=== PATIENT | female | born 1975 | race Caucasian/White ===

== ENCOUNTER 2025-05-07 07:33 | Inpatient (IN) | payer OTHER, SELFPAY ==
--- OUTSIDE RECORDS SUMMARY | 2021-12-20 04:39 | XMS_ITS | Continuity of Care Document ---
Author Organization [facility] Address [address] [place] [place] [address] Phone Care Team Providers Care Offset Plate Preparation Supervisor Name Role Phone Sean DO, Jessica Unavailable [...] Healthcare, [address], [place], [id number], [place] tel:[phone] [facility] No Information 2 Sean Lopez. [address], [id number] 0, [place], [id number], [place]. tel:[phone] [facility], [address], [place], [id number], [place] tel:[phone] [facility] No Information 1 [place]. [address], [id number] 0, [place], [id number], [place]. tel:[phone] OFFICE/OUTPA TIENT VISIT, EST [facility], [address], [place], [id number], [place] tel:[phone] [facility] Body mass index (BMI) 45.0-49.9, adultOpioid dependencePs ychophysiolo gic insomnia 1 Sean Lopez. [address], [id number] [place], [id number], [place]. tel:[phone] Referring Provider: Jessica Estrada, [address] [id number] [place], [address]. tel:[phone] OFFICE/OUTPA TIENT VISIT, EST [facility], [address], [place], [id number], [place] tel:[phone] [facility] Body mass index (BMI) 45.0-49.9, adultOpioid dependencePs ychophysiolo gic insomnia Nov- 1 Sean Lopez. [address], [id number] 0CH, [place], [place], [id number], [place]. tel:[phone] Referring Provider: Jessica Estrada, [address] [id number] [place], [address]. tel:[phone] OFFICE/OUTPA TIENT VISIT, EST [facility], [address], [place], [place], [id number], [place] tel:[phone] [facility] Opioid dependencePs ychophysiolo gic insomniaBody mass index (BMI) 40.0-44.9, adult Oct- 1 Sean Lopez. [address], [id number] 0CH, [place], [place], [id number], [place]. tel:[phone] Referring Provider: Jessica Estrada, [address] [id number] , [place], [address]. tel:[phone] OFFICE/OUTPA TIENT VISIT, EST [facility], [address], [place], [place], [id number], [place] tel:[phone] [facility] Opioid dependencePs ychophysiolo gic insomniaBody mass index (BMI) 40.0-44.9, adult 0 Sean Lopez. [address], [id number] 0CH, [place], [place], [id number], [place]. tel:[phone] Referring Provider: Jessica Estrada, [address] [id number] [place], [address]. tel:[phone] OFFICE/OUTPA TIENT VISIT, EST [facility], [address], [place], [place], [id number], [place] tel:[phone] [facility] Opioid dependencePs ychophysiolo gic insomniaBody mass index (BMI) 40.0-44.9, adult Sep- 0 Sean Jessica. [address], [id number] 0CH, [place], [place], [id number], [place]. tel:[phone] Referring Provider: Jessica Estrada, [address] [id number] [place], [address]. tel:[phone] OFFICE/OUTPA TIENT VISIT, EST [facility], [address], [place], [place], [id number], [place] tel:[phone] [facility] Opioid dependencePs ychophysiolo gic insomniaBody mass index (BMI) 40.0-44.9, adult 0 Sean Jessica. [address], [id number] 0CH, [place], [place], [address], [place]. tel:[phone] Referring Provider: Jessica Estrada, [address] [id number] [place], [address]. tel:[phone] OFFICE/OUTPA TIENT VISIT, EST [facility], [address], [place], [place], [id number], [place] tel:[phone] [facility] Opioid dependencePs ychophysiolo gic insomniaBody mass index (BMI) 40.0-44.9, adult 0 Sean Jessica. [address], [id number] 0CH, [place], [id number], [place]. tel:[phone] Referring Provider: Jessica Estrada, [address] [id number] [place], [address]. tel:[phone] OFFICE/OUTPA TIENT VISIT, EST [facility], [address], [place], [place], [id number], [place] tel:[phone] [facility] Opioid dependencePs ychophysiolo gic insomniaBody mass index (BMI) 40.0-44.9, adult 0 Sean Jessica. [address], [id number] 0CH, [place], [id number], [place]. tel:[phone] Referring Provider: Jessica Estrada, [address] [id number] [place], [address]. tel:[phone] OFFICE/OUTPA TIENT VISIT, EST [facility], [address], [place], [place], [id number], [place] tel:[phone] [facility] Opioid dependencePs ychophysiolo gic insomniaBody mass index (BMI) 40.0-44.9, adult Mar-3 0-202 0 Sean Jessica. [address], [id number] 0CH, [place], [id number], [place]. tel:[phone] Referring Provider: Jessica Estrada, [address] [id number] [place], [address]. tel:[phone] OFFICE/OUTPA TIENT VISIT, EST [facility], [address], [place], [place], [id number], [place] tel:[phone] [facility] Body mass index (BMI) 40.0-44.9, adultOpioid dependencePs ychophysiolo gic insomnia Mar-0 2-202 0 eSan Jessica. [address], [id number] [place], [address], [place]. tel:[phone] Referring Provider: Jessica Estrada, [address] [id number] [place], [address]. tel:[phone] OFFICE/OUTPA TIENT VISIT EST Telehealth [facility], [address], [place], [place], [id number], [place] tel:[phone] [facility] Body mass index (BMI) 40.0-44.9, adultOpioid dependencePs ychophysiolo gic insomnia Feb-0 3-202 0 Sean Jessica. [address], [id number] 0CH, [place], [id number], [place]. tel:[phone] Referring Provider: Jessica Estrada, [address] [id number] [place], [address]. tel:[phone] OFFICE/OUTPA TIENT VISIT EST Telehealth [facility], [address], [place], [place], [id number], [place] tel:[phone] [facility] Body mass index (BMI) 40.0-44.9, adultOpioid dependence Sean Jessica. [address], [id number] [place], [id number], [place]. tel:[phone] Referring Provider: Jessica Estrada, [address] [id number] [place], [address]. tel:[phone] OFFICE/OUTPA TIENT VISIT EST Telehealth [facility], [address], [place], [place], [id number], [place] tel:[phone] [facility] Body mass index (BMI) 40.0-44.9, adultOpioid dependence Sean Jessica. [address], [id number] 0, [place], [id number], [place]. tel:[phone] Referring Provider: Jessica Estrada, [address] [id number] [place], [address]. tel:[phone] OFFICE/OUTPA TIENT VISIT EST Telehealth [facility], [address], [place], [place], [id number], [place] tel:[phone] [facility] Opioid dependenceBo dy mass index (BMI) 40.0-44.9, adult Sean Jessica. [address], [id number] 0, [place], [id number], [place]. tel:[phone] Referring Provider: Jessica Estrada, [address] [id number] [place], [address]. tel:[phone] PSYCH DIAG EVAL W/MED SRVCS Telehealth [facility], [address], [place], [id number], [place] tel:[phone] [facility] Body mass index (BMI) 40.0-44.9, adultOpioid dependence 9 Sean Lopez. [address], [id number] [place], [id number], [place]. tel:[phone] Referring Provider: Jessica Estrada, [address] [id number] [place], [address]. tel:[phone] OFFICE/OUTPA TIENT VISIT, NEW [facility], [address], [place], [id number], [place] tel:[phone] [facility] AMP physical (chief complaint) Body mass index (BMI) 40.0-44.9, adultTobacco useOpioid dependenceDe pressionGene ralized anxiety disorder 9 Brothers Tanya. [address], [id number] [place], [id number], [place]. tel:[phone] Referring Provider: Tanya Zamora, [address] [id number] [place], [address]. tel:[phone] PSYCH DIAGNOSTIC EVALUATION [facility], [address], [place], [id number], [place] tel:[phone] [facility] Major depressive disorder, single episode, mildOpioid dependenceCa nnabis dependence 9 Jono Crum. [address], [place], [id number], [place]. tel:[phone] Referring Provider: Skyla De La Cruz, [address], [place], [address]. tel:[phone] Family History Family Member Type Diagnosis Age [...] Of Treatment Date Type Action Status Goal Influenza vaccine. Due on due Goal HPV. Due on due Goal HPV, high+low-risk. Due on S due Goal Pap/HPV testing. [...] on due Goal Influenza vaccine. Due on Ia due Goal Pap/HPV testing. Due on due [...] due Goal HPV. Due on due Goal HPV. Due on [...] on due Goal Influenza vaccine. Due on p due Goal Pap/HPV testing. Due on [...] Diabetes screening. Due on M due Goal Pap/HPV testing. Due on due [...] diet completed Goal Influenza vaccine. Due on Oc due Goal Diabetes screening. Due on O due Goal Td vaccine. Due on due Goal Depression screening. Due on due Goal HPV, high+low-risk. Due on O due Goal Tdap. Due on due Goal Pap/HPV testing. Due on due Goal Lifestyle education regardin g diet completed Goal Diabetes screening. Due on S due Goal Pap/HPV testing. Due on due Goal HPV, high+low-risk. Due on S due Goal Td vaccine. Due on due [...] in a program for 7 months in [facility] but they required twice a week attendance, one to see provider and one for group. Patient could not keep up with it plus it was rumored that the program was going to close. The patient lives in [facility] and has a PCP there at from [facility] --Emi Landers MD. States she is seen fairly regularly for her high BP and pain issues and had blood work drawn three weeks ago there. States she was checked for Hep C there and it was negative. Checked for HIV while five years ago and it was negative. 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 She attends AA meetings in [facility] because they have no NA program [...]
--- OUTSIDE RECORDS SUMMARY | 2025-05-04 06:40 | XMS_ITS ---
Author Organization [facility] Address [address] [place] [address] Care Team Providers Care Business Systems Lead Name Role Phone Junito Banks Primary Care Provider [phone] Samina Miller Unavailable [phone] REASON FOR VISIT CRU aT Social History Tobacco Use: Social History Observation Description Date Details (start date - stop date) Current Smoker 05/03/1995 - NA PRAPARE Question Answer Notes Date Completed/Updated: 05/04/2025 What is your current housing situation? I do not have housing (staying with others, in a hotel, in a residential, living outside on the street, on a beach, or in a park) Are you worried about losing your housing? Yes What is the highest level of school that you have finished? More than high school What is your current work situation? 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 Check all that apply Food,Utilities Has lack of transportation k ept you from medical appointments, meetings, work or from getting things needed for daily living? Yes, it has kept me from medical appointments or from getting my medications,Yes, it has kept me from non-medical meetings, appointments, work, or getting things needed for daily living How often do you see or talk to people that you care about and feel close to? (For example: talking to friends on the phone, visiting friends or family, going to lutheran or club meetings) More than 5 times a week How stressed are you? Stress is when someone feels tense, nervous, anxious, or can\t sleep at night because their mind is troubled Very much In the past year have you sp ent more than 2 nights in a row in a correction, usp, mcc center, or juvenile correctional facility? No Are you a refugee? I choose not to answer this q uestion What country are you from? I choose not to answe r this question Do you feel physically and e motionally safe where you currently live? Yes In the past year, have you b een afraid of your partner or ex-partner? No PRAPARE Score: 10 Enabling Services Provided? Yes Please specify Case Management Asse ssment First Visit,Referral for Food Services,Referral for Housing Services Tobacco Control (Standard) Question Answer Notes Tobacco use: Current smoker When did you start smoking? 05/03/1995 How often do you smoke cigarettes? Some days, bu t not every day How many cigarettes a day do you smoke? 5 or les s Are you interested in quitting? Thinking about q uitting Additional Findings: Tobacco user e-cigarette Problems Problem Type SNOMED Code ICD Code Onset Dates Problem Status W/U Status Risk Notes Problem Substance abuse (8382990464) Substance abuse (F19.10) Active confirmed Problem Mental health disorder (F99) Active confirmed Encounters Encounter Location Date Provider Diagnosis [place] [address] [place] [address] 05/04/2025 Samina Miller Substance abuse F19.10 ; Mental health disorder F99 and Over weight E66.3 Assessments Encounter Date Diagnosis (ICD Code) Assessment Notes Treatment Notes Treatment Clinical Notes Section Notes 05/04/2025 Substance abuse (ICD-10 - F19.10) 05/04/2025 Mental health disorder (ICD-10 - F99) 05/04/2025 Over weight (ICD-10 - E66.3) 05/04/2025 Other Clinician met w ith client to assess needs for residential services. Clinician gathered information regarding historical presentation of mental health and substance use symptoms including withdrawal, HIV Risk assessment, psychiatric hospitalization history and presenting concern. Clinician conducted PHQ9 and CSSRS assessments as well as social drivers of health screening for the purposes of identifying additional service needs. Plan Of Treatment Treatment Notes Assessment Notes Other Clinician met with breonna ambrose to assess needs for residential services. Clinician gathered information regarding historical presentation of mental health and substance use symptoms including withdrawal, HIV Risk assessment, psychiatric hospitalization history and presenting concern. Clinician conducted PHQ9 and CSSRS assessments as well as social drivers of health screening for the purposes of identifying additional service needs. Next Appt Details Follow Up: prn, Reason: Provider Name:Olivia Conde Delta ers, 05/13/2025 11:00:00 AM, [address], [place], [address], Progress Notes * Jaquelin HIGHB:1975 (49 yo F)Acc No.[id number]:05/04/2025 UNLOCKED PROGRESS NOTE Patient: Lena BELLO Provider: Renuka Miller :1975 A ge:49 Y S ex:Female Date:05/04/2025 Address:[address] [place], [place] [address] [id number] Pcp:Junito Banks Subjective: * Chief Complaints: * 1 . CRU aT. * HPI: P sychiatric Assessment - Current Symptoms: Primary concern today A dmitting today for [facility]. O verview of Mental Health Symptoms C halie reported experiencing major depressive disorder, unsure if this was diagnosed by a provider. Client thinks she may experience some anxiety and symptoms of bipolar as well. H istory of Psychiatric Hospitalizations N one reported at this time. H istory of Psychiatric and Behavioral Health Treatment C halie reported having tried numerous medications to help with her depression . S ubstance Use: Current Use Patterns C halie reported using 2 grams every day. P rimary Substance Used M eth. H istory of substance use C halie reported using meth every day for about 6 months, Client reported a long history of using a variety of other substances including cocaine, marajuana, Vivance, and others. H x of Withdrawal C halie has different withdrawals symptoms depending on what drug is being used, some symptoms reported included itching skin, irritability, restless legs, increased emotional expression. A ssessment of Social Determinants of Health::: Has A PRAPARE Been Completed In The Past Year? H as a PRAPARE Been Completed In The Past Year? Y es, W as It Completed Today Using SmartForm? N o.? a TBC For Substance Use Services: Who Is Your Primary Care Provider? D o You Have A Primary Care Provider? N o, D ate of last physical exam 0 -2024. D o You Have A Psychiatric Provider? D o You Have A Psychiatric Provider? N o. D o You Have Any Other Professional Supports? D o You Have Any Other Professional Supports N o. C onsent Forms Completed?Consent Forms N one Needed at this time. D epression Screening: PHQ-9 L ittle interest or pleasure in doing things N early every day, F eeling down, depressed, or hopeless N early every day, T rouble falling or staying asleep, or sleeping too much N early every day, F eeling tired or having little energy N early every day, P oor appetite or overeating N early every day, F eeling bad about yourself or that you are a failure, or have let yourself or your family down N early every day, T rouble concentrating on things, such as reading the newspaper or watching television?Nearly every day, M oving or speaking so slowly that other people could have noticed; or the opposite, being so fidgety or restless that you have been moving around a lot more than usual N early every day, T houghts that you would be better off or of hurting yourself in some way N ot at all, T otal Score 2 4, I nterpretation S evere Depression. I ntervention D epression Screening Findings P ositive, F ollow-Up for Depression Renuka moss is admitted to a [facility] unit where their mental health is monitored - unit nursing staff have access to this encounter note. S creening: [place] Suicide Severity Rating Scale (LF) D o you want to initiate with S creener form, 1 . Wish to be : Have you wished you were or wished you could go to sleep and not wake up? N o, 2 . Suicidal Thoughts: Have you actually had any thoughts of killing yourself? N o, 6 . Suicide Behavior Question: Have you ever done anything,started to do anything, or prepared to end your life? N o, I nterpretation: L ow Risk. * Medical History: * Social History: S ocial Determinants: P KARINA Ryan ate Completed/Updated: 0 05/04/2025, W hat is your current housing situation? I do not have housing (staying with others, in a hotel, in a residential, living outside on the street, on a beach, or in a park), A re you worried about losing your housing? Y es, W hat is the highest level of school that you have finished? M ore than high school, W hat is your current work situation? 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 Check all that apply F ood,Utilities, H as lack of transportation kept you from medical appointments, meetings, work or from getting things needed for daily living? Y es, it has kept me from medical appointments or from getting my medications,Yes, it has kept me from non-medical meetings, appointments, work, or getting things needed for daily living, H ow often do you see or talk to people that you care about and feel close to? (For example: talking to friends on the phone, visiting friends or family, going to lutheran or club meetings) M ore than 5 times a week, H ow stressed are you? Stress is when someone feels tense, nervous, anxious, or can\t sleep at night because their mind is troubled Very much, I n the past year have you spent more than 2 nights in a row in a correction, usp, mcc center, or juvenile correctional facility? N o, A re you a refugee? I choose not to answer this question, W hat country are you from? I choose not to answer this question, D o you feel physically and emotionally safe where you currently live? Y es, I n the past year, have you been afraid of your partner or ex-partner? N o, P RAPARE Score: 1 0,?Enabling Services Provided? Y donna, P marcel specify C ase Management Assessment First Visit,Referral for Food Services,Referral for Housing Services. T obacco Use: T obacco Control (Standard) T obacco use: C urrent smoker, W hen did you start smoking? 0 05/03/1995, H ow often do you smoke cigarettes? S ome days, but not every day, How many cigarettes a day do you smoke? 5 or less, A re you interested in quitting? T hinking about quitting, A dditional Findings: Tobacco user e -cigarette. Objective: * Vitals: * Examination: M ental Status Exam: ATTENTION AND CONCENTRATION I mpaired attention/concentration. APPEARANCE A ppropriate. ATTITUDE AND BEHAVIOR C ooperative. EYE CONTACT G ood. AFFECT C ongruent with reported mood. MOOD E uthymic. INSIGHT F air. JUDGMENT G ood. C lient speech was fairly tangential which appeared to impact her level of concentration. Assessment: * Assessment: 1. S ubstance abuse - F19.10 (Primary) 2 . M ental health disorder - F99? 3. O gallito weight - E66.3 Plan: * Treatment: * Procedure Codes: 3 008F BODY MASS INDEX DOCD, 74060 PSYCH DIAGNOSTIC EVALUATION, Modifiers: AJ , CHS08 aT Service, [facility] Housing Assistance * Preventive Medicine: Counseling: S MOKING: Renuka moss counselled on the dangers of tobacco use and urged to quit. 0 05/04/2025 .. C are goal follow-up plan: B NM management provided Y es,?Above Normal BMI Follow-up L ifestyle education regarding diet. * Follow Up: p rn * * Electronic signature of Haider Miller on 05/07/2025 at 08:51 AM CDT Sign off status: Pending * Provider: Renuka Miller Date: 0 05/04/2025 Generated for Russ shaikh/Farhad/Adeleitting on: 0 05/07/2025 08:51 AM CDT History and Physical Notes * HPI (History of Present Illness) Category Sub-Category Detail Notes Category Not es Depression Screening PHQ-9 Little inte rest or pleasure in doing things: Nearly every day Feeling down, depressed, or hopeless: Ne mihaela every day Trouble falling or staying asleep, or sl eeping too much: Nearly every day Feeling tired or having little energy: N early every day Poor appetite or overeating: Nearly ever y day Feeling bad about yourself o r that you are a failure, or have let yourself or your family down: Nearly every day Trouble concentrating on thi ngs, such as reading the newspaper or watching television: Nearly every day Moving or speaking so slowly that other people could have noticed; or the opposite, being so fidgety or restless that you have been moving around a lot more than usual: Nearly every day Thoughts that you would be b germaine off or of hurting yourself in some way: Not at all Total Score: 24 Interpretation: Severe Depression Intervention Depression Screening Findings: P ositive Follow-Up for Depression: Nico harris is admitted to a [facility] unit where their mental health is monitored - unit nursing staff have access to this encounter note Psychiatric Assessment - Current Symptoms Primary concern today Admitting today for [facility] program Overview of Mental Health Symptoms Cllynn silva reported experiencing major depressive disorder, unsure if this was diagnosed by a provider. Client thinks she may experience some anxiety and symptoms of bipolar as well History of Psychiatric Hospitalizations None reported at this time History of Psychiatric and B ehavioral Health Treatment Client reported having tried numerous me dications to help with her depression Substance Use History of substance use Client reported using meth every day for about 6 months, Client reported a long history of using a variety of other substances including cocaine, marajuana, Vivance, and others Hx of Withdrawal Client has different withdrawals symptoms depending on what drug is being used, some symptoms reported included itching skin, irritability, restless legs, increased emotional expression Primary Substance Used Meth Current Use Patterns Client reported usi ng 2 grams every day Screening [place] Suicide Sev erity Rating Scale (LF) Do you want to initiate with: Screener form 1. Wish to be : Have you wished you were or wished you could go to sleep and not wake up?: No 2. Suicidal Thoughts: Have you actually had any thoughts of killing yourself?: No 6. Suicide Behavior Question: Have you ever done anything,started to do anything, or prepared to end your life?: No Interpretation:: Low Risk Assessment of Social Determinants of Health:: Has A PRAPARE Been Completed In The Past Year? Has a PRAPARE Been Completed In The Past Year?: Yes Was It Completed Today Using SmartForm?: No aT For Substance Use Services Who Is Your Primary Care Provider? Do You Have A Primary Care Provider?: No Date of last physical exam: Do You Have A Psychiatric Provider? Do You Have A Psychiatric Provider?: No Do You Have Any Other Profes sional Supports? Do You Have Any Other Professional Supports: No Consent Forms Completed Consent Forms: None Need ed at this time Examination Category Sub-Category Detail Notes Category Not es Mental Status Exam ATTENTION AND CONCENTRATION Impaired attention/concentration Client speech was fairly tangential which appeared to impact her level of concentration. APPEARANCE Appropriate ATTITUDE AND BEHAVIOR Cooperative EYE CONTACT Good AFFECT Congruent with repor areli mood MOOD Euthymic INSIGHT Fair JUDGMENT Good
--- OUTSIDE RECORDS SUMMARY | 2025-05-06 04:00 | XMS_ITS ---
Author Organization [facility] Address [address] [place] [address] Care Team Providers Care Senior Production Planner Name Role Phone Junito Banks Primary Care Provider REASON FOR VISIT Admission labs Encounters Encounter Location Date Provider Diagnosis [facility] [address] [place] [address] 05/06/2025 Junito Banks Plan Of Treatment Next Appt Details Provider Name:Olivia agee, 05/13/2025 11:00:00 AM, [address], [place], [address], Progress Notes * Jaquelin HIGHB:1975 (49 yo F)Acc No.[id number]:05/06/2025 UNLOCKED PROGRESS NOTE Patient: Lena BELLO Provider: Luly Banks APN :1975 A ge:49 Y S ex:Female Date:05/06/2025 [facility] 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 Admission labs. * Medical History: Objective: * Vitals: Assessment: Plan: * Treatment: * * Electronic signature of Billy Banks on 05/07/2025 at 08:51 AM CDT Sign off status: Pending * Provider: Luly Banks APN Date: 05/06/2025 Generated for Russ shaikh/Farhad/eTransmitting on: 05/07/2025 08:51 AM CDT
[2025-05-07] VITALS (34 sets, daily range): BP systolic 71–136; BP diastolic 42–86; PULSE 74–97; RESP 7–27; TEMP 36.4–37.2; O2SAT 77–100; BMI 29.5
--- NOTE | ~2025-05-07 | CT_ITS ---
EXAMINATION: CT abdomen pelvis w con DATE: 05/07/2025 14:52 INDICATION: None available TECHNIQUE: Computed tomography (CT) of the abdomen and pelvis was performed with intravenous contrast. The dose-length product was 1197.75 mGy-cm. COMPARISON: None. FINDINGS: There is a 6 mm groundglass nodule in the right lower lobe. A chest CT is recommended. Micronodular appearance to the surface of the liver. No focal liver mass identified. Spleen is enlarged measuring 18.9 cm in greatest dimension. There are esophageal, gastric and splenic varices. Kidneys and adrenal glands are unremarkable. Pancreas is unremarkable. Gallbladder is unremarkable. Moderate to large amount of nonspecific ascites and fat stranding scattered throughout the abdomen and pelvis. No dilated bowel loops. Mild diverticulosis in the sigmoid colon. Bladder is unremarkable. Uterus is unremarkable. Thickening of the fowler of the small bowel. There are a moderate nonspecific anasarca. Few nonenlarged nonspecific lymph nodes in the abdomen or pelvis. Moderate nonspecific anasarca. Multilevel degenerative change in the visualized spine most prominent in the lower lumbar spine. IMPRESSION: 1. Micronodular appearance to the surface of the liver suggestive of cirrhosis. No focal liver mass identified. 2. Splenomegaly. 3. Esophageal, gastric and splenic varices. 4. Moderate to large amount of nonspecific ascites and fat stranding scattered throughout the abdomen and pelvis 5. Thickening of the fowler of the small bowel. Differential includes enteritis or a fluid overload state. 6. Moderate nonspecific anasarca 7. There is a 6 mm groundglass nodule in the right lower lobe. A chest CT is recommended. Reviewed, dictated and finalized at location Q. IMPRESSION: 1. Micronodular appearance to the surface of the liver suggestive of cirrhosis. No focal liver mass identified. 2. Splenomegaly. 3. Esophageal, gastric and splenic varices. 4. Moderate to large amount of nonspecific ascites and fat stranding scattered throughout the abdomen and pelvis 5. Thickening of the fowler of the small bowel. Differential includes enteritis or a fluid overload state. 6. Moderate nonspecific anasarca 7. There is a 6 mm groundglass nodule in the right lower lobe. A chest CT is re commended.
--- NOTE | ~2025-05-07 | US_ITS ---
EXAMINATION: US paracentesis abd w/image DATE: 05/08/2025 10:05 INDICATION: Cirrhosis and ascites TECHNIQUE: The procedure and its risks and benefits were discussed with the patient. Potential risks discussed included bleeding and infection. The skin was prepped and draped in sterile fashion. 1% lidocaine was used for local anesthesia. Under ultrasound guidance, a 5 Fr catheter with trochar was advanced into the ascites in the right lower quadrant. Fluid was aspirated into vacuum bottles. The catheter was removed, and a dressing was applied. There were no immediate complications. FINDINGS: Ultrasound images demonstrate ascites and the catheter within the fluid. IMPRESSION: 1. Successful ultrasound-guided paracentesis yielding 5000 mL of clear straw- colored fluid. Reviewed, dictated and finalized at location A. IMPRESSION: 1. Successful ultrasound-guided paracentesis yielding 5000 mL of clear straw-c olored fluid.
--- NOTE | 2025-05-07 07:40 | ED.GENADULT ---
HPI - General Adult General Chief complaint: Recheck/Abnormal Lab/Rx Stated complaint: low hgb/ Time Seen by Provider: 05/07/25 07:38 Source: patient Mode of arrival: ambulatory Limitations: no limitations History of Present Illness HPI narrative: 49 years old white female came from [facility] with blood workup showing low hemoglobin approximately 5.7. Patient denies any fever, chills, nausea, vomiting, abdominal pain Related Data Allergies Allergy/AdvReac Type Severity Reaction Status Date / Time shellfish derived Allergy Severe Hives Verified 05/07/25 08:03 Sulfa (Sulfonamide AdvReac Nausea and Verified 05/07/25 08:03 Antibiotics) Vomiting Course Consultations Consultation #1: Dr. Yuan Admit to hospitalist Vital Signs Vital signs: Vital Signs Temperature 36.9 C 05/07/25 07:39 Pulse Rate 96 05/07/25 07:39 Respiratory Rate 16 05/07/25 07:39 Blood Pressure 118/71 05/07/25 07:39 Pulse Oximetry 98 05/07/25 07:39 Oxygen Delivery Room Air 05/07/25 07:39 Temperature 36.6 C 05/07/25 09:40 Pulse Rate 80 05/07/25 09:40 Respiratory Rate 14 05/07/25 09:40 Blood Pressure 95/59 L 05/07/25 09:40 Pulse Oximetry 100 05/07/25 09:40 Oxygen Delivery Nasal Cannula 05/07/25 09:10 Oxygen Flow Rate 2 05/07/25 09:10 Medical Decision Making Vital Signs Vital Signs: Vital Signs Temperature 36.9 C 05/07/25 07:39 Pulse Rate 96 05/07/25 07:39 Respiratory Rate 16 05/07/25 07:39 Blood Pressure 118/71 05/07/25 07:39 Pulse Oximetry 98 05/07/25 07:39 Oxygen Delivery Room Air 05/07/25 07:39 Temperature 36.6 C 05/07/25 09:40 Pulse Rate 80 05/07/25 09:40 Respiratory Rate 14 05/07/25 09:40 Blood Pressure 95/59 L 05/07/25 09:40 Pulse Oximetry 100 05/07/25 09:40 Oxygen Delivery Nasal Cannula 05/07/25 09:10 Oxygen Flow Rate 2 05/07/25 09:10 Lab Data 05/07/25 07:58 05/07/25 07:52 Labs: Lab Results 05/07/25 05/07/25 Range/Units 07:52 07:58 WBC 8.1 (4.5-10.0) K/mm3 RBC 2.39 L (4.2-5.4) M/mm3 Hgb 6.0 L* (12.0-15.0) g/dL Hct 21.5 L (37.0-47.0) % MCV 90.0 (80-100) fl MCH 25.1 L (26-34) pg MCHC 27.9 L (32-36) g/dl RDW 22.0 H (11.5-14.5) % Plt Count 377 H (150-375) k/mm3 MPV 12.5 H (7.4-10.4) fl Immature Gran % (Auto) 2.0 H (0-0.5) % Neut % (Auto) 68.7 (45.5-73.1) % Lymph % (Auto) 18.2 L (18.3-44.2) % [place] % (Auto) 6.8 (2.6-8.5) % Eos % (Auto) 2.7 (0-4.4) % Baso % (Auto) 1.6 H (0.2-1.2) % Lymph # (Auto) 1.47 (0.9-3.2) K/mm3 [place] # (Auto) 0.6 (0.1-0.6) K/mm3 Eos # (Auto) 0.2 (0-0.3) K/mm3 Baso # (Auto) 0.1 (0.0-0.1) K/mm3 Abs Immat Gran (auto) 0.16 H (0.00-0.031) K/mm3 Absolute Neuts (auto) 5.5 (1.3-6.7) K/mm3 Absolute Nucleated RBC 0.330 H (0.0-0.012) K/mm3 Band Neutrophils % Not Reportable Nucleated RBC % 4.1 H (0.0-0.2) % Platelet Estimate Increased (Adequate) Polychromasia 1+ Hypochromasia 1+ Poikilocytosis 1+ Anisocytosis 2+ Tear Drop Cells 1+ Ovalocytes 1+ Schistocytes Occasional PT 13.9 (11.1-14.7) Seconds INR 1.1 APTT 32.3 (22.3-36.8) Seconds Sodium 135 L (137-145) mmol/L Potassium 4.7 (3.4-5.0) mmol/L Chloride 104 (98-107) mmol/L Carbon Dioxide 27 (22-30) mmol/L Anion Gap 4 (4-12) mmol/L BUN 14 (7-17) mg/dL Creatinine 0.90 (0.7-1.0) mg/dL Estim Creat Clear Calc 75 ml/min Estimated GFR > 60 (59 - ) Glucose 108 (65-110) mg/dL Calcium 8.9 (8.4-10.2) mg/dL Total Bilirubin 0.9 (0.2-1.3) mg/dL AST 50 H (14-36) U/L ALT 14 (6-35) U/L Alkaline Phosphatase 94 (38-126) U/L Total Protein 6.6 (6.3-8.2) g/dL Albumin 3.5 (3.5-5.1) g/dL Blood Type A Positive Antibody Screen Negative Crossmatch See Detail Critical Care Time Critical Care Time Critical Care Time: Yes Total Critical Care Time: 30 Discharge Plan Discharge Clinical Impression: Anemia, History of cirrhosis of liver, History of esophageal varices Patient Disposition: Still a Patient Condition: Stable
[2025-05-07 08:04] LABS: Hematocrit 21.5 % (37.0-47.0); Immature Granulocyte Percent A 2.0 % (0-0.5); Lymphocytes Absolute Auto 1.47 K/mm3 (0.9-3.2); Mean Corpuscular HGB Conc 27.9 g/dl (32-36); Mean Corpuscular Hemoglobin 25.1 pg (26-34); Mean Corpuscular Volume 90.0 fl (80-100); Nucleated Red Blood Cells Absolute Auto 0.330 K/mm3 (0.0-0.012); Nucleated Red Blood Cells Perc 4.1 % (0.0-0.2); Platelet Count Result 377 k/mm3 (150-375); Red Blood Count 2.39 M/mm3 (4.2-5.4); White Blood Count 8.1 K/mm3 (4.5-10.0)
[2025-05-07 08:16] LABS: INR 1.1; Prothrombin Time 13.9 Seconds (11.1-14.7)
[2025-05-07 08:17] LABS: Partial Thromboplastin Time 32.3 Seconds (22.3-36.8)
[2025-05-07 08:21] LABS: Hemoglobin 6.0 g/dL (12.0-15.0)
[2025-05-07 08:23] LABS: Anisocytosis 2+; Hypochromasia 1+; Ovalocytes 1+; Poikilocytosis 1+; Polychromasia 1+; Schistocytes Occasional; Tear Drop Cells 1+
[2025-05-07 08:26] LABS: Alanine Aminotransferase 14 U/L (6-35); Albumin Level 3.5 g/dL (3.5-5.1); Alkaline Phosphatase 94 U/L (38-126); Anion Gap 4 mmol/L (4-12); Aspartate Amino Transferase 50 U/L (14-36); Bilirubin,Total 0.9 mg/dL (0.2-1.3); Blood Urea Nitrogen 14 mg/dL (7-17); Calcium 8.9 mg/dL (8.4-10.2); Carbon Dioxide 27 mmol/L (22-30); Chloride 104 mmol/L (98-107); Estimated CRCL calculation 75 ml/min; Estimated Glomerular Filt Rate > 60; Glucose 108 mg/dL (65-110); Potassium 4.7 mmol/L (3.4-5.0); Sodium 135 mmol/L (137-145); Total Protein 6.6 g/dL (6.3-8.2)
[2025-05-07] MEDS: PANTOPRAZOLE SODIUM IV 40 MG VIAL IV PUSH (08:44)
[2025-05-07] MEDS: OCTREOTIDE ACETATE 50 MCG/ML VIAL IV PUSH (08:45)
--- OUTSIDE RECORDS SUMMARY | 2025-05-07 08:51 | XMS_ITS | Patient Health Record ---
Author Organization [facility] Address [address] [place] [address] Care Team Providers Care Adjunct Art History Instructor Name Role Phone Junito Banks Primary Care Provider Samina Miller Unavailable [phone] Allergies Allergen (clinical drug ingredient) Drug/Non Drug Allergy documented on EMR Reaction Allergy Type Onset Date Status Shellfish (FN) Shellfish-derived Products Unknown Drug Allergy Active Substance with sulfonamide structure and antibacterial mechanism of action (substance) Sulfa Antibiotics Unknown Drug Allergy Active Results Component Value Reference Range Notes 14 Panel Urine Drug Screen Reviewed date:05/04/2025 12:43:24 PM Interpretation: Performing Lab: Notes/Report: THC POS MINH neg MOP (OPI) neg AMP neg MET neg BAR neg BZO neg MDMA neg MTD neg OXY neg PCP neg BUP neg TCA neg FTY neg Breathalyzer Reviewed date:05/04/2025 12:38:02 PM Interpretation: Performing Lab: Notes/Report: WALDEMAR 0.000 Reason For Referral Diagnosis 1 Encounter for screen ing for malignant neoplasm of colon (Z12.11) Diagnosis 2 Encounter for screen ing for malignant neoplasm of cervix (Z12.4) Diagnosis 3 Encounter for screen ing mammogram for breast cancer (Z12.31) Referral Organization [facility] Referring Provider First Name Junito Referring Provider Last Name Jocelyn Referring Provider Speciality [facility] Med icine Referred Provider Specialty Advertising Agency Manager and animal care service worker Referral Priority Routine Referral Appointment Date 05/04/2025 Medications Medication SIG (Take, Route, Frequency, Duration) Notes Start Date End Date Status DULoxetine HCl 60 MG 2 capsules Orally O nce a day Active tiZANidine HCl 4 MG 1 tablet at bedtime as needed Orally 4 times a day, as needed for muscle spasms Active Multi Vitamin - 1 tablet Orally Once a day; Duration: 30 days 05/04/2025 Active Nicotine Polacrilex 4 MG 1 lozenge as ne eded for nicotine cravings Mouth/Throat Up to once per hour (maximum of 15 lozenges per day); Duration: 7 days 05/04/2025 Active Gabapentin 800 MG 1 tablet Orally 4 ti mes a day Active Pantoprazole Sodium 40 MG 1 tablet Orall y twice a day Active Spironolactone 25 MG 1 tablet Orally Once a day Active traZODone HCl 100 MG 2 tables at night O rally Once a day Active Nicotine 14 MG/24HR 1 patch to skin Transdermal Once a day, removing at bedtime; Duration: 14 days 05/04/2025 Active Melatonin 5 MG 1 tablet at bedtime as needed Orally Once a day; Duration: 30 days 05/04/2025 Active Prempro 0.3-1.5 MG 1 tablet Orally Once a day Active hydrOXYzine Pamoate 25 MG 1-2 capsules O rally every 4 hours as needed for anxiety, agitation, or inability to sleep. Do not give within 4 hours of diphenhydramine.; Duration: 30 days 05/04/2025 Active Social History Tobacco Use: Social History Observation Description Date Details (start date - stop date) Current Smoker 05/03/1995 - JANINA TAVARESPARCarlotta Question Answer Notes Date Completed/Updated: 05/04/2025 What is your current housing situation? I do not have housing (staying with others, in a hotel, in a detention, living outside on the street, on a beach, or in a park) Are you worried about losing your housing? Yes What is the highest level of school that you have finished? More than high school What is your current work situation? Oth erwise unemployed but not seeking work (ex. 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 Stress is when someone feels tense, nervous, anxious, or can\t sleep at night because their mind is troubled Very much In the past year have you sp ent more than 2 nights in a row in a halfway, usp, care home center, or juvenile correctional facility? No Are [...] W/U Status Risk Notes Problem Substance abuse (3482969430) Substance abuse (F19.10) Active confirmed Problem Overweight (102930379) Over weight (E66.3) Active confirmed Problem Mental health disorder (25764959) Mental health disorder (F99) Active confirmed Problem History of methicillin resistant Staphylococcus aureus infection (280180599) History of MRSA infection (Z86.14) Active confirmed Problem Physical examination, complete (84431702) Adult general medical examination (Z00.00) Active confirmed Vital Signs Heart Rate 96 /min 05/04/2025 Temperature 98.1 degrees Fahrenheit 05/04/2025 Respiratory Rate 18 /min 05/04/2025 Blood pressure diastolic 62 mm Hg 05/04/2025 Oximetry 100 % 05/04/2025 Height 68 in 05/04/2025 Blood pressure systolic 120 mm Hg 05/04/2025 Weight 190.8 lbs 05/04/2025 BMI 29.01 kg/m2 05/04/2025 Encounters Encounter Location Date Provider Diagnosis [facility] [place] [address] 05/04/2025 Samina Miller Substance abuse F19.10 ; Mental health disorder F99 and Over weight E66.3 [facility] [place] [address] 05/06/2025 Junito Banks [place] [address] [facility] [place] [address] 05/04/2025 Junito Banks Adult general medical examination Z00.00 ; History of MRSA infection Z86.14 ; Encounter for screening for malignant neoplasm of colon Z12.11 ; Encounter for screening for malignant neoplasm of cervix Z12.4 ; Encounter for screening mammogram for breast cancer Z12.31 ; Over weight E66.3 and Abrasion of knee, unspecified laterality, initial encounter S80.219A [facility] [place] [address] 05/07/2025 Junito Banks Assessments Encounter Date Diagnosis (ICD Code) Assessment Notes Treatment Notes Treatment Clinical Notes Section Notes 05/04/2025 History of MRSA infection (ICD-10 - Z86.14) 05/04/2025 Adult general medical examination (ICD-10 - Z00.00) Admit to the Mental Health/Crisis Residential Unit and initiate standing/protocol orders: The following PRN medications may be self-administered by patients under the supervision of approved staff or administered by nursing staff: Ibuprofen 200mg, 2-4 tablets by mouth (with food) every 6 hours as needed for pain (unless on lithium). (NOTE: Ibuprofen and acetaminophen may be given together, but alternating is recommended for continuous pain relief. Guaifenesin 400 mg, 1 tablet by mouth every four hours as needed for cough and chest congestion (take with large glass of water). Loratadine 10 mg, 1 tablet by mouth daily as needed for allergies, watery itchy eyes, or sinus drainage. Throat Lozenges, up to 4 tablets by mouth every three to four hours as needed for sore throat. Antacid tablets, 1-2 tablets by mouth every one to two hours as needed for indigestion or heart burn. If the client prefers liquid, could use: Liquid Antacid : 1 ounce by mouth up to four times daily as needed for indigestion or heartburn Omeprazole 20mg, 1 capsule by mouth once daily for 14 days for frequent heartburn (frequent heartburn is more than 2 episodes per week). Do not exceed 14 days. Do not give to client already taking a proton-pump inhibitor: esomeprazole (Nexium), lansoprazole (Prevacid), pantoprazole (Protonix), rabeprazole (Aciphex), dexlansoprazole (Dexilant) Zofran ODT disintegrating (under the tongue) 4 mg, 1-2 tablets every 8 hours as needed for nausea/vomiting. Milk of Magnesia (MOM): 1 ounce (30 milliliters) by mouth every day as needed for constipation. OR Miralax: Stir and fully dissolve 17 grams (1 packet or 1 capful to measured line) in any 4 to 8 ounces of beverage then drink once daily for constipation. Do not use for more than 7 days. OR Docusate 100 mg, 1 capsule twice daily as needed for constipation Hydrocortisone 1% Cream, apply topically (to the skin) to the affected area up to three times daily as needed for itching or inflammation (avoid eyes and genitals). 2% Antifungal Cream, apply topically (to the skin) as directed as needed to affected areas for athlete's foot or jock itch. Triple Antibiotic Ointment, apply topically (to the skin) up to three times daily as needed for minor cuts and scrapes. Carmex or Chapstick, apply topically (to the skin) as needed for chapped lips and skin. Orajel, apply to affected areas as needed for mouth or tooth pain. Lubricating Eye Drops, instill 1-2 drops to the affected eye(s) as needed for dry/irritated eye(s). Hemorrhoid medications, apply to affected area according to directions as needed for hemorrhoid discomfort and itch. Nix (Permethrin 1%) cream 2 ounces, apply topically (to the skin) as directed as needed for head lice. Sunscreen 30 SPF, Apply to exposed skin prior to exposure to sun. The following PRN medications must be approved by nursing staff before self-administration by patients: Diphenhydramine 25 mg, 2 tablets by mouth every 4 hours as needed for allergic reaction or itchy rash. Caution: Do not use hydroxyzine within 4 hours of diphenhydramine and vice versa. Loperamide 2 mg capsules, may give two capsules by mouth for the initial dose, followed by one capsule up to 3 times a day as needed for diarrhea. Acetaminophen 500 mg, 1 - 2 tablets by mouth every six hours as needed for pain. (NOTE: Ibuprofen and acetaminophen may be given together, but alternating is recommended for continuous pain relief). Oxygen-May administer oxygen 2L/min via nasal cannula if O2 saturation is less than 92%, AND client complains of shortness of breath. Target O2 saturation is 94-98%. Caution: Remember too much oxygen can be detrimental to a client with COPD. Oxygen is a drug and should be delivered by trained staff only. Nurses may remove superficial splinters and sutures from skin lacerations. May apply gauze or bandages to any weeping wounds. Contact nursing if there is pus, a foul odor, increased pain/redness/swelli ng, or if soaking through bandages. 05/04/2025 Substance abuse (ICD-10 - F19.10) 05/04/2025 Mental health disorder (ICD-10 - F99) 05/04/2025 Encounter for screening for malignant neoplasm of colon (ICD-10 - Z12.11) 05/04/2025 Encounter for screening for malignant neoplasm of cervix (ICD-10 - Z12.4) 05/04/2025 Over weight (ICD-10 - E66.3) 05/04/2025 Encounter for screening mammogram for breast cancer (ICD-10 - Z12.31) 05/04/2025 Over weight (ICD-10 - E66.3) 05/04/2025 Abrasion of knee, unspecified laterality, initial encounter (ICD-10 - S80.219A) dressing change twice daily with antibiotic ointment. Clean with NS or alcohol prior to antibiotic ointment and dressing. 05/04/2025 Other Clinician met w ith client to assess needs for residential services. Clinician gathered information regarding historical presentation of mental health and substance use symptoms including withdrawal, HIV Risk assessment, psychiatric hospitalization history and presenting concern. Clinician conducted PHQ9 and CSSRS assessments as well as social drivers of health screening for the purposes of identifying additional service needs. 05/04/2025 Other Continue treatment as recommended by [facility] Crisis Residential Unit staff. Encouraged patient to obtain routine medical care with patient's own primary care provider or establish as a patient at [facility] if no current primary care provider. Plan Of Treatment Future Test Test Name Order Date CBC With Differential/Platelet* 05/04/20 CMP 14 Comprehensive Metabolic Panel* QuantiFERON-TB Gold Plus ([id number]) 2024 Next Appt Details Provider Name:Olivia Conde [place] age[place], 05/13/2025 11:00:00 AM, [address], [place], [address], Insurance Providers Payer Name Payer Address Payer Phone Subscriber Number Group Number Insured Name Patient Relationship to Insured Coverage Start Date Coverage End Date [facility] Attn Claims Department [address] [place] [id number] [phone] [id number] Lena High Self - patient is the insured 5 [facility] Attn Claims Department [address] [place] [address] [id number] Lena High Self - patient is the insured 5 Medical (General) History Medical History History ICD Code Cirrhosis of liver Anemia Surgical History Surgery Date(Month/Year) C Section 2022 Knee surgery 1989 ECG 02/2025 Hospitalization History Reason Date(Month/Year) [facility] for surgery 02/2025
[2025-05-07] MEDS: SODIUM CHLORIDE 0.9% IV 1,000 ML 999 ML IV CONT (09:01)
--- NOTE | 2025-05-07 09:01 | P.CONGI_ITS ---
Assessment and Plan Assessment and plan (1) Cirrhosis: Qualifiers: Ascites presence: with ascites Hepatic cirrhosis type: alcoholic cirrhosis Qualified Code(s): K70.31 - Alcoholic cirrhosis of liver with ascites Code(s): K74.60 - Unspecified cirrhosis of liver Status: Acute (2) Severe anemia: Code(s): D64.9 - Anemia, unspecified Status: Acute Plan 1. Cirrhosis-Alcohol related/esophageal varices/ascites/weight loss/severe anemia: MELD NA 7. Decompensated. Patient states that she was newly diagnosed with cirrhosis while hospitalized in February at [facility] in [facility] where she is from. She states that during that admission she was having black stools and received 5 units of PRBCs. Given her description of symptoms it sounds like she also had hepatic encephalopathy at she had an EGD mid February that she states she had 10-12 varices banded and then had recurrent bleeding and had a never EGD in March which time she had 2-3 more varices banded. Patient states she had a paracentesis performed but amount of fluid removed unknown. No prior medical records were available at today's visit. She states that she was on spironolactone unknown dose prior to admission but was not on Lasix. She has not been on daily Xifaxan or lactulose. Patient states she has lost around 100 lb over the past 12 months without trying. She admits to intermittent dysphagia with solid foods but denies any difficulty with liquids or pills. Over the past few weeks her abdominal distension has become progressively worse. She denies any abdominal pain on exam but does have large volume ascites with fluid wave. Labs this admission show normal BMP. WBC is 8, HGB 6, HCT 22, MCV 90, platelets 377 and INR 1.1. LFTs normal with total bilirubin 0.9, AST 50, ALT 14, alkaline phosphatase 94, albumin 3.5. No recent GI imaging available. Patient is currently receiving Addiction Services at [place]. She states she has a history of abusing methamphetamine, benzo, Adderall, and ?any pills she can get her hands on. She states that her last beer was on Sunday prior to her admission to Addiction Services, prior to admission she states that she was drinking from the time she woke up till the time she went to bed every day. - Variceal screening: POSITIVE history of varices. Last EGD February and March 2025 with 10-12 varices banded in February and 2-3 banded in March. Prior medical history was provided by patient so accuracy could not confirmed as no records were available. Beta krzysztof: Unclear if the patient was taking a beta-krzysztof prior to admission. Patient will need to start a beta krzysztof but we will have to hold off at this time given current hypotension - Last paracentesis: Per patient she had one in February but amount removed unknown. 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 Patient will also need to start diuretics prior to discharge with Aldactone 100 mg daily and Lasix 40 mg daily. Will hold off on starting diuretics at this time given severe anemia and hypotension - Diet: 2 gram sodium diet - History of HE: Prior Hx but patient is not on Xifaxan or Lactulose. - HCC screening: Patient will need AFP, LFT's and ultrasound every 6 months for monitoring - CT ordered - EGD tomorrow - Paracentesis with fluid analysis ordered to be performed once more hemodynamically stable - continue octreotide gtt - Continue PPI -Primary care team to continue monitoring H/H and transfuse as needed but do not transfuse if Hgb >7 due to Hx of varices - Care with anticoagulants Thank you very much for allowing me to share in the care of this very nice patient. This report may have been done utilizing a voice recognition system. Attempts have been made to correct errors. However, there may be uncorrected grammatical, spelling, and recognition errors present. GI Consult Note Consult date/time: 05/07/25 09:01 Reason for consult: Liver cirrhosis and anemia HPI: Lena High is a 49 year old female with PMSH of Bipolar disorder, neuropathy, multiple addictions, ETOH abuse, depression, anxiety, PTSD, HTN, HLD, alcoholic cirrhosis with ascites and varices.She presented to the ER from [place] after labs showed severe anemia. GI has been consulted for cirrhosis and anemia. Patient is currently at [place] for addiction treatment. Patient states she has history of methamphetamine, benzo, Adderall, and ?any other pills she can get her hands on?. She also is an alcoholic and states that she would drink ?all day every day from morning to night?. She states that her last beer was on Sunday prior to her [place] admission. Patient states that she was newly diagnosed cirrhosis in February while [facility] in [facility] where she lives. Per patient admitted February she had an EGD and had 10 esophageal varices banded and then due to recurrent bleeding she had a no other EGD in March at which time she states she had 2-3 more varices has a history of a paracentesis in February, amount removed unknown. Given her description of symptoms prior to her hospitalization in February it sounds as if she had hepatic encephalopathy at the time. Prior to her February admission she was having dark stools but denies any episodes of hematemesis or coffee-ground emesis. During that admission she states she received 5 units of PRBCs. She is currently on spironolactone of unknown dose but denies any Lasix. She admits to intermittent dysphagia with solid foods but denies any difficulty swallowing liquids or pills. She complains of abdominal distension which has increased over the past few weeks. She denies any specific abdominal pain. Denies nausea, vomiting, odynophagia, reflux, regurgitation, early satiety or appetite loss. She states that she has had 100 lb weight loss over the past year without trying. She is having daily bowel movements that vary from formed to liquid. Denies chronic diarrhea or constipation. She denies any current signs of GI bleeding to include coffee-ground emesis, hematemesis, hematochezia or melena. She denies any NSAID, aspirin, or anticoagulant use. History of alcohol abuse last drink on Sunday. She smokes 1 pack per day and uses marijuana. Family history negative for CRC or IBD. Patient admits to prior history of blood transfusion, intranasal cocaine use, wild mushroom ingestion. 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 Denies any fever, chest pain, shortness of breath, jaundice, scleral icterus, hematuria, dark urine, visual changes, light stools, tremors, HTN, tingling of the skin or hot and cold intolerance. She does admit to easy bruising. ENDOSCOPY HISTORY: EGD: Per patient she had 2 EGDs 1 in mid February at which time she had 10-12 varices banded and then a repeat EGD in March at which time she had 2-3 varices banded. COLONOSCOPY: No known prior colonoscopy history LABS AND STOOL STUDIES: Labs 05/07/2025: Sodium 135, potassium 4.7, BUN 14, creatinine 0.90, GFR >60, calcium 8.9 WBC 8, Hgb 6, Hct 22, MCV 90, platelets 377, INR 1.1 Total bilirubin 0.9, AST 50, ALT 14, Alkaline Phos 94, albumin 3.5 IMAGING: No recent GI imaging available Review of Systems 2 Constitutional: Constitutional: Reports as per HPI and Reports fatigue ENT: Reports as per HPI Cardiovascular: Cardiovascular: Reports as per HPI, Denies chest pain, Denies pedal edema, Denies leg edema, Reports lightheadedness and Denies dyspnea Respiratory: Respiratory: Denies cough and Denies dyspnea Gastrointestinal: Gastrointestinal: Reports as per HPI Musculoskeletal: Musculoskeletal: Reports as per HPI Integumentary/Breasts: Skin/Breast: Reports as per HPI Psychiatric: Psychiatric: Reports anxiety and Reports depression Endocrine: Endocrine: Reports no additional endocrine complaints Hematologic/Lymphatic: Hematologic/Lymphatic: Reports no additional hematologic/lymphatic complaints Meds Home Medications and Allergies Allergies Allergy/AdvReac Type Severity Reaction Status Date / Time shellfish derived Allergy Severe Hives Verified 05/07/25 08:03 Sulfa (Sulfonamide AdvReac Nausea and Verified 05/07/25 08:03 Antibiotics) Vomiting Vital Signs Vital Signs - 24 hr 05/07/25 07:39 05/07/25 08:55 05/07/25 08:56 Temperature 98.4 F Pulse Rate 96 Respiratory Rate 16 Blood Pressure 118/71 Pulse Oximetry 98 77 L 100 Oxygen Delivery Room Air Room Air Nasal Cannula Oxygen Flow Rate 5 Exam 2 Const: General: cooperative, comfortable, no acute distress and well developed Orientation/consciousness: oriented to person, oriented to place, oriented to time and patient oriented x3 HENMT: Head: normal to inspection, normocephalic and atraumatic Mouth: Yes Normal oral and palatal mucosa present and Yes moist mucous membranes Eyes: General: appearance normal, both eyes and all related structures C onjunctivae: conjunctivae normal Sclera: sclerae normal Pupils: Equal, round and reactive pupils present Neck: Neck: normal visual inspection Chest: Chest palpation & inspection: normal inspection of the chest Resp: Effort & Inspection: normal respiratory effort and able to speak in complete sentences Auscultation: clear to auscultation bilaterally Cardio: Jugular venous distension: no JVD Rate: regular rate Rhythm: r egular rhythm Heart sounds: S1 normal heart sound present and S2 normal heart sound present GI: Inspection: distended GI Palp: Yes Soft to palpation, No Tenderness to palpation present (GI) and No Guarding due to palpation present (GI) A uscultation: normal bowel sounds Rectal Exam: deferred Skin: General skin exam: normal color and no rashes or lesions noted W ounds: no wounds Neuro: General: oriented to person, oriented to place, oriented to time and patient oriented x3 Cranial nerves: Yes Equal, round and reactive pupils present Speech: normal speech Extrem: General: normal to inspection and no clubbing, cyanosis or edema Psych: Appearance: grossly normal and well kempt Affect: normal affect Results Labs 05/07/25 07:58 05/07/25 07:52 Labs: Short CBC 05/07/25 Range/Units 07:58 WBC 8.1 (4.5-10.0) K/mm3 Hgb 6.0 L* (12.0-15.0) g/dL Hct 21.5 L (37.0-47.0) % Plt Count 377 H (150-375) k/mm3 [facility] 05/07/25 07:52 Sodium 135 L Potassium 4.7 Chloride 104 Carbon Dioxide 27 BUN 14 Creatinine 0.90 Glucose 108 Calcium 8.9 Liver Function 05/07/25 Range/Units 07:52 Total Bilirubin 0.9 (0.2-1.3) mg/dL AST 50 H (14-36) U/L ALT 14 (6-35) U/L Alkaline Phosphatase 94 (38-126) U/L Albumin 3.5 (3.5-5.1) g/dL
[2025-05-07] MEDS: OCTREOTIDE ACETATE 500 MCG in SODIUM CHLORIDE 0.9% IV 99 ML 10 MCG IV CONT ×2 (09:14→17:43)
[2025-05-07] MEDS: SODIUM CHLORIDE 0.9% IV 250 ML 30 ML IV CONT (09:35)
[2025-05-07] MEDS: SODIUM CHLORIDE 0.9% IV 250 ML 30 ML (09:40)
--- NOTE | 2025-05-07 10:59 | CY_PTH ---
PATIENT: Lena High LOC: [id number] U#:[id number] AGE/SX: 49/F ROOM: 306 RE05/07/[address]: Omar Yanes MD : [id number] BED: 01 DIS: 05/09/2025 SPEC #: [id number] RECD: 05/08/25 10:57 STATUS: SARITAPaty RELink #: [id number] LELIA: 05/07/25 10:[address]: Shelby Porter DEPT: [facility] Cytology RECD BY: Chula Milan ENTERED: 05/08/25 10:58 SP TYPE: Cytology OTHR DR: MD Mitch Jerry MD UNKNOWN,DOCTOR Tissues: A - Ascites Fluid Procedures: Hematoxylin and Eosin Stain Cell Block Cytopathology Cytospin
[2025-05-07 11:48] LABS: Carcinoembryonic Antigen 1.3 ng/mL (0.0-3.0)
--- NOTE | 2025-05-07 11:48 | PC.NURSE ---
Patient arrived to floor. Blood and octreotide running thru IV. Telemetry applied. Oxygen removed for 100% saturation.
--- NOTE | 2025-05-07 11:53 | P.HP_ITS ---
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 She has been admitted in [facility] he is and had EGD on several varices banded. Also she had paracentesis at that time. She has been having intermittent black stool. She is taking Tylenol for pain medication. Denies taking NSAIDs. She continued to drink alcohol. Last time was last week. She has been feeling intermittent dizziness. Denies any chest pain, shortness off breath, abdominal pain, nausea vomiting.. She was called today because of low hemoglobin and recommended to come to ER for further management. In the ER patient was found to have hypotension. Received IV fluid and blood pressure better. Lab tests showed hemoglobin 6, AST 50, ALT 14. INR 1.1. GI team was consulted. Patient was admitted for further management. Patient was seen examined at bedside. She is feeling fine. Denies any chest pain, shortness off his, abdominal pain, nausea vomiting. She just complained of abdominal distention. Will hold off beta-krzysztof, diuretics in setting of hypotension. CT abdomen pelvis pending. Plan for paracentesis and EGD tomorrow. [facility] Social History Social History Smoking packs per day: 1 Smoking cigarettes per day: 20.0 Years smoked: 35 Smoking pack-years: 35.00 Smoking status: Heavy tobacco smoker Tobacco type: cigarettes and e-cigarettes/vaping Alcohol intake: current Drinks per week: 3 Substance use: current Substance use type: marijuana and methamphetamine Last use: 04/16/25 Lack of Transportation: YES Lack of Food: Never True Current Housing: I Do Not Have Housing Concerned About Future Housing: YES Difficulty Paying Gas/Electric Bills: No Difficulty Paying for Meds: No Currently Unemployed: YES Education: Trade/Vocational Certificate Difficulty w/ Childcare or Family Care: No Spiritual care concerns: No Meds Home Medications and Allergies Home Medications ?Medication ?Instructions ?Recorded ?Confirmed ?Type duloxetine 60 mg capsule,delayed 120 mg PO DAILY 05/0705/07/25 History release gabapentin 800 mg tablet 800 mg PO .Q6 NUMBNESS AND P AIN 05/07/25 05/07/25 History Allergies Allergy/AdvReac Type Severity Reaction Status Date / Time shellfish derived Allergy Severe Hives Verified 05/07/25 11:34 Sulfa (Sulfonamide AdvReac Nausea and Verified 05/07/25 11:34 Antibiotics) Vomiting Vital Signs Vital Signs - 24 hr 05/07/25 07:39 05/07/25 07:43 05/07/25 07:45 Temperature 98.4 F Pulse Rate 96 97 96 Respiratory Rate 16 18 17 Blood Pressure 118/71 Pulse Oximetry 98 100 100 Oxygen Delivery Room Air Oxygen Flow Rate 05/07/25 07:46 05/07/25 08:00 05/07/25 08:01 Temperature Pulse Rate 97 82 90 Respiratory Rate 12 12 20 Blood Pressure 104/62 91/55 L Pulse Oximetry 100 96 98 Oxygen Delivery Oxygen Flow Rate 05/07/25 08:15 05/07/25 08:30 05/07/25 08:31 Temperature Pulse Rate 81 82 82 Respiratory Rate 15 18 15 Blood Pressure 83/51 L Pulse Oximetry 98 93 94 Oxygen Delivery Oxygen Flow Rate 05/07/25 08:45 05/07/25 08:51 05/07/25 08:55 Temperature Pulse Rate 82 76 Respiratory Rate 12 12 Blood Pressure 85/53 L Pulse Oximetry 99 98 77 L Oxygen Delivery Room Air Oxygen Flow Rate 05/07/25 08:56 05/07/25 08:56 05/07/25 09:00 Temperature Pulse Rate 78 76 Respiratory Rate 13 21 H Blood Pressure 90/61 L Pulse Oximetry 100 100 100 Oxygen Delivery Nasal Cannula Oxygen Flow Rate 5 05/07/25 09:05 05/07/25 09:10 05/07/25 09:18 Temperature Pulse Rate 74 87 Respiratory Rate 7 L 27 H Blood Pressure 71/42 L 87/58 L Pulse Oximetry 100 100 98 Oxygen Delivery Nasal Cannula Oxygen Flow Rate 2 05/07/25 09:40 05/07/25 09:45 05/07/25 09:51 Temperature 98 F 98 F Pulse Rate 80 81 82 Respiratory Rate 14 14 13 Blood Pressure 95/59 L 95/59 L 93/57 L Pulse Oximetry 100 100 100 Oxygen Delivery Oxygen Flow Rate 05/07/25 09:55 05/07/25 10:00 05/07/25 10:11 Temperature 97.7 F 97.7 F Pulse Rate 83 82 83 Respiratory Rate 12 12 12 Blood Pressure 91/60 L 93/66 L 92/62 L Pulse Oximetry 100 100 100 Oxygen Delivery Oxygen Flow Rate 05/07/25 10:35 05/07/25 10:40 Temperature 98.1 F 98 F Pulse Rate 80 87 Respiratory Rate 12 14 Blood Pressure 94/66 L 100/69 Pulse Oximetry 100 100 Oxygen Delivery Oxygen Flow Rate H&P: Results Labs Labs: Short CBC 05/07/25 Range/Units 07:58 WBC 8.1 (4.5-10.0) K/mm3 Hgb 6.0 L* (12.0-15.0) g/dL Hct 21.5 L (37.0-47.0) % Plt Count 377 H (150-375) k/mm3 BMP 05/07/25 07:52 Sodium 135 L Potassium 4.7 Chloride 104 Carbon Dioxide 27 BUN 14 Creatinine 0.90 Glucose 108 Calcium 8.9 Liver Function 05/07/25 Range/Units 07:52 Total Bilirubin 0.9 (0.2-1.3) mg/dL AST 50 H (14-36) U/L ALT 14 (6-35) U/L Alkaline Phosphatase 94 (38-126) U/L Albumin 3.5 (3.5-5.1) g/dL Assessment and Plan Assessment and plan (1) History of esophageal varices: Code(s): Z87.19 - Personal history of other diseases of the digestive system Status: Acute (2) History of cirrhosis of liver: Code(s): Z87.19 - Personal history of other diseases of the digestive system Status: Acute (3) Anemia: Code(s): D64.9 - Anemia, unspecified Status: Acute (4) Severe anemia: Code(s): D64.9 - Anemia, unspecified Status: Acute (5) Cirrhosis: Qualifiers: Hepatic cirrhosis type: alcoholic cirrhosis Ascites presence: with ascites Qualified Code(s): K70.31 - Alcoholic cirrhosis of liver with ascites Code(s): K74.60 - Unspecified cirrhosis of liver Status: Acute Plan Acute anemia Hemoglobin 6 Monitor H&H Transfuse [address] abdomen pelvis pending Plan for endoscopy tomorrow Continue with octreotide and PPI GI team on board Cirrhosis alcohol related, ascites, history of hepatic encephalopathy Hold off diuretics and beta-krzysztof in the setting of hypotension Plan for paracentesis tomorrow Encouraged to quit alcohol Continue lactulose as Continue monitor drugs abuse encouraged cessation hypotension received IVF continue to monitor
[2025-05-07] MEDS: SODIUM CHLORIDE 0.9% IV 1,000 ML 125 ML IV CONT ×3 (12:15→21:18)
[2025-05-07] MEDS: GABAPENTIN 400 MG CAPSULE 800 MG PO ×3 (12:43→23:57)
[2025-05-07 18:43] LABS: Hematocrit 27.0 % (37.0-47.0); Hemoglobin 7.9 g/dL (12.0-15.0)
[2025-05-08] VITALS (14 sets, daily range): BP systolic 96–150; BP diastolic 64–96; PULSE 83–96; RESP 14–21; TEMP 35.7–36.8; O2SAT 97–100
[2025-05-08] MEDS: OCTREOTIDE ACETATE 500 MCG in SODIUM CHLORIDE 0.9% IV 99 ML 10 MCG IV CONT (03:45)
[2025-05-08 04:13] LABS: Hematocrit 25.2 % (37.0-47.0); Hemoglobin 7.4 g/dL (12.0-15.0); Mean Corpuscular HGB Conc 29.4 g/dl (32-36); Mean Corpuscular Hemoglobin 26.4 pg (26-34); Mean Corpuscular Volume 90.0 fl (80-100); Platelet Count Result 315 k/mm3 (150-375); Red Blood Count 2.80 M/mm3 (4.2-5.4); White Blood Count 6.8 K/mm3 (4.5-10.0)
[2025-05-08 04:22] LABS: Alanine Aminotransferase 13 U/L (6-35); Albumin Level 3.2 g/dL (3.5-5.1); Alkaline Phosphatase 81 U/L (38-126); Anion Gap 4 mmol/L (4-12); Aspartate Amino Transferase 42 U/L (14-36); Bilirubin,Total 0.9 mg/dL (0.2-1.3); Blood Urea Nitrogen 13 mg/dL (7-17); Calcium 8.4 mg/dL (8.4-10.2); Carbon Dioxide 25 mmol/L (22-30); Chloride 107 mmol/L (98-107); Estimated CRCL calculation 70 ml/min; Estimated Glomerular Filt Rate 60; Glucose 117 mg/dL (65-110); Potassium 4.5 mmol/L (3.4-5.0); Sodium 136 mmol/L (137-145); Total Protein 6.1 g/dL (6.3-8.2)
[2025-05-08] MEDS: SODIUM CHLORIDE 0.9% IV 1,000 ML 125 ML IV CONT (05:24)
[2025-05-08] MEDS: NICOTINE (*PBKC) 21 MG PATCH 1 PATCH TRANSDERM (09:00)
[2025-05-08] MEDS: SODIUM CHLORIDE 0.9% IV 1,000 ML 50 ML IV CONT (09:01)
[2025-05-08 10:57] LABS: Appearance Peritoneal Fluid Hazy (Clear); Source Peritoneal Fluid Peritoneal Fluid
[2025-05-08 10:58] LABS: Color Peritoneal Fluid Yellow (Colorless); Eosinophils Peritoneal Fluid 0 %; Nucleated Cells Peritoneal Flu 446 /uL (0-500)
--- NOTE | 2025-05-08 10:59 | PC.NURSE ---
PT taken down to GI for EGD procedure.
[2025-05-08] MEDS: LACTATED RINGERS 1,000 ML 150 ML IV CONT (11:01)
[2025-05-08 11:04] LABS: Lymphocytes Peritoneal Fluid 19 %; Macrophages Peritoneal Fluid 45 %; Mesothelial Cells Peritoneal Fluid 13 %; Monocytes Peritoneal Fluid 4 %; Neutrophils Peritoneal Fluid 19 % (0-25)
--- NOTE | 2025-05-08 11:46 | WPDANESEPPF ---
Anes - Initial Pre Proc Eval Procedure: Operation Date: 05/08/25 15:00 Proposed Procedures p Esophagogastroduodenoscopy EGD - Mitch Pelayo MD Date/Time: 05/08/25 11:46 Surgeon: Erin Khan MD Pre Op Diagnosis: anemia, history of esophageal varices secondary to Patient Data Age: 49 Gender: F Height: 1.73 m Weight: 88.2 kg Last Vital Signs Temp 36.6 C 05/08/25 10:54 Pulse 86 05/08/25 11:37 Resp 21 H 05/08/25 11:37 BP 110/64 05/08/25 11:37 Pulse Ox 97 05/08/25 11:37 O2 Del Method Room Air 05/08/25 11:37 O2 Flow Rate 2 05/07/25 09:10 Allergies Allergy/AdvReac Type Severity Reaction Status Date / Time shellfish derived Allergy Severe Hives Verified 05/08/25 10:49 Sulfa (Sulfonamide AdvReac Nausea and Verified 05/08/25 10:49 Antibiotics) Vomiting Home Medications ?Medication ?Instructions ?Recorded ?Confirmed ?Type conj estrogen-medroxyprogesterone 1 tablet PO DAILY 05/07/25 05/07/25 History 0.3 mg-1.5 mg tablet (Prempro) duloxetine 60 mg capsule,delayed 120 mg PO DAILY 05/07/25 05/07/25 History release gabapentin 800 mg tablet 800 mg PO .Q6 NUMBNESS AND PAIN 05/07/25 05/07/25 History hydroxyzine HCl 25 mg tablet 50 mg PO Q4H PRN anxiety 05/07/25 05/07/25 History multivitamin 1 tablet PO DAILY 05/07/25 05/07/25 History pantoprazole 40 mg tablet,delayed 40 mg PO BID 05/07/25 05/07/25 History release (Protonix) spironolactone 25 mg tablet 25 mg PO DAILY 05/07/25 05/07/25 History tizanidine 4 mg tablet 4 mg PO Q6H PRN muscle pain 05/07/25 05/07/25 History trazodone 100 mg tablet 100 mg PO HS PRN sleep 05/07/25 05/07/25 History Laboratory Tests 05/07/25 05/07/25 05/07/25 07:52 07:58 18:35 WBC RBC Hgb 7.9 L g/dL (12.0-15.0) Hct 27.0 L % (37.0-47.0) MCV MCH MCHC RDW Plt Count MPV Sodium Potassium Chloride Carbon Dioxide Anion Gap BUN Creatinine Estim Creat Clear Calc Estimated GFR Glucose Calcium Total Bilirubin AST ALT Alkaline Phosphatase Total Protein Albumin Carcinoembryonic Ag 1.3 ng/mL (0.0-3.0) Fluid Total Protein Fluid Albumin Peritoneal Source Peritoneal Color Peritoneal Appearance Peritoneal RBC Periton Nuc Cells Periton Neutrophils Periton Lymphocytes Peritoneal Monocytes Peritoneal Eosinophils Periton Mesothelial Periton Macrophages Blood Type A Positive Antibody Screen Negative Crossmatch See Detail 05/08/25 05/08/25 03:31 09:08 WBC 6.8 K/mm3 (4.5-10.0) RBC 2.80 L M/mm3 (4.2-5.4) Hgb 7.4 L g/dL (12.0-15.0) Hct 25.2 L % (37.0-47.0) MCV 90.0 fl (80-100) MCH 26.4 D pg (26-34) MCHC 29.4 L g/dl (32-36) RDW 19.9 H % (11.5-14.5) Plt Count 315 k/mm3 (150-375) MPV 11.7 H fl (7.4-10.4) Sodium 136 L mmol/L (137-145) Potassium 4.5 mmol/L (3.4-5.0) Chloride 107 mmol/L (98-107) Carbon Dioxide 25 mmol/L (22-30) Anion Gap 4 mmol/L (4-12) BUN 13 mg/dL (7-17) Creatinine 0.98 mg/dL (0.7-1.0) Estim Creat Clear Calc 70 ml/min Estimated GFR 60 (59 - ) Glucose 117 H mg/dL (65-110) Calcium 8.4 mg/dL (8.4-10.2) Total Bilirubin 0.9 mg/dL (0.2-1.3) AST 42 H U/L (14-36) ALT 13 U/L (6-35) Alkaline Phosphatase 81 U/L (38-126) Total Protein 6.1 L g/dL (6.3-8.2) Albumin 3.2 L g/dL (3.5-5.1) Carcinoembryonic Ag Fluid Total Protein Pending Fluid Albumin Pending Peritoneal Source Peritoneal fluid Peritoneal Color Yellow (Colorless) Peritoneal Appearance Hazy A (Clear) Peritoneal RBC < 2000 /uL (0-77550) Periton Nuc Cells 446 /uL (0-500) Periton Neutrophils 19 % (0-25) Periton Lymphocytes 19 % Peritoneal Monocytes 4 % Peritoneal Eosinophils 0 % Periton Mesothelial 13 % Periton Macrophages 45 % Blood Type Antibody Screen Crossmatch Patient hx anesthesia problems: none Family hx anesthesia problems: none Results Review: All pre-operative results and documents have been reviewed as part of the pre-operative evaluation. [facility] Past Medical History Medical History (Updated 05/08/25 @ 11:46 by Lv De La Fuente MD) History of cirrhosis of liver History of esophageal varices Family History Family History Mother Substance abuse Alcohol abuse Myocardial infarction Hypertension Heart disease Father Melanoma Cancer of bone Social History Social History Smoking packs per day: 1 Smoking cigarettes per day: 20.0 Years smoked: 35 Smoking pack-years: 35.00 Smoking status: Heavy tobacco smoker Tobacco type: cigarettes and e-cigarettes/vaping Alcohol intake: current Drinks per week: 3 Substance use: current Substance use type: marijuana and methamphetamine Last use: 04/16/25 Lack of Transportation: YES Lack of Food: Never True Current Housing: I Do Not Have Housing Concerned About Future Housing: YES Difficulty Paying Gas/Electric Bills: No Difficulty Paying for Meds: No Currently Unemployed: YES Education: Trade/Vocational Certificate Difficulty w/ Childcare or Family Care: No Spiritual care concerns: No Anes - Eval Final PreProcedure Day of Procedure 05/08/25 11:46 Patient weight: overweight Heart: regular rate and rhythm Lungs: clear to auscultation Airway: Mallampati scale class II Neurological: alert and oriented Last oral intake: >/= 8 hours ASA classification: IV Emergent: no Anesthetic plan: proceed Anesthesia type and monitoring: general GIVS and standard monitoring Results Review: All pre-operative results and documents have been reviewed as part of the pre-operative evaluation. Informed Consent: The patient's anesthetic plan and its attendant risks and benefits were discussed with the patient/family/POA. Questions were solicited and answers provided to the satisfaction of the patient/family/POA.
[2025-05-08] MEDS: LACTULOSE 20 GM/30 ML UDC PO (12:11)
[2025-05-08] MEDS: DULoxetine HCL 60 MG CAPSULE.DR 120 MG PO (12:11)
[2025-05-08] MEDS: GABAPENTIN 400 MG CAPSULE 800 MG PO ×2 (12:11→16:29)
[2025-05-08] MEDS: FUROSEMIDE 40 MG TABLET PO (12:17)
[2025-05-08] MEDS: nadoloL 10 MG TABLET PO (12:22)
[2025-05-08] MEDS: SPIRONOLACTONE 50 MG TABLET 100 MG PO (12:22)
[2025-05-08] MEDS: ALBUMIN HUMAN 25% 12.5 GM/50ML 50 ML IVPB (12:38)
--- NOTE | 2025-05-08 13:02 | P.PNIM_ITS ---
Progress Note: A&P Assessment and Plan (1) History of esophageal varices: Code(s): Z87.19 - Personal history of other diseases of the digestive system Status: Inactive (2) History of cirrhosis of liver: Code(s): Z87.19 - Personal history of other diseases of the digestive system Status: Inactive (3) Anemia: Code(s): D64.9 - Anemia, unspecified Status: Acute (4) Severe anemia: Code(s): D64.9 - Anemia, unspecified Status: Acute (5) Cirrhosis: Qualifiers: Hepatic cirrhosis type: alcoholic cirrhosis Ascites presence: with ascites Qualified Code(s): K70.31 - Alcoholic cirrhosis of liver with ascites Code(s): K74.60 - Unspecified cirrhosis of liver Status: Acute Plan Acute anemia Hemoglobin 6-->7.4 Monitor H&H S/P blood transfusion CT abdomen pelvis pending Underwent endoscopy which showed nonbleeding small grade 1 varices. Underwent paracentesis and about 5 L fluid were removed. DC octreotide and PPI GI team on board Cirrhosis alcohol related, ascites, history of hepatic encephalopathy Hold off diuretics and beta-krzysztof in the setting of hypotension Underwent paracentesis and about 5 L fluid were removed. Will give albumin. Monitor blood pressure. Restart lasix and aldacton if blood pressure improving. Encouraged to quit alcohol Continue lactulose as Continue monitor drugs abuse encouraged cessation hypotension improving received IVF continue to monitor Mild hyponatremia Monitor for now Subjective Date/time seen: 05/08/25 13:02 Interval history: per HPi: Patient with history of drug and alcohol abuse recently diagnosed with alcohol- related cirrhosis in February. She has been admitted in [facility] he is and had EGD on several varices banded. Also she had paracentesis at that time. She has been having intermittent black stool. She is taking Tylenol for pain medication. Denies taking NSAIDs. She continued to drink alcohol. Last time was last week. She has been feeling intermittent dizziness. Denies any chest pain, shortness off breath, abdominal pain, nausea vomiting.. She was called today because of low hemoglobin and recommended to come to ER for further management. In the ER patient was found to have hypotension. Received IV fluid and blood pressure better. Lab tests showed hemoglobin 6, AST 50, ALT 14. INR 1.1. GI team was consulted. Patient was admitted for further management. Patient was seen examined at bedside. She is feeling fine. Denies any chest pain, shortness off his, abdominal pain, nausea vomiting. She just complained of abdominal distention. Will hold off beta-krzysztof, diuretics in setting of hypotension. CT abdomen pelvis pending. Plan for paracentesis and EGD tomorrow. 05/08/25 Patient was seen examined. She has been fine. Denies any chest pain, shortness a risk, benefit, nausea vomiting. Hemoglobin improved to 7.4. Underwent endoscopy which showed nonbleeding small grade 1 varices. Underwent paracentesis and about 5 L fluid were removed. Continue monitor H&H. Will give albumin. Monitor blood pressure. Restart l asix and aldacton if blood pressure improving. Objective Data Vital Signs Vital Signs: Vital Signs - 24 hr 05/07/25 14:00 05/07/25 16:00 05/07/25 16:00 Temperature 97.6 F Pulse Rate 86 84 83 Respiratory Rate 16 Blood Pressure 113/72 Pulse Oximetry 100 Oxygen Delivery 05/07/25 16:00 05/07/25 18:00 05/07/25 20:00 Temperature 97.6 F Pulse Rate 84 88 Respiratory Rate 16 Blood Pressure 113/72 Pulse Oximetry 100 Oxygen Delivery Room Air 05/07/25 20:00 05/07/25 20:04 05/07/25 22:00 Temperature 98.4 F Pulse Rate 83 84 90 Respiratory Rate 16 Blood Pressure 129/80 Pulse Oximetry 100 Oxygen Delivery 05/07/25 23:21 05/08/25 00:00 05/08/25 00:00 Temperature 98.2 F Pulse Rate 82 95 Respiratory Rate 18 Blood Pressure 136/86 Pulse Oximetry 99 Oxygen Delivery Room Air 05/08/25 02:00 05/08/25 03:50 05/08/25 04:00 Temperature 98.2 F Pulse Rate 92 83 Respiratory Rate 16 Blood Pressure 143/89 H Pulse Oximetry 100 Oxygen Delivery Room Air 05/08/25 04:00 05/08/25 06:00 05/08/25 08:00 Temperature 98.1 F Pulse Rate 86 96 86 Respiratory Rate 20 Blood Pressure 113/71 Pulse Oximetry 97 Oxygen Delivery 05/08/25 08:00 05/08/25 08:00 05/08/25 10:00 Temperature Pulse Rate 86 85 93 Respiratory Rate 20 Blood Pressure Pulse Oximetry 97 Oxygen Delivery Room Air 05/08/25 10:54 05/08/25 11:27 05/08/25 11:37 Temperature 97.8 F Pulse Rate 87 91 86 Respiratory Rate 18 19 21 H Blood Pressure 125/77 96/67 L 110/64 Pulse Oximetry 98 97 97 Oxygen Delivery Room Air Room Air Room Air 05/08/25 11:47 05/08/25 12:37 Temperature 98.2 F Pulse Rate 86 90 Respiratory Rate 18 14 Blood Pressure 116/73 137/80 Pulse Oximetry 97 100 Oxygen Delivery Room Air Intake/Output Intake/Output: Intake & Output 05/05/25 05/06/25 05/07/25 05/08/25 23:59 23:59 23:59 23:59 Intake Total 4848.3 2802.1 Output Total 5000 Balance 4848.3 -2197.9 Meds/Results Medications: Active Medications Generic Name Dose Route Start Last Admin Trade Name Freq PRN Reason Stop Dose Admin Duloxetine HCl 120 mg 05/08/25 09:00 05/08/25 12:11 Duloxetine Hcl 60 Mg Capsule.Dr PO 120 mg DAILY FRITZ Administration Furosemide 40 mg 05/08/25 13:00 05/08/25 12:17 Furosemide 40 Mg Tablet PO 40 mg DAILY FRITZ Administration Gabapentin 800 mg 05/07/25 12:15 05/08/25 12:11 Gabapentin 400 Mg Capsule PO 800 mg Q6HR FRITZ Administration Sodium Chloride 1,000 mls @ 50 mls/hr 05/07/25 08:35 05/08/25 09:01 Normal Saline Iv IV CONT 50 mls/hr .Q20H FRITZ Administration Albumin Human 50 mls @ 50 mls/hr 05/08/25 12:26 05/08/25 12:38 Albutein IVPB 05/08/25 13:25 50 mls/hr ONCE ONE Administration Lactulose 20 gm 05/08/25 09:00 05/08/25 12:11 Lactulose 20 Gm/30 Ml Udc PO 20 gm QAM FRITZ Administration Nadolol 10 mg 05/08/25 13:00 05/08/25 12:22 Nadolol 10 Mg Tablet PO 10 mg QAM FRITZ Administration Nicotine 1 patch 05/08/25 09:00 05/08/25 09:00 Nicotine (*Pbkc) 21 Mg Patch TRANSDERM 1 patch DAILY FRITZ Administration Ondansetron HCl 4 mg 05/07/25 08:33 Ondansetron Inj 4 Mg/2 Ml Vial IV PUSH Q4H PRN Nausea Spironolactone 100 mg 05/08/25 13:00 05/08/25 12:22 Spironolactone 50 Mg Tablet PO 100 mg QAM FRITZ Administration Radiology Results: ITS Impressions Abdomen/Pelvis CT 05/07/25 16:35 IMPRESSION: 1. Micronodular appearance to the surface of the liver suggestive of cirrhosis. No focal liver mass identified. 2. Splenomegaly. 3. Esophageal, gastric and splenic varices. 4. Moderate to large amount of nonspecific ascites and fat stranding scattered throughout the abdomen and pelvis 5. Thickening of the fowler of the small bowel. Differential includes enteritis or a fluid overload state. 6. Moderate nonspecific anasarca 7. There is a 6 mm groundglass nodule in the right lower lobe. A chest CT is recommended. Paracentesis Ultrasound 05/08/25 10:08 IMPRESSION: 1. Successful ultrasound-guided paracentesis yielding 5000 mL of clear straw- colored fluid. Labs Labs: Laboratory Results - last 24 hr 05/07/25 05/08/25 05/08/25 18:35 03:31 09:08 WBC 6.8 RBC 2.80 L Hgb 7.9 L 7.4 L Hct 27.0 L 25.2 L MCV 90.0 MCH 26.4 D MCHC 29.4 L RDW 19.9 H Plt Count 315 MPV 11.7 H Sodium 136 L Potassium 4.5 Chloride 107 Carbon Dioxide 25 Anion Gap 4 BUN 13 Creatinine 0.98 Estim Creat Clear Calc 70 Estimated GFR 60 Glucose 117 H Calcium 8.4 Total Bilirubin 0.9 AST 42 H ALT 13 Alkaline Phosphatase 81 Total Protein 6.1 L Albumin 3.2 L Peritoneal Source Peritoneal fluid Peritoneal Color Yellow Peritoneal Appearance Hazy A Peritoneal RBC < 2000 Periton Nuc Cells 446 Periton Neutrophils 19 Periton Lymphocytes 19 Peritoneal Monocytes 4 Peritoneal Eosinophils 0 Periton Mesothelial 13 Periton Macrophages 45
[2025-05-08] MEDS: PANTOPRAZOLE 40 MG TABLET PO (16:29)
--- NOTE | 2025-05-08 18:00 | PC.NURSE ---
This patient, Lena High, was received from IMU 200 on 05/08/25 at 1800. Patient/family oriented to unit policies and routines
[2025-05-09] VITALS: BP 128/76; PULSE 91; RESP 16; TEMP 36.2; O2SAT 97
[2025-05-09 04:25] VITALS: BP 122/72; PULSE 88; RESP 18; TEMP 35.9; O2SAT 93
[2025-05-09] MEDS: GABAPENTIN 400 MG CAPSULE 800 MG PO ×2 (06:03→12:34)
[2025-05-09 06:09] LABS: Hematocrit 27.0 % (37.0-47.0); Hemoglobin 8.0 g/dL (12.0-15.0); Mean Corpuscular HGB Conc 29.6 g/dl (32-36); Mean Corpuscular Hemoglobin 26.3 pg (26-34); Mean Corpuscular Volume 88.8 fl (80-100); Platelet Count Result 342 k/mm3 (150-375); Red Blood Count 3.04 M/mm3 (4.2-5.4); White Blood Count 7.9 K/mm3 (4.5-10.0)
[2025-05-09 06:45] LABS: Alanine Aminotransferase 12 U/L (6-35); Albumin Level 3.3 g/dL (3.5-5.1); Alkaline Phosphatase 90 U/L (38-126); Anion Gap 0 mmol/L (4-12); Aspartate Amino Transferase 41 U/L (14-36); Bilirubin,Total 1.1 mg/dL (0.2-1.3); Blood Urea Nitrogen 10 mg/dL (7-17); Calcium 8.8 mg/dL (8.4-10.2); Carbon Dioxide 27 mmol/L (22-30); Chloride 108 mmol/L (98-107); Estimated CRCL calculation 73 ml/min; Estimated Glomerular Filt Rate > 60; Glucose 114 mg/dL (65-110); Sodium 135 mmol/L (137-145); Total Protein 6.1 g/dL (6.3-8.2)
[2025-05-09 06:53] LABS: Potassium 4.2 mmol/L (3.4-5.0)
[2025-05-09 08:00] VITALS: BP 122/89; PULSE 89; RESP 20; O2SAT 98
--- NOTE | 2025-05-09 08:31 | PM.IMPN ---
Progress Note: A&P Assessment and Plan (1) History of esophageal varices: Code(s): Z87.19 - Personal history of other diseases of the digestive system Status: Inactive (2) History of cirrhosis of liver: Code(s): Z87.19 - Personal history of other diseases of the digestive system Status: Inactive (3) Anemia: Code(s): D64.9 - Anemia, unspecified Status: Acute (4) Severe anemia: Code(s): D64.9 - Anemia, unspecified Status: Acute (5) Cirrhosis: Qualifiers: Hepatic cirrhosis type: alcoholic cirrhosis Ascites presence: with ascites Qualified Code(s): K70.31 - Alcoholic cirrhosis of liver with ascites Code(s): K74.60 - Unspecified cirrhosis of liver Status: Acute Plan Acute anemia Hemoglobin 6-->7.4 Monitor H&H S/P blood transfusion CT abdomen pelvis pending Underwent endoscopy which showed nonbleeding small grade 1 varices. Underwent paracentesis and about 5 L fluid were removed. DC octreotide and PPI GI team on board Cirrhosis alcohol related, ascites, history of hepatic encephalopathy Hold off diuretics and beta-krzysztof in the setting of hypotension Underwent paracentesis and about 5 L fluid were removed. Will give albumin. Monitor blood pressure. Restart lasix and aldacton if blood pressure improving. Encouraged to quit alcohol Continue lactulose as Continue monitor drugs abuse encouraged cessation hypotension improving received IVF continue to monitor Mild hyponatremia Monitor for now Subjective Date/time seen: 05/09/25 08:31 Interval history: per HPi: Patient with history of drug and alcohol abuse recently diagnosed with alcohol-related cirrhosis in February. She has been admitted in [facility] he is and had EGD on several varices banded. Also she had paracentesis at that time. She has been having intermittent black stool. She is taking Tylenol for pain medication. Denies taking NSAIDs. She continued to drink alcohol. Last time was last week. She has been feeling intermittent dizziness. Denies any chest pain, shortness off breath, abdominal pain, nausea vomiting.. She was called today because of low hemoglobin and recommended to come to ER for further management. In the ER patient was found to have hypotension. Received IV fluid and blood pressure better. Lab tests showed hemoglobin 6, AST 50, ALT 14. INR 1.1. GI team was consulted. Patient was admitted for further management. Patient was seen examined at bedside. She is feeling fine. Denies any chest pain, shortness off his, abdominal pain, nausea vomiting. She just complained of abdominal distention. Will hold off beta-krzysztof, diuretics in setting of hypotension. CT abdomen pelvis pending. Plan for paracentesis and EGD tomorrow. 05/08/25 Patient was seen examined. She has been fine. Denies any chest pain, shortness a risk, benefit, nausea vomiting. Hemoglobin improved to 7.4. Underwent endoscopy which showed nonbleeding small grade 1 varices. Underwent paracentesis and about 5 L fluid were removed. Continue monitor H&H. Will give albumin. Monitor blood pressure. Restart lasix and aldacton if blood pressure improving. Review of Systems Constitutional: Constitutional: Reports as per HPI and Reports fatigue ENT: Reports as per HPI Cardiovascular: Cardiovascular: Reports as per HPI, Denies chest pain, Denies pedal edema, Denies leg edema, Reports lightheadedness and Denies dyspnea Respiratory: Respiratory: Denies cough and Denies dyspnea Gastrointestinal: Gastrointestinal: Reports as per HPI Musculoskeletal: Musculoskeletal: Reports as per HPI Integumentary/Breasts: Skin/Breast: Reports as per HPI Psychiatric: Psychiatric: Reports as per HPI, Reports anxiety and Reports depression Endocrine: Endocrine: Reports no additional endocrine complaints and Reports fatigue Hematologic/Lymphatic: Hematologic/Lymphatic: Reports no additional hematologic/lymphatic complaints Exam Const: General: cooperative, healthy appearing, comfortable, no acute distress and well developed Orientation/consciousness: oriented to person, oriented to place, oriented to time and patient oriented x3 HENMT: Head: normal to inspection, normocephalic and atraumatic Mouth: Yes Normal oral and palatal mucosa present and Yes moist mucous membranes Eyes: General: appearance normal, both eyes and all related structures Conjunctivae: conjunctivae normal Sclera: sclerae normal Pupils: Equal, round and reactive pupils present Neck: Neck: normal visual inspection Chest: Chest palpation & inspection: normal inspection of the chest Resp: Effort & Inspection: normal respiratory effort and able to speak in complete sentences Auscultation: clear to auscultation bilaterally Cardio: Jugular venous distension: no JVD Rate: regular rate Rhythm: regular rhythm Heart sounds: S1 normal heart sound present and S2 normal heart sound present GI: Inspection: normal to inspection and distended Auscultation: normal bowel sounds Rectal Exam: deferred Skin: General skin exam: normal color and no rashes or lesions noted Wounds: no wounds Neuro: General: oriented to person, oriented to place, oriented to time and patient oriented x3 Cranial nerves: Yes Equal, round and reactive pupils present Speech: normal speech Extrem: General: normal to inspection and no clubbing, cyanosis or edema Psych: Appearance: grossly normal and well kempt Affect: normal affect Objective Data Vital Signs Vital Signs: Vital Signs - 24 hr 05/08/25 10:00 05/08/25 10:54 05/08/25 11:27 Temperature 97.8 F Pulse Rate 93 87 91 Respiratory Rate 18 19 Blood Pressure 125/77 96/67 L Pulse Oximetry 98 97 Oxygen Delivery Room Air Room Air 05/08/25 11:37 05/08/25 11:47 05/08/25 12:37 Temperature 98.2 F Pulse Rate 86 86 90 Respiratory Rate 21 H 18 14 Blood Pressure 110/64 116/73 137/80 Pulse Oximetry 97 97 100 Oxygen Delivery Room Air Room Air 05/08/25 15:54 05/08/25 20:00 05/08/25 21:57 Temperature 98.2 F 96.3 F L Pulse Rate 87 86 Respiratory Rate 14 16 Blood Pressure 150/83 H 149/96 H Pulse Oximetry 100 99 Oxygen Delivery Room Air 05/09/25 00:00 05/09/25 04:25 Temperature 97.1 F L 96.6 F L Pulse Rate 91 88 Respiratory Rate 16 18 Blood Pressure 128/76 122/72 Pulse Oximetry 97 93 Oxygen Delivery Intake/Output Intake/Output: Intake & Output 05/06/25 05/07/25 05/08/25 05/09/25 23:59 23:59 23:59 23:59 Intake Total 4848.3 3574.1 450 Output Total 5000 Balance 4848.3 -1425.9 450 Meds/Results Medications: Active Medications Generic Name Dose Route Start Last Admin Trade Name Freq PRN Reason Stop Dose Admin Duloxetine HCl 120 mg 05/08/25 09:00 05/08/25 12:11 Duloxetine Hcl 60 Mg Capsule.Dr PO 120 mg DAILY FRITZ Administration Furosemide 40 mg 05/08/25 13:00 05/08/25 12:17 Furosemide 40 Mg Tablet PO 40 mg DAILY FRITZ Administration Gabapentin 800 mg 05/07/25 12:15 05/09/25 06:03 Gabapentin 400 Mg Capsule PO 800 mg Q6HR FRITZ Administration Hydroxyzine HCl 50 mg 05/08/25 13:14 Hydroxyzine Hcl 25 Mg Tablet PO Q4H PRN Anxiety Lactulose 20 gm 05/08/25 09:00 05/08/25 12:11 Lactulose 20 Gm/30 Ml Udc PO 20 gm QAM FRITZ Administration Multivitamins Therapeutic 1 tablet 05/09/25 09:00 Multivitamins Therapeutic Tab (*Bkc) PO DAILY FRITZ Nadolol 10 mg 05/08/25 13:00 05/08/25 12:22 Nadolol 10 Mg Tablet PO 10 mg QAM FRITZ Administration Nicotine 1 patch 05/08/25 09:00 05/08/25 09:00 Nicotine (*Pbkc) 21 Mg Patch TRANSDERM 1 patch DAILY FRITZ Administration Ondansetron HCl 4 mg 05/07/25 08:33 Ondansetron Inj 4 Mg/2 Ml Vial IV PUSH Q4H PRN Nausea Pantoprazole Sodium 40 mg 05/08/25 17:00 05/08/25 16:29 Pantoprazole 40 Mg Tablet PO 40 mg BID FRITZ Administration Spironolactone 100 mg 05/08/25 13:00 05/08/25 12:22 Spironolactone 50 Mg Tablet PO 100 mg QAM FRITZ Administration Trazodone HCl 100 mg 05/08/25 13:14 05/08/25 21:57 Trazodone Hcl 50 Mg Tablet PO 100 mg HS PRN Administration Sleep Radiology Results: ITS Impressions Abdomen/Pelvis CT 05/07/25 16:35 IMPRESSION: 1. Micronodular appearance to the surface of the liver suggestive of cirrhosis. No focal liver mass identified. 2. Splenomegaly. 3. Esophageal, gastric and splenic varices. 4. Moderate to large amount of nonspecific ascites and fat stranding scattered throughout the abdomen and pelvis 5. Thickening of the fowler of the small bowel. Differential includes enteritis or a fluid overload state. 6. Moderate nonspecific anasarca 7. There is a 6 mm groundglass nodule in the right lower lobe. A chest CT is recommended. Paracentesis Ultrasound 05/08/25 10:08 IMPRESSION: 1. Successful ultrasound-guided paracentesis yielding 5000 mL of clear straw-colored fluid. Labs Labs: Laboratory Results - last 24 hr 05/08/25 05/09/25 09:08 05:23 WBC 7.9 RBC 3.04 L Hgb 8.0 L Hct 27.0 L MCV 88.8 MCH 26.3 MCHC 29.6 L RDW 19.9 H Plt Count 342 MPV 11.5 H Sodium 135 L Potassium 4.2 Chloride 108 H Carbon Dioxide 27 Anion Gap 0 L BUN 10 Creatinine 0.93 Estim Creat Clear Calc 73 Estimated GFR > 60 Glucose 114 H Calcium 8.8 Total Bilirubin 1.1 AST 41 H ALT 12 Alkaline Phosphatase 90 Total Protein 6.1 L Albumin 3.3 L Peritoneal Source Peritoneal fluid Peritoneal Color Yellow Peritoneal Appearance Hazy A Peritoneal RBC < 2000 Periton Nuc Cells 446 Periton Neutrophils 19 Periton Lymphocytes 19 Peritoneal Monocytes 4 Peritoneal Eosinophils 0 Periton Mesothelial 13 Periton Macrophages 45
[2025-05-09] MEDS: MULTIVITAMINS THERAPEUTIC TAB (*BKC) 1 TABLET PO (09:20)
[2025-05-09] MEDS: PANTOPRAZOLE 40 MG TABLET PO (09:20)
[2025-05-09] MEDS: nadoloL 10 MG TABLET PO (09:20)
[2025-05-09] MEDS: DULoxetine HCL 60 MG CAPSULE.DR 120 MG PO (09:20)
[2025-05-09] MEDS: SPIRONOLACTONE 50 MG TABLET 100 MG PO (09:20)
[2025-05-09] MEDS: NICOTINE (*PBKC) 21 MG PATCH 1 PATCH TRANSDERM (09:21)
[2025-05-09] MEDS: LACTULOSE 20 GM/30 ML UDC PO (09:21)
[2025-05-09] MEDS: FUROSEMIDE 40 MG TABLET PO (09:21)
[2025-05-09 12:00] VITALS: BP 115/76; PULSE 74; RESP 16; TEMP 36.4; O2SAT 100
--- NOTE | 2025-05-09 13:59 | P.DS_ITS ---
DS: Admitting Diagnosis Discharge Date 05/09/2025 Admitting Diagnosis Abdominal distension DS: Discharge Diagnosis Discharge Diagnosis (1) History of esophageal varices: Code(s): Z87.19 - Personal history of other diseases of the digestive system Status: Inactive Assessment and Plan: Please refer to hospital course for brief summary (2) History of cirrhosis of liver: Code(s): Z87.19 - Personal history of other diseases of the digestive system Status: Inactive (3) Anemia: Code(s): D64.9 - Anemia, unspecified Status: Acute (4) Severe anemia: Code(s): D64.9 - Anemia, unspecified Status: Acute (5) Cirrhosis: Qualifiers: Ascites presence: with ascites Hepatic cirrhosis type: alcoholic cirrhosis Qualified Code(s): K70.31 - Alcoholic cirrhosis of liver with ascites Code(s): K74.60 - Unspecified cirrhosis of liver Status: Acute DS: Summary Hospital Course Hospital Course: Patient with history of drug and alcohol abuse recently diagnosed with alcohol- related cirrhosis in February. She has been admitted in [facility] he is and had EGD on several varices banded. Also she had paracentesis at that time. She has been having intermittent black stool. She is taking Tylenol for pain medication. Denies taking NSAIDs. She continued to drink alcohol. Last time was last week. She has been feeling intermittent dizziness. Denies any chest pain, shortness off breath, abdominal pain, nausea vomiting.. She was called today because of low hemoglobin and recommended to come to ER for further manag ement. In the ER patient was found to have hypotension. Received IV fluid and blood pressure better. Lab tests showed hemoglobin 6, AST 50, ALT 14. INR 1.1. GI team was consulted. Patient was admitted for further management. Patient was seen examined at bedside. She is feeling fine. Denies any chest pain, shortness off his, abdominal pain, nausea vomiting. She just complained of abdominal distention. 05/09: Assumed care 0 05/09. Patient underwent paracentesis and 5 L was removed. Patient underwent EGD on 05/09 and was found small grade 1 varices(please refer to full report). Patient was started on nadolol due to the history of varices, patient will be discharged with low-salt diet and Lasix/Aldactone and follow-up within 2 weeks to monitor electrolytes and renal function. On the day of discharge, the patient was seen and examined. Vital signs were stable. Physical exam were stable and labs were reviewed at length. Discharge instructions, medications, and follow-up appointments were discussed with the patient at length and all day questions were answered. ER warnings were given. Status at Discharge Cognitive/behavioral status at discharge: Stable Time Spent with Patient Time attestation: Total time spent providing and/or coordinating discharge services: 45 minutes Exam Const: General: cooperative, healthy appearing, comfortable, no acute distress and well developed Orientation/consciousness: oriented to person, oriented to place, oriented to time and patient oriented x3 HENMT: Head: normal to inspection, normocephalic and atraumatic Mouth: Yes Normal oral and palatal mucosa present and Yes moist mucous membranes Eyes: General: appearance normal, both eyes and all related structures Conjunctivae: conjunctivae normal Sclera: sclerae normal Pupils: Equal, round and reactive pupils present Neck: Neck: normal visual inspection Chest: Chest palpation & inspection: normal inspection of the chest Resp: Effort & Inspection: normal respiratory effort and able to speak in complete sentences Auscultation: clear to auscultation bilaterally Cardio: Jugular venous distension: no JVD Rate: regular rate Rhythm: regular rhythm Heart sounds: S1 normal heart sound present and S2 normal heart sound present GI: Inspection: normal to inspection and distended Auscultation: normal bowel sounds Rectal Exam: deferred Skin: General skin exam: normal color and no rashes or lesions noted Wounds: no wounds Neuro: General: oriented to person, oriented to place, oriented to time and patient oriented x3 Cranial nerves: Yes Equal, round and reactive pupils present Speech: normal speech Extrem: General: normal to inspection and no clubbing, cyanosis or edema Psych: Appearance: grossly normal and well kempt Affect: normal affect DS: Data Data Completed and Pending Pending studies at discharge: Pending at discharge 05/07/25 10:59 Cytology [PTH] Routine Labs on day of discharge: Labs from last 24 hours 05/09/25 05:23 WBC 7.9 RBC 3.04 L Hgb 8.0 L Hct 27.0 L MCV 88.8 MCH 26.3 MCHC 29.6 L RDW 19.9 H Plt Count 342 MPV 11.5 H Sodium 135 L Potassium 4.2 Chloride 108 H Carbon Dioxide 27 Anion Gap 0 L BUN 10 Creatinine 0.93 Estim Creat Clear Calc 73 Estimated GFR > 60 Glucose 114 H Calcium 8.8 Total Bilirubin 1.1 AST 41 H ALT 12 Alkaline Phosphatase 90 Total Protein 6.1 L Albumin 3.3 L Imaging Radiologist's impression: ITS Impressions Abdomen/Pelvis CT 05/07/25 16:35 IMPRESSION: 1. Micronodular appearance to the surface of the liver suggestive of cirrhosis. No focal liver mass identified. 2. Splenomegaly. 3. Esophageal, gastric and splenic varices. 4. Moderate to large amount of nonspecific ascites and fat stranding scattered throughout the abdomen and pelvis 5. Thickening of the fowler of the small bowel. Differential includes enteritis or a fluid overload state. 6. Moderate nonspecific anasarca 7. There is a 6 mm groundglass nodule in the right lower lobe. A chest CT is recommended. Paracentesis Ultrasound 05/08/25 10:08 IMPRESSION: 1. Successful ultrasound-guided paracentesis yielding 5000 mL of clear straw- colored fluid. Discharge Plan Discharge Attending physician on discharge: Omar Yanes Discharging Clinician: Omar Yanes Patient Disposition: NH Detention/Asst Living Activity: as tolerated Diet: low sodium Discharge Instructions: Patient needs to follow-up CMP in a week. Discussed the result with PCP and Gastroenterology. Patient is to follow-up with the PCP within a week upon discharge Patient needs to follow up with Gastroenterology within a week upon discharge. Patient Instructions: Antibiotic Form, Help Prevent Suicide in Children and Adolescents (GEN), Suicide Prevention (GEN) Patient Language: [place] Stand Alone Forms: General Discharge Information Follow-up/Referrals: Mitch Pelayo MD [Physician, Gastroenterology] Referral Note: Ascites follow-up UNKNOWN,DOCTOR [Primary Care Provider] Discharge Medications: New lactulose 10 gram/15 mL Solution 20 g PO QAM Qty: 30 0RF furosemide 40 mg Tablet 40 mg PO DAILY Qty: 30 0RF nadolol 20 mg tablet 10 mg PO ONCE Qty: 30 0RF nadolol 20 mg tablet 10 mg PO ONCE Qty: 30 0RF spironolactone [Aldactone] 50 mg Tablet 100 mg PO QAM Qty: 100 0RF Continued gabapentin 800 mg tablet 800 mg PO .Q6 duloxetine 60 mg capsule,delayed release(DR/EC) 120 mg PO DAILY Prempro 0.3-1.5 mg tablet 1 tablet PO DAILY hydroxyzine HCl 25 mg tablet 50 mg PO Q4H PRN (Reason: anxiety) multivitamin Tablet 1 tablet PO DAILY pantoprazole [Protonix] 40 mg tablet,delayed release (DR/EC) 40 mg PO BID trazodone 100 mg tablet 100 mg PO HS PRN (Reason: sleep) tizanidine 4 mg tablet 4 mg PO Q6H PRN (Reason: muscle pain) Rx Instructions: do not exceed 3 doses per 24 hrs Discontinued spironolactone 25 mg tablet 25 mg PO DAILY Other Ambulatory Orders: Comprehensive Metabolic Panel (Routine) Timeframe: 1 Week Location: Determined by Patient Ordered By: Omar Yanes Date of admission: 05/07/25 08:33 Primary Care Provider: UNKNOWN,DOCTOR Admitting Provider: Erin Khan Attending physician on admission: Erin Khan Condition: Stable
[2025-05-09 15:09] LABS: Albumin, Body Fluid 0.7 g/dL (Not Estab.)
== END 2025-05-09 16:19 | disposition other institution (70) | DRG 280 ==
LOC: ANHED 08:39 → ANH2MED 09:44 → ANHIMU 13:52 → ANH3MEDSUR 05-09 14:05 → ANH2MED 05-11 14:12 → ANH3MEDSUR 05-11 14:12 → ANHIMU 05-11 14:12
PROVIDERS: Internal Medicine; Internal Medicine Gastroenterology; Nurse Practitioner Family; Admitting Provider Family Medicine; Emergency Provider Emergency Medicine; Visit Provider General Practice
PROC: 0DJ08ZZ Inspection of Upper Intestinal Tract, Via Natural or Artificial Opening Endoscopic (ICD-10-PCS; principal; 2025-05-08 15:00)
DX: K70.31 Alcoholic cirrhosis of liver with ascites (principal); I85.10 Secondary esophageal varices without bleeding; D64.9 Anemia, unspecified; F17.210 Nicotine dependence, cigarettes, uncomplicated; F15.11 Other stimulant abuse, in remission; F19.11 Other psychoactive substance abuse, in remission
CPT/HCPCS: 36415; 36430; 49083; 74177; 80053; 82042; 82378; 84157; 85014; 85018; 85025; 85027; 85610; 85730; 86850; 86900; 86901; 86923; 88108; 88305; 89051; A9270; J2354; J2470; J7030; J7050; J7120; P9016; P9047; Q9967

== ENCOUNTER 2025-05-21 13:54 | Observation (INO) | payer OTHER, SELFPAY ==
--- OUTSIDE RECORDS SUMMARY | 2021-12-20 04:39 | XMS_ITS | Continuity of Care Document ---
Author Organization [facility] Address [address] [place] [address] Phone Care Team Providers Care Radiation Oncologist Name Role Phone Sean DO, Jessica Unavailable Unavailable Allergies, Adverse Reactions, Alerts Substance Reaction Status Criticality Sulfa (Sulfonamide Antibiotics) Active No Information Medications Medication Instructions Dosage Effective Dates (start - stop) Status Comments trazodone 100 mg tablet TAKE 1/2 TO 1 TABLET AT BEDTIME NEEDED FOR SLEEP - Active buprenorphine 8 mg-naloxone [address] 1 tablet by sublingual route 3 times every day allow to dissolve slowly in mouth without chewing or swallowing 1 tablet - Active okay to fill when due hydroxyurea 500 mg capsule take 2 tabs (20MG/KG) by oral route every day - Active Vitamin D3 25 mcg (1,000 unit) tablet - Active Cymbalta 60 mg capsule,delayed release take 2 capsule by oral route every day 120 MG - Active tizanidine 2 mg tablet take 1 tablet by oral route every 6 - 8 hours as needed not to exceed 3 doses in 24 hours 2 MG - Active Folic Acid-Vit B6-Vit B12 (Calcium) tablet - Active lisinopril 10 mg tablet take 1 tablet by oral route every day 10 MG - Active Lamictal 25 mg tablet take 2 tablet by oral route 2 times every day 50 MG - Active gabapentin 800 mg tablet take 1 tablet by oral route 4 times every day 800 MG - Active buspirone 15 mg tablet take 1 tablet by oral route 3 times every day 15 MG - Active Aspir-81 81 mg tablet,delayed release take 1 tablet by oral route every day - Active Procedures Procedure Date DRUG TEST PRSMV DIR OPT OBS URINE TEST OFFICE/OUTPATIENT VISIT, EST DRUG TEST PRSMV DIR OPT OBS URINE TEST OFFICE/OUTPATIENT VISIT, EST [facility] Claim Split OFFICE/OUTPATIENT VISIT, EST DRUG TEST PRSMV DIR OPT OBS URINE TEST OFFICE/OUTPATIENT VISIT, EST DRUG TEST PRSMV DIR OPT OBS URINE TEST DRUG TEST PRSMV DIR OPT OBS URINE TEST OFFICE/OUTPATIENT VISIT, EST OFFICE/OUTPATIENT VISIT, EST DRUG TEST PRSMV DIR OPT OBS URINE TEST OFFICE/OUTPATIENT VISIT, EST DRUG TEST PRSMV DIR OPT OBS URINE TEST OFFICE/OUTPATIENT VISIT, EST OFFICE/OUTPATIENT VISIT, EST DRUG TEST PRSMV DIR OPT OBS URINE TEST OFFICE/OUTPATIENT VISIT, EST DRUG TEST PRSMV DIR OPT OBS URINE TEST OFFICE/OUTPATIENT VISIT EST Telehealth F DRUG TEST PRSMV DIR OPT OBS URINE TEST OFFICE/OUTPATIENT VISIT EST Telehealth D URINE TEST DRUG TEST PRSMV DIR OPT OBS OFFICE/OUTPATIENT VISIT EST Telehealth N DRUG TEST PRSMV DIR OPT OBS URINE TEST OFFICE/OUTPATIENT VISIT EST Telehealth O DRUG TEST PRSMV DIR OPT OBS URINE TEST PSYCH DIAG EVAL W/MED SRVCS Telehealth S DRUG TEST PRSMV DIR OPT OBS URINE TEST URINE TEST OFFICE/OUTPATIENT VISIT, NEW Clinic service PSYCH DIAGNOSTIC EVALUATION Completion Of The DLA-20 Assessment Advance Directives Directive Yes / No Effective Date File Name No Information Encounters Encounter Description Practice Location Reason(s) For Visit Diagnoses Date Provider Providers Copied on Encounter [facility], [address], [place], [id number], [place] tel:[phone] [facility] No Information 2 Sean Lopez. [address], [id number], [place], [id number], [place]. tel:[phone] [facility], [address], [place], [id number], [place] tel:[phone] [facility] No Information 1 [facility]. [address], [id number], [place], [id number], [place]. tel:[phone] OFFICE/OUTPA TIENT VISIT, EST [facility], [address], [place], [id number], [place] tel:[phone] [facility] Body mass index (BMI) 45.0-49.9, adultOpioid dependencePs ychophysiolo gic insomnia 1 Sean Lopez. [address], [id number] [place], [id number], [place]. tel:[phone] Referring Provider: Jessica Estrada, [address] [id number] [place], [address]. tel:[phone] OFFICE/OUTPA TIENT VISIT, EST [facility], [address], [place], [id number], [place] tel:[phone] [facility] Body mass index (BMI) 45.0-49.9, adultOpioid dependencePs ychophysiolo gic insomnia Nov- 1 Sean Lopez. [address], [id number] [address], [place], [place], [id number], [place]. tel:[phone] Referring Provider: Jessica Estrada, [address] [id number] [place], [address]. tel:[phone] OFFICE/OUTPA TIENT VISIT, EST [facility], [address], [place], [place], [id number], [place] tel:[phone] [facility] Opioid dependencePs ychophysiolo gic insomniaBody mass index (BMI) 40.0-44.9, adult Oct- 1 Sean Lopez. [address], [id number] [address], [place], [place], [id number], [place]. tel:[phone] Referring Provider: Jessica Estrada, [address] [id number] , [place], [address]. tel:[phone] OFFICE/OUTPA TIENT VISIT, EST [facility], [address], [place], [place], [id number], [place] tel:[phone] [facility] Opioid dependencePs ychophysiolo gic insomniaBody mass index (BMI) 40.0-44.9, adult 0 Sean Lopez. [address], [id number] [address], [place], [place], [id number], [place]. tel:[phone] Referring Provider: Jessica Estrada, [address] [id number] [place], [address]. tel:[phone] OFFICE/OUTPA TIENT VISIT, EST [facility], [address], [place], [place], [id number], [place] tel:[phone] [facility] Opioid dependencePs ychophysiolo gic insomniaBody mass index (BMI) 40.0-44.9, adult Sep- 0 Sean Jessica. [address], [id number] [address], [place], [place], [id number], [place]. tel:[phone] Referring Provider: Jessica Estrada, [address] [id number] [place], [address]. tel:[phone] OFFICE/OUTPA TIENT VISIT, EST [facility], [address], [place], [place], [id number], [place] tel:[phone] [facility] Opioid dependencePs ychophysiolo gic insomniaBody mass index (BMI) 40.0-44.9, adult 0 Sean Jessica. [address], [id number] [address], [place], [place], [id number], [place]. tel:[phone] Referring Provider: Jessica Estrada, [address] [id number] [place], [address]. tel:[phone] OFFICE/OUTPA TIENT VISIT, EST [facility], [address], [place], [place], [id number], [place] tel:[phone] [facility] Opioid dependencePs ychophysiolo gic insomniaBody mass index (BMI) 40.0-44.9, adult 0 Sean Jessica. [address], [id number] [address], [place], [id number], [place]. tel:[phone] Referring Provider: Jessica Estrada, [address] [id number] [place], [address]. tel:[phone] OFFICE/OUTPA TIENT VISIT, EST [facility], [address], [place], [place], [id number], [place] tel:[phone] [facility] Opioid dependencePs ychophysiolo gic insomniaBody mass index (BMI) 40.0-44.9, adult 0 Sean Jessica. [address], [id number] [address], [place], [id number], [place]. tel:[phone] Referring Provider: Jessica Estrada, [address] [id number] [place], [address]. tel:[phone] OFFICE/OUTPA TIENT VISIT, EST [facility], [address], [place], [place], [id number], [place] tel:[phone] [facility] Opioid dependencePs ychophysiolo gic insomniaBody mass index (BMI) 40.0-44.9, adult Mar-3 0-202 0 Sean Jessica. [address], [id number] [address], [place], [id number], [place]. tel:[phone] Referring Provider: Jessica Estrada, [address] [id number] [place], [address]. tel:[phone] OFFICE/OUTPA TIENT VISIT, EST [facility], [address], [place], [place], [id number], [place] tel:[phone] [facility] Body mass index (BMI) 40.0-44.9, adultOpioid dependencePs ychophysiolo gic insomnia Mar-0 2-202 0 Sean Jessica. [address], [id number] [place], [id number], [place]. tel:[phone] Referring Provider: Jessica Estrada, [address] [id number] [place], [address]. tel:[phone] OFFICE/OUTPA TIENT VISIT EST Telehealth [facility], [address], [place], [place], [id number], [place] tel:[phone] [facility] Body mass index (BMI) 40.0-44.9, adultOpioid dependencePs ychophysiolo gic insomnia Feb-0 3-202 0 Sean Jessica. [address], [id number] [address], [place], [id number], [place]. tel:[phone] Referring Provider: Jessica Estrada, [address] [id number] [place], [address]. tel:[phone] OFFICE/OUTPA TIENT VISIT EST Telehealth [facility], [address], [place], [place], [id number], [place] tel:[phone] [facility] Body mass index (BMI) 40.0-44.9, adultOpioid dependence Sean Jessica. [address], [id number] [place], [id number], [place]. tel:[phone] Referring Provider: Jessica Estrada, [address] [id number] [place], [address]. tel:[phone] OFFICE/OUTPA TIENT VISIT EST Telehealth [facility], [address], [place], [place], [id number], [place] tel:[phone] [facility] Body mass index (BMI) 40.0-44.9, adultOpioid dependence Sean Jessica. [address], [id number] 0, [place], [id number], [place]. tel:[phone] Referring Provider: Jessica Estrada, [address] [id number] [place], [address]. tel:[phone] OFFICE/OUTPA TIENT VISIT EST Telehealth [facility], [address], [place], [place], [id number], [place] tel:[phone] [facility] Opioid dependenceBo dy mass index (BMI) 40.0-44.9, adult Sean Jessica. [address], [id number] 0, [place], [id number], [place]. tel:[phone] Referring Provider: Jessica Estrada, [address] [id number] [place], [address]. tel:[phone] PSYCH DIAG EVAL W/MED SRVCS Telehealth [facility], [address], [place], [id number], [place] tel:[phone] [facility] Body mass index (BMI) 40.0-44.9, adultOpioid dependence 9 Sean Lopez. [address], [id number] [place], [id number], [place]. tel:[phone] Referring Provider: Jessica Estrdaa, [address] [id number] [place], [address]. tel:[phone] OFFICE/OUTPA TIENT VISIT, NEW [facility], [address], [place], [id number], [place] tel:[phone] [facility] AMP physical (chief complaint) Body mass index (BMI) 40.0-44.9, adultTobacco useOpioid dependenceDe pressionGene ralized anxiety disorder 9 Brothers Tanya. [address], [id number] [place], [id number], [place]. tel:[phone] Referring Provider: Tanya Zamora, [address] [id number] [place], [address]. tel:[phone] PSYCH DIAGNOSTIC EVALUATION [facility], [address], [place], [id number], [place] tel:[phone] [facility] Major depressive disorder, single episode, mildOpioid dependenceCa nnabis dependence 9 Jono Crum. [address], [place], [id number], [place]. tel:[phone] Referring Provider: Skyla De La Cruz, [address], [place], [address]. tel:[phone] Family History Family Member Type Diagnosis Age At Onset Problem (finding) Family history of coronary arteriosclerosis Cousin Problem (finding) manic-depressive state Problem (finding) Family history of Cance r, unknown Problem (finding) Family history of Diabe timothy mellitus Mother Problem (finding) Lupus; gout; arthritis Mother Problem (finding) depression Mother Problem (finding) anxiety state Payers Payer name Insurance type Covered democrat ID Authoriza tion(s) No Information Social History Type Description Quantity Date Captured Comments Sex Female Smoking Status No Information Sexual Orientation Bisexual Gender Identity Female Chief Complaint And Reason For Visit No Information Reason For Referral Reason For Referral No Information Plan Of Treatment Date Type Action Status Goal Td vaccine. Due on due Goal Tdap. Due on due Goal HPV, high+low-risk. Due on due Goal HPV. Due on due Goal Diabetes screening. Due on due Goal Pap/HPV testing. Due on due Goal Lipid panel. Due on due Goal Depression screening. Due on due Goal Influenza vaccine. Due on due Goal Td vaccine. Due on due Goal Tdap. Due on due Goal Lipid panel. Due on due Goal Influenza vaccine. Due on due Goal Diabetes screening. Due on due Goal Depression screening. Due on due Goal Pap/HPV testing. Due on due Goal HPV, high+low-risk. Due on due Goal HPV. Due on due Goal Lifestyle education regardin g diet completed Goal Influenza vaccine. Due on due Goal HPV, high+low-risk. Due on due Goal Pap/HPV testing. Due on due Goal Td vaccine. Due on due Goal Diabetes screening. Due on due Goal Lipid panel. Due on due Goal Tdap. Due on due Goal Depression screening. Due on due Goal HPV. Due on due Goal Lifestyle education regardin g diet completed Goal Tdap. Due on due Goal Lipid panel. Due on due Goal Diabetes screening. Due on due Goal HPV, high+low-risk. Due on due Goal HPV. Due on due Goal Td vaccine. Due on due Goal Depression screening. Due on due Goal Influenza vaccine. Due on due Goal Pap/HPV testing. Due on due Goal Tdap. Due on due Goal Td vaccine. Due on due Goal Diabetes screening. Due on due Goal Depression screening. Due on due Goal HPV. Due on due Goal Influenza vaccine. Due on due Goal Pap/HPV testing. Due on due Goal Lipid panel. Due on due Goal HPV, high+low-risk. Due on N due Goal Pap/HPV testing. Due on due Goal Diabetes screening. Due on S ep due Goal HPV, high+low-risk. Due on S due Goal Depression screening. Due on due Goal HPV. Due on due Goal Tdap. Due on due Goal Lipid panel. Due on due Goal Td vaccine. Due on due Goal Influenza vaccine. Due on due Goal Lifestyle education regardin g diet completed Goal Td vaccine. Due on due Goal Depression screening. Due on due Goal Influenza vaccine. Due on due Goal HPV, high+low-risk. Due on due Goal Diabetes screening. Due on due Goal Lipid panel. Due on due Goal Tdap. Due on due Goal HPV. Due on due Goal Pap/HPV testing. Due on due Goal Lifestyle education regardin g diet completed Goal Lipid panel. Due on due Goal Td vaccine. Due on due Goal Influenza vaccine. Due on due Goal HPV. Due on due Goal HPV, high+low-risk. Due on due Goal Pap/HPV testing. Due on due Goal Depression screening. Due on due Goal Tdap. Due on due Goal Diabetes screening. Due on due Goal Lifestyle education regardin g diet completed Goal Tdap. Due on due Goal Td vaccine. Due on due Goal Diabetes screening. Due on due Goal Lipid panel. Due on due Goal HPV. Due on due Goal Depression screening. Due on due Goal Pap/HPV testing. Due on due Goal Influenza vaccine. Due on due Goal HPV, high+low-risk. Due on due Goal Depression screening. Due on due Goal Lipid panel. Due on due Goal Diabetes screening. Due on due Goal Pap/HPV testing. Due on due Goal HPV. Due on due Goal HPV, high+low-risk. Due on due Goal Td vaccine. Due on due Goal Influenza vaccine. Due on due Goal Tdap. Due on due Goal Influenza vaccine. Due on due Goal Depression screening. Due on due Goal HPV, high+low-risk. Due on due Goal Diabetes screening. Due on M due Goal Td vaccine. Due on due Goal HPV. Due on due Goal Lipid panel. Due on 020 due Goal Pap/HPV testing. Due on due Goal Tdap. Due on due Goal Lifestyle education regardin g diet completed Goal Pap/HPV testing. Due on due Goal Diabetes screening. Due on due Goal Depression screening. Due on due Goal HPV, high+low-risk. Due on due Goal Tdap. Due on due Goal Influenza vaccine. Due on due Goal Td vaccine. Due on due Goal Lifestyle education regardin g diet completed Goal Pap/HPV testing. Due on due Goal Influenza vaccine. Due on due Goal Td vaccine. Due on 19 due Goal Diabetes screening. Due on due Goal Depression screening. Due on due Goal HPV, high+low-risk. Due on due Goal Tdap. Due on due Goal Lifestyle education regardin g diet completed Goal Diabetes screening. Due on due Goal Tdap. Due on due Goal Depression screening. Due on due Goal HPV, high+low-risk. Due on due Goal Td vaccine. Due on 19 due Goal Pap/HPV testing. Due on due Goal Influenza vaccine. Due on No due Goal Lifestyle education regardin g diet completed Goal Diabetes screening. Due on O due Goal Pap/HPV testing. Due on due Goal Influenza vaccine. Due on Oc due Goal Depression screening. Due on due Goal Td vaccine. Due on due Goal Tdap. Due on due Goal HPV, high+low-risk. Due on O due Goal Lifestyle education regardin g diet completed Goal Tdap. Due on due Goal HPV, high+low-risk. Due on due Goal Depression screening. Due on due Goal Td vaccine. Due on due Goal Diabetes screening. Due on S due Goal Influenza vaccine. Due on Se due Goal Pap/HPV testing. Due on due Goal Lifestyle education regardin g diet completed Goal Pap/HPV testing. Due on due Goal Td vaccine. Due on 19 due Goal Depression screening. Due on due Goal Tdap. Due on due Goal HPV, high+low-risk. Due on A due Goal Diabetes screening. Due on A due Goal Influenza vaccine. Due on due Goal Depression screening. Due on due Goal Pap/HPV testing. Due on due Goal Influenza vaccine. Due on Au g due Goal Td vaccine. Due on 19 due Goal HPV, high+low-risk. Due on A due Goal Tdap. Due on due Goal Diabetes screening. Due on A due Goal Dietary management education , guidance, and counseling completed Goal Tobacco cessation counseling completed History Of Present Illness Encounter Date Complaint History Of Prese nt Illness AMP physical Pt is present to day for a AMP physical. Pt is needing to be put on Suboxone until she sees Dr Estrada on 05/26/19. Patient states she was in a program for 7 months in [facility] but they required twice a week attendance, one to see provider and one for group. Patient could not keep up with it plus it was rumored that the program was going to close. The patient lives in [facility] and has a PCP there at from [facility] --Emi Landers MD. States she is seen fairly regularly for her high BP and pain issues and had blood work drawn three weeks ago there. States she was checked for Hep C there and it was negative. Checked for HIV while five years ago and it was negative. Will sign release to obtain recent lab results.States she was a [employer] and was injured at work back and left knee. States she was prescribed Hydrocodone at that time and became dependent on them. After they were no long able to obtained through a physician and prescription, she started buying off the street. States she occasionally smokes pot and rarely drinks alcohol. She has intermittently gotten and abused Adderall. Patient states Suboxone has helped her not crave the Hydrocodone. States if she wakes up and has no Suboxone, she will get anxious and irritable and won't be able to stop thinking where she can get the drug. She also reports feeling sweaty but no nausea or seizure, etc. Patient reports that she took the 8 mg strip every AM. She attends AA meetings in [facility] because they have no NA program and has used a counselor in town that has helped her and she thinks she will call and start seeing them again. She has a history of anxiety and depression but not diagnosed with other mental illness. Takes Gabapentin for her pain and Cymbalta for pain and depression.Smokes about 1/2 ppd for at least 20 years but states used to smoke 2 packs per day. Denies cough, wheezing or significant shortness of breath.Last pap about 5 years ago and has never had a mammogram. She did not take her BP med or any other meds this am due to getting up late and trying to get son ready and come here. Reports she has appointment with Dr. Estrada on 05/26/19. States she does well with appointments if she gets a card and writes it on her calendar, otherwise she forgets most everything. Functional Status Date Functional Assessmen t No Information Instructions Date Instruction Additional Infor betsey Giving encouragement to exercise Related to Body mass index [BMI] 45.0-49.9, adult Lifestyle education regarding di et Related to Body mass index [BMI] 45.0-49.9, adult Giving encouragement to exercise Related to Body mass index [BMI] 45.0-49.9, adult Lifestyle education regarding di et Related to Body mass index [BMI] 45.0-49.9, adult Giving encouragement to exercise Related to Body mass index (BMI) 45.0-49.9, adult Lifestyle education regarding di et Related to Body mass index (BMI) 45.0-49.9, adult Giving encouragement to exercise Related to Body mass index (BMI) 45.0-49.9, adult Lifestyle education regarding di et Related to Body mass index (BMI) 45.0-49.9, adult Giving encouragement to exercise Related to Body mass index (BMI) 45.0-49.9, adult Lifestyle education regarding di et Related to Body mass index (BMI) 45.0-49.9, adult Giving encouragement to exercise Related to Body mass index (BMI) 40.0-44.9, adult Lifestyle education regarding di et Related to Body mass index (BMI) 40.0-44.9, adult Giving encouragement to exercise Related to Body mass index (BMI) 40.0-44.9, adult Lifestyle education regarding di et Related to Body mass index (BMI) 40.0-44.9, adult Lifestyle education regarding di et Related to Body mass index (BMI) 40.0-44.9, adult Lifestyle education regarding di et Related to Body mass index (BMI) 40.0-44.9, adult Lifestyle education regarding di et Related to Body mass index (BMI) 36.0-36.9, adult Giving encouragement to exercise Related to Body mass index (BMI) 40.0-44.9, adult Lifestyle education regarding di et Related to Body mass index (BMI) 40.0-44.9, adult Take only medication that is prescribed--do not seek or use street drugs of any kind. Related to Opioid dependence Giving encouragement to exercise Related to Body mass index (BMI) 40.0-44.9, adult Dietary management e ducation, guidance, and counseling Related to Body mass index (BMI) 40.0-44.9, adult Assessments Type Assessment Date No Information Patient Care Teams Name Effective Dates (start - stop) Status Members No Information
--- OUTSIDE RECORDS SUMMARY | 2025-05-11 09:20 | XMS_ITS ---
Author Organization [facility] Address [address] [place] [address] Care Team Providers Care Seat Mender Name Role Phone Junito Banks Primary Care Provider REASON FOR VISIT repeat TB test Encounters Encounter Location Date Provider Diagnosis [address] [place] [address] 05/11/2025 Junito Banks Plan Of Treatment No Information Progress Notes * Jaquelin HIGHB:1975 (49 yo F)Acc No.[id number]:05/11/2025 UNLOCKED PROGRESS NOTE Patient: Lena BELLO Provider: Luly Bansk APN :1975 A ge:49 Y S ex:Female Date:05/11/2025 Address:[address] [place], [place] [id number] Subjective: * Chief Complaints: * 1 . repeat TB test. * Medical History: Objective: * Vitals: Assessment: Plan: * Treatment: * * Electronic signature of Billy Banks on 05/21/2025 at 02:06 PM CDT Sign off status: Pending * Provider: Luly Banks APN Date: 05/11/2025 Generated for Russ shaikh/Farhad/eThoangitting on: 05/21/2025 02:06 PM CDT
[2025-05-21] VITALS (11 sets, daily range): BP systolic 99–134; BP diastolic 45–86; PULSE 78–103; RESP 11–20; TEMP 36.6–37.7; O2SAT 95–100; BMI 28.7
--- NOTE | ~2025-05-21 | CT_ITS ---
EXAMINATION: CTA abdomen pelvis DATE: 05/21/2025 15:10 CDT INDICATION: Red blood per rectum TECHNIQUE: Computed tomographic angiography (CTA) of the abdomen and pelvis was performed with 100 mL Omnipaque-350 intravenous contrast. The dose-length product was 1045.39 mGy-cm. Maximum intensity projection 3D-reconstructions of the aorta and other arteries were constructed by the technologist on a separate workstation. COMPARISON: CT dated 05/07/2025. FINDINGS: Lung bases unremarkable. Heart size normal. There is cirrhosis of the liver. There is moderate ascites. There is splenomegaly. The pancreas, adrenal glands and kidneys are unremarkable. Colonic diverticulosis without evidence for diverticulitis. There is retroperitoneal lymphadenopathy, nonspecific. There is atherosclerosis of the aorta without aneurysm.. Lung bases unremarkable. There are upper abdominal varices. Findings compatible with portal hypertension. Mild atherosclerosis of the aorta without aneurysm. The celiac axis, SMA, renal arteries and BELKIS are patent. There is mild diffuse subcutaneous edema, consistent with anasarca. Moderate-severe lower thoracic and lumbar spondylosis. IMPRESSION: 1. Cirrhosis with portal hypertension and splenomegaly. 2: Moderate ascites. Reviewed, dictated and finalized at location O.
--- NOTE | ~2025-05-21 | CT_ITS ---
EXAMINATION: CT brain wo con DATE: 05/23/2025 11:15 INDICATION: Blunt trauma to the head TECHNIQUE: Computed tomography (CT) of the head was performed without intravenous contrast. Sagittal and coronal reconstructions were performed. The mA was adjusted according to patient size. Iterative reconstruction technique was employed. The dose-length product was 681.00 mGy-cm. COMPARISON: None FINDINGS: No fracture. No acute intracranial hemorrhage, acute infarction or abnormal extra axial fluid collection. Ventricles are normal and symmetric. No mass/mass effect. The orbits, paranasal sinuses and mastoid air cells are normal. IMPRESSION: 1. Normal brain. No fracture or acute intracranial process. Reviewed, dictated and finalized at location A.
--- OUTSIDE RECORDS SUMMARY | 2025-05-21 14:07 | XMS_ITS | Patient Health Record ---
Author Organization [facility] Address [address] [place] [address] Care Team Providers Care Spike Maker Name Role Phone Rachael Bankss Primary Care Provider Olivia Walker Unavailable [phone] Samina Miller Unavailable [phone] Allergies Allergen (clinical drug ingredient) Drug/Non Drug Allergy documented on EMR Reaction Allergy Type Onset Date Status Darvocet A500 hives Drug Allergy Act benjamín Shellfish (FN) Shellfish-derived Products Unknown Drug Allergy Active Substance with sulfonamide structure and antibacterial mechanism of action (substance) Sulfa Antibiotics Unknown Drug Allergy Active Results Component Value Reference Range Notes HIV Screen *HIV 1, 2 Ab, p24 Ag ([id number]) Reviewed date:05/11/2025 08:12:18 AM Interpretation: [facility]forming [facility], [address] [facility], Phone - [phone], Director - [facility] Notes/Report: HIV Ab/p24 Ag Screen Non Reactive Non Reactive HIV-1/HIV-2 antibodies and HIV-1 p24 antigen were NOT detected. There is no laboratory evidence of HIV infection. HIV Negative Please note The date and/or time of collection was not indicated on the requisition as required by state and federal law. The date of receipt of the specimen was used as the collection date if not supplied. Specimen Status Report TNP Test not performed. No Immuno Polymedco OC sampling bottle received. TEST: [id number] ColoFIT,Occult Blood,Fecal,IA 14 Panel Urine Drug Screen Reviewed date:05/04/2025 12:43:24 PM Interpretation: Performing Lab: Notes/Report: THC POS MINH neg MOP (OPI) neg AMP neg MET neg BAR neg BZO neg MDMA neg MTD neg OXY neg PCP neg BUP neg TCA neg FTY neg CBC With Differential/Platel et* Reviewed date:05/11/2025 08:12:18 AM Interpretation: Performing Lab:[facility] [place], [address] [facility] [address], Phone - [phone], Director - [place] Notes/Report: Called/faxed to LACI GUTIÉRREZ RN on 05/07/2025 at 07:21 ET for tests RBC; Hemoglobin WBC 8.1 3.4-10.8 x10E3/uL RBC 2.18 3.77-5.28 x10E6/uL Hemoglobin 5.6 11.1-15.9 g/dL Verified by repeat analysis Hematocrit 20.3 34.0-46.6 % MCV 93 79-97 fL MCH 25.7 26.6-33.0 pg MCHC 27.6 31.5-35.7 g/dL RDW 20.5 11.7-15.4 % Platelets 374 150-450 x10E3/uL Neutrophils 72 Not Estab. % Lymphs 18 Not Estab. % Monocytes 5 Not Estab. % Eos 2 Not Estab. % Basos 2 Not Estab. % Neutrophils (Absolute) 5.7 1.4-7.0 x10E3/uL Lymphs (Absolute) 1.5 0.7-3.1 x10E3/uL Monocytes(Absolute) 0.4 0.1-0.9 x10E3/uL Eos (Absolute) 0.2 0.0-0.4 x10E3/uL Baso (Absolute) 0.1 0.0-0.2 x10E3/uL Immature Granulocytes 1 Not Estab. % Immature Grans (Abs) 0.1 0.0-0.1 x10E3/uL NRBC 3 0 - 0 % CMP 14 Comprehensive Metabol ic Panel* Reviewed date:05/11/2025 08:12:18 AM Interpretation: Performing Lab:[facility] [place], [address] [facility], [place], Phone - [phone], Director - [place] Notes/Report: Called/faxed to LACI GUTIÉRREZ RN on 05/07/2025 at 07:21 ET for tests RBC; Hemoglobin Glucose 155 70-99 mg/dL BUN 14 6-24 mg/dL Creatinine 0.97 0.57-1.00 mg/dL eGFR 71 >59 mL/min/1.73 BUN/Creatinine Ratio 14 9-23 Sodium 140 134-144 mmol/L Potassium 4.9 3.5-5.2 mmol/L Chloride 106 96-106 mmol/L Carbon Dioxide, Total 19 20-29 mmol/L Calcium 8.5 8.7-10.2 mg/dL Protein, Total 5.8 6.0-8.5 g/dL Albumin 3.3 3.8-4.9 g/dL Globulin, Total 2.5 1.5-4.5 g/dL Bilirubin, Total 0.6 0.0-1.2 mg/dL Alkaline Phosphatase 111 44-121 IU/L AST (SGOT) 28 0-40 IU/L ALT (SGPT) 11 0-32 IU/L QuantiFERON-TB Gold Plus ([id number]) Reviewed date:05/11/2025 08:12:18 AM Interpretation: Performing [facility], [address] [facility], Phone - [phone], Director - [place] Notes/Report: Called/faxed to LACI GUTIÉRREZ RN on 05/07/2025 at 07:21 ET for tests RBC; Hemoglobin Called/faxed to LACI GUTIÉRREZ RN on 05/07/2025 at 07:21 ET for tests RBC; Hemoglobin QuantiFERON Incubation Incubation performed. QuantiFERON-TB Gold Plus Indeterminate Negative Mitogen (positive control) gave low response. This may occur due to suboptimal pre-analytical handling. Chemiluminescence immunoassay methodology QuantiFERON Criteria and diagnostic evaluations. The QuantiFERON-TB Gold Plus result is determined by subtracting the Nil value from either TB antigen (Ag) value. The Mitogen tube serves as a control for the test. QuantiFERON-TB Gold Plus is a qualitative indirect test for M tuberculosis infection (including disease) and is intended for use in conjunction with risk assessment, radiography, and other medical QuantiFERON TB1 Ag Value 0.04 QuantiFERON TB2 Ag Value 0.04 QuantiFERON Nil Value 0.03 QuantiFERON Mitogen Value 0.20 Breathalyzer Reviewed date:05/04/2025 12:38:02 PM Interpretation: Performing Lab: Notes/Report: WALDEMAR 0.000 Reason For Referral Diagnosis 1 Encounter for screen ing for malignant neoplasm of colon (Z12.11) Diagnosis 2 Encounter for screen ing for malignant neoplasm of cervix (Z12.4) Diagnosis 3 Encounter for screen ing mammogram for breast cancer (Z12.31) Referral Organization [facility] Referring Provider First Name Junito Referring Provider Last Name Bryanolu Referring Provider [facility] leonard 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 Referral Priority Routine Referral Appointment Date 05/04/2025 Medications Medication SIG (Take, Route, Frequency, Duration) Notes Start Date End Date Status Lactulose Encephalopathy 10 GM/15ML 30 mL Orally Once a day Started at [facility] Active Nicotine Polacrilex 4 MG 1 lozenge as needed for nicotine cravings Mouth/Throat Up to once per hour (maximum of 15 lozenges per day); Duration: 7 days 05/04/2025 Active Pantoprazole Sodium 40 MG 1 tablet Orally twice a day Active Vraylar 1.5 MG 1 capsule Orally Once a day; Duration: 30 days 05/13/2025 Active tiZANidine HCl 4 MG 1 tablet at bedtime as needed Orally 4 times a day, as needed for muscle spasms Active hydrOXYzine Pamoate 25 MG 1-2 capsules Orally every 4 hours as needed for anxiety, agitation, or inability to sleep. Do not give within 4 hours of diphenhydramine. 05/04/2025 Active Gabapentin 800 MG 1 tablet Orally 4 times a day Active Nadolol 20 MG 1/2 tablet Orally Once a day Started at [facility] Active Melatonin 5 MG 1 tablet at bedtime as needed Orally Once a day; Duration: 30 days 05/04/2025 Active traZODone HCl 100 MG 2 tables at night Orally Once a day; Duration: 30 days Active Nicotine 14 MG/24HR 1 patch to skin Transdermal Once a day, removing at bedtime; Duration: 14 days 05/04/2025 Active DULoxetine HCl 60 MG 2 capsules Orally Once a day; Duration: 30 days Active Prempro 0.3-1.5 MG 1 tablet Orally Once a day Active Lasix 40 MG 1 tablet Orally Once a day Started at [facility] Active Multi Vitamin - 1 tablet Orally Once a day; Duration: 30 days 05/04/2025 Active Spironolactone 50 MG 2 tablets Orally Once a day Active Social History Tobacco Use: Social History Observation Description Date Details (start date - stop date) Current Smoker 05/03/1995 - NA PRAPARE Question Answer Notes Date Completed/Updated: 05/04/2025 What is your current housing situation? I do not have housing (staying with others, in a hotel, in a fci, living outside on the street, on a beach, or in a park) Are you worried about losing your housing? Yes What is the highest level of school that you have finished? More than high school What is your current work situation? 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 Stress is when someone feels tense, nervous, anxious, or can\t sleep at night because their mind is troubled Very much In the past year have you sp ent more than 2 nights in a row in a long-term, fpc, nursing home center, or juvenile correctional facility? No [...] Problem Status W/U Status Risk Notes Problem Generalized anxiety disorder (27002569) Generalized anxiety disorder (F41.1) Active confirmed Problem Substance abuse (9233431887) Substance abuse (F19.10) Active confirmed Problem Major depressive disorder, single episode, severe with psychotic features (779258365) Major depressive disorder with psychotic features (F32.3) Active confirmed Problem Overweight (840733261) Over weight (E66.3) Active confirmed Problem Mental health disorder (76649530) Mental health disorder (F99) Active confirmed Problem Cirrhotic (982086010) Cirrhosis (K74.60) Active confirmed Problem History of methicillin resistant Staphylococcus aureus infection (083465619) History of MRSA infection (Z86.14) Active confirmed Problem Physical examination, complete (76009116) Adult general medical examination (Z00.00) Active confirmed Vital Signs Heart Rate 97 /min 05/12/2025 Temperature 98.1 degrees Fahrenheit 05/12/2025 Respiratory Rate 16 /min 05/12/2025 Oximetry 98 % 05/12/2025 Blood pressure diastolic 62 mm Hg 05/12/2025 Height 68 in 05/13/2025 Blood pressure systolic 116 mm Hg 05/12/2025 Weight 186 lb 8 oz lbs 05/13/2025 BMI 28.35 kg/m2 05/13/2025 Encounters Encounter Location Date Provider Diagnosis [facility] [address] [place] [address] 05/06/2025 Junito Banks [facility] [address] [place] [address] 05/04/2025 Junito Banks Adult general medica l examination Z00.00 ; History of MRSA infection Z86.14 ; Encounter for screening for malignant neoplasm of colon Z12.11 ; Encounter for screening for malignant neoplasm of cervix Z12.4 ; Encounter for screening mammogram for breast cancer Z12.31 ; Over weight E66.3 and Abrasion of knee, unspecified laterality, initial encounter S80.219A [facility] [address] [place] [address] 05/04/2025 Samina Miller Substance abuse F19.10 ; Mental health disorder F99 and Over weight E66.3 [facility] [address] [place] [address] 05/12/2025 Junito Banks Over weight E66.3 an d Cirrhosis K74.60 [facility] [place] [address] 05/13/2025 Olivia Denise Major depressive disorder with psychotic features F32.3 ; Generalized anxiety disorder F41.1 and Over weight E66.3 [place] [address] [place] [address] 05/19/2025 Olivia Walker [place] [address] [place] [address] 05/07/2025 Junito Banks [place] [address] [place] [address] 05/11/2025 Junito Banks Tuberculosis screening Z11.1 Assessments Encounter Date Diagnosis (ICD Code) Assessment Notes Treatment Notes Treatment Clinical Notes Section Notes 05/11/2025 Tuberculosis screening (ICD-10 - Z11.1) 05/12/2025 Over weight (ICD-10 - E66.3) 05/12/2025 Cirrhosis (ICD-10 - K74.60) Patient may have been provided 10mg tabs of nadolol, it is ok that you split them in two tabs if it 20mg tablets or do one 10mg tablet for the dosing. Perform alert and orientation checks twice daily to monitor for change in neuro status. 05/13/2025 Generalized anxiety disorder (ICD-10 - F41.1) 05/13/2025 Major depressive disorder with psychotic features (ICD-10 - F32.3) Restart Vraylar to help with mood instability and psychosis. Consider reducing or discontinuing Cymbalta in the future. States it doesn't seem to be helping like it used to work. Continue services as scheduled. Labs completed recently. May self-administer medications or be administered own oral medications per [facility] protocols. Provided informed consent with understanding of side effects, adverse effects, risks and benefits as well as alternative treatments as previously discussed and with the above recommended medications & other aspects of the treatment program. Agrees to return sooner if symptoms worsen or suicidal or homicidal ideations occur. 05/04/2025 History of MRSA infection (ICD-10 - [...] Z12.4) 05/04/2025 Over weight (ICD-10 - E66.3) 05/13/2025 Over weight (ICD-10 - E66.3) 05/04/2025 Encounter for screening mammogram for breast cancer (ICD-10 - Z12.31) 05/04/2025 Over weight (ICD-10 - E66.3) 05/04/2025 Abrasion of knee, unspecified laterality, initial encounter (ICD-10 - S80.219A) dressing change twice daily with antibiotic ointment. Clean with NS or alcohol prior to antibiotic ointment and dressing. 05/04/2025 Other Continue treatment as recommended by [facility] staff. Encouraged patient to obtain routine medical care with patient's own primary care provider or establish as a patient at [facility] if no current primary care provider. 05/04/2025 Other Clinician met w ith client to assess needs for residential services. Clinician gathered information regarding historical presentation of mental health and substance use symptoms including withdrawal, HIV Risk assessment, psychiatric hospitalization history and presenting concern. Clinician conducted PHQ9 and CSSRS assessments as well as social drivers of health screening for the purposes of identifying additional service needs. Plan Of Treatment Future Test Test Name Order Date Occult Blood, Fecal, [place] ([id number]) 025 QuantiFERON-TB Gold Plus ([id number]) 2024 Mammogram Breast - Bilateral Screening with ABUS, diagnostic mammogram/ultrasound, and/or biopsy as clinically indicated 05/11/2025 Insurance Providers Payer Name Payer Address Payer Phone Subscriber Number Group Number Insured Name Patient Relationship to Insured Coverage Start Date Coverage End Date [facility] Attn Claims Department [address] [place] [address] [phone] [id number] Lena High Self - patient is the insured [facility] Attn Claims Department [address] [place] [address] [phone] [id number] Lena High Self - patient is the insured 5 [facility] Attn Claims Department [address] [place] [address] [id number] Lena High Self - patient is the insured 5 Medical (General) History Medical History History ICD Code Cirrhosis of liver Anemia depression anxiety ptsd Surgical History Surgery Date(Month/Year) C Section 2022 Knee surgery 1989 ECG 02/2025 Hospitalization History Reason Date(Month/Year) [facility] for surgery 02/2025
[2025-05-21 14:31] LABS: Hematocrit 26.1 % (37.0-47.0); Hemoglobin 7.7 g/dL (12.0-15.0); Immature Granulocyte Percent A 1.6 % (0-0.5); Lymphocytes Absolute Auto 1.13 K/mm3 (0.9-3.2); Mean Corpuscular HGB Conc 29.5 g/dl (32-36); Mean Corpuscular Hemoglobin 25.7 pg (26-34); Mean Corpuscular Volume 87.0 fl (80-100); Nucleated Red Blood Cells Absolute Auto 0.150 K/mm3 (0.0-0.012); Nucleated Red Blood Cells Perc 1.9 % (0.0-0.2); Platelet Count Result 458 k/mm3 (150-375); Red Blood Count 3.00 M/mm3 (4.2-5.4); White Blood Count 7.7 K/mm3 (4.5-10.0)
[2025-05-21] MEDS: SODIUM CHLORIDE 0.9% IV 1,000 ML 999 ML IV CONT (14:40)
[2025-05-21 14:41] LABS: Alanine Aminotransferase 19 U/L (6-35); Albumin Level 3.8 g/dL (3.5-5.1); Alkaline Phosphatase 118 U/L (38-126); Anion Gap 4 mmol/L (4-12); Aspartate Amino Transferase 41 U/L (14-36); Bilirubin,Total 0.9 mg/dL (0.2-1.3); Blood Urea Nitrogen 27 mg/dL (7-17); Calcium 9.0 mg/dL (8.4-10.2); Carbon Dioxide 28 mmol/L (22-30); Chloride 100 mmol/L (98-107); Estimated CRCL calculation 50 ml/min; Estimated Glomerular Filt Rate 42; Glucose 108 mg/dL (65-110); INR 1.1; Potassium 5.1 mmol/L (3.4-5.0); Prothrombin Time 14.4 Seconds (11.1-14.7); Sodium 132 mmol/L (137-145); Total Protein 7.1 g/dL (6.3-8.2)
[2025-05-21 14:42] LABS: Partial Thromboplastin Time 36.5 Seconds (22.3-36.8)
[2025-05-21 14:44] LABS: Anisocytosis 1+; Hypochromasia 1+; Ovalocytes 1+; Poikilocytosis 1+; Schistocytes None Seen
--- OUTSIDE RECORDS SUMMARY | 2025-05-21 14:46 | XMS_ITS | Clinical Summary ---
Author Organization [facility] Address [address] [place] [address] Care Team Providers Care Prison Classification Counselor Name Role Phone Emi Landers MD Primary Care Provider + Allergies Active Allergy Reactions Criticality Noted Date Comments Shellfish-Derived Products Itching,Swelling High 03/09/2023 Tongue swelling, itchy throat Sulfa Antibiotics Hives,Itching Medium 03/09/2023 Medications DULoxetine (CYMBALTA) 60 MG capsule Take 2 capsules (120 mg total) by mouth daily. Active gabapentin (NEURONTIN) 800 MG tablet Take 1 tablet (800 mg total) by mouth 4 (four) times daily. Active tiZANidine (ZANAFLEX) 4 MG tablet Take 1 tablet (4 mg total) by mouth 2 (two) times daily. Active atorvastatin (LIPITOR) 40 MG tablet Take 1 tablet (40 mg total) by mouth nightly at bedtime. 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 Gender Identity Not on file Sexual Orientation Not on file Last Filed Vital Signs Vital Sign Reading Time Taken Comments Blood Pressure 147/93 03/13/2023 9:46 AM CDT Pulse 111 03/13/2023 9:46 AM CDT Temperature 37 C (98.6 F) 03/13/2023 9:46 AM CDT Respiratory Rate - - Oxygen Saturation 97% 03/13/2023 9:46 AM CDT Inhaled Oxygen Concentration - - Weight 114 kg (251 lb 5.2 oz) 03/09/2023 11:00 P M CDT Height 172.7 cm (5' 8) 03/09/2023 11:00 PM CDT Body Mass Index 38.21 03/09/2023 11:00 PM CDT Plan of Treatment Health Maintenance Due Date Last Done Comments Cervical Cancer Screening Pa p Smear (Age 30 to 64) Every 3 Years 1973 Colorectal Cancer Screening Colonoscopy (10 Years) 1973 Annual Physical 1976 Hepatitis C 1991 Hepatitis B Vaccines (1 of 3 - 19+ 3-dose series) 1992 Pneumococcal Vaccine: 50+ Years (1 of 2 - PCV) 1992 Cervical Cancer Screening Pa p with HPV Testing (Age 30 to 64) Every 5 Years 2003 Cervical Cancer Screening wi th HPV 2003 Mammogram Screening 2013 Zoster Vaccines (1 of 2) 2023 COVID-19 Vaccine (1 - 2023-2 5 season) 2025 DTaP, Tdap and Td Vaccines ( 2 - Td or Tdap) 05/12/2032 05/12/2022, 10/07/1999 Meningococcal B Vaccine Aged Out No l onger eligible based on patient's age to complete this topic Meningococcal Vaccine Aged Out No jayda tuyet eligible based on patient's age to complete this topic RSV Immunizations Under 20 Months Aged Out No longer eligible b ased on patient's age to complete this topic Additional Health Concerns Infection Onset Date Last Indicated MRSA 03/10/2023 03/10/2023 Insurance Advance Directives * Full Code (Latest Code Status on File) Date Activated Date Inactivated Comments 03/10/2023 12:11 AM 03/13/2023 4:02 PM Care Teams Prison Classification Counselor Relationship Specialty Start Date End Date Emi Landers MD PCP - General FAMILY PRACTICE 03/09/23
--- OUTSIDE RECORDS SUMMARY | 2025-05-21 14:46 | XMS_ITS | Encounter Summary ---
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
--- NOTE | 2025-05-21 15:15 | ED.GENADULT ---
HPI - General Adult General Chief complaint: GI Bleed Stated complaint: blood in stool Time Seen by Provider: 05/21/25 14:09 History of Present Illness HPI narrative: This is a 49-year-old female with history of liver cirrhosis presenting with a bloody bowel movement. Patient said that she had a normal bowel movement earlier today but at the end of it she had a dripping of some bright red blood. It is then resolved and she has not had any similar episodes. No fevers, no chest pain, no difficulty breathing no abdominal pain. No hematemesis. Related Data Home Medications ?Medication ?Instructions ?Recorded ?Confirmed ?Last Taken ?Type conj estrogen-medroxyprogesterone 1 tablet PO DAILY 05/07/25 05/07/25 05/07/25 07:30 History 0.3 mg-1.5 mg tablet (Prempro) 1 tablet duloxetine 60 mg capsule,delayed 120 mg PO DAILY 05/07/25 05/07/25 05/07/25 07:30 History release 120 mg gabapentin 800 mg tablet 800 mg PO .Q6 NUMBNESS AND PAIN 05/07/25 05/07/25 05/07/25 07:30 History 800 mg hydroxyzine HCl 25 mg tablet 50 mg PO Q4H PRN anxiety 05/07/25 05/07/25 05/07/25 07:30 History 50 mg multivitamin 1 tablet PO DAILY 05/07/25 05/07/25 05/07/25 07:30 History 1 tablet pantoprazole 40 mg tablet,delayed 40 mg PO BID 05/07/25 05/07/25 05/07/25 07:30 History release (Protonix) 40 mg tizanidine 4 mg tablet 4 mg PO Q6H PRN muscle pain 05/07/25 05/07/25 05/07/25 07:30 History 4 mg trazodone 100 mg tablet 100 mg PO HS PRN sleep 05/07/25 05/07/25 05/07/25 07:30 History 200 mg Allergies Allergy/AdvReac Type Severity Reaction Status Date / Time shellfish derived Allergy Severe Hives Verified 05/08/25 10:49 Sulfa (Sulfonamide AdvReac Nausea and Verified 05/08/25 10:49 Antibiotics) Vomiting [facility] Past Medical History Medical History (Updated 05/21/25 @ 18:33 by James Mujica MD) History of cirrhosis of liver History of esophageal varices Family History Family History Mother Substance abuse Alcohol abuse Myocardial infarction Hypertension Heart disease Father Melanoma Cancer of bone Social History Social History Smoking packs per day: 1 Smoking cigarettes per day: 20.0 Years smoked: 35 Smoking pack-years: 35.00 Smoking status: Heavy tobacco smoker Tobacco type: cigarettes and e-cigarettes/vaping Alcohol intake: current Drinks per week: 3 Substance use: current Substance use type: marijuana and methamphetamine Last use: 04/16/25 Lack of Transportation: YES Lack of Food: Never True Current Housing: I Do Not Have Housing Concerned About Future Housing: YES Difficulty Paying Gas/Electric Bills: No Difficulty Paying for Meds: No Currently Unemployed: YES Education: Trade/Vocational Certificate Difficulty w/ Childcare or Family Care: No Spiritual care concerns: No Exam Narrative: APPEARANCE: No apparent distress. Head: atraumatic. EYES: EOMI, NOSE: Atraumatic NECK: Trachea midline RESPIRATORY: No increased rate of breathing CARDIOVASCULAR: RRR, ABDOMINAL: Distended with fluid wave, soft nontender MUSCULOSKELETAl: No obvious deformities NEURO: Alert. Moving 4/4 extremities SKIN:: Warm, dry. Normal color, jaundiced PSYCHIATRIC: Normal affect Course Vital Signs Vital signs: Vital Signs Temperature 97.9 F 05/21/25 14:06 Pulse Rate 89 05/21/25 14:06 Respiratory Rate 20 05/21/25 14:06 Blood Pressure 99/63 L 05/21/25 14:06 Pulse Oximetry 100 05/21/25 14:06 Temperature 97.9 F 05/21/25 14:06 Pulse Rate 82 05/21/25 17:55 Respiratory Rate 18 05/21/25 17:55 Blood Pressure 119/67 05/21/25 17:55 Pulse Oximetry 100 05/21/25 17:55 Medical Decision Making MDM Narrative Medical decision making narrative: -Course: 49-year-old female liver cirrhosis and history esophageal varies presenting with a bright red bowel movement. On arrival patient's blood pressure was 99/63. Given 1 L of lactated Ringer's. No blood on digital rectal exam. Initial hemoglobin 7.7. This was repeated after 4 hours and is dropped to 7.0. Patient will be transfused 1 unit PRBCs. This is most likely a self-limiting lower GI bleed as she does not have melena or hematemesis, however given her low starting hemoglobin she will be admitted for further treatment and evaluation. GI consulted. -DDX includes but is not limited to: Lower GI bleed, brisk upper GI bleed Vital Signs Vital Signs: Vital Signs Temperature 97.9 F 05/21/25 14:06 Pulse Rate 89 05/21/25 14:06 Respiratory Rate 20 05/21/25 14:06 Blood Pressure 99/63 L 05/21/25 14:06 Pulse Oximetry 100 05/21/25 14:06 Temperature 97.9 F 05/21/25 14:06 Pulse Rate 82 05/21/25 17:55 Respiratory Rate 18 05/21/25 17:55 Blood Pressure 119/67 05/21/25 17:55 Pulse Oximetry 100 05/21/25 17:55 Lab Data 05/21/25 18:08 05/21/25 14:19 Labs: Lab Results 05/21/25 05/21/25 Range/Units 14:19 18:08 WBC 7.7 (4.5-10.0) K/mm3 RBC 3.00 L (4.2-5.4) M/mm3 Hgb 7.7 L 7.0 L (12.0-15.0) g/dL Hct 26.1 L 24.4 L (37.0-47.0) % MCV 87.0 (80-100) fl MCH 25.7 L (26-34) pg MCHC 29.5 L (32-36) g/dl RDW 21.0 H (11.5-14.5) % Plt Count 458 H (150-375) k/mm3 MPV 11.2 H (7.4-10.4) fl Immature Gran % (Auto) 1.6 H (0-0.5) % Neut % (Auto) 72.8 (45.5-73.1) % Lymph % (Auto) 14.7 L (18.3-44.2) % [place] % (Auto) 7.3 (2.6-8.5) % Eos % (Auto) 1.7 (0-4.4) % Baso % (Auto) 1.9 H (0.2-1.2) % Lymph # (Auto) 1.13 (0.9-3.2) K/mm3 [place] # (Auto) 0.6 (0.1-0.6) K/mm3 Eos # (Auto) 0.1 (0-0.3) K/mm3 Baso # (Auto) 0.2 H (0.0-0.1) K/mm3 Abs Immat Gran (auto) 0.12 H (0.00-0.031) K/mm3 Absolute Neuts (auto) 5.6 (1.3-6.7) K/mm3 Absolute Nucleated RBC 0.150 H (0.0-0.012) K/mm3 Band Neutrophils % Not Reportable Nucleated RBC % 1.9 H (0.0-0.2) % Platelet Estimate Increased (Adequate) Hypochromasia 1+ Poikilocytosis 1+ Anisocytosis 1+ Ovalocytes 1+ Schistocytes None seen PT 14.4 (11.1-14.7) Seconds INR 1.1 APTT 36.5 (22.3-36.8) Seconds Sodium 132 L (137-145) mmol/L Potassium 5.1 H (3.4-5.0) mmol/L Chloride 100 (98-107) mmol/L Carbon Dioxide 28 (22-30) mmol/L Anion Gap 4 (4-12) mmol/L BUN 27 H D (7-17) mg/dL Creatinine 1.32 H (0.7-1.0) mg/dL Estim Creat Clear Calc 50 ml/min Estimated GFR 42 L (59 - ) Glucose 108 (65-110) mg/dL Calcium 9.0 (8.4-10.2) mg/dL Total Bilirubin 0.9 (0.2-1.3) mg/dL AST 41 H (14-36) U/L ALT 19 (6-35) U/L Alkaline Phosphatase 118 (38-126) U/L Total Protein 7.1 (6.3-8.2) g/dL Albumin 3.8 (3.5-5.1) g/dL Blood Type A Positive Antibody Screen Negative Discharge Plan Discharge Clinical Impression: Anemia, Cirrhosis, Acute lower GI bleeding Patient Disposition: Still a Patient Condition: Stable Patient Language: Uzbek Prescriptions: No Action gabapentin 800 mg tablet 800 mg PO .Q6 duloxetine 60 mg capsule,delayed release(DR/EC) 120 mg PO DAILY Prempro 0.3-1.5 mg tablet 1 tablet PO DAILY hydroxyzine HCl 25 mg tablet 50 mg PO Q4H PRN (Reason: anxiety) multivitamin Tablet 1 tablet PO DAILY pantoprazole [Protonix] 40 mg tablet,delayed release (DR/EC) 40 mg PO BID trazodone 100 mg tablet 100 mg PO HS PRN (Reason: sleep) tizanidine 4 mg tablet 4 mg PO Q6H PRN (Reason: muscle pain) Rx Instructions: do not exceed 3 doses per 24 hrs furosemide 40 mg Tablet 40 mg PO DAILY Qty: 30 0RF lactulose 10 gram/15 mL Solution 20 g PO QAM Qty: 30 0RF nadolol 20 mg tablet 10 mg PO ONCE Qty: 30 0RF spironolactone [Aldactone] 50 mg Tablet 100 mg PO QAM Qty: 100 0RF Follow-up/Referrals: PHYSICIAN,ROLL WRAPPER [Primary Care Provider, Internal Medicine]
[2025-05-21 18:13] LABS: Hematocrit 24.4 % (37.0-47.0); Hemoglobin 7.0 g/dL (12.0-15.0)
[2025-05-21] MEDS: SODIUM CHLORIDE 0.9% IV 250 ML 30 ML IV CONT (19:00)
[2025-05-21] MEDS: TUBING, BLOOD SET 1 EACH XX (19:00)
--- NOTE | 2025-05-21 19:25 | PC.NURSE ---
Patient continues to leak around inflated fink bulb-new pad applied
[2025-05-21 21:20] LABS: Hematocrit 27.7 % (37.0-47.0); Hemoglobin 8.2 g/dL (12.0-15.0)
--- NOTE | 2025-05-21 21:25 | PC.NURSE ---
[facility] notified-message left on their machine
[2025-05-21 21:29] LABS: Ammonia 29 umol/L (9-30)
--- NOTE | 2025-05-21 21:30 | ADMGEN ---
This patient, Lena High, was admitted to IMU Room 203-01. Patient/family oriented to hospital policies and general routines including ID bracelet, bed and alarms, visiting hours, pain management, procedures, bathroom and other care routines, personal items, smoking policy, room service/diet, and visiting hours. Information on how to activate the Rapid Response Team has been discussed. Patient/Family are encouraged to report perceived risks to care and to ask questions if they do not understand what they are told or what they should do.
--- NOTE | 2025-05-21 21:49 | PM.IMHP ---
H&P: HPI History of Present Illness Date/Time: 05/21/25 21:49 Chief Complaint: blood in stool Narrative: This is a 49-year-old female patient has a history of alcoholism with liver cirrhosis and history esophageal varices. She stated that she had a normal bowel movement earlier today but at the end of the defecation she was dropping some bright red blood. Patient denies any fever or chills. The patient stated she only had 1 bout of bloody stool. She said that she does have a history of having hemorrhoids as well. She denies any nausea, vomiting or diarrhea. Her H&H was 7.7 and 26.1 with a repeat of 7.0 in 24.4. Currently her H&H is 8.2 and 27.7. Patient was given normal saline IV fluids. Abdominal pelvis CT was read as a following 1. Cirrhosis with portal hypertension and splenomegaly. 2: Moderate ascites. Her BUN is 27 and creatinine 1.32. Estimated GFR is 42. AST is 41. Potassium is 5.1 and sodium was 132. She denies any shortness of breath or abdominal pain at this time. She is being admitted to IMU on the date of service of 05/21/2025 Review of Systems Review of Systems: All systems reviewed & are unremarkable except as noted in HPI and below Constitutional: Constitutional: Reports as per HPI and Reports no additional constitutional complaints Eyes: Eyes: Reports as per HPI and Reports no additional eye complaints ENT: Reports no additional ear, nose, mouth, and throat complaints and Reports Normal hearing present Cardiovascular: Cardiovascular: Reports no additional cardiovascular complaints Respiratory: Respiratory: Reports no additional respiratory complaints and Reports no additional respiratory complaints Gastrointestinal: Gastrointestinal: Reports as per HPI, Reports no additional gastrointestinal complaints and Reports hematochezia Musculoskeletal: Musculoskeletal: Reports no additional musculoskeletal complaints Integumentary/Breasts: Skin/Breast: Reports system reviewed and no additional complaints, except as docu Neurologic: Reports no additional neurologic complaints, Reports as per HPI and Reports Normal hearing present Psychiatric: Psychiatric: Reports no additional psychiatric complaints and Reports as per HPI Endocrine: Endocrine: Reports no additional endocrine complaints and Reports other (She has a history of depression and anxiety) Hematologic/Lymphatic: Hematologic/Lymphatic: Reports no additional hematologic/lymphatic complaints Allergic/Immunologic: Allergic/Immunologic: Reports no additional allergic/immunologic complaints [facility] Past Medical History Medical History (Updated 05/21/25 @ 23:06 by Yasmine Wise APRN) Anemia Hyponatremia Substance abuse Alcohol abuse PTSD (post-traumatic stress disorder) Anxiety disorder Esophageal varices Previously banded Depression Acute hemorrhoid Neuropathy History of cirrhosis of liver History of esophageal varices Surgical History Surgical History H/O section S/P T&A (status post tonsillectomy and adenoidectomy) H/O left knee surgery History of esophagogastroduodenoscopy (EGD) Family History Family History Mother Substance abuse Alcohol abuse Heart disease Myocardial infarction Hypertension Father Cancer of bone Melanoma Alzheimer dementia Other Dementia Social History Social History (Updated 05/21/25 @ 22:52 by Yasmine Wise APRN) Social History: She currently resides at [facility]. She is working on her disability. She has 1 son who is 11-year years old and he lives with the patient's brother. 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 She stated that she is trying to quit smoking and is down to vaping and a nicotine patch. Smoking packs per day: 1 Smoking cigarettes per day: 20.0 Years smoked: 35 Smoking pack-years: 35.00 Smoking status: Heavy tobacco smoker Tobacco type: cigarettes Alcohol intake: former Drinks per week: 3 Substance use: current Substance use type: marijuana and methamphetamine Last use: 04/16/2025 Lack of Transportation: No Lack of Food: Never True Current Housing: I Have Housing Concerned About Future Housing: No Difficulty Paying Gas/Electric Bills: No Difficulty Paying for Meds: No Currently Unemployed: No Education: Trade/Vocational Certificate Difficulty w/ Childcare or Family Care: No Spiritual care concerns: No Meds Home Medications and Allergies Home Medications ?Medication ?Instructions ?Recorded ?Confirmed ?Type conj estrogen-medroxyprogesterone 1 tablet PO DAILY 05/07/25 05/21/25 History 0.3 mg-1.5 mg tablet (Prempro) duloxetine 60 mg capsule,delayed 120 mg PO DAILY 05/07/25 05/21/25 History release gabapentin 800 mg tablet 800 mg PO .Q6 NUMBNESS AND PAIN 05/07/25 05/21/25 History hydroxyzine HCl 25 mg tablet 50 mg PO Q4H PRN anxiety 05/07/25 05/21/25 History multivitamin 1 tablet PO DAILY 05/07/25 05/21/25 History pantoprazole 40 mg tablet,delayed 40 mg PO BID 05/07/25 05/21/25 History release (Protonix) tizanidine 4 mg tablet 4 mg PO Q6H PRN muscle pain 05/07/25 05/21/25 History trazodone 100 mg tablet 100 mg PO HS PRN sleep 05/07/25 05/21/25 History furosemide 40 mg tablet 40 mg PO DAILY #30 tabs 05/09/25 05/21/25 Rx nadolol 20 mg tablet 10 mg (1/2 x 20 mg) PO ONCE #30 05/09/25 05/21/25 Rx tabs spironolactone 50 mg tablet 100 mg (2 x 50 mg) PO QAM #100 tabs 05/09/25 05/21/25 Rx (Aldactone) Allergies Allergy/AdvReac Type Severity Reaction Status Date / Time shellfish derived Allergy Severe Hives Verified 05/08/25 10:49 Sulfa (Sulfonamide AdvReac Nausea and Verified 05/08/25 10:49 Antibiotics) Vomiting Vital Signs Vital Signs - 24 hr 05/21/25 14:06 05/21/25 14:29 05/21/25 14:30 Temperature 97.9 F Pulse Rate 89 84 82 Respiratory Rate 20 Blood Pressure 99/63 L 106/59 L 104/57 L Pulse Oximetry 100 05/21/25 14:30 05/21/25 17:55 05/21/25 19:00 Temperature 98.4 F Pulse Rate 84 82 78 Respiratory Rate 18 18 Blood Pressure 99/66 L 119/67 118/77 Pulse Oximetry 100 100 05/21/25 19:19 05/21/25 20:15 05/21/25 21:05 Temperature 98.5 F 98.6 F Pulse Rate 80 79 81 Respiratory Rate 15 11 L 16 Blood Pressure 120/78 123/86 124/81 Pulse Oximetry 100 100 100 Exam Const: General: cooperative, comfortable, no acute distress, well developed, awake, Physically active, average body habitus and well nourished Nutritional Appearance: average body habitus and well nourished Orientation/consciousness: oriented to person, oriented to place, oriented to time and patient oriented x3 Limitations: no limitations HENMT: Head: normal to inspection, No palpable skull fracture present, normocephalic, atraumatic and abrasion Ears: hearing grossly normal bilaterally and external ears normal Face/Nose/Sinus: Normal external nose present Eyes: General: appearance normal, both eyes and all related structures Alignment and Position: alignment normal Periorbital: periorbital findings normal Eyelids: eyelids normal Conjunctivae: conjunctivae normal Pupils: Equal, round and reactive pupils present EOM: EOMs intact bilaterally Neck: Neck: normal visual inspection, full ROM and no lymphadenopathy Chest: Chest palpation & inspection: normal inspection of the chest Resp: Effort & Inspection: normal respiratory effort Auscultation: clear to auscultation bilaterally Cardio: Palpation: normal PMI Rate: regular rate Rhythm: regular rhythm Heart sounds: S1 normal heart sound present and S2 normal heart sound present Peripheral pulses: Peripheral pulses 2+ throughout GI: Inspection: normal to inspection Auscultation: normal bowel sounds Rectal Exam: deferred Back/Spine/Pelvis: Back: no CVA tenderness Cervical Spine: cervical ROM normal Skin: General skin exam: other (Jaundice) Lesions: no lesions Rashes: no rashes Trauma: no lacerations or abrasions Wounds: no wounds Hair: normal Nails: normal Neuro: General: oriented to person, oriented to place, oriented to time and patient oriented x3 Cranial nerves: Yes Equal, round and reactive pupils present and Yes Normal hearing present Cognition (Neuro): normal cognition Speech: normal speech Gait exam (Neuro): Normal gait present Motor exam (neuro): 5/5 motor strength present throughout Sensory Exam: normal sensation Extrem: General: normal to inspection Right upper extremity: normal to inspection and shoulder/upper arm Left upper extremity: normal to inspection and shoulder/upper arm Right lower extremity: normal to inspection Left lower extremity: normal to inspection Psych: Appearance: grossly normal Mental Status: mental status grossly normal Speech and movement: Normal speech and movement present Affect: normal affect Attitude: cooperative Thought process: Normal thought process present Thought content: Yes Normal thought content present Insight: Good insight present (Psych) Judgement: Good judgement present (Psych) H&P: Results Labs Labs: Short CBC 05/21/25 05/21/25 05/21/25 Range/Units 14:19 18:08 21:14 WBC 7.7 (4.5-10.0) K/mm3 Hgb 7.7 L 7.0 L 8.2 L (12.0-15.0) g/dL Hct 26.1 L 24.4 L 27.7 L (37.0-47.0) % Plt Count 458 H (150-375) k/mm3 BMP 05/21/25 14:19 Sodium 132 L Potassium 5.1 H Chloride 100 Carbon Dioxide 28 BUN 27 H D Creatinine 1.32 H Glucose 108 Calcium 9.0 Liver Function 05/21/25 Range/Units 14:19 Total Bilirubin 0.9 (0.2-1.3) mg/dL AST 41 H (14-36) U/L ALT 19 (6-35) U/L Alkaline Phosphatase 118 (38-126) U/L Albumin 3.8 (3.5-5.1) g/dL Assessment and Plan Assessment and plan (1) Acute lower GI bleeding: Code(s): K92.2 - Gastrointestinal hemorrhage, unspecified Status: Acute Assessment and Plan: -the patient stated that she was dripping some blood after normal bowel movement. She denied any black or dark stools today. She stated she does have a history of having hemorrhoids and sometimes they do bleed. She has a history of esophageal varices that have been banded. -q.6 hours H next -initial H&H was 7.7 and 26.1 respectively, then it was 7.0 and 24.4 respectively, and last H&H was 8.2 and 27.7. -her baseline H and H is 8.0 in 27.0. -GI has been consulted. -she had an EGD on 05/08/2025 which was read as the following small grade 1 varices and to see small, barely visible varices) were present in the distal esophagus. The varices were not actively bleeding. The varices in 3 columns. The Z-line was located at 41 cm from the incisors. The stomach at the body, cardia and fundus was examined and was normal with no ulcers or masses. No gastritis, no signs of recent bleeding. The bulb and 2nd portion of duodenum was normal with no ulcers or masses. No AVM, no hematin -IV Pepcid -platelets were found to be elevated. (2) Esophageal varices: Code(s): I85.00 - Esophageal varices without bleeding Status: Acute Assessment and Plan: -the patient has a history of banded esophageal varices -she denies any black stools or hematemesis -continue with her Corgard with parameters for heart rate and blood pressure (3) Cirrhosis: Qualifiers: Hepatic cirrhosis type: alcoholic cirrhosis Ascites presence: with ascites Qualified Code(s): K70.31 - Alcoholic cirrhosis of liver with ascites Code(s): K74.60 - Unspecified cirrhosis of liver Status: Acute Assessment and Plan: -CT of the abdomen was read as 1. Cirrhosis with portal hypertension and splenomegaly. 2: Moderate ascites. -she is awake and alert orientated x3. Her ammonia level was normal. (4) Depression: Code(s): F32.A - Depression, unspecified Status: Acute Assessment and Plan: -continue with Cymbalta but continue to monitor her sodium levels as they are low. The patient stated that she sees a psychiatrist for her depression and PTSD as well as her anxiety disorder. Her medications can cause hyponatremia. (5) Anxiety disorder: Code(s): F41.9 - Anxiety disorder, unspecified Status: Acute Assessment and Plan: -continue with her trazodone at night (6) PTSD (post-traumatic stress disorder): Code(s): F43.10 - Post-traumatic stress disorder, unspecified Status: Acute Assessment and Plan: -the patient currently resides at [facility]. She sees a psychiatrist there and was prescribed medications for this. Continue with her home medications. (7) Hyperkalemia: Code(s): E87.5 - Hyperkalemia Status: Acute Assessment and Plan: -her potassium is 5.1. The patient takes Lasix daily which may help to bring this down somewhat. However the patient has acute renal failure and we will hold her Lasix for tonight. -monitor daily metabolic panels -her spironolactone because of the hyperkalemia as well. I will hold that for tonight but please re-evaluate in the a.m. as she will need this restarted for her ascites. (8) Acute renal failure: Code(s): N17.9 - Acute kidney failure, unspecified Status: Acute Assessment and Plan: -this could be related to her diuretic treatment. -recheck BMP in the a.m. -hold nephrotoxic medications. The patient is currently on Lasix which we will place on hold for tonight but needs to be restarted as soon as possible for her ascites. -BUN 27 creatinine 1.32. (9) Hyponatremia: Code(s): E87.1 - Hypo-osmolality and hyponatremia Status: Acute Assessment and Plan: -could be related to her diuretic or her alcoholism. -she is currently on IV fluids of normal saline at a slow rate. -daily BMP -her current sodium is 132 with a baseline somewhere between 135 and 136. (10) Anemia: Code(s): D64.9 - Anemia, unspecified Status: Acute Assessment and Plan: -she has chronic anemia most likely secondary to her alcoholism. (11) Neuropathy: Code(s): G62.9 - Polyneuropathy, unspecified Status: Acute Assessment and Plan: -continue with gabapentin
[2025-05-21] MEDS: GABAPENTIN 400 MG CAPSULE 800 MG PO (23:52)
[2025-05-22] VITALS (11 sets, daily range): BP systolic 100–124; BP diastolic 43–76; PULSE 73–90; RESP 14–18; TEMP 36.2–37; O2SAT 96–100
[2025-05-22 04:02] LABS: Hematocrit 26.4 % (37.0-47.0); Hemoglobin 8.0 g/dL (12.0-15.0); Immature Granulocyte Percent A 1.8 % (0-0.5); Lymphocytes Absolute Auto 1.00 K/mm3 (0.9-3.2); Mean Corpuscular HGB Conc 30.3 g/dl (32-36); Mean Corpuscular Hemoglobin 26.2 pg (26-34); Mean Corpuscular Volume 86.6 fl (80-100); Nucleated Red Blood Cells Absolute Auto 0.200 K/mm3 (0.0-0.012); Nucleated Red Blood Cells Perc 3.0 % (0.0-0.2); Platelet Count Result 392 k/mm3 (150-375); Red Blood Count 3.05 M/mm3 (4.2-5.4); White Blood Count 6.7 K/mm3 (4.5-10.0)
[2025-05-22 04:15] LABS: Anion Gap 2 mmol/L (4-12); Blood Urea Nitrogen 25 mg/dL (7-17); Calcium 9.1 mg/dL (8.4-10.2); Carbon Dioxide 29 mmol/L (22-30); Chloride 104 mmol/L (98-107); Estimated CRCL calculation 53 ml/min; Estimated Glomerular Filt Rate 44; Glucose 103 mg/dL (65-110); Potassium 5.0 mmol/L (3.4-5.0); Sodium 135 mmol/L (137-145)
[2025-05-22] MEDS: GABAPENTIN 400 MG CAPSULE 800 MG PO ×4 (06:35→23:05)
[2025-05-22] MEDS: FAMOTIDINE 20 MG/2 ML VIAL IV PUSH ×2 (08:03→20:34)
[2025-05-22] MEDS: NICOTINE (*PBKC) 14 MG PATCH 1 PATCH TRANSDERM (08:03)
[2025-05-22] MEDS: nadoloL 10 MG TABLET PO (08:04)
[2025-05-22] MEDS: MULTIVITAMINS THERAPEUTIC TAB (*BKC) 1 TABLET PO (08:04)
[2025-05-22] MEDS: DULoxetine HCL 60 MG CAPSULE.DR 120 MG PO (08:04)
[2025-05-22 10:10] LABS: Hematocrit 29.3 % (37.0-47.0); Hemoglobin 8.6 g/dL (12.0-15.0)
[2025-05-22 13:25] LABS: Hematocrit 28.6 % (37.0-47.0); Hemoglobin 8.4 g/dL (12.0-15.0)
[2025-05-22 13:28] LABS: IFOB Positive Control Positive; Immunochemical Fecal Occult Bl Positive (N)
--- NOTE | 2025-05-22 13:57 | P.PNIM_ITS ---
Progress Note: A&P Assessment and Plan (1) Acute lower GI bleeding: Code(s): K92.2 - Gastrointestinal hemorrhage, unspecified Status: Acute Assessment and Plan: Patient noted she had bloody bowel movement yesterday none since being admitted CT AP showed liver cirrhosis with portal hypertension and splenomegaly Gi consulted and awaiting eval (2) Esophageal varices: Code(s): I85.00 - Esophageal varices without bleeding Status: Acute Assessment and Plan: -the patient has a history of banded esophageal varices -she denies any black stools or hematemesis -continue with her Corgard with parameters for heart rate and blood pressure (3) Cirrhosis: Qualifiers: Hepatic cirrhosis type: alcoholic cirrhosis Ascites presence: with a scites Qualified Code(s): K70.31 - Alcoholic cirrhosis of liver with ascites Code(s): K74.60 - Unspecified cirrhosis of liver Status: Acute Assessment and Plan: -CT of the abdomen was read as 1. Cirrhosis with portal hypertension and splenomegaly. 2: Moderate ascites. -she is awake and alert orientated x3. Her ammonia level was normal. (4) Depression: Code(s): F32.A - Depression, unspecified Status: Acute Assessment and Plan: -continue with Cymbalta but continue to monitor her sodium levels as they are low. The patient stated that she sees a psychiatrist for her depression and PTSD as well as her anxiety disorder. Her medications can cause hyponatremia. (5) Anxiety disorder: Code(s): F41.9 - Anxiety disorder, unspecified Status: Acute Assessment and Plan: -continue with her trazodone at night (6) PTSD (post-traumatic stress disorder): Code(s): F43.10 - Post-traumatic stress disorder, unspecified Status: Acute Assessment and Plan: -the patient currently resides at [facility]. She sees a psychiatrist there and was prescribed medications for this. Continue with her home medications. (7) Hyperkalemia: Code(s): E87.5 - Hyperkalemia Status: Acute Assessment and Plan: K 5.0 Spironolactone on hold Monitor (8) Acute renal failure: Code(s): N17.9 - Acute kidney failure, unspecified Status: Acute Assessment and Plan: -this could be related to her diuretic treatment. -recheck BMP in the a.m. Diuretics on hold Cr 1.28 from 1.32 and baseline is normal (9) Hyponatremia: Code(s): E87.1 - Hypo-osmolality and hyponatremia Status: Acute Assessment and Plan: Na 135 improving (10) Anemia: Code(s): D64.9 - Anemia, unspecified Status: Acute Assessment and Plan: -she has chronic anemia most likely secondary to her alcoholism. (11) Neuropathy: Code(s): G62.9 - Polyneuropathy, unspecified Status: Acute Assessment and Plan: -continue with gabapentin Plan DVT prophylaxis on SCDs, no AC due to GI bleed Subjective Date/time seen: 05/22/25 13:57 Interval history: Comfortable at bedside Awaiting GI eval Review of Systems Review of Systems: All systems reviewed & are unremarkable except as noted in HPI and below Constitutional: Constitutional: Reports as per HPI and Reports no additional constitutional complaints Eyes: Eyes: Reports as per HPI and Reports no additional eye complaints ENT: Reports system reviewed and no additional complaints, except as documented and Reports Normal hearing present Cardiovascular: Cardiovascular: Reports no additional cardiovascular complaints Respiratory: Respiratory: Reports no additional respiratory complaints and Reports no additional respiratory complaints Gastrointestinal: Gastrointestinal: Reports as per HPI, Reports no additional gastrointestinal complaints and Reports hematochezia Musculoskeletal: Musculoskeletal: Reports no additional musculoskeletal complaints Integumentary/Breasts: Skin/Breast: Reports system reviewed and no additional complaints, except as docu Neurologic: Reports system reviewed and no additional complaints, except as documented, Reports as per HPI and Reports Normal hearing present Psychiatric: Psychiatric: Reports no additional psychiatric complaints and Reports as per HPI Endocrine: Endocrine: Reports no additional endocrine complaints and Reports other (She has a history of depression and anxiety) Hematologic/Lymphatic: Hematologic/Lymphatic: Reports no additional hematologic/lymphatic complaints Allergic/Immunologic: Allergic/Immunologic: Reports no additional allergic/immunologic complaints Exam Const: General: cooperative, comfortable, no acute distress, well developed, awake, Physically active, average body habitus and well nourished Nutritional Appearance: average body habitus and well nourished Orientation/consciousness: oriented to person, oriented to place, oriented to time and patient oriented x3 Limitations: no limitations HENMT: Head: normal to inspection, No palpable skull fracture present, normocephalic, atraumatic and abrasion Ears: hearing grossly normal bilaterally and external ears normal Face/Nose/Sinus: Normal external nose present Eyes: General: appearance normal, both eyes and all related structures Alignment and Position: alignment normal Periorbital: periorbital findings normal Eyelids: eyelids normal Conjunctivae: conjunctivae normal Pupils: Equal, round and reactive pupils present EOM: EOMs intact bilaterally Neck: Neck: normal visual inspection, full ROM and no lymphadenopathy Chest: Chest palpation & inspection: normal inspection of the chest Resp: Effort & Inspection: normal respiratory effort Auscultation: clear to auscultation bilaterally Cardio: Palpation: normal PMI Rate: regular rate Rhythm: regular rhythm Heart sounds: S1 normal heart sound present and S2 normal heart sound present Peripheral pulses: Peripheral pulses 2+ throughout GI: Inspection: normal to inspection Auscultation: normal bowel sounds Rectal Exam: deferred : General: Yes no CVA tenderness Back/Spine/Pelvis: Back: no CVA tenderness Cervical Spine: cervical ROM normal Skin: General skin exam: other (Jaundice) Lesions: no lesions Rashes: no rashes Trauma: no lacerations or abrasions Wounds: no wounds Hair: normal Nails: normal Neuro: General: oriented to person, oriented to place, oriented to time and patient oriented x3 Cranial nerves: Yes Equal, round and reactive pupils present and Yes Normal hearing present Cognition (Neuro): normal cognition Speech: normal speech Gait exam (Neuro): Normal gait present Motor exam (neuro): 5/5 motor strength present throughout Sensory Exam: normal sensation Extrem: General: normal to inspection Right upper extremity: normal to inspection and shoulder/upper arm Left upper extremity: normal to inspection and shoulder/upper arm Right lower extremity: normal to inspection Left lower extremity: normal to inspection Psych: Appearance: grossly normal Mental Status: mental status grossly normal Speech and movement: Normal speech and movement present Affect: normal affect Attitude: cooperative Thought process: Normal thought process present Insight: Good insight present (Psych) Judgement: Good judgement present (Psych) Objective Data Vital Signs Vital Signs: Vital Signs - 24 hr 05/21/25 14:06 05/21/25 14:29 05/21/25 14:30 Temperature 97.9 F Pulse Rate 89 84 82 Respiratory Rate 20 Blood Pressure 99/63 L 106/59 L 104/57 L Pulse Oximetry 100 Oxygen Delivery 05/21/25 14:30 05/21/25 17:55 05/21/25 19:00 Temperature 98.4 F Pulse Rate 84 82 78 Respiratory Rate 18 18 Blood Pressure 99/66 L 119/67 118/77 Pulse Oximetry 100 100 Oxygen Delivery 05/21/25 19:19 05/21/25 20:15 05/21/25 21:05 Temperature 98.5 F 98.6 F Pulse Rate 80 79 81 Respiratory Rate 15 11 L 16 Blood Pressure 120/78 123/86 124/81 Pulse Oximetry 100 100 100 Oxygen Delivery 05/21/25 22:00 05/21/25 22:00 05/21/25 23:53 Temperature 98.6 F 97.8 F Pulse Rate 84 78 94 Respiratory Rate 16 18 Blood Pressure 134/77 100/57 L Pulse Oximetry 100 100 Oxygen Delivery 05/21/25 23:54 05/22/25 00:00 05/22/25 00:00 Temperature 99.9 F H Pulse Rate 103 H 84 Respiratory Rate 18 Blood Pressure 128/45 L Pulse Oximetry 95 Oxygen Delivery Room Air 05/22/25 02:00 05/22/25 04:00 05/22/25 04:00 Temperature 98.6 F Pulse Rate 88 84 Respiratory Rate 14 Blood Pressure 100/43 L Pulse Oximetry 98 Oxygen Delivery Room Air 05/22/25 04:00 05/22/25 06:00 05/22/25 07:57 Temperature Pulse Rate 86 90 Respiratory Rate Blood Pressure Pulse Oximetry Oxygen Delivery Room Air 05/22/25 07:58 05/22/25 08:00 05/22/25 10:00 Temperature 98.4 F Pulse Rate 78 83 74 Respiratory Rate 18 Blood Pressure 116/66 Pulse Oximetry 96 Oxygen Delivery 05/22/25 11:46 Temperature 98.0 F Pulse Rate 73 Respiratory Rate 18 Blood Pressure 124/76 Pulse Oximetry 96 Oxygen Delivery Intake/Output Intake/Output: Intake & Output 05/19/25 05/20/25 05/21/25 05/22/25 23:59 23:59 23:59 23:59 Intake Total 1350 550 Output Total 2150 Balance 1350 -1600 Meds/Results Medications: Active Medications Generic Name Dose Route Start Last Admin Trade Name Freq PRN Reason Stop Dose Admin Duloxetine HCl 120 mg 05/22/25 09:00 05/22/25 08:04 Duloxetine Hcl 60 Mg Capsule.Dr PO 120 mg DAILY FRITZ Administration Famotidine 20 mg 05/22/25 09:00 05/22/25 08:03 Famotidine 20 Mg/2 Ml Vial IV PUSH 20 mg Q12HR FRITZ Administration Gabapentin 800 mg 05/22/25 00:00 05/22/25 11:19 Gabapentin 400 Mg Capsule PO 800 mg Q6HR FRITZ Administration Hydroxyzine HCl 50 mg 05/21/25 22:53 05/22/25 08:04 Hydroxyzine Hcl 25 Mg Tablet PO 50 mg Q4H PRN Administration Anxiety Multivitamins Therapeutic 1 tablet 05/22/25 09:00 05/22/25 08:04 Multivitamins Therapeutic Tab (*Bkc) PO 1 tablet DAILY FRITZ Administration Nadolol 10 mg 05/22/25 09:00 05/22/25 08:04 Nadolol 10 Mg Tablet PO 10 mg QAM FRITZ Administration Nicotine 1 patch 05/22/25 09:00 05/22/25 08:03 Nicotine (*Pbkc) 14 Mg Patch TRANSDERM 1 patch DAILY FRITZ Administration Trazodone HCl 100 mg 05/21/25 22:53 05/21/25 23:52 Trazodone Hcl 50 Mg Tablet PO 100 mg HS PRN Administration Sleep Radiology Results: ITS Impressions Abdomen/Pelvis CTA 05/21/25 15:10 IMPRESSION: 1. Cirrhosis with portal hypertension and splenomegaly. 2: Moderate ascites. Labs Labs: Laboratory Results - last 24 hr 05/21/25 05/21/25 05/21/25 14:19 18:08 21:14 WBC 7.7 RBC 3.00 L Hgb 7.7 L 7.0 L 8.2 L Hct 26.1 L 24.4 L 27.7 L MCV 87.0 MCH 25.7 L MCHC 29.5 L RDW 21.0 H Plt Count 458 H MPV 11.2 H Immature Gran % (Auto) 1.6 H Neut % (Auto) 72.8 Lymph % (Auto) 14.7 L [place] % (Auto) 7.3 Eos % (Auto) 1.7 Baso % (Auto) 1.9 H Lymph # (Auto) 1.13 [place] # (Auto) 0.6 Eos # (Auto) 0.1 Baso # (Auto) 0.2 H Abs Immat Gran (auto) 0.12 H Absolute Neuts (auto) 5.6 Absolute Nucleated RBC 0.150 H Band Neutrophils % Not Reportable Nucleated RBC % 1.9 H Platelet Estimate Increased Hypochromasia 1+ Poikilocytosis 1+ Anisocytosis 1+ Ovalocytes 1+ Schistocytes None seen PT 14.4 INR 1.1 APTT 36.5 Sodium 132 L Potassium 5.1 H Chloride 100 Carbon Dioxide 28 Anion Gap 4 BUN 27 H D Creatinine 1.32 H Estim Creat Clear Calc 50 Estimated GFR 42 L Glucose 108 Calcium 9.0 Total Bilirubin 0.9 AST 41 H ALT 19 Alkaline Phosphatase 118 Ammonia 29 Total Protein 7.1 Albumin 3.8 Stl Occult Blood (IFOB) Blood Type A Positive Antibody Screen Negative Crossmatch See Detail 05/22/25 05/22/25 05/22/25 03:55 09:59 13:05 WBC 6.7 RBC 3.05 L Hgb 8.0 L 8.6 L Hct 26.4 L 29.3 L MCV 86.6 MCH 26.2 MCHC 30.3 L RDW 19.9 H Plt Count 392 H MPV 11.1 H Immature Gran % (Auto) 1.8 H Neut % (Auto) 69.2 Lymph % (Auto) 15.0 L [place] % (Auto) 7.5 Eos % (Auto) 4.3 Baso % (Auto) 2.2 H Lymph # (Auto) 1.00 [place] # (Auto) 0.5 Eos # (Auto) 0.3 Baso # (Auto) 0.2 H Abs Immat Gran (auto) 0.12 H Absolute Neuts (auto) 4.6 Absolute Nucleated RBC 0.200 H Band Neutrophils % Nucleated RBC % 3.0 H Platelet Estimate Hypochromasia Poikilocytosis Anisocytosis Ovalocytes Schistocytes PT INR APTT Sodium 135 L Potassium 5.0 Chloride 104 Carbon Dioxide 29 Anion Gap 2 L BUN 25 H Creatinine 1.28 H Estim Creat Clear Calc 53 Estimated GFR 44 L Glucose 103 Calcium 9.1 Total Bilirubin AST ALT Alkaline Phosphatase Ammonia Total Protein Albumin Stl Occult Blood (IFOB) Positive H Blood Type Antibody Screen Crossmatch 05/22/25 13:19 WBC RBC Hgb 8.4 L Hct 28.6 L MCV MCH MCHC RDW Plt Count MPV Immature Gran % (Auto) Neut % (Auto) Lymph % (Auto) [place] % (Auto) Eos % (Auto) Baso % (Auto) Lymph # (Auto) [place] # (Auto) Eos # (Auto) Baso # (Auto) Abs Immat Gran (auto) Absolute Neuts (auto) Absolute Nucleated RBC Band Neutrophils % Nucleated RBC % Platelet Estimate Hypochromasia Poikilocytosis Anisocytosis Ovalocytes Schistocytes PT INR APTT Sodium Potassium Chloride Carbon Dioxide Anion Gap BUN Creatinine Estim Creat Clear Calc Estimated GFR Glucose Calcium Total Bilirubin AST ALT Alkaline Phosphatase Ammonia Total Protein Albumin Stl Occult Blood (IFOB) Blood Type Antibody Screen Crossmatch
[2025-05-22] MEDS: ACETAMINOPHEN 325 MG TABLET 650 MG PO (15:54)
--- NOTE | 2025-05-22 17:04 | P.CONGI_ITS ---
Assessment and Plan Assessment and plan (1) Cirrhosis: Code(s): K74.60 - Unspecified cirrhosis of liver Status: Acute Assessment and Plan: decompensated with ascites but low MELD score 10 had EV- recent EGD only small size and no bleeding, recommend non selective b- [id number] will need follow-up in office for routine care of cirrhotic patient (2) Acute lower GI bleeding: Code(s): K92.2 - Gastrointestinal hemorrhage, unspecified Status: Acute Assessment and Plan: with stable chronic anemia, no changes never had colonoscopy, if no more bleeding then can arrange as outpatient (3) Esophageal varices: Code(s): I85.00 - Esophageal varices without bleeding Status: Acute (4) Substance abuse: Code(s): F19.10 - Other psychoactive substance abuse, uncomplicated Status: Acute (5) Acute renal failure: Code(s): N17.9 - Acute kidney failure, unspecified Status: Acute Assessment and Plan: monitor mild michael, diuretic on hold for now (6) Chronic anemia: Code(s): D64.9 - Anemia, unspecified Status: Acute Assessment and Plan: will get iron, b12, etc GI Consult Note Consult date/time: 05/22/25 17:04 Reason for consult: cirrhosis, rectal bleeding, chronic anemia HPI: Lena High is a 49 year old female with history of bipolar disorder, neuropathy, multiple addiction for which recently has been on detox (cocaine, meth, etc), former alcoholic, depression, anxiety, PTSD. She had previous GIB in the past that required esophageal banding at another hospital. She had recent hospitalization 2 weeks ago, I performed EGD without signs of bleeding, only small size EV and she went home. She is here after noted small amount of bright red blood with her stool, she thought could have been hemorrhoids- never had colonoscopy. Hgb 8 which is baseline and staff auditor witnessed normal brown stool today. Had CT scan that showed ascites and cirrhosis. She is comfortable now. Review of Systems 2 Constitutional: Constitutional: Denies chills Eyes: Eyes: Denies blurry vision ENT: Reports Normal hearing present Cardiovascular: Cardiovascular: Denies chest pain Respiratory: Respiratory: Denies cough Gastrointestinal: Gastrointestinal: Reports hematochezia Genitourinary: Genitourinary: Denies hematuria Musculoskeletal: Musculoskeletal: Denies neck pain Integumentary/Breasts: Skin/Breast: Denies rash Neurologic: Denies Abnormal speech present Psychiatric: Psychiatric: Reports anxiety [facility] Past Medical History Medical History (Updated 05/22/25 @ 17:08 by Mitch Pelayo MD) Chronic anemia Anemia Hyponatremia Substance abuse Alcohol abuse PTSD (post-traumatic stress disorder) Anxiety disorder Esophageal varices Previously banded Depression Acute hemorrhoid Neuropathy History of cirrhosis of liver History of esophageal varices Surgical History Surgical History H/O section S/P T&A (status post tonsillectomy and adenoidectomy) H/O left knee surgery History of esophagogastroduodenoscopy (EGD) Family History Family History Mother Substance abuse Alcohol abuse Heart disease Myocardial infarction Hypertension Father Cancer of bone Melanoma Alzheimer dementia Other Dementia Social History Social History (Updated 05/21/25 @ 22:52 by Yasmine Wise APRN) Social History: She currently resides at [facility]. She is working on her disability. She has 1 son who is 11-year years old and he lives with the patient's brother. 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 She stated that she is trying to quit smoking and is down to vaping and a nicotine patch. Smoking packs per day: 1 Smoking cigarettes per day: 20.0 Years smoked: 35 Smoking pack-years: 35.00 Smoking status: Heavy tobacco smoker Tobacco type: cigarettes Alcohol intake: former Drinks per week: 3 Substance use: current Substance use type: marijuana and methamphetamine Last use: 04/16/2025 Lack of Transportation: No Lack of Food: Never True Current Housing: I Have Housing Concerned About Future Housing: No Difficulty Paying Gas/Electric Bills: No Difficulty Paying for Meds: No Currently Unemployed: No Education: Trade/Vocational Certificate Difficulty w/ Childcare or Family Care: No Spiritual care concerns: No Meds Home Medications and Allergies Home Medications ?Medication ?Instructions ?Recorded ?Confirmed ?Type conj estrogen-medroxyprogesterone 1 tablet PO DAILY 05/21/25 History 0.3 mg-1.5 mg tablet (Prempro) duloxetine 60 mg capsule,delayed 120 mg PO DAILY 05/0705/21/25 History release gabapentin 800 mg tablet 800 mg PO .Q6 NUMBNESS AND P AIN 05/07/25 05/21/25 History hydroxyzine HCl 25 mg tablet 50 mg PO Q4H PRN anxiety 05/07/25 05/21/25 History multivitamin 1 tablet PO DAILY 05/07/25 0 05/21/25 History pantoprazole 40 mg tablet,delayed 40 mg PO BID 5 05/21/25 History release (Protonix) tizanidine 4 mg tablet 4 mg PO Q6H PRN muscle pain 05/07/25 05/21/25 History trazodone 100 mg tablet 100 mg PO HS PRN sleep 05/0705/21/25 History furosemide 40 mg tablet 40 mg PO DAILY #30 tabs 04/1805/21/25 Rx nadolol 20 mg tablet 10 mg (1/2 x 20 mg) PO ONCE #30 05/09/25 05/21/25 Rx tabs spironolactone 50 mg tablet 100 mg (2 x 50 mg) PO QAM #100 tabs 05/09/25 05/21/25 Rx (Aldactone) Allergies Allergy/AdvReac Type Severity Reaction Status Date / Time shellfish derived Allergy Severe Hives Verified 05/08/25 10:49 Sulfa (Sulfonamide AdvReac Nausea and Verified 05/08/25 10:49 Antibiotics) Vomiting Vital Signs Vital Signs - 24 hr 05/21/25 17:55 05/21/25 19:00 05/21/25 19:19 Temperature 98.4 F 98.5 F Pulse Rate 82 78 80 Respiratory Rate 18 18 15 Blood Pressure 119/67 118/77 120/78 Pulse Oximetry 100 100 100 Oxygen Delivery 05/21/25 20:15 05/21/25 21:05 05/21/25 22:00 Temperature 98.6 F 98.6 F Pulse Rate 79 81 84 Respiratory Rate 11 L 16 16 Blood Pressure 123/86 124/81 134/77 Pulse Oximetry 100 100 100 Oxygen Delivery 05/21/25 22:00 05/21/25 23:53 05/21/25 23:54 Temperature 97.8 F 99.9 F H Pulse Rate 78 94 103 H Respiratory Rate 18 18 Blood Pressure 100/57 L 128/45 L Pulse Oximetry 100 95 Oxygen Delivery 05/22/25 00:00 05/22/25 00:00 05/22/25 02:00 Temperature Pulse Rate 84 88 Respiratory Rate Blood Pressure Pulse Oximetry Oxygen Delivery Room Air 05/22/25 04:00 05/22/25 04:00 05/22/25 04:00 Temperature 98.6 F Pulse Rate 84 86 Respiratory Rate 14 Blood Pressure 100/43 L Pulse Oximetry 98 Oxygen Delivery Room Air 05/22/25 06:00 05/22/25 07:57 05/22/25 07:58 Temperature 98.4 F Pulse Rate 90 78 Respiratory Rate 18 Blood Pressure 116/66 Pulse Oximetry 96 Oxygen Delivery Room Air 05/22/25 08:00 05/22/25 10:00 05/22/25 11:46 Temperature 98.0 F Pulse Rate 83 74 73 Respiratory Rate 18 Blood Pressure 124/76 Pulse Oximetry 96 Oxygen Delivery 05/22/25 13:08 05/22/25 15:54 Temperature 97.5 F L 97.5 F L Pulse Rate 78 Respiratory Rate 16 Blood Pressure 123/73 Pulse Oximetry 98 Oxygen Delivery Exam 2 Const: General: comfortable and no acute distress HENMT: Face/Nose/Sinus: Normal nares present Eyes: General: appearance normal, both eyes and all related structures Neck: Neck: supple Resp: Auscultation: clear to auscultation bilaterally Cardio: Rate: regular rate Rhythm: regular rhythm GI: Inspection: non-distended GI Palp: Yes Soft to palpation and No Tenderness to palpation present (GI) Other: minimal fluid wave Skin: General skin exam: normal color Neuro: Speech: normal speech Motor exam (neuro): 5/5 motor strength present throughout Extrem: General: normal to inspection Psych: Mental Status: mental status grossly normal Results Labs 05/22/25 13:19 05/22/25 03:55 Labs: Short CBC 05/21/25 05/21/25 05/22/25 Range/Units 18:08 21:14 03:55 WBC 6.7 (4.5-10.0) K/mm3 Hgb 7.0 L 8.2 L 8.0 L (12.0-15.0) g/dL Hct 24.4 L 27.7 L 26.4 L (37.0-47.0) % Plt Count 392 H (150-375) k/mm3 05/22/25 05/22/25 Range/Units 09:59 13:19 WBC (4.5-10.0) K/mm3 Hgb 8.6 L 8.4 L (12.0-15.0) g/dL Hct 29.3 L 28.6 L (37.0-47.0) % Plt Count (150-375) k/mm3 [facility] 05/22/25 03:55 Sodium 135 L Potassium 5.0 Chloride 104 Carbon Dioxide 29 BUN 25 H Creatinine 1.28 H Glucose 103 Calcium 9.1
[2025-05-23 05:00] VITALS: BP 112/68; PULSE 74; RESP 20; TEMP 35.8; O2SAT 98
[2025-05-23] MEDS: GABAPENTIN 400 MG CAPSULE 800 MG PO ×2 (05:06→12:17)
[2025-05-23 06:23] LABS: Hematocrit 28.6 % (37.0-47.0); Hemoglobin 8.3 g/dL (12.0-15.0); Immature Granulocyte Percent A 2.1 % (0-0.5); Lymphocytes Absolute Auto 1.10 K/mm3 (0.9-3.2); Mean Corpuscular HGB Conc 29.0 g/dl (32-36); Mean Corpuscular Hemoglobin 25.7 pg (26-34); Mean Corpuscular Volume 88.5 fl (80-100); Nucleated Red Blood Cells Absolute Auto 0.160 K/mm3 (0.0-0.012); Nucleated Red Blood Cells Perc 2.5 % (0.0-0.2); Platelet Count Result 429 k/mm3 (150-375); Red Blood Count 3.23 M/mm3 (4.2-5.4); White Blood Count 6.3 K/mm3 (4.5-10.0)
[2025-05-23 06:43] LABS: Iron 49 ug/dL (37-170)
[2025-05-23 06:45] LABS: Alanine Aminotransferase 15 U/L (6-35); Albumin Level 3.5 g/dL (3.5-5.1); Alkaline Phosphatase 108 U/L (38-126); Anion Gap 3 mmol/L (4-12); Aspartate Amino Transferase 47 U/L (14-36); Bilirubin,Total 0.9 mg/dL (0.2-1.3); Blood Urea Nitrogen 18 mg/dL (7-17); Calcium 9.2 mg/dL (8.4-10.2); Carbon Dioxide 27 mmol/L (22-30); Chloride 104 mmol/L (98-107); Estimated CRCL calculation 61 ml/min; Estimated Glomerular Filt Rate 51; Glucose 98 mg/dL (65-110); Magnesium 2.0 mg/dL (1.6-2.3); Potassium 4.9 mmol/L (3.4-5.0); Sodium 134 mmol/L (137-145); Total Protein 6.5 g/dL (6.3-8.2)
[2025-05-23 06:52] LABS: Percent Iron Saturation 11 % (20-50)
[2025-05-23 07:03] LABS: Anisocytosis 1+; Ovalocytes 1+
[2025-05-23 07:04] LABS: Hypochromasia 1+; Tear Drop Cells Occasional
[2025-05-23 07:05] LABS: Schistocytes None Seen
[2025-05-23 07:25] LABS: Ferritin 10.10 ng/mL (11.1-264)
[2025-05-23 07:54] LABS: Vitamin B12 858.0 pg/mL (239-931)
[2025-05-23] MEDS: NICOTINE (*PBKC) 14 MG PATCH 1 PATCH TRANSDERM (08:07)
[2025-05-23] MEDS: MULTIVITAMINS THERAPEUTIC TAB (*BKC) 1 TABLET PO (08:08)
[2025-05-23] MEDS: DULoxetine HCL 60 MG CAPSULE.DR 120 MG PO (08:08)
[2025-05-23] MEDS: FAMOTIDINE 20 MG/2 ML VIAL IV PUSH (08:08)
[2025-05-23 08:09] VITALS: PULSE 70
[2025-05-23] MEDS: nadoloL 10 MG TABLET PO (08:09)
[2025-05-23] MEDS: IRON SUCROSE COMPLEX 400 MG, IRON SUCROSE COMPLEX 100 MG in SODIUM CHLORIDE 0.9% IV 250 ML 78.57 MG IVPB (10:13)
[2025-05-23] MEDS: ACETAMINOPHEN 325 MG TABLET 650 MG PO (10:13)
--- NOTE | 2025-05-23 11:12 | WPDGIPROGNO ---
Progress Note: A&P Assessment and Plan (1) Esophageal varices: Code(s): I85.00 - Esophageal varices without bleeding Status: Acute Assessment and Plan: The patient's mild rectal bleeding is likely due to her history of hemorrhoids. Although she has never had a colonoscopy, we will schedule one as an outpatient. Given her history of esophageal varices that have been ligated, an EGD can be performed during the same session. In addition, her nadolol can be switched to carvedilol 6.25 mg twice daily for better prophylaxis against variceal bleeding and to delay the progression of cirrhotic complications.. (2) Acute lower GI bleeding: Code(s): K92.2 - Gastrointestinal hemorrhage, unspecified Status: Acute Subjective Date/time seen: 05/23/25 11:12 Objective Data Vital Signs Vital Signs: Vital Signs - 24 hr 05/22/25 11:46 05/22/25 13:08 05/22/25 15:54 Temperature 98.0 F 97.5 F L 97.5 F L Pulse Rate 73 78 Respiratory Rate 18 16 Blood Pressure 124/76 123/73 Pulse Oximetry 96 98 05/22/25 21:06 05/23/25 05:00 05/23/25 08:09 Temperature 97.1 F L 96.5 F L Pulse Rate 75 74 70 Respiratory Rate 14 20 Blood Pressure 119/73 112/68 Pulse Oximetry 100 98 Intake/Output Intake/Output: Intake & Output 05/20/25 05/21/25 05/22/25 05/23/25 23:59 23:59 23:59 23:59 Intake Total 1350 1290 820 Output Total 2150 Balance 1350 -860 820 Meds/Results Medications: Active Medications Generic Name Dose Route Start Last Admin Trade Name Freq PRN Reason Stop Dose Admin Acetaminophen 650 mg 05/22/25 15:40 05/23/25 10:13 Acetaminophen 325 Mg Tablet PO 650 mg Q6H PRN Administration Mild Pain (1-3) or Fever Carvedilol 6.25 mg 05/23/25 21:00 Carvedilol 6.25 Mg Tablet PO Q12HR FRITZ Duloxetine HCl 120 mg 05/22/25 09:00 05/23/25 08:08 Duloxetine Hcl 60 Mg Capsule.Dr PO 120 mg DAILY FRITZ Administration Furosemide 40 mg 05/24/25 09:00 Furosemide 40 Mg Tablet PO DAILY FRITZ Gabapentin 800 mg 05/22/25 00:00 05/23/25 05:06 Gabapentin 400 Mg Capsule PO 800 mg Q6HR FRITZ Administration Hydroxyzine HCl 50 mg 05/21/25 22:53 05/22/25 15:56 Hydroxyzine Hcl 25 Mg Tablet PO 50 mg Q4H PRN Administration Anxiety Iron Sucrose 400 mg/ Iron 275 mls @ 78.571 mls/hr 05/23/25 10:30 05/23/25 10:13 Sucrose 100 mg/ Sodium IVPB 05/23/25 13:59 78.57 mls/hr Chloride ONCE ONE Administration Multivitamins Therapeutic 1 tablet 05/22/25 09:00 05/23/25 08:08 Multivitamins Therapeutic Tab (*Bkc) PO 1 tablet DAILY FRITZ Administration Nicotine 1 patch 05/22/25 09:00 05/23/25 08:07 Nicotine (*Pbkc) 14 Mg Patch TRANSDERM 1 patch DAILY FRITZ Administration Spironolactone 50 mg 05/24/25 09:00 Spironolactone 50 Mg Tablet PO QAM FRITZ Trazodone HCl 100 mg 05/21/25 22:53 05/22/25 20:34 Trazodone Hcl 50 Mg Tablet PO 100 mg HS PRN Administration Sleep Radiology Results: ITS Impressions Abdomen/Pelvis CTA 05/21/25 15:10 IMPRESSION: 1. Cirrhosis with portal hypertension and splenomegaly. 2: Moderate ascites. Labs Labs: Laboratory Results - last 24 hr 05/22/25 05/22/25 05/23/25 13:05 13:19 05:55 WBC 6.3 RBC 3.23 L Hgb 8.4 L 8.3 L Hct 28.6 L 28.6 L MCV 88.5 MCH 25.7 L MCHC 29.0 L RDW 20.1 H Plt Count 429 H MPV 11.1 H Immature Gran % (Auto) 2.1 H Neut % (Auto) 65.5 Lymph % (Auto) 17.4 L Jerome % (Auto) 7.9 Eos % (Auto) 4.3 Baso % (Auto) 2.8 H Lymph # (Auto) 1.10 Jerome # (Auto) 0.5 Eos # (Auto) 0.3 Baso # (Auto) 0.2 H Abs Immat Gran (auto) 0.13 H Absolute Neuts (auto) 4.1 Absolute Nucleated RBC 0.160 H Band Neutrophils % Not Reportable Nucleated RBC % 2.5 H Platelet Estimate Slightly increased Hypochromasia 1+ Anisocytosis 1+ Tear Drop Cells Occasional Ovalocytes 1+ Schistocytes None seen Sodium 134 L Potassium 4.9 Chloride 104 Carbon Dioxide 27 Anion Gap 3 L BUN 18 H Creatinine 1.12 H Estim Creat Clear Calc 61 Estimated GFR 51 L Glucose 98 Lactic Acid 0.6 L Calcium 9.2 Magnesium 2.0 Iron 49 TIBC 460 % Saturation 11 L Ferritin 10.10 L Total Bilirubin 0.9 AST 47 H ALT 15 Alkaline Phosphatase 108 Total Protein 6.5 Albumin 3.5 Vitamin B12 858.0 Folate 11.7 Stl Occult Blood (IFOB) Positive H
--- NOTE | 2025-05-23 13:08 | PM.DS ---
DS: Admitting Diagnosis Discharge Date 05/23/25 Admitting Diagnosis blood in stool DS: Discharge Diagnosis Discharge Diagnosis (1) Acute lower GI bleeding: Code(s): K92.2 - Gastrointestinal hemorrhage, unspecified Status: Acute (2) Anemia: Code(s): D64.9 - Anemia, unspecified Status: Acute DS: Summary Hospital Course Hospital Course: This is a 49-year-old female patient has a history of alcoholism with liver cirrhosis and history esophageal varices. She stated that she had a normal bowel movement earlier today but at the end of the defecation she was dropping some bright red blood. ' Patient only had one episode os bloody stool, bowel movement since admission had no blood and not dark. GI was consulted and evaluated patient and recommended outpatient colonoscopy. Iron panel showed Ferritin of 10 and Hb 83 adn stable over this hospitalization. Patient was given 500mg Venofer and discharged on Po firoin replacement x 2 months. This monring patient hit her head on the sink, did not pass out adn CT head did not show any acute changes. F/u with PCP in 3-5 days F/u with Gi for outpatient colonoscopy Time Spent with Patient Time attestation: Total time spent providing and/or coordinating discharge services: DS: Data Data Completed and Pending Labs on day of discharge: Labs from last 24 hours 05/23/25 05/22/25 05/22/25 05:55 13:19 13:05 WBC 6.3 RBC 3.23 L Hgb 8.3 L 8.4 L Hct 28.6 L 28.6 L MCV 88.5 MCH 25.7 L MCHC 29.0 L RDW 20.1 H Plt Count 429 H MPV 11.1 H Immature Gran % (Auto) 2.1 H Neut % (Auto) 65.5 Lymph % (Auto) 17.4 L Mcduffie % (Auto) 7.9 Eos % (Auto) 4.3 Baso % (Auto) 2.8 H Lymph # (Auto) 1.10 [place]duffie # (Auto) 0.5 Eos # (Auto) 0.3 Baso # (Auto) 0.2 H Abs Immat Gran (auto) 0.13 H Absolute Neuts (auto) 4.1 Absolute Nucleated RBC 0.160 H Band Neutrophils % Not Reportable Nucleated RBC % 2.5 H Platelet Estimate Slightly increased Hypochromasia 1+ Anisocytosis 1+ Tear Drop Cells Occasional Ovalocytes 1+ Schistocytes None seen Sodium 134 L Potassium 4.9 Chloride 104 Carbon Dioxide 27 Anion Gap 3 L BUN 18 H Creatinine 1.12 H Estim Creat Clear Calc 61 Estimated GFR 51 L Glucose 98 Lactic Acid 0.6 L Calcium 9.2 Magnesium 2.0 Iron 49 TIBC 460 % Saturation 11 L Ferritin 10.10 L Total Bilirubin 0.9 AST 47 H ALT 15 Alkaline Phosphatase 108 Total Protein 6.5 Albumin 3.5 Vitamin B12 858.0 Folate 11.7 Stl Occult Blood (IFOB) Positive H Discharge Plan Discharge Attending physician on discharge: Sarah Mckeon Consulting providers: Nicolas Huff Discharging Clinician: Sarah Mckeon Anticipated Discharge Date/Time: 05/23/25 12:59 Patient Disposition: Home Activity: as tolerated Diet: as tolerated and regular Patient Instructions: Antibiotic Form, How to Stop Smoking (DC), Gastrointestinal Bleeding (GEN) Patient Language: French Stand Alone Forms: General Discharge Information Follow-up/Referrals: PHYSICIAN,[employer] TEACHING [employer] [Primary Care Provider, Internal Medicine] Referral Note: F/u with PCP in 3-5 days Mitch Pelayo MD [Physician, Gastroenterology] Referral Note: F/u with GI as instructed Discharge Medications: New carvedilol [Coreg] 6.25 mg Tablet 6.25 mg PO Q12HR 30 Days Qty: 60 1RF ferrous sulfate 324 mg (65 mg iron) tablet,delayed release (DR/EC) 324 mg PO DAILY Qty: 30 1RF Continued gabapentin 800 mg tablet 800 mg PO .Q6 Patient Comments: 4 times a day duloxetine 60 mg capsule,delayed release(DR/EC) 120 mg PO DAILY Prempro 0.3-1.5 mg tablet 1 tablet PO DAILY hydroxyzine HCl 25 mg tablet 50 mg PO Q4H PRN (Reason: anxiety) multivitamin Tablet 1 tablet PO DAILY pantoprazole [Protonix] 40 mg tablet,delayed release (DR/EC) 40 mg PO BID trazodone 100 mg tablet 100 mg PO HS PRN (Reason: sleep) tizanidine 4 mg tablet 4 mg PO Q6H PRN (Reason: muscle pain) Rx Instructions: do not exceed 3 doses per 24 hrs furosemide 40 mg Tablet 40 mg PO DAILY Qty: 30 0RF spironolactone [Aldactone] 50 mg Tablet 100 mg PO QAM Qty: 100 0RF Discontinued nadolol 20 mg tablet 10 mg PO ONCE Qty: 30 0RF Date of admission: 05/21/25 19:09 Primary Care Provider: PHYSICIAN,[employer] TE[employer] Admitting Provider: Sarah Mckeon Attending physician on admission: Sarah Mckeon Condition: Stable
== END 2025-05-23 15:20 | disposition home or self-care (01) ==
LOC: ANHED 18:33 → ANHIMU 21:21 → ANH3MEDSUR 05-22 12:46
PROVIDERS: Nurse Practitioner; Admitting Provider Internal Medicine; Emergency Provider Emergency Medicine; Visit Provider Internal Medicine
DX: K92.2 Gastrointestinal hemorrhage, unspecified (principal); K70.31 Alcoholic cirrhosis of liver with ascites; K76.6 Portal hypertension; I85.10 Secondary esophageal varices without bleeding; E87.5 Hyperkalemia; N17.9 Acute kidney failure, unspecified; E87.1 Hypo-osmolality and hyponatremia; D64.9 Anemia, unspecified; D73.9 Disease of spleen, unspecified; G62.9 Polyneuropathy, unspecified; F12.90 Cannabis use, unspecified, uncomplicated; F15.90 Other stimulant use, unspecified, uncomplicated; F19.10 Other psychoactive substance abuse, uncomplicated; F17.210 Nicotine dependence, cigarettes, uncomplicated; F17.290 Nicotine dependence, other tobacco product, uncomplicated; F43.12 Post-traumatic stress disorder, chronic; F10.10 Alcohol abuse, uncomplicated; F41.8 Other specified anxiety disorders; Z81.1 Family history of alcohol abuse and dependence; Z82.49 Family history of ischemic heart disease and other diseases of the circulatory system; Z80.8 Family history of malignant neoplasm of other organs or systems; Z81.8 Family history of other mental and behavioral disorders
CPT/HCPCS: 36415; 36430; 70450; 74174; 80048; 80053; 82140; 82274; 82607; 82728; 82746; 83540; 83550; 83605; 83735; 85014; 85018; 85025; 85610; 85730; 86850; 86900; 86901; 86923; 96360; 96361; 96374; 96375; 96376; 99285; A9270; G0378; G0379; J1756; J7030; J7050; P9016; Q9967

== ENCOUNTER 2025-06-05 11:08 | Observation (INO) | payer OTHER, SELFPAY ==
--- OUTSIDE RECORDS SUMMARY | 2021-12-20 04:39 | XMS_ITS | Continuity of Care Document ---
Author Organization [facility] Address [address] [place] [address] Phone Care Team Providers Care Engineer Third Assistant Name Role Phone Sean DO, Jessica Unavailable [...] Healthcare, [address], [place], [id number], [place] tel:[phone] [facility] No Information 2 Sean Lopez. [address], [id number] 0, [place], [id number], [place]. tel:[phone] [facility], [address], [place], [id number], [place] tel:[phone] [facility] No Information 1 [place]. [address], [id number] 0, [place], [id number], [place]. tel:[phone] OFFICE/OUTPA TIENT VISIT, EST [facility], [address], [place], [id number], [place] tel:[phone] [facility] Body mass index (BMI) 45.0-49.9, adultOpioid dependencePs ychophysiolo gic insomnia 1 Sean Lopez. [address], [id number] [place], [id number], [place]. tel:[phone] Referring Provider: Jessica Estrada, [address] [id number] [place], [address]. tel:[phone] OFFICE/OUTPA TIENT VISIT, EST [facility], [address], [place], [id number], [place] tel:[phone] [facility] Body mass index (BMI) 45.0-49.9, adultOpioid dependencePs ychophysiolo gic insomnia Nov- 1 Sean Lopez. [address], [id number] 0CH, [place], [place], [id number], [place]. tel:[phone] Referring Provider: Jessica Estrada, [address] [id number] [place], [address]. tel:[phone] OFFICE/OUTPA TIENT VISIT, EST [facility], [address], [place], [place], [id number], [place] tel:[phone] [facility] Opioid dependencePs ychophysiolo gic insomniaBody mass index (BMI) 40.0-44.9, adult Oct- 1 Sean Lopez. [address], [id number] 0CH, [place], [place], [id number], [place]. tel:[phone] Referring Provider: Jessica Estrada, [address] [id number] , [place], [address]. tel:[phone] OFFICE/OUTPA TIENT VISIT, EST [facility], [address], [place], [place], [id number], [place] tel:[phone] [facility] Opioid dependencePs ychophysiolo gic insomniaBody mass index (BMI) 40.0-44.9, adult 0 Sean Lopez. [address], [id number] [address], [place], [place], [id number], [place]. tel:[phone] Referring Provider: Jessica Estrada, [address] [id number] [place], [address]. tel:[phone] OFFICE/OUTPA TIENT VISIT, EST [facility], [address], [place], [place], [id number], [place] tel:[phone] [facility] Opioid dependencePs ychophysiolo gic insomniaBody mass index (BMI) 40.0-44.9, adult Sep- 0 Sean Jessica. [address], [id number] [address], [place], [place], [id number], [place]. tel:[phone] Referring Provider: Jessica Estrada, [address] [id number] [place], [address]. tel:[phone] OFFICE/OUTPA TIENT VISIT, EST [facility], [address], [place], [place], [id number], [place] tel:[phone] [facility] Opioid dependencePs ychophysiolo gic insomniaBody mass index (BMI) 40.0-44.9, adult 0 Sean Jessica. [address], [id number] [address], [place], [place], [id number], [place]. tel:[phone] Referring Provider: Jessica Estrada, [address] [id number] [place], [address]. tel:[phone] OFFICE/OUTPA TIENT VISIT, EST [facility], [address], [place], [place], [id number], [place] tel:[phone] [facility] Opioid dependencePs ychophysiolo gic insomniaBody mass index (BMI) 40.0-44.9, adult 0 Sean Jessica. [address], [id number] 0[address], [place], [id number], [place]. tel:[phone] Referring Provider: Jessica Estrada, [address] [id number] [place], [address]. tel:[phone] OFFICE/OUTPA TIENT VISIT, EST [facility], [address], [place], [place], [id number], [place] tel:[phone] [facility] Opioid dependencePs ychophysiolo gic insomniaBody mass index (BMI) 40.0-44.9, adult 0 Sean Jessica. [address], [id number] 0[address], [place], [id number], [place]. tel:[phone] Referring Provider: Jessica Estrada, [address] [id number] [place], [address]. tel:[phone] OFFICE/OUTPA TIENT VISIT, EST [facility], [address], [place], [place], [id number], [place] tel:[phone] [facility] Opioid dependencePs ychophysiolo gic insomniaBody mass index (BMI) 40.0-44.9, adult Mar-3 0-202 0 Sean Jessica. [address], [id number] 0[address], [place], [id number], [place]. tel:[phone] Referring Provider: Jessica Estrada, [address] [id number] [place], [address]. tel:[phone] OFFICE/OUTPA TIENT VISIT, EST [facility], [address], [place], [place], [id number], [place] tel:[phone] [facility] Body mass index (BMI) 40.0-44.9, adultOpioid dependencePs ychophysiolo gic insomnia Mar-0 2-202 0 Sean Jessica. [address], [id number] [place], [id number], [place]. tel:[phone] Referring Provider: Jessica Estrada, [address] [id number] [place], [address]. tel:[phone] OFFICE/OUTPA TIENT VISIT EST Telehealth [facility], [address], [place], [place], [id number], [place] tel:[phone] [facility] Body mass index (BMI) 40.0-44.9, adultOpioid dependencePs ychophysiolo gic insomnia Feb-0 3-202 0 Sean Jessica. [address], [id number] 0[address], [place], [id number], [place]. tel:[phone] Referring Provider: Jessica Estrada, [address] [id number] [place], [address]. tel:[phone] OFFICE/OUTPA TIENT VISIT EST Telehealth [facility], [address], [place], [place], [id number], [place] tel:[phone] [facility] Body mass index (BMI) 40.0-44.9, adultOpioid dependence Sean Jessica. [address], [id number] [place], [id number], [place]. tel:[phone] Referring Provider: Jessica Estrada, [address] [id number] [place], [address]. tel:[phone] OFFICE/OUTPA TIENT VISIT EST Telehealth [facility], [address], [place], [place], [id number], [place] tel:[phone] [facility] Body mass index (BMI) 40.0-44.9, adultOpioid dependence Sean Jessica. [address], [id number] 0, [place], [id number], [place]. tel:[phone] Referring Provider: Jessica Estrada, [address] [id number] [place], [address]. tel:[phone] OFFICE/OUTPA TIENT VISIT EST Telehealth [facility], [address], [place], [place], [id number], [place] tel:[phone] [facility] Opioid dependenceBo dy mass index (BMI) 40.0-44.9, adult Sean Jessica. [address], [id number] 0, [place], [id number], [place]. tel:[phone] Referring Provider: Jessica Estrada, [address] [id number] [place], [address]. tel:[phone] PSYCH DIAG EVAL W/MED SRVCS Telehealth [facility], [address], [place], [id number], [place] tel:[phone] [facility] Body mass index (BMI) 40.0-44.9, adultOpioid dependence 9 Sean Lopez. [address], [id number] [place], [id number], [place]. tel:[phone] Referring Provider: Jessica Estrada, [address] [id number] [place], [address]. tel:[phone] OFFICE/OUTPA TIENT VISIT, NEW [facility], [address], [place], [id number], [place] tel:[phone] [facility] AMP physical (chief complaint) Body mass index (BMI) 40.0-44.9, adultTobacco useOpioid dependenceDe pressionGene ralized anxiety disorder 9 Brothers Tanya. [address], [id number] [place], [id number], [place]. tel:[phone] Referring Provider: Tanya Zamora, [address] [id number] [place], [address]. tel:[phone] PSYCH DIAGNOSTIC EVALUATION [facility], [address], [place], [id number], [place] tel:[phone] [facility] Major depressive disorder, single episode, mildOpioid dependenceCa nnabis dependence 9 Jono Crum. [address], [place], [id number], [place]. tel:[phone] Referring Provider: Skyla De La Cruz, [address], [place], [address]. tel:[phone] Family History Family Member Type Diagnosis Age [...] Diabetes screening. Due on A due Goal Tobacco cessation counseling completed Goal Dietary management education , guidance, and counseling completed History Of Present Illness Encounter Date Complaint History Of Prese nt Illness AMP physical Pt is present to day for a AMP physical. Pt is needing to be put on Suboxone until she sees Dr Estrada on 05/26/19. Patient states she was in a program for 7 months in [facility] but they required twice a week attendance, one to see provider and one for group. Patient could not keep up with it plus it was rumored that the program was going to close. The patient lives in [facility] and has a PCP there at from [facility] --Emi Landers MD. States she is seen fairly regularly for her high BP and pain issues and had blood work drawn three weeks ago there. States she was checked for Hep C there and it was negative. Checked for HIV while five years ago and it was negative. 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 She attends AA meetings in [facility] because they have no NA program [...]
--- OUTSIDE RECORDS SUMMARY | 2021-12-20 04:39 | XMS_ITS | Continuity of Care Document ---
Author Organization [facility] Address [address] [place] [address] Phone Care Team Providers Care Selling Underwriter Name Role Phone Sean DO, Jessica Unavailable [...] Healthcare, [address], [place], [id number], [place] tel:[phone] [facility] No Information 2 Sean Lopez. [address], [id number] 0, [place], [id number], [place]. tel:[phone] [facility], [address], [place], [id number], [place] tel:[phone] [facility] No Information 1 [place]. [address], [id number] 0, [place], [id number], [place]. tel:[phone] OFFICE/OUTPA TIENT VISIT, EST [facility], [address], [place], [id number], [place] tel:[phone] [facility] Body mass index (BMI) 45.0-49.9, adultOpioid dependencePs ychophysiolo gic insomnia 1 Sean Lopez. [address], [id number] [place], [id number], [place]. tel:[phone] Referring Provider: Jessica Estrada, [address] [id number] [place], [address]. tel:[phone] OFFICE/OUTPA TIENT VISIT, EST [facility], [address], [place], [id number], [place] tel:[phone] [facility] Body mass index (BMI) 45.0-49.9, adultOpioid dependencePs ychophysiolo gic insomnia Nov- 1 Sean Lopez. [address], [id number] 0CH, [place], [place], [address], [place]. tel:[phone] Referring Provider: Jessica Estrada, [address] [id number] [place], [address]. tel:[phone] OFFICE/OUTPA TIENT VISIT, EST [facility], [address], [place], [place], [id number], [place] tel:[phone] [facility] Opioid dependencePs ychophysiolo gic insomniaBody mass index (BMI) 40.0-44.9, adult Oct- 1 Sean Lopez. [address], [id number] 0CH, [place], [place], [id number], [place]. tel:[phone] Referring Provider: Jessica Estrada, [address] [id number] , [place], [address]. tel:[phone] OFFICE/OUTPA TIENT VISIT, EST [facility], [address], [place], [place], [id number], [place] tel:[phone] [facility] Opioid dependencePs ychophysiolo gic insomniaBody mass index (BMI) 40.0-44.9, adult 0 Sean Lopez. [address], [id number] 0CH, [place], [place], [address], [place]. tel:[phone] Referring Provider: Jessica Estrada, [address] [id number] [place], [address]. tel:[phone] OFFICE/OUTPA TIENT VISIT, EST [facility], [address], [place], [place], [id number], [place] tel:[phone] [facility] Opioid dependencePs ychophysiolo gic insomniaBody mass index (BMI) 40.0-44.9, adult Sep- 0 Sean Jessica. [address], [id number] 0CH, [place], [place], [address], [place]. tel:[phone] Referring Provider: Jessica Estrada, [address] [id number] [place], [address]. tel:[phone] OFFICE/OUTPA TIENT VISIT, EST [facility], [address], [place], [place], [id number], [place] tel:[phone] [facility] Opioid dependencePs ychophysiolo gic insomniaBody mass index (BMI) 40.0-44.9, adult 0 Sean Jessica. [address], [id number] 0CH, [place], [place], [id number], [place]. tel:[phone] Referring Provider: Jessica Estrada, [address] [id number] [place], [address]. tel:[phone] OFFICE/OUTPA TIENT VISIT, EST [facility], [address], [place], [place], [id number], [place] tel:[phone] [facility] Opioid dependencePs ychophysiolo gic insomniaBody mass index (BMI) 40.0-44.9, adult 0 Sean Jessica. [address], [id number] 0CH, [place], [id number], [place]. tel:[phone] Referring Provider: Jessica Estrada, [address] [id number] [place], [address]. tel:[phone] OFFICE/OUTPA TIENT VISIT, EST [facility], [address], [place], [place], [id number], [place] tel:[phone] [facility] Opioid dependencePs ychophysiolo gic insomniaBody mass index (BMI) 40.0-44.9, adult 0 Sean Jessica. [address], [id number] 0CH, [place], [id number], [place]. tel:[phone] Referring Provider: Jessica Estrada, [address] [id number] [place], [address]. tel:[phone] OFFICE/OUTPA TIENT VISIT, EST [facility], [address], [place], [place], [id number], [place] tel:[phone] [facility] Opioid dependencePs ychophysiolo gic insomniaBody mass index (BMI) 40.0-44.9, adult Mar-3 0-202 0 Sean Jessica. [address], [id number] 0CH, [place], [id number], [place]. tel:[phone] Referring Provider: Jessica Estrada, [address] [id number] [place], [address]. tel:[phone] OFFICE/OUTPA TIENT VISIT, EST [facility], [address], [place], [place], [id number], [place] tel:[phone] [facility] Body mass index (BMI) 40.0-44.9, adultOpioid dependencePs ychophysiolo gic insomnia Mar-0 2-202 0 Sean Jessica. [address], [id number] [place], [id number], [place]. tel:[phone] Referring Provider: Jessica Estrada, [address] [id number] [place], [address]. tel:[phone] OFFICE/OUTPA TIENT VISIT EST Telehealth [facility], [address], [place], [place], [id number], [place] tel:[phone] [facility] Body mass index (BMI) 40.0-44.9, adultOpioid dependencePs ychophysiolo gic insomnia Feb-0 3-202 0 Sean Jessica. [address], [id number] 0CH, [place], [id number], [place]. tel:[phone] Referring Provider: Jessica Estrada, [address] [id number] [place], [address]. tel:[phone] OFFICE/OUTPA TIENT VISIT EST Telehealth [facility], [address], [place], [place], [id number], [place] tel:[phone] [facility] Body mass index (BMI) 40.0-44.9, adultOpioid dependence Sean Jessica. [address], [id number] [place], [id number], [place]. tel:[phone] Referring Provider: Jessica Estrada, [address] [id number] [place], [address]. tel:[phone] OFFICE/OUTPA TIENT VISIT EST Telehealth [facility], [address], [place], [place], [id number], [place] tel:[phone] [facility] Body mass index (BMI) 40.0-44.9, adultOpioid dependence Sean Jessica. [address], [id number] 0, [place], [id number], [place]. tel:[phone] Referring Provider: Jessica Estrada, [address] [id number] [place], [address]. tel:[phone] OFFICE/OUTPA TIENT VISIT EST Telehealth [facility], [address], [place], [place], [id number], [place] tel:[phone] [facility] Opioid dependenceBo dy mass index (BMI) 40.0-44.9, adult Sean Jessica. [address], [id number] 0, [place], [id number], [place]. tel:[phone] Referring Provider: Jessica Estrada, [address] [id number] [place], [address]. tel:[phone] PSYCH DIAG EVAL W/MED SRVCS Telehealth [facility], [address], [place], [id number], [place] tel:[phone] [facility] Body mass index (BMI) 40.0-44.9, adultOpioid dependence 9 Sean Lopez. [address], [id number] [place], [id number], [place]. tel:[phone] Referring Provider: Jessica Estrada, [address] [id number] [place], [address]. tel:[phone] OFFICE/OUTPA TIENT VISIT, NEW [facility], [address], [place], [id number], [place] tel:[phone] [facility] AMP physical (chief complaint) Body mass index (BMI) 40.0-44.9, adultTobacco useOpioid dependenceDe pressionGene ralized anxiety disorder 9 Brothers Tanya. [address], [id number] [place], [id number], [place]. tel:[phone] Referring Provider: Tanya Zamora, [address] [id number] [place], [address]. tel:[phone] PSYCH DIAGNOSTIC EVALUATION [facility], [address], [place], [id number], [place] tel:[phone] [facility] Major depressive disorder, single episode, mildOpioid dependenceCa nnabis dependence 9 Jono Crum. [address], [place], [id number], [place]. tel:[phone] Referring Provider: Skyla De La Cruz, [address], [place], [address]. tel:[phone] Family History Family Member Type Diagnosis Age At Onset Problem (finding) Family history of coronary arteriosclerosis Cousin Problem (finding) manic-depressive state Problem (finding) Family history of Cance r, unknown Problem (finding) Family history of Diabe timothy mellitus Mother Problem (finding) Lupus; gout; arthritis Mother Problem (finding) depression Mother Problem (finding) anxiety state Payers Payer name Insurance type Covered republican ID Authoriza tion(s) No Information Social History [...] in a program for 7 months in [facility] but they required twice a week attendance, one to see provider and one for group. Patient could not keep up with it plus it was rumored that the program was going to close. The patient lives in [facility] [place] and has a PCP there at from [facility] --Emi Landers MD. States she is seen fairly regularly for her high BP and pain issues and had blood work drawn three weeks ago there. States she was checked for Hep C there and it was negative. Checked for HIV while five years ago and it was negative. 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 She attends AA meetings in [facility] because they have no NA [...]
--- OUTSIDE RECORDS SUMMARY | 2021-12-20 04:39 | XMS_ITS | Continuity of Care Document ---
Author Organization [facility] Address [address] [place] [address] Phone Care Team Providers Care Manager Bilingual Name Role Phone Sean DO, Jessica Unavailable [...] 25 mcg (1,000 unit) tablet - Active tizanidine 2 mg tablet take 1 tablet by oral route every 6 - 8 hours as needed not to exceed 3 doses in 24 hours 2 MG - Active Cymbalta 60 mg capsule,delayed release take 2 capsule by oral route every day 120 MG - Active Folic Acid-Vit B6-Vit B12 [...] Healthcare, [address], [place], [id number], [place] tel:[phone] [facility] No Information 2 Sean Lopez. [address], [id number] 0, [place], [id number], [place]. tel:[phone] [facility], [address], [place], [id number], [place] tel:[phone] [facility] No Information 1 [place]. [address], [id number] 0, [place], [id number], [place]. tel:[phone] OFFICE/OUTPA TIENT VISIT, EST [facility], [address], [place], [id number], [place] tel:[phone] [facility] Body mass index (BMI) 45.0-49.9, adultOpioid dependencePs ychophysiolo gic insomnia 1 Sean Lopez. [address], [id number] [place], [id number], [place]. tel:[phone] Referring Provider: Jessica Estrada, [address] [id number] [place], [address]. tel:[phone] OFFICE/OUTPA TIENT VISIT, EST [facility], [address], [place], [id number], [place] tel:[phone] [facility] Body mass index (BMI) 45.0-49.9, adultOpioid dependencePs ychophysiolo gic insomnia Nov- 1 Sean Lopez. [address], [id number] 0CH, [place], [place], [id number], [place]. tel:[phone] Referring Provider: Jessica Estrada, [address] [id number] [place], [address]. tel:[phone] OFFICE/OUTPA TIENT VISIT, EST [facility], [address], [place], [place], [id number], [place] tel:[phone] [facility] Opioid dependencePs ychophysiolo gic insomniaBody mass index (BMI) 40.0-44.9, adult Oct- 1 Sean Lopez. [address], [id number] 0[address], [place], [place], [id number], [place]. tel:[phone] Referring Provider: Jessica Estrada, [address] [id number] , [place], [address]. tel:[phone] OFFICE/OUTPA TIENT VISIT, EST [facility], [address], [place], [place], [id number], [place] tel:[phone] [facility] Opioid dependencePs ychophysiolo gic insomniaBody mass index (BMI) 40.0-44.9, adult 0 Sean Lopez. [address], [id number] [address], [place], [place], [id number], [place]. tel:[phone] Referring Provider: Jessica Estrada, [address] [id number] [place], [address]. tel:[phone] OFFICE/OUTPA TIENT VISIT, EST [facility], [address], [place], [place], [id number], [place] tel:[phone] [facility] Opioid dependencePs ychophysiolo gic insomniaBody mass index (BMI) 40.0-44.9, adult Sep- 0 Sean Jessica. [address], [id number] [address], [place], [place], [id number], [place]. tel:[phone] Referring Provider: Jessica Estrada, [address] [id number] [place], [address]. tel:[phone] OFFICE/OUTPA TIENT VISIT, EST [facility], [address], [place], [place], [id number], [place] tel:[phone] [facility] Opioid dependencePs ychophysiolo gic insomniaBody mass index (BMI) 40.0-44.9, adult 0 Sean Jessica. [address], [id number] 0[address], [place], [place], [id number], [place]. tel:[phone] Referring Provider: Jessica Estrada, [address] [id number] [place], [address]. tel:[phone] OFFICE/OUTPA TIENT VISIT, EST [facility], [address], [place], [place], [id number], [place] tel:[phone] [facility] Opioid dependencePs ychophysiolo gic insomniaBody mass index (BMI) 40.0-44.9, adult 0 Sean Jessica. [address], [id number] 0[address], [place], [id number], [place]. tel:[phone] Referring Provider: Jessica Estrada, [address] [id number] [place], [address]. tel:[phone] OFFICE/OUTPA TIENT VISIT, EST [facility], [address], [place], [place], [id number], [place] tel:[phone] [facility] Opioid dependencePs ychophysiolo gic insomniaBody mass index (BMI) 40.0-44.9, adult 0 Sean Jessica. [address], [id number] 0[address], [place], [id number], [place]. tel:[phone] Referring Provider: Jessica Estrada, [address] [id number] [place], [address]. tel:[phone] OFFICE/OUTPA TIENT VISIT, EST [facility], [address], [place], [place], [id number], [place] tel:[phone] [facility] Opioid dependencePs ychophysiolo gic insomniaBody mass index (BMI) 40.0-44.9, adult Mar-3 0-202 0 Sean Jessica. [address], [id number] 0[address], [place], [id number], [place]. tel:[phone] Referring Provider: Jessica Estrada, [address] [id number] [place], [address]. tel:[phone] OFFICE/OUTPA TIENT VISIT, EST [facility], [address], [place], [place], [id number], [place] tel:[phone] [facility] Body mass index (BMI) 40.0-44.9, adultOpioid dependencePs ychophysiolo gic insomnia Mar-0 2-202 0 Sean Jessica. [address], [id number] [place], [id number], [place]. tel:[phone] Referring Provider: Jessica Estrada, [address] [id number] [place], [address]. tel:[phone] OFFICE/OUTPA TIENT VISIT EST Telehealth [facility], [address], [place], [place], [id number], [place] tel:[phone] [facility] Body mass index (BMI) 40.0-44.9, adultOpioid dependencePs ychophysiolo gic insomnia Feb-0 3-202 0 Sean Jessica. [address], [id number] 0[address], [place], [id number], [place]. tel:[phone] Referring Provider: Jessica Estrada, [address] [id number] [place], [address]. tel:[phone] OFFICE/OUTPA TIENT VISIT EST Telehealth [facility], [address], [place], [place], [id number], [place] tel:[phone] [facility] Body mass index (BMI) 40.0-44.9, adultOpioid dependence Sean Jessica. [address], [id number] [place], [id number], [place]. tel:[phone] Referring Provider: Jessica Estrada, [address] [id number] [place], [address]. tel:[phone] OFFICE/OUTPA TIENT VISIT EST Telehealth [facility], [address], [place], [place], [id number], [place] tel:[phone] [facility] Body mass index (BMI) 40.0-44.9, adultOpioid dependence Sean Jessica. [address], [id number] 0, [place], [id number], [place]. tel:[phone] Referring Provider: Jessica Estrada, [address] [id number] [place], [address]. tel:[phone] OFFICE/OUTPA TIENT VISIT EST Telehealth [facility], [address], [place], [place], [id number], [place] tel:[phone] [facility] Opioid dependenceBo dy mass index (BMI) 40.0-44.9, adult Sean Jessica. [address], [id number] 0, [place], [id number], [place]. tel:[phone] Referring Provider: Jessica Estrada, [address] [id number] [place], [address]. tel:[phone] PSYCH DIAG EVAL W/MED SRVCS Telehealth [facility], [address], [place], [id number], [place] tel:[phone] [facility] Body mass index (BMI) 40.0-44.9, adultOpioid dependence 9 Sean Lopez. [address], [id number] [place], [id number], [place]. tel:[phone] Referring Provider: Jessica Estrada, [address] [id number] [place], [address]. tel:[phone] OFFICE/OUTPA TIENT VISIT, NEW [facility], [address], [place], [id number], [place] tel:[phone] [facility] AMP physical (chief complaint) Body mass index (BMI) 40.0-44.9, adultTobacco useOpioid dependenceDe pressionGene ralized anxiety disorder 9 Brothers Tanya. [address], [id number] [place], [id number], [place]. tel:[phone] Referring Provider: Tanya Zamora, [address] [id number] [place], [address]. tel:[phone] PSYCH DIAGNOSTIC EVALUATION [facility], [address], [place], [id number], [place] tel:[phone] [facility] Major depressive disorder, single episode, mildOpioid dependenceCa nnabis dependence 9 Jono Crum. [address], [place], [id number], [place]. tel:[phone] Referring Provider: Skyla De La Cruz, [address], [place], [address]. tel:[phone] Family History Family Member Type Diagnosis Age At Onset Problem (finding) Family history of coronary arteriosclerosis Cousin Problem (finding) manic-depressive state Problem (finding) Family history of Cance r, unknown Problem (finding) Family history of Diabe timothy mellitus Mother Problem (finding) Lupus; gout; arthritis Mother Problem (finding) depression Mother Problem (finding) anxiety state Payers Payer name Insurance type Covered alliance party ID Authoriza tion(s) No Information Social History Type Description Quantity Date Captured Comments Sex Female Smoking Status No Information Sexual Orientation Bisexual Gender Identity Female Chief Complaint And Reason For Visit No Information Reason For Referral Reason For Referral No Information Plan Of Treatment Date Type Action Status Goal Pap/HPV testing. Due on due Goal [...] Goal Lipid panel. Due on due Goal Lifestyle education regardin [...] HPV, high+low-risk. Due on N due Goal Tdap. Due on due Goal [...] completed Goal Tdap. Due on due Goal Diabetes screening. Due on due Goal Lipid panel. Due on due Goal Td vaccine. Due on due Goal Influenza vaccine. Due on due Goal HPV. Due on due Goal HPV, high+low-risk. Due on J due Goal Pap/HPV testing. Due on due [...] Td vaccine. Due on 19 due Goal Influenza vaccine. Due on due Goal Pap/HPV testing. Due on due Goal Lifestyle education regardin g diet completed Goal HPV, high+low-risk. Due on due Goal Td vaccine. Due on 19 due Goal Pap/HPV testing. Due on due Goal Influenza vaccine. Due on due Goal Diabetes screening. Due on N due Goal Tdap. Due on due Goal Depression screening. Due on due Goal Lifestyle education regardin g diet completed Goal Diabetes screening. Due on O due Goal Pap/HPV testing. Due on due Goal Influenza vaccine. Due on Oc t due Goal Depression screening. Due on due Goal Td vaccine. Due on due Goal Tdap. Due on due Goal HPV, high+low-risk. Due on O due Goal Lifestyle education regardin g diet completed Goal Td vaccine. Due on due Goal Diabetes screening. Due on S due Goal Influenza vaccine. Due on Se p due Goal Pap/HPV testing. Due on due Goal Tdap. Due on due Goal HPV, high+low-risk. Due on S ep due Goal Depression screening. Due on due Goal Lifestyle education regardin g diet completed Goal Pap/HPV testing. Due on due Goal Td vaccine. Due on 19 due Goal Depression screening. Due on due Goal Tdap. Due on due Goal HPV, high+low-risk. Due on A due Goal Diabetes screening. Due on A due Goal Influenza vaccine. Due on Au due Goal HPV, high+low-risk. Due on A due Goal Td vaccine. Due on 19 due Goal Influenza vaccine. Due on Au due Goal Pap/HPV testing. Due on due [...] in a program for 7 months in [facility] but they required twice a week attendance, one to see provider and one for group. Patient could not keep up with it plus it was rumored that the program was going to close. The patient lives in [facility] and has a PCP there at from [facility] --Emi Landers MD. States she is seen fairly regularly for her high BP and pain issues and had blood work drawn three weeks ago there. States she was checked for Hep C there and it was negative. Checked for HIV while five years ago and it was negative. 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 She attends AA meetings in [facility] because they have no NA program and has used a counselor in [facility] that has helped her and she thinks [...]
--- OUTSIDE RECORDS SUMMARY | 2021-12-20 04:39 | XMS_ITS | Continuity of Care Document ---
Author Organization [facility] Address [address] [place] [address] Phone Care Team Providers Care Chicken Hatchery Helper Name Role Phone Sean DO, Jessica Unavailable [...] Healthcare, [address], [place], [id number], [place] tel:[phone] [facility] No Information 2 Sean Lopez. [address], [id number], [place], [id number], [place]. tel:[phone] [facility], [address], [place], [id number], [place] tel:[phone] [facility] No Information 1 [place]. [address], [id number], [place], [id number], [place]. tel:[phone] OFFICE/OUTPA TIENT VISIT, EST [facility], [address], [place], [id number], [place] tel:[phone] [facility] Body mass index (BMI) 45.0-49.9, adultOpioid dependencePs ychophysiolo gic insomnia 1 Sean Lopez. [address], [id number] [place], [id number], [place]. tel:[phone] Referring Provider: Jessica Estrada, [address] [id number] [place], [address]. tel:[phone] OFFICE/OUTPA TIENT VISIT, EST [facility], [address], [place], [id number], [place] tel:[phone] [facility] Body mass index (BMI) 45.0-49.9, adultOpioid dependencePs ychophysiolo gic insomnia Nov- 1 Sean Lopez. [address], [id number] [address], [place], [place], [id number], [place]. tel:[phone] Referring Provider: Jessica Estrada, [address] [id number] [place], [address]. tel:[phone] OFFICE/OUTPA TIENT VISIT, EST [facility], [address], [place], [place], [id number], [place] tel:[phone] [facility] Opioid dependencePs ychophysiolo gic insomniaBody mass index (BMI) 40.0-44.9, adult Oct- 1 Sean Lopez. [address], [id number] [address], [place], [place], [id number], [place]. tel:[phone] Referring Provider: Jessica Estrada, [address] [id number] , [place], [address]. tel:[phone] OFFICE/OUTPA TIENT VISIT, EST [facility], [address], [place], [place], [id number], [place] tel:[phone] [facility] Opioid dependencePs ychophysiolo gic insomniaBody mass index (BMI) 40.0-44.9, adult 0 Sean Lopez. [address], [id number] [address], [place], [place], [id number], [place]. tel:[phone] Referring Provider: Jessica Estrada, [address] [id number] [place], [address]. tel:[phone] OFFICE/OUTPA TIENT VISIT, EST [facility], [address], [place], [place], [id number], [place] tel:[phone] [facility] Opioid dependencePs ychophysiolo gic insomniaBody mass index (BMI) 40.0-44.9, adult Sep- 0 Sean Jessica. [address], [id number] 0[facility], [place], [place], [id number], [place]. tel:[phone] Referring Provider: Jessica Estrada, [address] [id number] [place], [address]. tel:[phone] OFFICE/OUTPA TIENT VISIT, EST [facility], [address], [place], [place], [id number], [place] tel:[phone] [facility] Opioid dependencePs ychophysiolo gic insomniaBody mass index (BMI) 40.0-44.9, adult 0 Sean Jessica. [address], [id number] [address], [place], [place], [id number], [place]. tel:[phone] Referring Provider: Jessica Estrada, [address] [id number] [place], [address]. tel:[phone] OFFICE/OUTPA TIENT VISIT, EST [facility], [address], [place], [place], [id number], [place] tel:[phone] [facility] Opioid dependencePs ychophysiolo gic insomniaBody mass index (BMI) 40.0-44.9, adult 0 Sean Jessiac. [address], [id number] [address], [place], [id number], [place]. tel:[phone] Referring Provider: Jessica Estrada, [address] [id number] [place], [address]. tel:[phone] OFFICE/OUTPA TIENT VISIT, EST [facility], [address], [place], [place], [id number], [place] tel:[phone] [facility] Opioid dependencePs ychophysiolo gic insomniaBody mass index (BMI) 40.0-44.9, adult 0 Sean Jessica. [address], [id number] [address], [place], [id number], [place]. tel:[phone] Referring Provider: Jessica Estrada, [address] [id number] [place], [address]. tel:[phone] OFFICE/OUTPA TIENT VISIT, EST [facility], [address], [place], [place], [id number], [place] tel:[phone] [facility] Opioid dependencePs ychophysiolo gic insomniaBody mass index (BMI) 40.0-44.9, adult Mar-3 0-202 0 Sean Jessica. [address], [id number] [address], [place], [id number], [place]. tel:[phone] Referring Provider: Jessica Estrada, [address] [id number] [place], [address]. tel:[phone] OFFICE/OUTPA TIENT VISIT, EST [facility], [address], [place], [place], [id number], [place] tel:[phone] [facility] Body mass index (BMI) 40.0-44.9, adultOpioid dependencePs ychophysiolo gic insomnia Mar-0 2-202 0 Sean Jessica. [address], [id number] [place], [id number], [place]. tel:[phone] Referring Provider: Jessica Estrada, [address] [id number] [place], [address]. tel:[phone] OFFICE/OUTPA TIENT VISIT EST Telehealth [facility], [address], [place], [place], [id number], [place] tel:[phone] [facility] Body mass index (BMI) 40.0-44.9, adultOpioid dependencePs ychophysiolo gic insomnia Feb-0 3-202 0 Sean Jessica. [address], [id number] [address], [place], [id number], [place]. tel:[phone] Referring Provider: Jessica Estrada, [address] [id number] [place], [address]. tel:[phone] OFFICE/OUTPA TIENT VISIT EST Telehealth [facility], [address], [place], [place], [id number], [place] tel:[phone] [facility] Body mass index (BMI) 40.0-44.9, adultOpioid dependence Sean Jessica. [address], [id number] [place], [id number], [place]. tel:[phone] Referring Provider: Jessica Estrada, [address] [id number] [place], [address]. tel:[phone] OFFICE/OUTPA TIENT VISIT EST Telehealth [facility], [address], [place], [place], [id number], [place] tel:[phone] [facility] Body mass index (BMI) 40.0-44.9, adultOpioid dependence Sean Jessica. [address], [id number], [place], [id number], [place]. tel:[phone] Referring Provider: Jessica Estrada, [address] [id number] [place], [address]. tel:[phone] OFFICE/OUTPA TIENT VISIT EST Telehealth [facility], [address], [place], [place], [id number], [place] tel:[phone] [facility] Opioid dependenceBo dy mass index (BMI) 40.0-44.9, adult Sean Jessica. [address], [id number], [place], [id number], [place]. tel:[phone] Referring Provider: Jessica Estrada, [address] [id number] [place], [address]. tel:[phone] PSYCH DIAG EVAL W/MED SRVCS Telehealth [facility], [address], [place], [id number], [place] tel:[phone] [facility] Body mass index (BMI) 40.0-44.9, adultOpioid dependence 9 Sean Lopez. [address], [id number] [place], [id number], [place]. tel:[phone] Referring Provider: Jessica Estrada, [address] [id number] [place], [address]. tel:[phone] OFFICE/OUTPA TIENT VISIT, NEW [facility], [address], [place], [id number], [place] tel:[phone] [facility] AMP physical (chief complaint) Body mass index (BMI) 40.0-44.9, adultTobacco useOpioid dependenceDe pressionGene ralized anxiety disorder 9 Brothers Tanya. [address], [id number] [place], [id number], [place]. tel:[phone] Referring Provider: Tanya Zamora, [address] [id number] [place], [address]. tel:[phone] PSYCH DIAGNOSTIC EVALUATION [facility], [address], [place], [id number], [place] tel:[phone] [facility] Major depressive disorder, single episode, mildOpioid dependenceCa nnabis dependence 9 Jono Crum. [address], [place], [id number], [place]. tel:[phone] Referring Provider: Skyla De La Cruz, [address], [place], [address]. tel:[phone] Family History Family Member Type Diagnosis Age At Onset Problem (finding) Family history of coronary arteriosclerosis Cousin Problem (finding) manic-depressive state Problem (finding) Family history of Cance r, unknown Problem (finding) Family history of Diabe timothy mellitus Mother Problem (finding) Lupus; gout; arthritis Mother Problem (finding) depression Mother Problem (finding) anxiety state Payers Payer name Insurance type Covered constitution party ID Authoriza tion(s) No Information Social [...] in a program for 7 months in [facility] but they required twice a week attendance, one to see provider and one for group. Patient could not keep up with it plus it was rumored that the program was going to close. The patient lives in [facility] and has a PCP there at from [facility] --Emi Landers MD. States she is seen fairly regularly for her high BP and pain issues and had blood work drawn three weeks ago there. States she was checked for Hep C there and it was negative. Checked for HIV while five years ago and it was negative. 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 She attends AA meetings in [facility] because they have no NA program and [...]
[2025-06-05] VITALS (13 sets, daily range): BP systolic 88–125; BP diastolic 50–84; PULSE 85–96; RESP 12–22; TEMP 36.6–37; O2SAT 91–100; BMI 29.7
--- NOTE | ~2025-06-05 | CT_ITS ---
CT HEAD NON-CONTRAST Clinical History: Confused Comparison: 05/23/2025 Technique: Unenhanced axial images skull base to vertex Coronal, sagittal reformats CT images acquired with automatic exposure control for dose reduction DLP: 605 mGy-cm Findings: Sulci, ventricles: Unremarkable. No intracerebral hemorrhage. No evidence acute territorial infarct. No mass effect, midline shift. Bony calvarium intact. Visualized paranasal sinuses: Clear. Mastoid air cells: Clear. IMPRESSION: 1. No acute intracranial findings. Reviewed, dictated and finalized at location R.
--- NOTE | ~2025-06-05 | XR_ITS ---
EXAMINATION: XR chest 1V portable COMPARISON: No comparisons available. HISTORY: hypotension FINDINGS: Scattered calcified lung granulomas. Moderate pulmonary venous congestion. No pneumothorax. Mild cardiomegaly. Calcified mediastinal and hilar lymph nodes. Bony thorax no acute abnormality. Miscellaneous: None Impression: CHF. Sequelae of previous probable granulomatous disease. Reviewed, dictated and finalized at location A. Impression: CHF. Sequelae of previous probable granulomatous disease.
--- OUTSIDE RECORDS SUMMARY | 2025-06-05 11:12 | XMS_ITS | Encounter Summary ---
Author Organization [facility] Address [address] [place] [address] Care Team Providers Care Immigration Case Manager Name Role Phone Emi Landers MD Primary Care Provider + Encounter Details Date Type Department Care Team (Late st Contact Info) Description 12/01/2017 Abstract [facility] CONVERSION [address] [place] [address] , Generic Conversion, Social History Tobacco Use Types Packs/Day Years Used Date Smoking Tobacco: Never Assessed Comments Unknown Sex and Gender Information Value Date Recorded Sex Assigned at Not on file Legal Sex Female 11:11 PM [employer] Gender Identity Not on file Sexual Orientation Not on file documented as of this encounter Plan of Treatment Not on file documented as of this encounter Visit Diagnoses Not on filedocumented in this encounter Additional Health Concerns Infection Onset Date Last Indicated Resolved Time 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
--- OUTSIDE RECORDS SUMMARY | 2025-06-05 11:12 | XMS_ITS | Patient Health Record ---
Author Organization [facility] Address [address] [place] [address] Care Team Providers Care Equipment Services Associate Name Role Phone Jocelyn Junito Primary Care Provider [phone] Joe Edwards Unavailable [phone] Olivia Walker Unavailable [phone] Samina Miller Unavailable [phone] Allergies Allergen (clinical drug ingredient) Drug/Non Drug Allergy documented on EMR Reaction Allergy Type Onset Date Status Darvocet A500 hives Drug Allergy Act benjamín Shellfish (FN) Shellfish-derived Products Unknown Drug Allergy Active Substance with sulfonamide structure and antibacterial mechanism of action (substance) Sulfa Antibiotics Unknown Drug Allergy Active Results Component Value Reference Range Notes HIV Screen *HIV 1, 2 Ab, p24 Ag ([id number]) Reviewed date:05/11/2025 08:12:18 AM Interpretation: Performing Lab:[place], [address] [facility], Phone - [phone], [facility] Notes/Report: HIV Ab/p24 Ag Screen Non Reactive [...] Immuno Polymedco OC sampling bottle received. TEST: [id number] ColoFIT,Occult Blood,Fecal,IA CBC With Differential/Platel et* Reviewed date:05/11/2025 08:12:18 AM Interpretation: Performing Lab:[place], [address] [facility], Phone - [phone], Director - [place] Notes/Report: Called/faxed to [facility] [...] Panel* Reviewed date:05/11/2025 08:12:18 AM Interpretation: Performing Lab:[facility], [address] [facility], Phone - [phone], Director - [place] Notes/Report: Called/faxed to [facility] [...] 11 0-32 IU/L QuantiFERON-TB Gold Plus ([id number]) Reviewed date:05/11/2025 08:12:18 AM Interpretation: Performing Lab:[facility], [address] [facility], Phone - [phone], Director - [place] Notes/Report: Called/faxed to [facility] [...] PM Interpretation: Performing Lab: Notes/Report: WALDEMAR 0.000 14 Panel Urine Drug Screen Reviewed date:05/04/2025 12:43:24 PM Interpretation: Performing Lab: Notes/Report: THC POS MINH neg MOP (OPI) neg AMP neg MET neg BAR neg BZO neg MDMA neg MTD neg OXY neg PCP neg BUP neg TCA neg FTY neg Reason For Referral Reason well woman exam Diagnosis 1 Encounter for screen ing for malignant neoplasm of colon (Z12.11) Diagnosis 2 Encounter for screen ing for malignant neoplasm of cervix (Z12.4) Diagnosis 3 Encounter for screen ing mammogram for breast cancer (Z12.31) Referral Organization [facility] Referring Provider First Name Junito Referring Provider Last Name Jocelyn Referring Provider 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 Referral faxed. Clinical Notes [facility], [place] [address], , Referral Priority Routine Referral Appointment Date 05/04/2025 Medications Medication SIG (Take, Route, Frequency, Duration) Notes Start Date End Date Status Spironolactone 50 MG 2 tablets Orally Once a day Active Lasix 40 MG 1 tablet Orally Once a day Started at [facility] Active Gabapentin 800 MG 1 tablet Orally 4 times a day Active Doxycycline Hyclate 100 MG 1 capsule Orally twice a day; Duration: 10 days 06/03/2025 Active Prempro 0.3-1.5 MG 1 tablet Orally Once a day Active Nicotine 14 MG/24HR 1 patch to skin Transdermal Once a day, removing at bedtime; Duration: 14 days 05/04/2025 Active Fluticasone Furoate 27.5 MCG/SPRAY 2 sprays (1 spray in each nostril) Nasally Once a day; Duration: 30 days 06/03/2025 Active Melatonin 5 MG 1 tablet at bedtime as needed Orally Once a day; Duration: 30 days 05/04/2025 Active tiZANidine HCl 4 MG 1 tablet as needed Orally every 8 hours; Duration: 14 days Active Multi Vitamin - 1 tablet Orally Once a day; Duration: 30 days 05/04/2025 Active Pantoprazole Sodium 40 MG 1 tablet Orally Once a day; Duration: 30 days Active Nicotine Polacrilex 4 MG 1 lozenge as needed for nicotine cravings Mouth/Throat Up to once per hour (maximum of 15 lozenges per day); Duration: 7 days 05/04/2025 Active hydrOXYzine Pamoate 25 MG 1 capsule Orally every 4 hours as needed for anxiety, agitation, or inability to sleep. Do not give within 4 hours of diphenhydramine.; Duration: 14 days Active Carvedilol 6.25 MG 1 tablet with food Orally Twice a day Active DULoxetine HCl 60 MG 2 capsules Orally Once a day; Duration: 30 days Active Ferrous Sulfate 325 (65 Fe) MG 1 tablet Orally daily Active traZODone HCl 100 MG 2 tables at night Orally Once a day; Duration: 30 days Active Buprenorphine HCl-Naloxone HCl 4-1 MG 1 film under the tongue and allow to dissolve Sublingual twice a day; Duration: 7 days 06/02/2025 Active Vraylar 1.5 MG 1 capsule Orally Once a day; Duration: 30 days 05/13/2025 Active Social History Tobacco Use: Social History Observation Description Date Details (start date - stop date) Former Smoker JANINA JASSO Question Answer Notes Date Completed/Updated: 05/04/2025 What is your current housing situation? I do not have housing (staying with others, in a hotel, in a correction, living outside on the street, on a beach, or in a park) Are you worried about losing your housing? Yes What is the highest level of school that you have finished? More than high school What is your current work situation? Oth erwise unemployed but not seeking work (ex. 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 Stress is when someone feels tense, nervous, anxious, or can\t sleep at night because their mind is troubled Very much In the past year have you sp ent more than 2 nights in a row in a correction, correction, fci center, or juvenile correctional facility? No Are [...] Control (Standard) Question Answer Notes Tobacco use: Former smoker Problems Problem Type SNOMED Code ICD Code Onset Dates Problem Status W/U Status Risk Notes Problem Generalized anxiety disorder (66088017) Generalized anxiety disorder (F41.1) Active confirmed Problem Aphasia (35116779) Aphasia (R47.01) Active confirmed Problem Substance abuse (5137737709) Substance abuse (F19.10) Active confirmed Problem Major depressive disorder, single episode, severe with psychotic features (280757391) Major depressive disorder with psychotic features (F32.3) Active confirmed Problem Acute sinusitis (86116651) Acute sinusitis (J01.90) Active confirmed Problem Overweight (285214452) Over weight (E66.3) Active confirmed Problem Mental health disorder (12373578) Mental health disorder (F99) Active confirmed Problem Cirrhotic (619811325) Cirrhosis (K74.60) Active confirmed Problem History of methicillin resistant Staphylococcus aureus infection (190066854) History of MRSA infection (Z86.14) Active confirmed Problem Physical examination, complete (92206027) Adult general medical examination (Z00.00) Active confirmed Problem Opioid use disorder (7976363147) Opioid use disorder (F11.99) Active confirmed Problem Tobacco user (038378732) Nicotine dependence with current use (F17.200) Active confirmed Problem Abnormal gait (50877287) Unsteady gait when walking (R26.81) Active confirmed Vital Signs Heart Rate 92 /min 06/05/2025 1st BP sitting 132/80 O2-87 P-98, 2nd BP laying 110/74 O2-81 P-92 Nurse assessment vitals: 92% for O2 Temperature 98.0 degrees Fahrenheit 06/05/2025 1st BP sitting 132/80 O2-87 P-98, 2nd BP laying 110/74 O2-81 P-92 Nurse assessment vitals: 92% for O2 Respiratory Rate 20 /min 06/05/2025 1st BP sitting 132/80 O2-87 P-98, 2nd BP laying 110/74 O2-81 P-92 Nurse assessment vitals: 92% for O2 Oximetry 87 % 06/05/2025 1st BP sitting 132/80 O2-87 P-98, 2nd BP laying 110/74 O2-81 P-92 Nurse assessment vitals: 92% for O2 Blood pressure diastolic 80 mm Hg 06/05/2025 1st BP sitting 132/80 O2-87 P-98, 2nd BP laying 110/74 O2-81 P-92 Nurse assessment vitals: 92% for O2 Height 68 in 06/05/2025 1st BP sitting 132/80 O2-87 P-98, 2nd BP laying 110/74 O2-81 P-92 Nurse assessment vitals: 92% for O2 Blood pressure systolic 132 mm Hg 06/05/2025 1st BP sitting 132/80 O2-87 P-98, 2nd BP laying 110/74 O2-81 P-92 Nurse assessment vitals: 92% for O2 Weight 195.4 lbs 06/05/2025 1st BP sitting 132/80 O2-87 P-98, 2nd BP laying 110/74 O2-81 P-92 Nurse assessment vitals: 92% for O2 BMI 29.71 kg/m2 06/05/2025 1st BP sitting 132/80 O2-87 P-98, 2nd BP laying 110/74 O2-81 P-92 Nurse assessment vitals: 92% for O2 Encounters Encounter Location Date Provider Diagnosis [facility] [address] [place] [address] 05/06/2025 Junito Banks [facility] [address] [facility] [place] [address] 06/05/2025 Junito Banks Slurred speech R47.8 1 ; Aphasia R47.01 ; Unsteady gait when walking R26.81 ; Orthostatic hypotension I95.1 ; Lethargic R53.83 and Cirrhosis K74.60 [facility] [address] [place] [address] 05/04/2025 Junito Banks Adult general medica l examination Z00.00 ; History of MRSA infection Z86.14 ; Encounter for screening for malignant neoplasm of colon Z12.11 ; Encounter for screening for malignant neoplasm of cervix Z12.4 ; Encounter for screening mammogram for breast cancer Z12.31 ; Over weight E66.3 and Abrasion of knee, unspecified laterality, initial encounter S80.219A [facility] [place] [address] 05/04/2025 Samina Paul Substance abuse F19.10 ; Mental health disorder F99 and Over weight E66.3 [facility] [address] [place] [address] 05/12/2025 Junito Banks Over weight E66.3 an d Cirrhosis K74.60 [place] [address] [place] [address] 05/13/2025 Olivia Walker Major depressive disorder with psychotic features F32.3 ; Generalized anxiety disorder F41.1 and Over weight E66.3 [place] [address] [place] [address] 06/02/2025 Joe Edwards Over weight E66.3 ; Opioid use disorder F11.99 and Nicotine dependence with current use F17.200 [place] [address] [place] [address] 06/03/2025 Junito Banks Over weight E66.3 an d Acute sinusitis J01.90 [place] [address] [place] [address] 05/07/2025 Junito Banks [place] [address] [place] [address] 05/11/2025 Junito Banks Tuberculosis screening Z11.1 [facility] [place] [address] 05/19/2025 Olivia Walker Major depressive disorder with psychotic features F32.3 [place] [address] [place] [address] 06/01/2025 Junito Banks Adult general medica l examination Z00.00 Assessments Encounter Date Diagnosis (ICD Code) Assessment [...] or be administered own oral medications per [facility] protocols. Provided informed consent with understanding of side effects, adverse effects, risks and benefits as well as alternative treatments as previously discussed and with the above recommended medications & other aspects of the treatment program. Agrees to return sooner if symptoms worsen or suicidal or homicidal ideations occur. 05/19/2025 Major depressive disorder with psychotic features (ICD-10 - F32.3) 06/01/2025 Adult general medical examination (ICD-10 - Z00.00) 06/02/2025 Over weight (ICD-10 - E66.3) 06/02/2025 Opioid use disorder (ICD-10 - F11.99) 05/04/2025 History of MRSA infection (ICD-10 - [...] must be approved by nursing staff before self-administratio n by patients: Diphenhydramine 25 mg, 2 tablets [...] there is pus, a foul odor, increased pain/redness/swell ing, or if soaking through bandages. 05/04/2025 Substance abuse (ICD-10 - F19.10) 05/04/2025 Mental health disorder (ICD-10 - F99) 06/03/2025 Acute sinusitis (ICD-10 - J01.90) Educated patient on Adequate rest and hydration and warm facial packs as needed for sinus pain. Educated patient on continuing mucinex once daily and tylenol twice daily for sinus pain. 650mg each time. Educated patient on using sunscreen and sitting up after meals for 1-2 hours after taking medication. 06/03/2025 Over weight (ICD-10 - E66.3) 06/05/2025 Aphasia (ICD-10 - R47.01) 06/05/2025 Slurred speech (ICD-10 - R47.81) Recommended patient go to the ER [facility], via a ride for further evaluation and testing. 06/05/2025 Unsteady gait when walking (ICD-10 - R26.81) 05/04/2025 Encounter for screening for malignant neoplasm of colon (ICD-10 - Z12.11) 06/02/2025 Nicotine dependence with current use (ICD-10 - F17.200) 05/13/2025 Over weight (ICD-10 - E66.3) 05/04/2025 Encounter for screening for malignant neoplasm of cervix (ICD-10 - Z12.4) 05/04/2025 Over weight (ICD-10 - E66.3) 06/05/2025 Orthostatic hypotension (ICD-10 - I95.1) 06/05/2025 Lethargic (ICD-10 - R53.83) 05/04/2025 Encounter for screening mammogram for breast cancer (ICD-10 - Z12.31) 05/04/2025 Over weight (ICD-10 - E66.3) 06/05/2025 Cirrhosis (ICD-10 - K74.60) 05/04/2025 Abrasion of knee, unspecified laterality, initial encounter (ICD-10 - S80.219A) dressing change twice daily with antibiotic ointment. Clean with NS or alcohol prior to antibiotic ointment and dressing. 05/04/2025 Other Continue treatment as recommended by [facility] staff. Encouraged patient to obtain routine medical care with patient's own primary care provider or establish as a patient at [facility] if no current primary care [...] the purposes of identifying additional service needs. 06/02/2025 Other Patient agrees to take medication as prescribed. Discussed medication side effects, adverse effects, risks, benefits, as well as interactions. Encouraged non-use of opioids. Has naloxone. Recommended participation in recovery groups and/or counseling services. May contact office with questions or concerns. Patient may self-administe r their own medications or may self-administe r their own oral medications per [facility] Protocol. 06/03/2025 Other Learning About the Safe Use of Antibiotics material was discussed. Pt was educated on use of antibiotic medication including dosing, side effects, adverse effects and anticipated response. Pt was also educated on importance of completing full course of treatment as ordered. Patient voiced understanding of all. Plan Of Treatment Future Test Test Name Order Date Mammogram Breast - Bilateral Screening with ABUS, diagnostic mammogram/ultrasound, and/or biopsy as clinically indicated 05/11/2025 Insurance Providers Payer Name Payer Address Payer Phone Subscriber Number Group Number Insured Name Patient Relationship to Insured Coverage Start Date Coverage End Date [facility] Attn Claims Department [address] [place] [phone] [id number] Lena High Self - patient is the insured 5 [employer] Attn Claims Department [address] [address] [id number] Lean High Self - patient is the insured 5 [facility] Att[facility] Claims Department [address] [place] [phone] [id number] Lena High Self - patient is the insured 5 Medical (General) History Medical History History ICD Code Cirrhosis of liver Anemia depression anxiety ptsd Surgical History Surgery Date(Month/Year) C Section 2022 Knee surgery 1989 ECG 02/2025 Hospitalization History Reason Date(Month/Year) [facility] for surgery 02/2025 [facility] for anemia (received b lood transfusion) 05/2025
--- OUTSIDE RECORDS SUMMARY | 2025-06-05 11:12 | XMS_ITS | Clinical Summary ---
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
--- NOTE | 2025-06-05 11:47 | ECG_ITS ---
Test Date: 2025-06-05 12:00:29 Measurements Intervals [place] Rate: 84 P: 49 AL: 123 QRS: 0 QRSD: 90 T: 18 QT: 355 QTc: 421 Interpretive Statements SINUS RHYTHM WITH SHORT AL INTERVAL POSSIBLE LEFT ATRIAL ENLARGEMENT [-0.1mV P-WAVE IN V1/V2] ABNORMAL ECG No previous ECG available for comparison Electronically Signed On 06-05-2025 13:07:24 CDT by Bolivar Aaron M.D.
[2025-06-05 12:01] LABS: Hematocrit 28.2 % (37.0-47.0); Hemoglobin 8.1 g/dL (12.0-15.0); Immature Granulocyte Percent A 1.5 % (0-0.5); Lymphocytes Absolute Auto 0.91 K/mm3 (0.9-3.2); Mean Corpuscular HGB Conc 28.7 g/dl (32-36); Mean Corpuscular Hemoglobin 26.0 pg (26-34); Mean Corpuscular Volume 90.7 fl (80-100); Nucleated Red Blood Cells Absolute Auto 0.120 K/mm3 (0.0-0.012); Nucleated Red Blood Cells Perc 2.0 % (0.0-0.2); Platelet Count Result 386 k/mm3 (150-375); Red Blood Count 3.11 M/mm3 (4.2-5.4); White Blood Count 5.9 K/mm3 (4.5-10.0)
[2025-06-05 12:21] LABS: Alanine Aminotransferase 19 U/L (6-35); Albumin Level 3.8 g/dL (3.5-5.1); Alkaline Phosphatase 98 U/L (38-126); Anion Gap 3 mmol/L (4-12); Aspartate Amino Transferase 69 U/L (14-36); Bilirubin,Total 0.7 mg/dL (0.2-1.3); Blood Urea Nitrogen 34 mg/dL (7-17); Calcium 8.6 mg/dL (8.4-10.2); Carbon Dioxide 28 mmol/L (22-30); Chloride 101 mmol/L (98-107); Estimated CRCL calculation 54 ml/min; Estimated Glomerular Filt Rate 44; Glucose 103 mg/dL (65-110); Potassium 5.6 mmol/L (3.4-5.0); Sodium 132 mmol/L (137-145); Total Protein 6.8 g/dL (6.3-8.2)
[2025-06-05 12:25] LABS: Anisocytosis 1+; Hypochromasia 1+; Ovalocytes 1+; Schistocytes None Seen; Tear Drop Cells 1+
--- OUTSIDE RECORDS SUMMARY | 2025-06-05 13:18 | XMS_ITS | Encounter Summary ---
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
--- OUTSIDE RECORDS SUMMARY | 2025-06-05 13:18 | XMS_ITS | Clinical Summary ---
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
--- NOTE | 2025-06-05 13:29 | ED.GENADULT ---
HPI - General Adult General Chief complaint: Recheck/Abnormal Lab/Rx Stated complaint: adverse reaction to suboxone Time Seen by Provider: 06/05/25 13:15 Source: patient Mode of arrival: ambulatory Limitations: no limitations History of Present Illness HPI narrative: Patient came to the ED from [place] with questionable Suboxone reaction/side effect. After taking the 1st dose today. Currently patient is confused, oriented to her name only, no significant other at the bedside to give me more details about what is going on. Currently patient complaining of feeling dizzy lightheadedness, because she drank too much alcohol today more than usual. Patient is telling me that she lives alone, drinks alcohol 1-twice a week, denies any not use or abuse. Patient is oriented to her name only, I I do not know is her answer to any questions at this time. She denying any pain or fever or chills or nausea or vomiting. Related Data Home Medications ?Medication ?Instructions ?Recorded ?Confirmed ?Last Taken ?Type conj estrogen-medroxyprogesterone 1 tablet PO DAILY 05/07/25 06/08/25 06/07/25 09:00 History 0.3 mg-1.5 mg tablet (Prempro) duloxetine 60 mg capsule,delayed 120 mg PO DAILY 05/07/25 06/08/25 06/07/25 09:00 History release gabapentin 800 mg tablet 800 mg PO .Q6 NUMBNESS AND PAIN 05/07/25 06/08/25 06/07/25 09:00 History hydroxyzine HCl 25 mg tablet 50 mg PO Q4H PRN anxiety 05/07/25 06/08/25 06/07/25 21:00 History multivitamin 1 tablet PO DAILY 05/07/25 06/08/25 06/07/25 21:00 History pantoprazole 40 mg tablet,delayed 40 mg PO BID 05/07/25 06/08/25 06/07/25 21:00 History release (Protonix) tizanidine 4 mg tablet 4 mg PO Q6H PRN muscle pain 05/07/25 06/08/25 06/07/25 21:00 History trazodone 100 mg tablet 100 mg PO HS PRN sleep 05/07/25 06/08/25 06/07/25 21:00 History Allergies Allergy/AdvReac Type Severity Reaction Status Date / Time shellfish derived Allergy Severe Hives Verified 06/08/25 10:12 Sulfa (Sulfonamide AdvReac Nausea and Verified 06/08/25 10:12 Antibiotics) Vomiting Review of Systems Review of Systems: All systems reviewed & are unremarkable except as noted in HPI and below PMFSH Past Medical History Medical History Chronic anemia Anemia Hyponatremia Substance abuse Alcohol abuse PTSD (post-traumatic stress disorder) Anxiety disorder Esophageal varices Previously banded Depression Acute hemorrhoid Neuropathy History of cirrhosis of liver History of esophageal varices Surgical History Surgical History H/O section S/P T&A (status post tonsillectomy and adenoidectomy) H/O left knee surgery History of esophagogastroduodenoscopy (EGD) Family History Family History Mother Substance abuse Alcohol abuse Heart disease Myocardial infarction Hypertension Father Cancer of bone Melanoma Alzheimer dementia Other Dementia Social History Social History Social History: She currently resides at [facility]. She is working on her disability. She has 1 son who is 11-year years old and he lives with the patient's brother. 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 She stated that she is trying to quit smoking and is down to vaping and a nicotine patch. Smoking packs per day: 1 Smoking cigarettes per day: 20.0 Years smoked: 35 Smoking pack-years: 35.00 Smoking status: Former smoker Tobacco type: cigarettes Alcohol intake: current Drinks per week: 3 Substance use: former Substance use type: marijuana and amphetamines Last use: 04/16/25 Lack of Transportation: YES Lack of Food: Never True Current Housing: I Do Not Have Housing Concerned About Future Housing: YES Difficulty Paying Gas/Electric Bills: No Difficulty Paying for Meds: YES Currently Unemployed: YES Education: High School Diploma/GED Difficulty w/ Childcare or Family Care: No Spiritual care concerns: No Exam Narrative: General appearance: Well-developed, well-nourished Skin: Normal color Head: Normocephalic, nontraumatic Eyes: Clear conjunctiva ENT: Oropharynx normal, ears normal, nose normal Neck: Supple, nontender Chest and respiratory: Airway patent, no respiratory distress, no accessory muscle use Heart: Regular rate/rhythm Abdomen: Soft, nontender, splenomegaly, quiet bowel sounds Vascular: Normal peripheral pulses, normal capillary refill. Musculoskeletal: Normal range of motion, nontender back Neurologic: Alert, oriented to her name only lethargic, slowly responding to questions, answering that she does not know to any question Course Vital Signs Vital signs: Vital Signs Temperature 37.0 C 06/05/25 11:27 Pulse Rate 87 06/05/25 11:27 Respiratory Rate 18 06/05/25 11:27 Blood Pressure 88/50 L 06/05/25 11:27 Pulse Oximetry 98 06/05/25 11:27 Oxygen Delivery Room Air 06/05/25 11:27 Temperature 36.6 C 06/06/25 12:00 Pulse Rate 89 06/06/25 14:00 Respiratory Rate 12 06/06/25 12:00 Blood Pressure 127/72 06/06/25 12:00 Pulse Oximetry 99 06/06/25 12:00 Oxygen Delivery Room Air 06/06/25 12:00 Medical Decision Making [facility] Narrative Medical decision making narrative: Differential diagnosis include drug reaction, electrolyte imbalance, dehydration, hepatic encephalopathy, alcohol intoxication, drug abuse,psych disorder Blood workup today includes CBC, CMP, ammonia level, CPK, alcohol level showed hemoglobin 8.1 consistent with previous readings, sodium 132, potassium 5.6, BUN 34, creatinine 1.2 consistent with previous readings, total CPK 485 Urine drug screen showed no significant abnormality Urinalysis showed no evidence of infection CT head without contrast showed no acute abnormalities Chest x-ray showed no acute abnormalities Initially patient was oriented to her name only Currently patient is awake, alert oriented x4, still sleepy and lethargic. ABG on room air showed respiratory acidosis, BiPAP ordered, admit to hospitalist observation. Differential Diagnosis Differential Diagnosis: As above Vital Signs Vital Signs: Vital Signs Temperature 37.0 C 06/05/25 11:27 Pulse Rate 87 06/05/25 11:27 Respiratory Rate 18 06/05/25 11:27 Blood Pressure 88/50 L 06/05/25 11:27 Pulse Oximetry 98 06/05/25 11:27 Oxygen Delivery Room Air 06/05/25 11:27 Temperature 36.6 C 06/06/25 12:00 Pulse Rate 89 06/06/25 14:00 Respiratory Rate 12 06/06/25 12:00 Blood Pressure 127/72 06/06/25 12:00 Pulse Oximetry 99 06/06/25 12:00 Oxygen Delivery Room Air 06/06/25 12:00 Lab Data 06/06/25 03:58 06/06/25 03:58 Labs: Lab Results 06/05/25 06/05/25 06/05/25 Range/Units 11:55 15:02 15:15 WBC 5.9 (4.5-10.0) K/mm3 RBC 3.11 L (4.2-5.4) M/mm3 Hgb 8.1 L (12.0-15.0) g/dL Hct 28.2 L (37.0-47.0) % MCV 90.7 (80-100) fl MCH 26.0 (26-34) pg MCHC 28.7 L (32-36) g/dl RDW 22.1 H (11.5-14.5) % Plt Count 386 H (150-375) k/mm3 MPV 11.0 H (7.4-10.4) fl Immature Gran % (Auto) 1.5 H (0-0.5) % Neut % (Auto) 70.6 (45.5-73.1) % Lymph % (Auto) 15.3 L (18.3-44.2) % [place] % (Auto) 8.9 H (2.6-8.5) % Eos % (Auto) 2.0 (0-4.4) % Baso % (Auto) 1.7 H (0.2-1.2) % Lymph # (Auto) 0.91 (0.9-3.2) K/mm3 [place] # (Auto) 0.5 (0.1-0.6) K/mm3 Eos # (Auto) 0.1 (0-0.3) K/mm3 Baso # (Auto) 0.1 (0.0-0.1) K/mm3 Abs Immat Gran (auto) 0.09 H (0.00-0.031) K/mm3 Absolute Neuts (auto) 4.2 (1.3-6.7) K/mm3 Absolute Nucleated RBC 0.120 H (0.0-0.012) K/mm3 Band Neutrophils % Not Reportable Nucleated RBC % 2.0 H (0.0-0.2) % Platelet Estimate Adequate (Adequate) Hypochromasia 1+ Anisocytosis 1+ Tear Drop Cells 1+ Ovalocytes 1+ Schistocytes None seen PT 15.0 H (11.1-14.7) Seconds INR 1.2 APTT 36.3 (22.3-36.8) Seconds Sodium 132 L (137-145) mmol/L Potassium 5.6 H (3.4-5.0) mmol/L Chloride 101 (98-107) mmol/L Carbon Dioxide 28 (22-30) mmol/L Anion Gap 3 L (4-12) mmol/L BUN 34 H D (7-17) mg/dL Creatinine 1.29 H (0.7-1.0) mg/dL Estim Creat Clear Calc 54 ml/min Estimated GFR 44 L (59 - ) Glucose 103 (65-110) mg/dL Calcium 8.6 (8.4-10.2) mg/dL Total Bilirubin 0.7 (0.2-1.3) mg/dL AST 69 H (14-36) U/L ALT 19 (6-35) U/L Alkaline Phosphatase 98 (38-126) U/L Ammonia < 9 L (9-30) umol/L Total Creatine Kinase 485 H (30-135) U/L Total Protein 6.8 (6.3-8.2) g/dL Albumin 3.8 (3.5-5.1) g/dL TSH 2.910 (0.465-4.680) uIU/mL Urine Color (Yellow) Urine Appearance (Clear) Urine pH (5.0-9.0) Ur Specific [place] (1.001-1.035) Urine Protein (Negative) mg/dL Urine Glucose (UA) (Negative) mg/dL Urine Ketones (Negative) mg/dL Ur Blood (Man) (Negative) Urine Nitrate (Negative) Urine Bilirubin (Negative) Urine Urobilinogen (<2.0) mg/dL Leukocyte Esterase Rfl (Negative) JOSE/UL POC Urine HCG, Qual Negative (Negative) Salicylates < 1.0 L (2-20) mg/dL Urine Opiates Screen (Negative) Urine Methadone Screen (Negative) Acetaminophen < 10 L (10-30) ug/mL Ur Barbiturates Screen (Negative) Ur Phencyclidine Scrn (Negative) Ur Amphetamine Screen (Negative) U Benzodiazepines Scrn (Negative) Urine Cocaine Screen (Negative) U Cannabinoids Screen (Negative) Ethyl Alcohol < 10 (<10) mg/dL 06/05/25 Range/Units 15:16 WBC (4.5-10.0) K/mm3 RBC (4.2-5.4) M/mm3 Hgb (12.0-15.0) g/dL Hct (37.0-47.0) % MCV (80-100) fl MCH (26-34) pg MCHC (32-36) g/dl RDW (11.5-14.5) % Plt Count (150-375) k/mm3 MPV (7.4-10.4) fl Immature Gran % (Auto) (0-0.5) % Neut % (Auto) (45.5-73.1) % Lymph % (Auto) (18.3-44.2) % [place] % (Auto) (2.6-8.5) % Eos % (Auto) (0-4.4) % Baso % (Auto) (0.2-1.2) % Lymph # (Auto) (0.9-3.2) K/mm3 [place] # (Auto) (0.1-0.6) K/mm3 Eos # (Auto) (0-0.3) K/mm3 Baso # (Auto) (0.0-0.1) K/mm3 Abs Immat Gran (auto) (0.00-0.031) K/mm3 Absolute Neuts (auto) (1.3-6.7) K/mm3 Absolute Nucleated RBC (0.0-0.012) K/mm3 Band Neutrophils % Nucleated RBC % (0.0-0.2) % Platelet Estimate (Adequate) Hypochromasia Anisocytosis Tear Drop Cells Ovalocytes Schistocytes PT (11.1-14.7) Seconds INR APTT (22.3-36.8) Seconds Sodium (137-145) mmol/L Potassium (3.4-5.0) mmol/L Chloride (98-107) mmol/L Carbon Dioxide (22-30) mmol/L Anion Gap (4-12) mmol/L BUN (7-17) mg/dL Creatinine (0.7-1.0) mg/dL Estim Creat Clear Calc ml/min Estimated GFR (59 - ) Glucose (65-110) mg/dL Calcium (8.4-10.2) mg/dL Total Bilirubin (0.2-1.3) mg/dL AST (14-36) U/L ALT (6-35) U/L Alkaline Phosphatase (38-126) U/L Ammonia (9-30) umol/L Total Creatine Kinase (30-135) U/L Total Protein (6.3-8.2) g/dL Albumin (3.5-5.1) g/dL TSH (0.465-4.680) uIU/mL Urine Color Yellow (Yellow) Urine Appearance Clear (Clear) Urine pH 5.5 (5.0-9.0) Ur Specific [place] 1.014 (1.001-1.035) Urine Protein Negative (Negative) mg/dL Urine Glucose (UA) Negative (Negative) mg/dL Urine Ketones Negative (Negative) mg/dL Ur Blood (Man) Negative (Negative) Urine Nitrate Negative (Negative) Urine Bilirubin Negative (Negative) Urine Urobilinogen 1.0 (<2.0) mg/dL Leukocyte Esterase Rfl Negative (Negative) JOSE/UL POC Urine HCG, Qual (Negative) Salicylates (2-20) mg/dL Urine Opiates Screen Negative (Negative) Urine Methadone Screen Negative (Negative) Acetaminophen (10-30) ug/mL Ur Barbiturates Screen Negative (Negative) Ur Phencyclidine Scrn Negative (Negative) Ur Amphetamine Screen Negative (Negative) U Benzodiazepines Scrn Negative (Negative) Urine Cocaine Screen Negative (Negative) U Cannabinoids Screen Negative (Negative) Ethyl Alcohol (<10) mg/dL ABG Data ABG results: 06/05/25 15:00 Puncture Site Right brachial ABG pH 7.309 L ABG pCO2 48.2 H ABG pO2 68.8 L ABG PO2/FiO2 Ratio 3.28 ABG HCO3 23.7 ABG O2 Saturation 92.1 L ABG O2 Content 11.3 L ABG Base Excess -2.6 A-a Gradient 23.2 Oxyhemoglobin 89.7 L Total Hemoglobin 8.9 L O2 Delivery Device Not Reportable O2 Liters/Min Not Reportable FiO2 21 Critical Care Time Critical Care Time Critical Care Time: Yes Total Critical Care Time: 30 Discharge Plan Discharge Clinical Impression: Altered mental status, Substance abuse Anxiety disorder Qualifiers: Anxiety disorder type: unspecified anxiety disorder Qualified Code(s): F41.9 - Anxiety disorder, unspecified Patient Disposition: Still a Patient Condition: Stable
--- NOTE | 2025-06-05 13:51 | PC.NURSE ---
Pt. able to ambulate to bathroom independently. Pt. unable to urinate at thi time. Pt. states she just feels real tired. Fluids started IV.
[2025-06-05] MEDS: SODIUM CHLORIDE 0.9% IV 1,000 ML 999 ML IV CONT (13:54)
[2025-06-05 15:07] LABS: Alveolar/Arterial O2 Gradient 23.2 mmHg; Fractional Inspired Oxygen 21 %; HCO3 ABG 23.7 mEq/l (22.0-26.0); Oxygen Content ABG 11.3 %vol (16.0-22.0); Oxygen Saturation ABG 92.1 % (95.0-100.0); PCO2 ABG 48.2 mmHg (35.0-45.0); PO2 ABG 68.8 mmHg (80.0-100.0); PO2 FiO2 Ratio Arterial Blood 3.28 %
[2025-06-05 15:11] LABS: Modified Allen's Test Pass; Site Drawn RIGHT BRACHIAL
[2025-06-05 15:16] LABS: BEDSIDEPREGUCG Negative (Negative)
[2025-06-05 15:18] LABS: Acetaminophen < 10 ug/mL (10-30); Ammonia < 9 umol/L (9-30); Salicylate < 1.0 mg/dL (2-20)
[2025-06-05 15:19] LABS: Creatine Kinase 485 U/L (30-135)
[2025-06-05 15:21] LABS: INR 1.2; Prothrombin Time 15.0 Seconds (11.1-14.7)
[2025-06-05 15:22] LABS: Partial Thromboplastin Time 36.3 Seconds (22.3-36.8)
[2025-06-05 15:23] LABS: Add Urine Microscopic? NO; Appearance Urine Clear (Clear); Glucose Urine UA Negative (Negative); Leukocyte Esterase Ur Negative LEU/UL (Negative); Nitrate Urine Negative (Negative); Specific Grav Ur 1.014 (1.001-1.035)
--- NOTE | 2025-06-05 15:26 | PCRCNOTE ---
Went to do do ABG at 1420 she was in imaging having a cat-scan and was not available until 1445.
[2025-06-05 15:42] LABS: Cannabinoid Screen Urine Negative (Negative)
[2025-06-05 15:56] LABS: Thyroid Stimulating Hormone 2.910 uIU/mL (0.465-4.680)
--- OUTSIDE RECORDS SUMMARY | 2025-06-05 16:30 | XMS_ITS | Encounter Summary ---
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
--- OUTSIDE RECORDS SUMMARY | 2025-06-05 16:30 | XMS_ITS | Clinical Summary ---
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
--- NOTE | 2025-06-05 17:02 | PC.NURSE ---
[facility] updated by this RN. Staff notified that pt. is being admitted and given pt. new room number.
[2025-06-05] MEDS: SODIUM CHLORIDE 0.9% IV 1,000 ML 125 ML IV CONT (17:32)
[2025-06-05] MEDS: DEXTROSE 50% 25 GM/50 ML SYRINGE IV PUSH (17:32)
[2025-06-05] MEDS: CALCIUM GLUC 1,000 MG/NS 50 ML 1,000 MG/50 ML BAG 100 MG IVPB (17:32)
[2025-06-05] MEDS: INSULIN HUMAN REGULAR (*BKC) 100 UNITS/ML 10 UNITS IV PUSH (17:33)
--- NOTE | 2025-06-05 18:08 | PC.NURSE ---
Medications updated from medical history as patient was noted to be recently discharged from the hospital. Patient unable to answer questions appropriately at this time. Unknown when last taken.
--- NOTE | 2025-06-05 18:24 | P.HP_ITS ---
H&P: HPI History of Present Illness Date/Time: 06/05/25 18:24 Chief Complaint: Altered mental status Narrative: 49-year-old female past medical history of liver cirrhosis, esophageal varices, PTSD, substance abuse and alcohol abuse presents with altered mental status. Patient was started on Suboxone this morning, patient is drowsy only oriented to her name. She is currently living at [place]. HPI is limited due patient's drowsiness. Lab work in the ED shows anemia at 8.1 which is baseline, ABG is 7.3, pCO2 is 48, PO2 is 68, bicarb is 23, sodium of 132, potassium of 5.6, anion gap 3, BUN 34, creatinine 1.29, ammonia less than 9, CK 485, tox screen is negative, alcohol level negative. Head CT shows no acute process. Chest x-ray shows CHF. Sequelae of previous probable granulomatous disease. EKG shows sinus rhythm. Review of Systems Review of Systems: ROS unobtainable: Yes unobtainable due to mental status PMFSH Past Medical History Medical History Chronic anemia Anemia Hyponatremia Substance abuse Alcohol abuse PTSD (post-traumatic stress disorder) Anxiety disorder Esophageal varices Previously banded Depression Acute hemorrhoid Neuropathy History of cirrhosis of liver History of esophageal varices Surgical History Surgical History H/O section S/P T&A (status post tonsillectomy and adenoidectomy) H/O left knee surgery History of esophagogastroduodenoscopy (EGD) Family History Family History Mother Substance abuse Alcohol abuse Heart disease Myocardial infarction Hypertension Father Cancer of bone Melanoma Alzheimer dementia Other Dementia Social History Social History Social History: She currently resides at [facility]. She is working on her disability. She has 1 son who is 11-year years old and he lives with the patient's brother. 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 She stated that she is trying to quit smoking and is down to vaping and a nicotine patch. Smoking packs per day: 1 Smoking cigarettes per day: 20.0 Years smoked: 35 Smoking pack-years: 35.00 Smoking status: Current every day smoker Tobacco type: cigarettes Alcohol intake: current Drinks per week: 3 Substance use: former Substance use type: marijuana and amphetamines Last use: 04/16/25 Lack of Transportation: No Lack of Food: Never True Current Housing: I Have Housing Concerned About Future Housing: No Difficulty Paying Gas/Electric Bills: No Difficulty Paying for Meds: No Currently Unemployed: No Education: High School Diploma/GED Difficulty w/ Childcare or Family Care: No Spiritual care concerns: No Meds Home Medications and Allergies Home Medications ?Medication ?Instructions ?Recorded ?Confirmed ?Type conj estrogen-medroxyprogesterone 1 tablet PO DAILY 06/05/25 History 0.3 mg-1.5 mg tablet (Prempro) duloxetine 60 mg capsule,delayed 120 mg PO DAILY 05/0706/05/25 History release gabapentin 800 mg tablet 800 mg PO .Q6 NUMBNESS AND P AIN 05/07/25 06/05/25 History hydroxyzine HCl 25 mg tablet 50 mg PO Q4H PRN anxiety 05/07/25 06/05/25 History multivitamin 1 tablet PO DAILY 05/07/25 0 06/05/25 History pantoprazole 40 mg tablet,delayed 40 mg PO BID 5 06/05/25 History release (Protonix) tizanidine 4 mg tablet 4 mg PO Q6H PRN muscle pain 05/07/25 06/05/25 History trazodone 100 mg tablet 100 mg PO HS PRN sleep 05/0706/05/25 History furosemide 40 mg tablet 40 mg PO DAILY #30 tabs 04/1806/05/25 Rx spironolactone 50 mg tablet 100 mg (2 x 50 mg) PO QAM #100 tabs 05/09/25 06/05/25 Rx (Aldactone) carvedilol 6.25 mg tablet (Coreg) 6.25 mg PO Q12HR 30 days #60 tabs 05/23/25 06/05/25 Rx ferrous sulfate 324 mg (65 mg 324 mg PO DAILY 30 days #30 tabs 05/23/25 06/05/25 Rx iron) tablet,delayed release Allergies Allergy/AdvReac Type Severity Reaction Status Date / Time shellfish derived Allergy Severe Hives Verified 06/05/25 11:38 Sulfa (Sulfonamide AdvReac Nausea and Verified 06/05/25 11:38 Antibiotics) Vomiting Vital Signs Vital Signs - 24 hr 06/05/25 11:27 06/05/25 11:37 06/05/25 13:53 Temperature 98.6 F Pulse Rate 87 87 86 Respiratory Rate 18 12 14 Blood Pressure 88/50 L 111/65 117/75 Pulse Oximetry 98 98 96 Oxygen Delivery Room Air 06/05/25 15:15 06/05/25 15:53 06/05/25 17:02 Temperature Pulse Rate 88 87 85 Respiratory Rate 14 22 H 18 Blood Pressure 125/70 105/84 Pulse Oximetry 91 100 95 Oxygen Delivery BiPAP 06/05/25 17:05 06/05/25 18:00 Temperature Pulse Rate 88 89 Respiratory Rate 21 H Blood Pressure Pulse Oximetry 100 Oxygen Delivery BiPAP Exam Narrative: General: Older than stated age, no acute distress HEENT: normocephalic, atraumatic. Mucous membranes moist. EOMI, PERRLA, bilateral sclera anicteric, no conjunctival injection. Neck supple without JVD, lymphadenopathy, or bruit. Respiratory: clear to ascultation bilaterally. No rales/rhonic/wheezes. Cardiovascular: Regular rate and rhythm, normal S1-S2 upon ascultation. No murmurs, rubs, or clicks. PMI is nondisplaced, capillary refill less than 3 second. Abdomen: Soft, round, no pulsatile masses, nondistended and nontender. No rebound, no guarding.. No high pitch or tinkling sounds, resonant to percussion. Extremities: No cyanosis, clubbing, or edema present. Pulses are palpable 2/2. Active ROM to all four extremities. Neuro: Drowsy, opens eyes to voice Skin: Warm, dry, and intact, without rash, erythema, or lesion. Psych: Unable to assess H&P: Results Labs Labs: Short CBC 06/05/25 Range/Units 11:55 WBC 5.9 (4.5-10.0) K/mm3 Hgb 8.1 L (12.0-15.0) g/dL Hct 28.2 L (37.0-47.0) % Plt Count 386 H (150-375) k/mm3 BMP 06/05/25 11:55 Sodium 132 L Potassium 5.6 H Chloride 101 Carbon Dioxide 28 BUN 34 H D Creatinine 1.29 H Glucose 103 Calcium 8.6 Cardiac Enzymes 06/05/25 Range/Units 15:02 Total Creatine Kinase 485 H (30-135) U/L Liver Function 06/05/25 Range/Units 11:55 Total Bilirubin 0.7 (0.2-1.3) mg/dL AST 69 H (14-36) U/L ALT 19 (6-35) U/L Alkaline Phosphatase 98 (38-126) U/L Albumin 3.8 (3.5-5.1) g/dL Urine 06/05/25 Range/Units 15:16 Urine Color Yellow (Yellow) Urine Appearance Clear (Clear) Urine pH 5.5 (5.0-9.0) Ur Specific [place] 1.014 (1.001-1.035) Urine Protein Negative (Negative) mg/dL Urine Glucose (UA) Negative (Negative) mg/dL Assessment and Plan Assessment and plan (1) Altered mental status: Code(s): R41.82 - Altered mental status, unspecified Status: Acute Assessment and Plan: CT with no acute findings UA pending Hold trazodone, tizanidine, gabapentin Urine drug screen negative Alcohol level negative Ammonia level less than 9 (2) Pulmonary edema: Code(s): J81.1 - Chronic pulmonary edema Status: Acute Assessment and Plan: DC IV fluids IV Lasix (3) Chronic anemia: Code(s): D64.9 - Anemia, unspecified Status: Acute Assessment and Plan: Continue iron supplements (4) Hyperkalemia: Code(s): E87.5 - Hyperkalemia Status: Acute Assessment and Plan: Treated with 1 g calcium, 1 amp of dextrose, 10 a insulin, and Lokelma Repeat potassium (5) Anxiety disorder: Code(s): F41.9 - Anxiety disorder, unspecified Status: Acute Assessment and Plan: Continue Cymbalta (6) Substance abuse: Code(s): F19.10 - Other psychoactive substance abuse, uncomplicated Status: Acute Assessment and Plan: Patient was started on Suboxone today with altered mental status afterwards (7) Cirrhosis: Code(s): K74.60 - Unspecified cirrhosis of liver Status: Acute Assessment and Plan: Likely from alcohol abuse CMP in the morning (8) Alcohol abuse: Code(s): F10.10 - Alcohol abuse, uncomplicated Status: Acute Assessment and Plan: Ethanol level on admission is a negative Quality VTE Prophylaxis VTE prophylaxis: mechanical ordered and pharmacologic ordered Hospitalist [facility] Advance Care Plan I have confirmed that the patient's Advanced Care Plan is present, code status is documented, or surrogate decision maker is listed in patient medical record.: Yes Medication Reconciliation I have utilized all available resources to obtain, update and review the patients current medications (includes all prescriptions, OTC, herbals, cannabis, and nutritional supplements).: Yes
[2025-06-05] MEDS: SODIUM ZIRCONIUM CYCLOSILICATE 10 GM POWD.PACK PO (18:39)
[2025-06-06] VITALS (10 sets, daily range): BP systolic 125–134; BP diastolic 72–95; PULSE 84–100; RESP 12–17; TEMP 36.4–36.9; O2SAT 92–99
--- NOTE | 2025-06-06 | ECHO_ITS ---
Patient Info Name: Lena High Age: 49 years : 1975 Gender: Female Ht: 68 in Wt: 189 lbs BSA: 2.05 m2 HR: 79 bpm BP: 125 / 78 mmHg Heart Rhythm: Sinus Rhythm Technical Quality: Good Exam Date: 06/06/2025 10:57 AM Patient Status: O Admit Date: 06/05/2025 Exam Type: CA echo doppler color flow Complete two-dimensional, color flow and Doppler transthoracic echocardiogram is performed. Staff Referring Physician: Angelo Pham MD Director Compliance: Shellie Rodgers Attending Provider: Julieta Juan Summary 1. Complete two-dimensional, color flow and Doppler transthoracic echocardiogram is performed. 2. Mild left atrial enlargement. 3. Otherwise normal echocardiogram. 4. No findings that would explain pulmonary edema. Left Ventricle Left ventricular chamber dimension is normal. Left ventricular systolic function is normal, estimated at 60-65. The left ventricular diastolic function is normal. Right Ventricle Right ventricular chamber dimension is normal. Left Atria Left atrial chamber dimension is mildly enlarged. Right Atria Right atrial chamber dimension is normal. Aortic Valve The aortic valve is normal. Pulmonic Valve The pulmonic valve is normal. Mitral Valve The mitral valve has normal leaflets. Tricuspid Valve The tricuspid valve leaflets are normal. Pericardium/Pleural The pericardium appears normal. Aorta The aortic root size at the sinus of Valsalva is normal. Left Ventricular Outflow Tract Name Value Normal LVOT 2D LVOT Diameter 2.0 cm Pulmonic Valve Name Value Normal RVOT Doppler RVOT Peak Velocity 60 cm/s RVOT Peak Gradient 1 mmHg PV Doppler PV Peak Velocity 117 cm/s PV Peak Gradient 6 mmHg Mitral Valve Name Value Normal MV Doppler MV Peak Gradient 6 mmHg MV Mean Gradient 3 mmHg MV Diastolic Function MV E Peak Velocity 119 cm/s MV A Peak Velocity 80 cm/s MV E/A 1.5 MV Decel Time (PW) 235 ms MV Annular TDI MV E/e' (Septal) 8.9 MV E/e' (Lateral) 6.7 MV E/e' (Average) 7.8 Tricuspid Valve Name Value Normal TV Regurgitation Doppler TR Peak Velocity 269 cm/s TR Peak Gradient 29 mmHg Aortic Valve Name Value Normal AV Doppler AV Peak Velocity 178 cm/s AV Peak Gradient 13 mmHg AV Mean Gradient 7 mmHg AV VTI 40 cm AV Regurgitation 2D LVOT Area 3.1 cm2 Ventricles Name Value Normal LV Dimensions 2D/MM IVS Diastolic Thickness (2D) 1.0 cm 0.6-1.0 LVID Diastole (2D) 5.1 cm 3.8-5.2 LVIW Diastolic Thickness (2D) 1.1 cm 0.6-0.9 LVID Systole (2D) 3.6 cm 2.2-3.5 LVOT Diameter 2.0 cm LV Mass (2D Cubed) 207.65 g 67.00-162.00 LV Mass Index (2D Cubed) 101 g/m2 43-95 Relative Wall Thickness (2D) 0.44 <=0.42 LV Fractional Shortening/Ejection Fraction 2D/MM LV Fractional Shortening (2D) 31 % 27-45 LV EF (2D Teichholz) 58 % LV Diastolic Volume (4C MOD) 144 ml LV EF (4C MOD) 67 % LV Diastolic Volume (2C MOD) 129 ml LV EF (2C MOD) 61 % LV Diastolic Volume (BP MOD) 140 ml 46-106 LV Diastolic Volume Index (BP MOD) 68 ml/m2 29-61 LV Systolic Volume (BP MOD) 50 ml 14-42 LV Systolic Volume Index (BP MOD) 24 ml/m2 8-24 LV EF (BP MOD) 64 % 54-74 LV Diastolic Length (4C) 8.9 cm LV Systolic Length (4C) 7.5 cm LV Stroke Volume (4C MOD) 96 ml Atria Name Value Normal LA Dimensions LA Volume (4C A-L) 62 ml LA Volume (BP A-L) 88 ml RA Dimensions RA Systolic Major Lenox Length (4C) 6.1 cm 2.2-2.8 RA Area (4C) 19.8 cm2 <=18.0 Report Signatures
[2025-06-06 04:39] LABS: Hematocrit 26.4 % (37.0-47.0); Hemoglobin 7.5 g/dL (12.0-15.0); Immature Granulocyte Percent A 1.7 % (0-0.5); Lymphocytes Absolute Auto 0.74 K/mm3 (0.9-3.2); Mean Corpuscular HGB Conc 28.4 g/dl (32-36); Mean Corpuscular Hemoglobin 26.1 pg (26-34); Mean Corpuscular Volume 92.0 fl (80-100); Nucleated Red Blood Cells Absolute Auto 0.130 K/mm3 (0.0-0.012); Nucleated Red Blood Cells Perc 2.7 % (0.0-0.2); Platelet Count Result 345 k/mm3 (150-375); Red Blood Count 2.87 M/mm3 (4.2-5.4); White Blood Count 4.8 K/mm3 (4.5-10.0)
[2025-06-06 04:53] LABS: Alanine Aminotransferase 19 U/L (6-35); Albumin Level 3.5 g/dL (3.5-5.1); Alkaline Phosphatase 108 U/L (38-126); Anion Gap 4 mmol/L (4-12); Aspartate Amino Transferase 51 U/L (14-36); Bilirubin,Total 0.7 mg/dL (0.2-1.3); Blood Urea Nitrogen 28 mg/dL (7-17); Calcium 8.7 mg/dL (8.4-10.2); Carbon Dioxide 27 mmol/L (22-30); Chloride 103 mmol/L (98-107); Estimated CRCL calculation 67 ml/min; Estimated Glomerular Filt Rate 56; Glucose 98 mg/dL (65-110); Potassium 5.2 mmol/L (3.4-5.0); Sodium 134 mmol/L (137-145); Total Protein 6.5 g/dL (6.3-8.2)
[2025-06-06 05:11] LABS: Anisocytosis 1+
[2025-06-06 05:12] LABS: Tear Drop Cells 2+
[2025-06-06 05:13] LABS: Ovalocytes 2+; Schistocytes None Seen
[2025-06-06] MEDS: FUROSEMIDE INJ 40 MG/4 ML VIAL IV PUSH (08:57)
[2025-06-06] MEDS: FERROUS SULFATE 325 MG TABLET BY MOUTH (08:58)
[2025-06-06] MEDS: PANTOPRAZOLE 40 MG TABLET PO (08:58)
[2025-06-06] MEDS: DULoxetine HCL 60 MG CAPSULE.DR 120 MG PO (08:58)
[2025-06-06] MEDS: IRON SUCROSE COMPLEX 400 MG, IRON SUCROSE COMPLEX 100 MG in SODIUM CHLORIDE 0.9% IV 250 ML 78.57 MG IVPB (09:02)
--- NOTE | 2025-06-06 13:22 | P.DS_ITS ---
DS: Admitting Diagnosis Discharge Date 06/06/25 Admitting Diagnosis AMS DS: Discharge Diagnosis Discharge Diagnosis (1) Altered mental status: Code(s): R41.82 - Altered mental status, unspecified Status: Acute DS: Summary Hospital Course Hospital Course: HPI per admitting provider 49-year-old female past medical history of liver cirrhosis, esophageal varices, PTSD, substance abuse and alcohol abuse presents with altered mental status. Patient was started on Suboxone this morning, patient is drowsy only oriented to her name. She is currently living at [facility]. HPI is limited due patient's drowsiness. Lab work in the ED shows anemia at 8.1 which is baseline, ABG is 7.3, pCO2 is 48, PO2 is 68, bicarb is 23, sodium of 132, potassium of 5.6, anion gap 3, BUN 34, creatinine 1.29, ammonia less than 9, CK 485, tox screen is negative, alcohol level negative. Head CT shows no acute process. Chest x-ray shows CHF. Sequelae of previous probable granulomatous disease. EKG shows sinus rhythm. Today patient is alert and oriented x3 and ambulating freely. CXR and CT head unremarkable. Ammonia <9 and Cr 1.03, BUN 28. Patient was given 500mg IV Iron to complete iron infusion from iron deficiency diagnosed last admission. PO iron discontinued Potassium improved to 5.2 and Hb 7.5 however stable around her baseline. patient's symptoms likely related to the Suboxone that was started prior to onset of her symptoms. I recommend discontinuing it for an alternative of decreased dose. F/u with PCP in 3-5 days Time Spent with Patient Time attestation: Total time spent providing and/or coordinating discharge services: DS: Data Data Completed and Pending Labs on day of discharge: Labs from last 24 hours 06/06/25 06/05/25 06/05/25 03:58 15:16 15:15 WBC 4.8 RBC 2.87 L Hgb 7.5 L Hct 26.4 L MCV 92.0 MCH 26.1 MCHC 28.4 L RDW 22.3 H Plt Count 345 MPV 10.9 H Immature Gran % (Auto) 1.7 H Neut % (Auto) 68.5 Lymph % (Auto) 15.4 L [place] % (Auto) 9.8 H Eos % (Auto) 2.3 Baso % (Auto) 2.3 H Lymph # (Auto) 0.74 L [place] # (Auto) 0.5 Eos # (Auto) 0.1 Baso # (Auto) 0.1 Abs Immat Gran (auto) 0.08 H Absolute Neuts (auto) 3.3 Absolute Nucleated RBC 0.130 H Band Neutrophils % Not Reportable Nucleated RBC % 2.7 H Platelet Estimate Adequate Anisocytosis 1+ Tear Drop Cells 2+ Ovalocytes 2+ Schistocytes None seen PT INR APTT Puncture Site ABG pH ABG pCO2 ABG pO2 ABG PO2/FiO2 Ratio ABG HCO3 ABG O2 Saturation ABG O2 Content ABG Base Excess A-a Gradient Oxyhemoglobin Total Hemoglobin O2 Delivery Device O2 Liters/Min FiO2 Sodium 134 L Potassium 5.2 H Chloride 103 Carbon Dioxide 27 Anion Gap 4 BUN 28 H Creatinine 1.03 H Estim Creat Clear Calc 67 Estimated GFR 56 L Glucose 98 Calcium 8.7 Total Bilirubin 0.7 AST 51 H ALT 19 Alkaline Phosphatase 108 Ammonia Total Creatine Kinase Total Protein 6.5 Albumin 3.5 TSH Urine Color Yellow Urine Appearance Clear Urine pH 5.5 Ur Specific [place] 1.014 Urine Protein Negative Urine Glucose (UA) Negative Urine Ketones Negative Ur Blood (Man) Negative Urine Nitrate Negative Urine Bilirubin Negative Urine Urobilinogen 1.0 Leukocyte Esterase Rfl Negative POC Urine HCG, Qual Negative Salicylates Urine Opiates Screen Negative Urine Methadone Screen Negative Acetaminophen Ur Barbiturates Screen Negative Ur Phencyclidine Scrn Negative Ur Amphetamine Screen Negative U Benzodiazepines Scrn Negative Urine Cocaine Screen Negative U Cannabinoids Screen Negative Ethyl Alcohol 06/05/25 06/05/25 15:02 15:00 WBC RBC Hgb Hct MCV MCH MCHC RDW Plt Count MPV Immature Gran % (Auto) Neut % (Auto) Lymph % (Auto) [place] % (Auto) Eos % (Auto) Baso % (Auto) Lymph # (Auto) [place] # (Auto) Eos # (Auto) Baso # (Auto) Abs Immat Gran (auto) Absolute Neuts (auto) Absolute Nucleated RBC Band Neutrophils % Nucleated RBC % Platelet Estimate Anisocytosis Tear Drop Cells Ovalocytes Schistocytes PT 15.0 H INR 1.2 APTT 36.3 Puncture Site Right brachial ABG pH 7.309 L ABG pCO2 48.2 H ABG pO2 68.8 L ABG PO2/FiO2 Ratio 3.28 ABG HCO3 23.7 ABG O2 Saturation 92.1 L ABG O2 Content 11.3 L ABG Base Excess -2.6 A-a Gradient 23.2 Oxyhemoglobin 89.7 L Total Hemoglobin 8.9 L O2 Delivery Device Not Reportable O2 Liters/Min Not Reportable FiO2 21 Sodium Potassium Chloride Carbon Dioxide Anion Gap BUN Creatinine Estim Creat Clear Calc Estimated GFR Glucose Calcium Total Bilirubin AST ALT Alkaline Phosphatase Ammonia < 9 L Total Creatine Kinase 485 H Total Protein Albumin TSH 2.910 Urine Color Urine Appearance Urine pH Ur Specific [place] Urine Protein Urine Glucose (UA) Urine Ketones Ur Blood (Man) Urine Nitrate Urine Bilirubin Urine Urobilinogen Leukocyte Esterase Rfl POC Urine HCG, Qual Salicylates < 1.0 L Urine Opiates Screen Urine Methadone Screen Acetaminophen < 10 L Ur Barbiturates Screen Ur Phencyclidine Scrn Ur Amphetamine Screen U Benzodiazepines Scrn Urine Cocaine Screen U Cannabinoids Screen Ethyl Alcohol < 10 Discharge Plan Discharge Attending physician on discharge: Sraah Mckeon Discharging Clinician: Sarah Mckeon Anticipated Discharge Date/Time: 06/06/25 13:21 Patient Disposition: Home Activity: as tolerated Diet: as tolerated and regular Patient Instructions: Antibiotic Form Patient Language: Georgian Stand Alone Forms: General Discharge Information Follow-up/Referrals: Monty,Junito Mas APRN [Primary Care Provider, Unknown] Referral Note: F/u with PCP in 3-5 days Discharge Medications: Continued gabapentin 800 mg tablet 800 mg PO .Q6 Patient Comments: 4 times a day duloxetine 60 mg capsule,delayed release(DR/EC) 120 mg PO DAILY Prempro 0.3-1.5 mg tablet 1 tablet PO DAILY hydroxyzine HCl 25 mg tablet 50 mg PO Q4H PRN (Reason: anxiety) multivitamin Tablet 1 tablet PO DAILY pantoprazole [Protonix] 40 mg tablet,delayed release (DR/EC) 40 mg PO BID trazodone 100 mg tablet 100 mg PO HS PRN (Reason: sleep) tizanidine 4 mg tablet 4 mg PO Q6H PRN (Reason: muscle pain) Rx Instructions: do not exceed 3 doses per 24 hrs furosemide 40 mg Tablet 40 mg PO DAILY Qty: 30 0RF spironolactone [Aldactone] 50 mg Tablet 100 mg PO QAM Qty: 100 0RF carvedilol [Coreg] 6.25 mg Tablet 6.25 mg PO Q12HR 30 Days Qty: 60 1RF Discontinued ferrous sulfate 324 mg (65 mg iron) tablet,delayed release (DR/EC) 324 mg PO DAILY 30 Days Qty: 30 1RF Date of admission: 06/05/25 15:42 Primary Care Provider: Monty,Junito Mas Admitting Provider: Julieta Juan Attending physician on admission: Julieta Juan Condition: Stable
--- NOTE | 2025-06-06 15:21 | PC.NURSE ---
Pt discharged to [facility]. Facility sent car to pick pt up. Pt verbalized understanding of instructions. Escorted to exit via wheelchair by IMU staff.
== END 2025-06-06 15:20 | disposition home or self-care (01) ==
LOC: ANHED 15:41 → ANHIMU 06-06 13:22
PROVIDERS: Emergency Medicine; Nurse Practitioner Gerontology; Admitting Provider General Practice; Emergency Provider Emergency Medicine; PCP Nurse Practitioner; Visit Provider Internal Medicine
DX: R41.82 Altered mental status, unspecified (principal); J81.1 Chronic pulmonary edema; E87.5 Hyperkalemia; D64.9 Anemia, unspecified; F10.10 Alcohol abuse, uncomplicated; F19.10 Other psychoactive substance abuse, uncomplicated; F43.12 Post-traumatic stress disorder, chronic; F41.8 Other specified anxiety disorders; F15.10 Other stimulant abuse, uncomplicated; F12.10 Cannabis abuse, uncomplicated; K74.60 Unspecified cirrhosis of liver; I85.10 Secondary esophageal varices without bleeding; F17.290 Nicotine dependence, other tobacco product, uncomplicated; Z81.1 Family history of alcohol abuse and dependence; Z80.8 Family history of malignant neoplasm of other organs or systems; Z82.49 Family history of ischemic heart disease and other diseases of the circulatory system
CPT/HCPCS: 36415; 36600; 70450; 71045; 80053; 80143; 80179; 80307; 81003; 81025; 82077; 82140; 82550; 82805; 84443; 85018; 85025; 85610; 85730; 93005; 93306; 94002; 96361; 96374; 96375; 99285; A9270; G0378; G0379; J0612; J1756; J1815; J1938; J7030; J7050

== ENCOUNTER 2025-06-08 10:03 | Inpatient (IN) | payer OTHER, SELFPAY ==
--- OUTSIDE RECORDS SUMMARY | 2021-12-20 04:39 | XMS_ITS | Continuity of Care Document ---
Author Organization [facility] Address [address] [place] [address] Phone Care Team Providers Care Filter Changing Technician Name Role Phone Sean DO, Jessica Unavailable [...] Healthcare, [address], [place], [id number], [place] tel:[phone] [facility] No Information 2 Sean Lopez. [address], [id number], [place], [id number], [place]. tel:[phone] [facility], [address], [place], [id number], [place] tel:[phone] LT[facility] No Information 1 [facility]. [address], [id number], [place], [id number], [place]. tel:[phone] OFFICE/OUTPA TIENT VISIT, EST [facility], [address], [place], [id number], [place] tel:[phone] [facility] Body mass index (BMI) 45.0-49.9, adultOpioid dependencePs ychophysiolo gic insomnia 1 Sean Lopez. [address], [id number] [place], [id number], [place]. tel:[phone] Referring Provider: Jessica Estrada, [address] [id number] [place], [address]. tel:[phone] OFFICE/OUTPA TIENT VISIT, EST [facility], [address], [place], [id number], [place] tel:[phone] LT[facility] Body mass index (BMI) 45.0-49.9, adultOpioid dependencePs ychophysiolo gic insomnia Nov- 1 Sean Lopez. [address], [id number] 0[address], [place], [place], [id number], [place]. tel:[phone] Referring Provider: Jessica Estrada, [address] [id number] [place], [address]. tel:[phone] OFFICE/OUTPA TIENT VISIT, EST [facility], [address], [place], [place], [id number], [place] tel:[phone] [facility] Opioid dependencePs ychophysiolo gic insomniaBody mass index (BMI) 40.0-44.9, adult Oct- 1 Sean Lopez. [address], [id number] [address], [place], [place], [id number], [place]. tel:[phone] Referring Provider: Jessica Estrada, [address] [id number] , [place], [address]. tel:[phone] OFFICE/OUTPA TIENT VISIT, EST [facility], [address], [place], [place], [id number], [place] tel:[phone] LT[facility], [facility] Opioid dependencePs ychophysiolo gic insomniaBody mass index (BMI) 40.0-44.9, adult 0 Sean Lopez. [address], [id number] [address], [place], [place], [id number], [place]. tel:[phone] Referring Provider: Jessica Estrada, [address] [id number] [place], [address]. tel:[phone] OFFICE/OUTPA TIENT VISIT, EST [facility], [address], [place], [place], [id number], [place] tel:[phone] LT[facility], [facility] Opioid dependencePs ychophysiolo gic insomniaBody mass index (BMI) 40.0-44.9, adult Sep- 0 Sean Jessica. [address], [id number] 0[facility], [place], [place], [id number], [place]. tel:[phone] Referring Provider: Jessica Estrada, [address] [id number] [place], [address]. tel:[phone] OFFICE/OUTPA TIENT VISIT, EST [facility], [address], [place], [place], [id number], [place] tel:[phone] LT[facility], [facility] Opioid dependencePs ychophysiolo gic insomniaBody mass index (BMI) 40.0-44.9, adult 0 Sean Jessica. [address], [id number] 0[facility], [place], [place], [id number], [place]. tel:[phone] Referring Provider: Jessica Estrada, [address] [id number] [place], [address]. tel:[phone] OFFICE/OUTPA TIENT VISIT, EST [facility], [address], [place], [place], [id number], [place] tel:[phone] LT[facility], [facility] Opioid dependencePs ychophysiolo gic insomniaBody mass index (BMI) 40.0-44.9, adult 0 Sean Jessica. [address], [id number] 0[place], [place], [id number], [place]. tel:[phone] Referring Provider: Jessica Estrada, [address] [id number] [place], [address]. tel:[phone] OFFICE/OUTPA TIENT VISIT, EST [facility], [address], [place], [place], [id number], [place] tel:[phone] LT[facility], [facility] Opioid dependencePs ychophysiolo gic insomniaBody mass index (BMI) 40.0-44.9, adult 0 Sean Jessica. [address], [id number] 0[address], [place], [id number], [place]. tel:[phone] Referring Provider: Jessica Estrada, [address] [id number] [place], [address]. tel:[phone] OFFICE/OUTPA TIENT VISIT, EST [facility], [address], [place], [place], [id number], [place] tel:[phone] LT[facility], [facility] Opioid dependencePs ychophysiolo gic insomniaBody mass index (BMI) 40.0-44.9, adult Mar-3 0-202 0 Sean Jessica. [address], [id number] 0[address], [place], [id number], [place]. tel:[phone] Referring Provider: Jessica Estrada, [address] [id number] [place], [address]. tel:[phone] OFFICE/OUTPA TIENT VISIT, EST [facility], [address], [place], [place], [id number], [place] tel:[phone] LT[facility] Body mass index (BMI) 40.0-44.9, adultOpioid dependencePs ychophysiolo gic insomnia Mar-0 2-202 0 Sean Jessica. [address], [id number] [place], [id number], [place]. tel:[phone] Referring Provider: Jessica Estrada, [address] [id number] [place], [address]. tel:[phone] OFFICE/OUTPA TIENT VISIT EST Telehealth [facility], [address], [place], [place], [id number], [place] tel:[phone] LT[facility], [facility] Body mass index (BMI) 40.0-44.9, adultOpioid dependencePs ychophysiolo gic insomnia Feb-0 3-202 0 Sean Jessica. [address], [id number] 0[address], [place], [id number], [place]. tel:[phone] Referring Provider: Jessica Estrada, [address] [id number] [place], [address]. tel:[phone] OFFICE/OUTPA TIENT VISIT EST Telehealth [facility], [address], [place], [place], [id number], [place] tel:[phone] LT[facility], [facility] Body mass index (BMI) 40.0-44.9, adultOpioid dependence Sean Jessica. [address], [id number] [place], [id number], [place]. tel:[phone] Referring Provider: Jessica Estrada, [address] [id number] [place], [address]. tel:[phone] OFFICE/OUTPA TIENT VISIT EST Telehealth [facility], [address], [place], [place], [id number], [place] tel:[phone] LT[facility], located [facility] Body mass index (BMI) 40.0-44.9, adultOpioid dependence Sean Jessica. [address], [id number] 0, [place], [id number], [place]. tel:[phone] Referring Provider: Jessica Estrada, [address] [id number] [place], [address]. tel:[phone] OFFICE/OUTPA TIENT VISIT EST Telehealth [facility], [address], [place], [place], [id number], [place] tel:[phone] LT[facility], located [facility] Opioid dependenceBo dy mass index (BMI) 40.0-44.9, adult Sean Jessica. [address], [id number] 0, [place], [id number], [place]. tel:[phone] Referring Provider: Jessica Estrada, [address] [id number] [place], [address]. tel:[phone] PSYCH DIAG EVAL W/MED SRVCS Telehealth [facility], [address], [place], [id number], [place] tel:[phone] LT[facility], located [facility] Body mass index (BMI) 40.0-44.9, adultOpioid dependence 9 Sean Lopez. [address], [id number] [place], [id number], [place]. tel:[phone] Referring Provider: Jessica Estrada, [address] [id number] [place], [address]. tel:[phone] OFFICE/OUTPA TIENT VISIT, NEW [facility], [address], [place], [id number], [place] tel:[phone] LT[facility], located [facility] AMP physical (chief complaint) Body mass index (BMI) 40.0-44.9, adultTobacco useOpioid dependenceDe pressionGene ralized anxiety disorder 9 Brothers Tanya. [address], [id number] [place], [id number], [place]. tel:[phone] Referring Provider: Tanya Zamora, [address] [id number] [place], [address]. tel:[phone] PSYCH DIAGNOSTIC EVALUATION [facility], [address], [place], [id number], [place] tel:[phone] LT[facility], [facility] Major depressive disorder, single episode, mildOpioid dependenceCa nnabis dependence 9 Jono Crum. [address], [place], [id number], [place]. tel:[phone] Referring Provider: Skyla De La Cruz, [address], [place], [address]. tel:[phone] Family History Family Member Type Diagnosis Age At Onset Problem (finding) Family history of coronary arteriosclerosis Cousin Problem (finding) manic-depressive state Problem (finding) Family history of Cance r, unknown Problem (finding) Family history of Diabe timothy mellitus Mother Problem (finding) Lupus; gout; arthritis Mother Problem (finding) depression Mother Problem (finding) anxiety state Payers Payer name Insurance type Covered libertarian ID Authoriza tion(s) No Information Social History [...] Goal Diabetes screening. Due on due Goal Td vaccine. Due on due Goal Pap/HPV testing. Due on due Goal HPV, high+low-risk. Due on due Goal Influenza vaccine. Due on Ma due Goal Lifestyle education regardin g diet completed Goal Tdap. Due on due Goal Lipid panel. Due on due Goal Diabetes screening. Due on due Goal HPV, high+low-risk. Due on due Goal HPV. Due on due Goal Td vaccine. Due on due Goal Depression screening. Due on due Goal Influenza vaccine. Due on Il due Goal Pap/HPV testing. Due on due Goal Lifestyle education regardin g diet completed Goal Influenza vaccine. Due on due Goal Diabetes screening. Due on due Goal Pap/HPV testing. Due on due Goal Depression screening. Due on due Goal HPV, high+low-risk. Due on due Goal Lipid panel. Due [...] Goal Td vaccine. Due on due Goal Pap/HPV testing. Due on due Goal HPV. Due on due Goal Tdap. Due on due Goal Lipid panel. Due on due Goal Diabetes screening. Due on due Goal HPV, high+low-risk. Due on due Goal Influenza vaccine. Due on due Goal Depression screening. Due on due Goal Td vaccine. Due on due Goal Lifestyle education regardin g diet completed Goal Depression screening. Due on due Goal Tdap. Due on due Goal Diabetes screening. Due on due Goal HPV. Due on due Goal Influenza vaccine. Due on due Goal Td vaccine. Due on due Goal Lipid panel. Due on due Goal Pap/HPV testing. Due on due Goal HPV, high+low-risk. Due on due Goal Lifestyle education regardin g diet completed Goal Lipid panel. Due on due Goal HPV. Due on due Goal Influenza vaccine. Due on due Goal HPV, high+low-risk. Due on due Goal Pap/HPV testing. Due on due Goal Tdap. Due on due Goal Td vaccine. Due on due Goal Depression screening. Due on due Goal Diabetes screening. Due on due Goal Lifestyle education regardin g diet completed Goal Pap/HPV testing. Due on due Goal HPV, high+low-risk. Due on due Goal Lipid panel. Due on due Goal HPV. Due on due Goal Depression screening. Due on due Goal Diabetes screening. Due on due Goal Tdap. Due on due Goal Influenza vaccine. Due on due Goal Td vaccine. Due on due Goal HPV, high+low-risk. Due on due Goal Td vaccine. Due on due Goal Lipid panel. Due on due Goal Pap/HPV testing. Due on due Goal Tdap. Due on due Goal HPV. Due on due Goal Diabetes screening. Due on due Goal Influenza vaccine. Due on due Goal Depression screening. Due on due Goal Diabetes screening. Due on due Goal Pap/HPV testing. Due on due Goal HPV. Due on due Goal Lipid panel. Due on 020 due Goal Depression screening. Due on due Goal HPV, high+low-risk. Due on M due Goal Tdap. Due on due Goal Influenza vaccine. Due on Ma due Goal Td vaccine. Due on due Goal Lifestyle education regardin g diet completed Goal Diabetes screening. Due on due Goal Td vaccine. Due on due Goal HPV, high+low-risk. Due on due Goal Tdap. Due on due Goal Depression screening. Due on due Goal Influenza vaccine. Due on due Goal Pap/HPV testing. Due on due Goal Lifestyle education regardin g diet completed Goal HPV, high+low-risk. Due on due Goal Tdap. Due on due Goal Diabetes screening. Due on due Goal Depression screening. Due on due Goal Influenza vaccine. Due on due Goal Pap/HPV testing. Due on due Goal Td vaccine. Due on due Goal Lifestyle education regardin g diet completed Goal Depression screening. Due on due Goal Td vaccine. Due on 19 due Goal Tdap. Due on due Goal HPV, high+low-risk. Due on due Goal Diabetes screening. Due on N due Goal Influenza vaccine. Due on No due Goal Pap/HPV testing. Due on due Goal Lifestyle education regardin g diet completed Goal Pap/HPV testing. Due on due Goal Tdap. Due on due Goal HPV, high+low-risk. Due on O due Goal Depression screening. Due on due Goal Td vaccine. Due on due Goal Diabetes screening. Due on O due Goal Influenza vaccine. Due on Oc due Goal Lifestyle education regardin g diet completed Goal Td vaccine. Due on due Goal Influenza vaccine. Due on Se p due Goal Tdap. Due on due Goal Diabetes screening. Due on S due Goal Pap/HPV testing. Due on due Goal HPV, high+low-risk. Due on S due Goal Depression screening. Due on due Goal Lifestyle education regardin g diet completed Goal Depression screening. Due on due Goal Pap/HPV testing. Due on due Goal Influenza vaccine. Due on Au due Goal Td vaccine. Due on 19 due Goal HPV, high+low-risk. Due on A due Goal Tdap. Due on due Goal Diabetes screening. Due on A due Goal Depression screening. Due on due [...] in a program for 7 months in [facility] but they required twice a week attendance, one to see provider and one for group. Patient could not keep up with it plus it was rumored that the program was going to close. The patient lives in [facility] and has a PCP there at from [facility] --Emi Landers MD. States she is seen fairly regularly for her high BP and pain issues and had blood work drawn three weeks ago there. States she was checked for Hep C there and it was negative. Checked for HIV while five years ago and it was negative. 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 She attends AA meetings in [facility] because they have no NA program and [...] to Body mass index (BMI) 36.0-36.9, adult Lifestyle education regarding di et Related to Body mass index (BMI) 40.0-44.9, adult Giving encouragement to exercise Related to Body mass index (BMI) 40.0-44.9, adult Take only medication that is prescribed--do not seek or use street drugs of any kind. Related to Opioid dependence Dietary management e ducation, guidance, and counseling Related to Body mass index (BMI) 40.0-44.9, adult Giving encouragement to exercise Related to Body mass index (BMI) 40.0-44.9, adult Assessments Type Assessment Date No Information Patient Care Teams Name Effective Dates (start - stop) Status Members No Information
[2025-06-08] VITALS (8 sets, daily range): BP systolic 97–104; BP diastolic 49–56; PULSE 76–109; RESP 14–18; TEMP 36.7–38.4; O2SAT 82–100; BMI 29.8
--- NOTE | ~2025-06-08 | XR_ITS ---
Examination: XR chest 2V Clinical History: Weakness Comparison: 06/04/2025 Technique: PA and Lateral Findings: Cardiomediastinal silhouette normal size and configuration. Diffuse airspace disease left lower lobe. Large calcified mediastinal nodes. No acute bony abnormality. IMPRESSION: 1. Large left lower lobe pneumonia. Reviewed, dictated and finalized at location R.
--- NOTE | ~2025-06-08 | US_ITS ---
ULTRASOUND ABDOMEN LIMITED (RIGHT UPPER QUADRANT) Clinical History: h/o liver cirrhosis Comparison: CTA abdomen pelvis 05/21/2025 Technique: Right upper quadrant sonography Findings: Liver: Enlarged. Echogenic. No intrahepatic biliary ductal dilatation. Portal vein to directional flow consistent with portal hypertension. Common Duct: Normal caliber. 4 mm. Gallbladder: No stones. Mild nonspecific wall thickening. No pericholecystic fluid. Pancreas: Obscured by gas. Retrohepatic IVC: Unremarkable. Spleen: Enlarged. Small ascites. IMPRESSION: 1. No acute findings. 2. Cirrhosis. Reviewed, dictated and finalized at location R.
--- NOTE | ~2025-06-08 | US_ITS ---
EXAMINATION: US paracentesis abd w/image DATE: 06/10/2025 14:52 INDICATION: Ascites. TECHNIQUE: The procedure and its risks and benefits were discussed with the patient. Potential risks discussed included bleeding and infection. The skin was prepped and draped in sterile fashion. 1% lidocaine was used for local anesthesia. Under ultrasound guidance, a 5 Fr catheter with trochar was advanced into the ascites in the left upper quadrant. Fluid was aspirated into vacuum bottles. The catheter was removed, and a dressing was applied. There were no immediate complications. FINDINGS: Ultrasound images demonstrate ascites and the catheter within the fluid. IMPRESSION: 1. Successful ultrasound-guided paracentesis yielding 700 mL of straw-colored fluid. Reviewed, dictated and finalized at location A.
--- NOTE | ~2025-06-08 | CT_ITS ---
EXAMINATION: CT BRAIN W/O DATE: 06/08/2025 20:13 INDICATION: Altered both falls. Headache. TECHNIQUE: Computed tomography (CT) of the head was performed without intravenous contrast. The dose-length product was 605.33 mGy-cm. Automated exposure control and iterative reconstruction technique were employed. COMPARISON: CT dated 06/05/2015 FINDINGS: Normal brain parenchymal volume for age. Normal orozco-white differentiation. No acute intracranial hemorrhage, infarction, mass or mass effect. No ventriculomegaly or midline shift. Midline sagittal images demonstrate a normal corpus callosum, craniovertebral junction and sella turcica. Basilar cisterns are patent. Paranasal sinuses and mastoids are pneumatized. No depressed skull fractures. IMPRESSION: 1. No acute intracranial abnormality. Reviewed, dictated and finalized at location O.
--- NOTE | 2025-06-08 10:13 | ECG_ITS ---
Test Date: 2025-06-08 10:15:21 Measurements Intervals [place] Rate: 106 P: 30 [place]: 106 QRS: -3 QRSD: 91 T: 20 QT: 331 QTc: 440 Interpretive Statements SINUS TACHYCARDIA ABNORMAL RHYTHM ECG Compared to ECG 06/05/2025 12:00:29 Sinus rhythm no longer present Electronically Signed On 06-08-2025 14:37:13 CDT by Roni Limon M.D.
[2025-06-08] MEDS: SODIUM CHLORIDE 0.9% IV 1,000 ML 999 ML IV CONT ×2 (10:30→10:34)
[2025-06-08 10:42] LABS: Hematocrit 31.3 % (37.0-47.0); Hemoglobin 9.1 g/dL (12.0-15.0); Immature Granulocyte Percent A 0.8 % (0-0.5); Lymphocytes Absolute Auto 0.78 K/mm3 (0.9-3.2); Mean Corpuscular HGB Conc 29.1 g/dl (32-36); Mean Corpuscular Hemoglobin 26.0 pg (26-34); Mean Corpuscular Volume 89.4 fl (80-100); Nucleated Red Blood Cells Absolute Auto 0.190 K/mm3 (0.0-0.012); Nucleated Red Blood Cells Perc 2.0 % (0.0-0.2); Platelet Count Result 384 k/mm3 (150-375); Red Blood Count 3.50 M/mm3 (4.2-5.4); White Blood Count 9.6 K/mm3 (4.5-10.0)
--- NOTE | 2025-06-08 10:42 | ED_ITS ---
HPI - General Adult General Chief complaint: Weakness Stated complaint: low BP, lethargic Time Seen by Provider: 06/08/25 10:16 History of Present Illness HPI narrative: Patient is a 49-year-old female who presents ER with weakness. She woke up this morning was incredibly weak while trying to get up and go to the bathroom. She is hypoxic and febrile. She is found to be hypotensive by EMS and they are given her IV fluid. She denies any chest pain or shortness of breath. No productive cough. No abdominal discomfort. Denies urinary frequency urgency or dysuria. Related Data Home Medications ?Medication ?Instructions ?Recorded ?Confirmed ?Last Taken ?Type conj estrogen-medroxyprogesterone 1 tablet PO DAILY 06/08/25 06/07/25 09:00 History 0.3 mg-1.5 mg tablet (Prempro) duloxetine 60 mg capsule,delayed 120 mg PO DAILY 05/0706/08/25 06/07/25 09:00 History release gabapentin 800 mg tablet 800 mg PO .Q6 NUMBNESS AND P AIN 05/07/25 06/08/25 06/07/25 09:00 History hydroxyzine HCl 25 mg tablet 50 mg PO Q4H PRN anxiety 05/07/25 06/08/25 06/07/25 21:00 History multivitamin 1 tablet PO DAILY 05/07/25 0 06/08/25 06/07/25 21:00 History pantoprazole 40 mg tablet,delayed 40 mg PO BID 5 06/08/25 06/07/25 21:00 History release (Protonix) tizanidine 4 mg tablet 4 mg PO Q6H PRN muscle pain 05/07/25 06/08/25 06/07/25 21:00 History trazodone 100 mg tablet 100 mg PO HS PRN sleep 05/0706/08/25 06/07/25 21:00 History Allergies Allergy/AdvReac Type Severity Reaction Status Date / Time shellfish derived Allergy Severe Hives Verified 06/08/25 10:12 Sulfa (Sulfonamide AdvReac Nausea and Verified 06/08/25 10:12 Antibiotics) Vomiting Review of Systems 2 Review of Systems: All systems reviewed & are unremarkable except as noted in HPI and below Constitutional: Constitutional: Reports no additional constitutional complaints ENT: Reports system reviewed and no additional complaints, except as documented Cardiovascular: Cardiovascular: Reports no additional cardiovascular complaints Respiratory: Respiratory: Reports no additional respiratory complaints Gastrointestinal: Gastrointestinal: Reports no additional gastrointestinal complaints Genitourinary: Genitourinary: Reports no additional female genitourinary complaints [facility] Past Medical History Medical History Chronic anemia Anemia Hyponatremia Substance abuse Alcohol abuse PTSD (post-traumatic stress disorder) Anxiety disorder Esophageal varices Previously banded Depression Acute hemorrhoid Neuropathy History of cirrhosis of liver History of esophageal varices Surgical History Surgical History H/O section S/P T&A (status post tonsillectomy and adenoidectomy) H/O left knee surgery History of esophagogastroduodenoscopy (EGD) Family History Family History Mother Substance abuse Alcohol abuse Heart disease Myocardial infarction Hypertension Father Cancer of bone Melanoma Alzheimer dementia Other Dementia Social History Social History Social History: She currently resides at [facility]. She is working on her disability. She has 1 son who is 11-year years old and he lives with the patient's brother. 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 She stated that she is trying to quit smoking and is down to vaping and a nicotine patch. Smoking packs per day: 1 Smoking cigarettes per day: 20.0 Years smoked: 35 Smoking pack-years: 35.00 Smoking status: Former smoker Tobacco type: cigarettes Alcohol intake: current Drinks per week: 3 Substance use: former Substance use type: marijuana and amphetamines Last use: 04/16/25 Lack of Transportation: YES Lack of Food: Never True Current Housing: I Do Not Have Housing Concerned About Future Housing: YES Difficulty Paying Gas/Electric Bills: No Difficulty Paying for Meds: YES Currently Unemployed: YES Education: High School Diploma/GED Difficulty w/ Childcare or Family Care: No Spiritual care concerns: No Exam 2 Narrative: GENERAL: Well-appearing, well-nourished, and in no acute distress. HEAD: Normocephalic, atraumatic. ENT: Mucous membranes moist. CHEST: Clear to auscultation. No respiratory distress. HEART: Regular rate and rhythm. Normal peripheral pulses. ABDOMEN: Soft, nontender, nondistended. EXTREMITIES: Normal range of motion. No edema. SKIN: Warm, dry, no rash. NEURO: Alert and oriented x3. PSYCH: Normal mood and affect. Course Course Emergency Course: Admit to hospitalist service for pneumonia. Patient received 30 milliliter/kilogram IV fluid bolus. Blood was cultured. She was started on IV antibiotics. Vital Signs Vital signs: Vital Signs Temperature 101.2 F H 06/08/25 10:02 Pulse Rate 109 H 06/08/25 10:02 Respiratory Rate 14 06/08/25 10:02 Blood Pressure 98/55 L 06/08/25 10:02 Pulse Oximetry 82 L 06/08/25 10:02 Oxygen Delivery Room Air 06/08/25 10:02 Temperature 98.1 F 06/08/25 17:00 Pulse Rate 76 06/08/25 17:38 Respiratory Rate 18 06/08/25 17:00 Blood Pressure 97/49 L 06/08/25 17:00 Pulse Oximetry 100 06/08/25 17:00 Oxygen Delivery Room Air 06/08/25 10:02 Medical Decision Making Vital Signs Vital Signs: Vital Signs Temperature 101.2 F H 06/08/25 10:02 Pulse Rate 109 H 06/08/25 10:02 Respiratory Rate 14 06/08/25 10:02 Blood Pressure 98/55 L 06/08/25 10:02 Pulse Oximetry 82 L 06/08/25 10:02 Oxygen Delivery Room Air 06/08/25 10:02 Temperature 98.1 F 06/08/25 17:00 Pulse Rate 76 06/08/25 17:38 Respiratory Rate 18 06/08/25 17:00 Blood Pressure 97/49 L 06/08/25 17:00 Pulse Oximetry 100 06/08/25 17:00 Oxygen Delivery Room Air 06/08/25 10:02 Lab Data 06/08/25 10:36 06/08/25 10:36 Labs: Lab Results 06/08/25 06/08/25 06/08/25 Range/Units 10:35 10:36 12:25 WBC 9.6 (4.5-10.0) K/mm3 RBC 3.50 L (4.2-5.4) M/mm3 Hgb 9.1 L (12.0-15.0) g/dL Hct 31.3 L (37.0-47.0) % MCV 89.4 (80-100) fl MCH 26.0 (26-34) pg MCHC 29.1 L (32-36) g/dl RDW 22.7 H (11.5-14.5) % Plt Count 384 H (150-375) k/mm3 MPV 11.2 H (7.4-10.4) fl Immature Gran % (Auto) 0.8 H (0-0.5) % Neut % (Auto) 77.2 H (45.5-73.1) % Lymph % (Auto) 8.2 L (18.3-44.2) % [place] % (Auto) 10.7 H (2.6-8.5) % Eos % (Auto) 1.7 (0-4.4) % Baso % (Auto) 1.4 H (0.2-1.2) % Lymph # (Auto) 0.78 L (0.9-3.2) K/mm3 [place] # (Auto) 1.0 H (0.1-0.6) K/mm3 Eos # (Auto) 0.2 (0-0.3) K/mm3 Baso # (Auto) 0.1 (0.0-0.1) K/mm3 Abs Immat Gran (auto) 0.08 H (0.00-0.031) K/mm3 Absolute Neuts (auto) 7.4 H (1.3-6.7) K/mm3 Absolute Nucleated RBC 0.190 H (0.0-0.012) K/mm3 Band Neutrophils % Not Reportable Nucleated RBC % 2.0 H (0.0-0.2) % Platelet Estimate Slightly increased (Adequate) Hypochromasia 1+ Anisocytosis 2+ Schistocytes None seen PT 16.1 H (11.1-14.7) Seconds INR 1.3 APTT 39.8 H (22.3-36.8) Seconds Methemoglobin 0.5 (0-1.5) %THb Sodium 134 L (137-145) mmol/L Potassium 5.0 (3.4-5.0) mmol/L Chloride 100 (98-107) mmol/L Carbon Dioxide 25 (22-30) mmol/L Anion Gap 9 (4-12) mmol/L BUN 33 H (7-17) mg/dL Creatinine 1.47 H (0.7-1.0) mg/dL Estim Creat Clear Calc 48 ml/min Estimated GFR 37 L (59 - ) Glucose 91 (65-110) mg/dL Lactic Acid 1.0 (0.7-2.0) mmol/L Calcium 8.6 (8.4-10.2) mg/dL Total Bilirubin 1.1 (0.2-1.3) mg/dL AST 48 H (14-36) U/L ALT 21 (6-35) U/L Alkaline Phosphatase 130 H (38-126) U/L C-Reactive Protein 1.7 H (<1.0) mg/dL Total Protein 7.2 (6.3-8.2) g/dL Albumin 3.9 (3.5-5.1) g/dL Influenza A (RT-PCR) Negative (Negative) Influenza B (RT-PCR) Negative (Negative) RSV (RT-PCR) Negative (Negative) SARS-CoV-2 RNA (RT-PCR) Negative (Negative) ABG Data ABG results: 06/08/25 12:25 Puncture Site Left radial ABG pH 7.326 L ABG pCO2 43.1 ABG pO2 67.5 L ABG PO2/FiO2 Ratio 2.25 ABG HCO3 22.0 ABG O2 Saturation 92.1 L ABG O2 Content 10.8 L ABG Base Excess -3.8 A-a Gradient 95.8 Oxyhemoglobin 88.7 L Carboxyhemoglobin 1.7 Reduced Hemoglobin 9.1 H Total Hemoglobin 8.6 L O2 Delivery Device Nasal cannula O2 Liters/Min 3.0 FiO2 30 Imaging Data Radiologist's impression: ITS Impressions Chest X-Ray 06/08/25 11:11 IMPRESSION: 1. Large left lower lobe pneumonia. Critical Care Time Critical Care Time Critical Care Time: Yes Total Critical Care Time: 35 Discharge Plan Discharge Clinical Impression: Hypoxia Pneumonia Qualifiers: Pneumonia type: due to unspecified organism Laterality: left Lung location: l ower lobe of lung Qualified Code(s): J18.9 - Pneumonia, unspecified organism Patient Disposition: Still a Patient Condition: Stable
[2025-06-08 10:55] LABS: Alanine Aminotransferase 21 U/L (6-35); Albumin Level 3.9 g/dL (3.5-5.1); Alkaline Phosphatase 130 U/L (38-126); Anion Gap 9 mmol/L (4-12); Aspartate Amino Transferase 48 U/L (14-36); Bilirubin,Total 1.1 mg/dL (0.2-1.3); Blood Urea Nitrogen 33 mg/dL (7-17); CRP 1.7 mg/dL (<1.0); Calcium 8.6 mg/dL (8.4-10.2); Carbon Dioxide 25 mmol/L (22-30); Chloride 100 mmol/L (98-107); Estimated CRCL calculation 48 ml/min; Estimated Glomerular Filt Rate 37; Glucose 91 mg/dL (65-110); Potassium 5.0 mmol/L (3.4-5.0); Sodium 134 mmol/L (137-145); Total Protein 7.2 g/dL (6.3-8.2)
[2025-06-08 10:58] LABS: INR 1.3; Prothrombin Time 16.1 Seconds (11.1-14.7)
[2025-06-08 10:59] LABS: Partial Thromboplastin Time 39.8 Seconds (22.3-36.8)
[2025-06-08 11:04] LABS: Anisocytosis 2+; Hypochromasia 1+; Schistocytes None Seen
[2025-06-08 11:18] LABS: Influenza A QL RT-PCR Negative (Negative); Influenza B QL RT-PCR Negative (Negative); RSV RNA, RT-PCR Negative (Negative); SARS-CoV-2 RNA PCR Negative (Negative)
[2025-06-08] MEDS: ACETAMINOPHEN 325 MG TABLET 650 MG PO ×2 (11:49→22:21)
[2025-06-08] MEDS: SODIUM CHLORIDE 0.9% IV 800 ML 999 ML IV CONT (11:50)
[2025-06-08] MEDS: cefTRIAXone 1 GM in SODIUM CHLORIDE 0.9% IV 50 ML 100 ML IVPB (11:50)
--- OUTSIDE RECORDS SUMMARY | 2025-06-08 12:16 | XMS_ITS | Clinical Summary ---
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
--- OUTSIDE RECORDS SUMMARY | 2025-06-08 12:16 | XMS_ITS | Encounter Summary ---
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
--- OUTSIDE RECORDS SUMMARY | 2025-06-08 12:17 | XMS_ITS | Patient Health Record ---
Author Organization Formerly [facility] Address [address] [place] [address] Care Team Providers Care Wafer Cleaner Name Role Phone Junito Banks Primary Care Provider Joe Edwards Unavailable [phone] Olivia Walker Unavailable [phone] Samina Miller Unavailable [phone] Allergies Allergen (clinical drug ingredient) Drug/Non Drug Allergy documented on EMR Reaction Allergy Type Onset Date Status Darvocet A500 hives Drug Allergy Act benjamín Shellfish (FN) Shellfish-derived Products Unknown Drug Allergy Active Substance with sulfonamide structure and antibacterial mechanism of action (substance) Sulfa Antibiotics Unknown Drug Allergy Active Results Component Value Reference Range Notes HIV Screen *HIV 1, 2 Ab, p24 Ag ([id number]) Reviewed date:05/11/2025 08:12:18 AM Interpretation: Performing Lab:[facility], [address] [facility] [place], Phone - [phone], [facility] Notes/Report: HIV Ab/p24 Ag Screen Non Reactive [...] Immuno Polymedco OC sampling bottle received. TEST: [id number] ColoFIT,Occult Blood,Fecal,IA 14 Panel Urine Drug Screen Reviewed date:05/04/2025 12:43:24 PM Interpretation: Performing Lab: Notes/Report: THC POS MINH neg MOP (OPI) neg AMP neg MET neg BAR neg BZO neg MDMA neg MTD neg OXY neg PCP neg BUP neg TCA neg FTY neg CBC With Differential/Platel et* Reviewed date:05/11/2025 08:12:18 AM Interpretation: Performing Lab:[facility] [address] [facility] [place], Phone - [phone], Director - [place]ale Notes/Report: tests RBC; Hemoglobin Called/faxed to LACI GUTIÉRREZ RN on 05/07/2025 at 07:21 ET for WBC 8.1 3.4-10.8 x10E3/uL RBC 2.18 3.77-5.28 [...] Panel* Reviewed date:05/11/2025 08:12:18 AM Interpretation: Performing Lab:[facility], [address] [facility] [place], Phone - [phone], Director - Wale Notes/Report: Called/faxed to LACI [...] 2879) Reviewed date:05/11/2025 08:12:18 AM Interpretation: Performing Lab:[facility], [address] [facility] [place], Phone - [phone], Director - [place]ale Notes/Report: Called/faxed to LACI GUTIÉRREZ RN on 05/07/2025 at 07:21 ET for tests RBC; Hemoglobin tests RBC; Hemoglobin Called/faxed to LACI GUTIÉRREZ RN on 05/07/2025 at 07:21 ET for QuantiFERON Incubation Incubation performed. 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 Referral faxed. Clinical Notes [facility], [place] [address], , Referral Priority Routine Referral Appointment Date 05/04/2025 Medications Medication SIG (Take, Route, Frequency, Duration) Notes Start Date End Date Status Spironolactone 50 MG 2 tablets Orally Once a day Active Lasix 40 MG 1 tablet Orally Once a day Started at [facility] Active Gabapentin 800 MG 1 tablet Orally [...] with others, in a hotel, in a mcfp, living outside on the street, on a beach, or in a park) Are you worried about losing your housing? Yes What is the highest level of school that you have finished? More than high school What is your current work situation? 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 Stress is when someone feels tense, nervous, anxious, or can\t sleep at night because their mind is troubled Very much In the past year have you sp ent more than 2 nights in a row in a residential, correction, senior care center, or juvenile correctional facility? No Are [...] Status Risk Notes Problem Generalized anxiety disorder (12340289) Generalized anxiety disorder (F41.1) Active confirmed Problem Aphasia (87690635) Aphasia (R47.01) Active confirmed Problem Substance abuse (0055870040) Substance abuse (F19.10) Active confirmed Problem Major depressive disorder, single episode, severe with psychotic features (201772313) Major depressive disorder with psychotic features (F32.3) Active confirmed Problem Acute sinusitis (94012819) Acute sinusitis (J01.90) Active confirmed Problem Overweight (334303969) Over weight (E66.3) Active confirmed Problem Mental health disorder (89779325) Mental health disorder (F99) Active confirmed Problem Cirrhotic (050184539) Cirrhosis (K74.60) Active confirmed Problem History of methicillin resistant Staphylococcus aureus infection (529596663) History of MRSA infection (Z86.14) Active confirmed Problem Physical examination, complete (83090704) Adult general medical examination (Z00.00) Active confirmed Problem Opioid use disorder (2257554778) Opioid use disorder (F11.99) Active confirmed Problem Tobacco user (947478845) Nicotine dependence with current use (F17.200) Active confirmed Problem Abnormal gait (43703156) Unsteady gait when walking (R26.81) Active confirmed [...] Encounter Location Date Provider Diagnosis [facility] [address] [place] [address] 05/06/2025 Junito Banks [facility] [address] [place] [place] [address] 05/04/2025 Junito Banks Adult general medica l examination Z00.00 ; History of MRSA infection Z86.14 ; Encounter for screening for malignant neoplasm of colon Z12.11 ; Encounter for screening for malignant neoplasm of cervix Z12.4 ; Encounter for screening mammogram for breast cancer Z12.31 ; Over weight E66.3 and Abrasion of knee, unspecified laterality, initial encounter S80.219A [facility] [address] [place] [address] 05/04/2025 Samina Miller Substance abuse F19.10 ; Mental health disorder F99 and Over weight E66.3 [facility] [address] [place] [address] 05/12/2025 Junito Banks Over weight E66.3 an d Cirrhosis K74.60 [facility] [place] [address] 05/13/2025 Olivia Walker Major depressive disorder with psychotic features F32.3 ; Generalized anxiety disorder F41.1 and Over weight E66.3 [facility] [address] [place] [address] 06/02/2025 Joe Edwards Over weight E66.3 ; Opioid use disorder F11.99 and Nicotine dependence with current use F17.200 [facility] [place] [address] 06/03/2025 Junito Banks Over weight E66.3 an d Acute sinusitis J01.90 [facility] [place] [address] 06/05/2025 Junito Banks Slurred speech R47.8 1 ; Aphasia R47.01 ; Unsteady gait when walking R26.81 ; Orthostatic hypotension I95.1 ; Lethargic R53.83 and Cirrhosis K74.60 [facility] [place] [address] 05/07/2025 Junito Banks [facility] [place] [address] 05/11/2025 Junito Banks Tuberculosis screening Z11.1 [place] [address] [place] [address] 05/19/2025 Olivia Walker Major depressive disorder with psychotic features F32.3 [facility] [address] [place] [address] 06/01/2025 Junito Banks Adult general medica l [...] or be administered own oral medications per [facility] protocols. Provided informed consent with understanding of [...] 05/04/2025 Other Continue treatment as recommended by [facility] staff. Encouraged patient to obtain routine medical care with patient's own primary care provider or establish as a patient at [facility] if no current primary care provider. 05/04/2025 [...] self-administe r their own oral medications per [facility] Protocol. 06/03/2025 Other Learning About the Safe [...] Insured Coverage Start Date Coverage End Date [facility] Attn Claims Department [address] [place] [phone] [id number] Lena High Self - patient is the insured 5 [employer] Attn Claims Department [address] [address] [id number] Lena High Self - patient is the insured 5 [facility] [employer] Att[employer] Claims Department [address] [place] [phone] [id number] Lena High Self - patient is the insured 5 Medical (General) History Medical History History ICD Code Cirrhosis of liver Anemia depression anxiety ptsd Surgical History Surgery Date(Month/Year) C Section 2022 Knee surgery 1989 ECG 02/2025 Hospitalization History Reason Date(Month/Year) [facility] for surgery 02/2025 [facility] for anemia (received b lood transfusion) 05/2025
--- NOTE | 2025-06-08 12:24 | PM.IMHP ---
H&P: HPI History of Present Illness Date/Time: 06/08/25 12:24 Chief Complaint: Weakness, Fall, Low BP Narrative: 49 y/o F with PMH of methamphetamine use, anemia, hyponatremia, alcohol abuse, PTSD, esophageal varices s/p banding, depression, and cirrhosis presents here with generalized weakness, fall, and hypotension. The patient presents here via EMS from [place] on 06/08 for further evaluation of hypotension, generalized weakness, and fall. HPI obtained through chart review, EMS report, and patient report. The patient reports she woke up this morning with significant generalized weakness. She had admits difficulty getting up to go to the bathroom and began peeing prior to making it to the restroom causing a fall. She reports she hit her head but did not lose consciousness. Then had a second fall before she was able to be helped back to bed. She then was almost back in bed when she had a third fall. Believes she may have hit her head after the third fall on the side of the bed without loss of consciousness. She reports associated headache, bilateral ankle pain, and right knee pain. Per EMS report, initial blood pressure was 80/40. She was given IV fluids EN route to the hospital and repeat blood pressure was 120/80. She arrived 98/55 with an O2 saturation of 82% on room air. Reports she has been eating and drinking okay . Reports mild abdominal pain and diarrhea - however has intermittent diarrhea at baseline, has previously been told she has Celiac but feels her symptoms are more so IBS. Denies nausea, vomiting, chest pain, shortness of breath or cough. Also reporting new chills and fever starting today. Of note, the patient was recently admitted x2 at [facility]. First admission from 05/21/25-05/23/25 for a suspected GI bleed. GI was consulted and recommended an outpatient colonoscopy. Lab work showed iron deficiency anemia, given 500 mg of Venofer and discharged on Firoin. Second admission from 06/05/25-06/06/25 for altered mental status. She had been started on cefoxitin the morning she presented drowsy and oriented to name only. She improved when Suboxone was held and she was discharged with recommendation of an alternate medication or decreased dosing. She is currently clean from methamphetamine for 50+ days. Initial VS at presentation: 101.2? F, HR 109, RR 14, 98/55, and 82% on room air. Now on nasal cannula. ED workup showed: WBC 9.6, hemoglobin 9.1 (7.5 on 06/06), INR 1.3, sodium 134, creatinine 1.47 and GFR 37 (1.03 and GFR 56 on 06/06), CRP 1.7, and viral PCR negative. CXR showed a large left lower lobe pneumonia. EKG showed sinus tachycardia with short TX interval, rate 106. Review of Systems Review of Systems: All systems reviewed & are unremarkable except as noted in HPI and below PMFSH Past Medical History Medical History Chronic anemia Anemia Hyponatremia Substance abuse Alcohol abuse PTSD (post-traumatic stress disorder) Anxiety disorder Esophageal varices Previously banded Depression Acute hemorrhoid Neuropathy History of cirrhosis of liver History of esophageal varices Surgical History Surgical History H/O section S/P T&A (status post tonsillectomy and adenoidectomy) H/O left knee surgery History of esophagogastroduodenoscopy (EGD) Family History Family History Mother Substance abuse Alcohol abuse Heart disease Myocardial infarction Hypertension Father Cancer of bone Melanoma Alzheimer dementia Other Dementia Social History Social History Social History: She currently resides at [facility]. She is working on her disability. She has 1 son who is 11-year years old and he lives with the patient's brother. 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 She stated that she is trying to quit smoking and is down to vaping and a nicotine patch. Smoking packs per day: 1 Smoking cigarettes per day: 20.0 Years smoked: 35 Smoking pack-years: 35.00 Smoking status: Former smoker Tobacco type: cigarettes Alcohol intake: current Drinks per week: 3 Substance use: former Substance use type: marijuana and amphetamines Last use: 04/16/25 Lack of Transportation: YES Lack of Food: Never True Current Housing: I Do Not Have Housing Concerned About Future Housing: YES Difficulty Paying Gas/Electric Bills: No Difficulty Paying for Meds: YES Currently Unemployed: YES Education: High School Diploma/GED Difficulty w/ Childcare or Family Care: No Spiritual care concerns: No Meds Home Medications and Allergies Home Medications ?Medication ?Instructions ?Recorded ?Confirmed ?Type conj estrogen-medroxyprogesterone 1 tablet PO DAILY 05/07/25 06/08/25 History 0.3 mg-1.5 mg tablet (Prempro) duloxetine 60 mg capsule,delayed 120 mg PO DAILY 05/07/25 06/08/25 History release gabapentin 800 mg tablet 800 mg PO .Q6 NUMBNESS AND PAIN 05/07/25 06/08/25 History hydroxyzine HCl 25 mg tablet 50 mg PO Q4H PRN anxiety 05/07/25 06/08/25 History multivitamin 1 tablet PO DAILY 05/07/25 06/08/25 History pantoprazole 40 mg tablet,delayed 40 mg PO BID 05/07/25 06/08/25 History release (Protonix) tizanidine 4 mg tablet 4 mg PO Q6H PRN muscle pain 05/07/25 06/08/25 History trazodone 100 mg tablet 100 mg PO HS PRN sleep 05/07/25 06/08/25 History furosemide 40 mg tablet 40 mg PO DAILY #30 tabs 05/09/25 06/08/25 Rx spironolactone 50 mg tablet 100 mg (2 x 50 mg) PO QAM #100 tabs 05/09/25 06/08/25 Rx (Aldactone) carvedilol 6.25 mg tablet (Coreg) 6.25 mg PO Q12HR 30 days #60 tabs 05/23/25 06/08/25 Rx Allergies Allergy/AdvReac Type Severity Reaction Status Date / Time shellfish derived Allergy Severe Hives Verified 06/08/25 10:12 Sulfa (Sulfonamide AdvReac Nausea and Verified 06/08/25 10:12 Antibiotics) Vomiting Vital Signs Vital Signs - 24 hr 06/08/25 10:02 Temperature 101.2 F H Pulse Rate 109 H Respiratory Rate 14 Blood Pressure 98/55 L Pulse Oximetry 82 L Oxygen Delivery Room Air Exam Const: General: comfortable and no acute distress Other: , female, nontoxic appearance HENMT: Face/Nose/Sinus: Normal nares present Mouth: Yes moist mucous membranes Eyes: General: appearance normal, both eyes and all related structures Sclera: sclerae normal Pupils: Equal, round and reactive pupils present EOM: EOMs intact bilaterally Resp: Effort & Inspection: normal respiratory effort Other: crackles and diminished in the mid and base of the left lung. Cardio: Rate: regular rate Rhythm: regular rhythm Other: S1-S2 present without murmur, rub, ectopy GI: Other: Abdomen soft, nondistended, nontender. Normoactive bowel sounds in all quadrants. Skin: General skin exam: normal color and no rashes or lesions noted Wounds: no wounds Neuro: Speech: normal speech Motor exam (neuro): 5/5 motor strength present throughout Sensory Exam: normal sensation Other: A&O x4 Extrem: Other: Trace edema to right knee, no decreased range of motion. Psych: Mental Status: mental status grossly normal Affect: normal affect Other: Good insight and judgment, pleasant H&P: Results Labs Labs: Short CBC 06/08/25 Range/Units 10:36 WBC 9.6 (4.5-10.0) K/mm3 Hgb 9.1 L (12.0-15.0) g/dL Hct 31.3 L (37.0-47.0) % Plt Count 384 H (150-375) k/mm3 BMP 06/08/25 10:36 Sodium 134 L Potassium 5.0 Chloride 100 Carbon Dioxide 25 BUN 33 H Creatinine 1.47 H Glucose 91 Calcium 8.6 Liver Function 06/08/25 Range/Units 10:36 Total Bilirubin 1.1 (0.2-1.3) mg/dL AST 48 H (14-36) U/L ALT 21 (6-35) U/L Alkaline Phosphatase 130 H (38-126) U/L Albumin 3.9 (3.5-5.1) g/dL Assessment and Plan Assessment and plan (1) Sepsis: Qualifiers: Acute respiratory failure type: with hypoxia Sepsis acute organ dysfunction status: with acute organ dysfunction Sepsis type: sepsis due to unspecified organism Severe sepsis acute organ dysfunction type: acute respiratory failure Severe sepsis shock status: without septic shock Qualified Code(s): A41.9 - Sepsis, unspecified organism; R65.20 - Severe sepsis without septic shock; J96.01 - Acute respiratory failure with hypoxia Code(s): A41.9 - Sepsis, unspecified organism Status: Acute Assessment and Plan: - meets SIRS criteria: HR greater than 90, temp 101.2?, + hypotension and hypoxia. Now stable with IV fluids and supplemental O2. - lactic acid: 1.0 - 30 mL/kg = 2.7L, given in ED - suspected source: Pneumonia - started on ceftriaxone and azithromycin on 06/08 - blood cultures drawn on 06/08, follow - UA ordered >> trace ketones, trace leuk esterase. Low concern for infection. - CXR showed a left lower lobe pneumonia, viral PCR negative - monitor hemodynamic stability (2) Pneumonia: Qualifiers: Laterality: left Lung location: lower lobe of lung Pneumonia type: due to unspecified organism Qualified Code(s): J18.9 - Pneumonia, unspecified organism Code(s): J18.9 - Pneumonia, unspecified organism Status: Acute Assessment and Plan: - CXR: Large left lower lobe pneumonia. >> reviewed image, agree with impression - risk/complicating factors: recent hospitalization - started on CAP tx: Ceftriaxone/azithromycin - check MRSA PCR and sputum culture - Viral PCR negative on 06/08 - supportive care: Mucinex laurence, Tessalon Perles p.r.n., DuoNebs p.r.n., Tylenol p.r.n. - continue supplemental O2 to maintain O2 sat greater than 92%, wean as tolerated. Checking ABG. (3) Multiple falls: Code(s): R29.6 - Repeated falls Status: Acute Assessment and Plan: 3 falls this morning with 2 head strikes, no loss of consciousness. Found to be hypotensive, improved with IV fluids. Suspect etiology for patient's multiple falls was her significant hypotension. - check head CT >> no acute intracranial abnormality - orthostatic vital signs Q shift - analgesics p.r.n.: Tylenol, [place], morphine - fall precautions (4) Acute renal failure: Qualifiers: Acute renal failure type: unspecified Qualified Code(s): N17.9 - Acute kidney failure, unspecified Code(s): N17.9 - Acute kidney failure, unspecified Status: Acute Assessment and Plan: - creatinine 1.47, BUN 33, GFR 37 upon admission on 06/08 - baseline creatinine: 0.9 - IV fluids: 2.8L -> 125 mL/hr - trial IV fluids over the next 24 hours, if no improvement consider further workup and nephrology consultation - hold spironolactone, resume when appropriate - trend renal function - trend electrolytes, correct as needed (5) Anemia: Qualifiers: Anemia type: iron deficiency Iron deficiency anemia type: other iron deficiency Qualified Code(s): D50.8 - Other iron deficiency anemias Code(s): D64.9 - Anemia, unspecified Status: Chronic Assessment and Plan: - patient underwent recent anemia workup showed Ferritin of 10 and Hgb 8.3. Given Venofer hypertension mg earlier this month and discharged on p.o. Firoin x2 months, continue. - Hgb 9.1 upon admission - Hx of alcoholism, likely contributing - transfuse if <7 - trend (6) Substance abuse: Code(s): F19.10 - Other psychoactive substance abuse, uncomplicated Status: Chronic Assessment and Plan: - on day 4 of detoxing from methamphetamine. Patient also has hx of ETOH abuse with cirrhosis. Here from [place]. Was recently admitted here for AMS after she started Suboxone, improved when held. (7) Cirrhosis: Qualifiers: Ascites presence: with ascites Hepatic cirrhosis type: alcoholic cirrhosis Qualified Code(s): K70.31 - Alcoholic cirrhosis of liver with ascites Code(s): K74.60 - Unspecified cirrhosis of liver Status: Chronic Assessment and Plan: - check ammonia and monitor LFTs >> ammonia 21, no confusion on exam and alert - recent CT from 05/21 showed cirrhosis with portal hypertension and splenomegaly and moderate ascites (8) Depression: Qualifiers: Depression Type: unspecified Qualified Code(s): F32.A - Depression, unspecified Code(s): F32.A - Depression, unspecified Status: Chronic Assessment and Plan: - continue Cymbalta, monitor Na - has hx of hyponatremia, likely related to Cymbalta use - sees psychiatrist outpatient for her depression, anxiety and PTSD (9) Anxiety disorder: Qualifiers: Anxiety disorder type: unspecified anxiety disorder Qualified Code(s): F41.9 - Anxiety disorder, unspecified Code(s): F41.9 - Anxiety disorder, unspecified Status: Chronic Assessment and Plan: - continue trazodone HS, hydroxyzine p.r.n. (10) Neuropathy: Code(s): G62.9 - Polyneuropathy, unspecified Status: Chronic Assessment and Plan: - hx of polyneuropathy - continue Gabapentin Plan Diet: Heart healthy GI Prophylaxis: Pantoprazole IV DVT Prophylaxis: SCDs IV fluids: 2.8L -> 125 mL/hr Lines/Tubes: peripheral IV Code Status: full code Quality VTE Prophylaxis VTE prophylaxis: mechanical ordered Hospitalist MIPS Advance Care Plan I have confirmed that the patient's Advanced Care Plan is present, code status is documented, or surrogate decision maker is listed in patient medical record.: Yes Medication Reconciliation I have utilized all available resources to obtain, update and review the patients current medications (includes all prescriptions, OTC, herbals, cannabis, and nutritional supplements).: Yes
[2025-06-08 12:38] LABS: Alveolar/Arterial O2 Gradient 95.8 mmHg; Carboxyhemoglobin 1.7 % THb (0-2.0); Fractional Inspired Oxygen 30 %; HCO3 ABG 22.0 mEq/l (22.0-26.0); Methemoglobin ABG 0.5 %THb (0-1.5); Oxygen Content ABG 10.8 %vol (16.0-22.0); Oxygen Saturation ABG 92.1 % (95.0-100.0); PCO2 ABG 43.1 mmHg (35.0-45.0); PO2 ABG 67.5 mmHg (80.0-100.0); PO2 FiO2 Ratio Arterial Blood 2.25 %; Reduced Hemoglobin 9.1 %THb (0-5.0)
[2025-06-08 12:49] LABS: Site Drawn LEFT RADIAL
[2025-06-08 12:50] LABS: Liters per Minute 3.0 LPM; Modified Allen's Test Pass
[2025-06-08 13:36] LABS: Ammonia 21 umol/L (9-30)
--- NOTE | 2025-06-08 13:40 | ADMGEN ---
This patient, Lena High, was admitted to IMU Room 205-02. Patient/family oriented to hospital policies and general routines including ID bracelet, bed and alarms, visiting hours, pain management, procedures, bathroom and other care routines, personal items, smoking policy, room service/diet, and visiting hours. Information on how to activate the Rapid Response Team has been discussed. Patient/Family are encouraged to report perceived risks to care and to ask questions if they do not understand what they are told or what they should do.
[2025-06-08 14:36] LABS: MRSA (PCR) NOT DETECTED (NOT DETECTE)
[2025-06-08 15:00] LABS: Add Urine Microscopic? YES; Appearance Urine Clear (Clear); Glucose Urine UA Negative (Negative); Leukocyte Esterase Ur Trace LEU/UL (Negative); Need Manual Microscopic Reviewed; Nitrate Urine Negative (Negative); Specific Grav Ur 1.016 (1.001-1.035)
[2025-06-08] MEDS: SODIUM CHLORIDE 0.9% IV 1,000 ML 125 ML IV CONT (15:04)
[2025-06-08] MEDS: AZITHROMYCIN IV 500 MG in SODIUM CHLORIDE 0.9% IV 250 ML IVPB (15:04)
[2025-06-08] MEDS: PANTOPRAZOLE SODIUM IV 40 MG VIAL IV PUSH (15:10)
[2025-06-08] MEDS: guaiFENesin 12 HR 600 MG TABCR PO ×2 (15:10→22:17)
--- NOTE | 2025-06-08 20:03 | PC.NURSE ---
pt off floor for ct scan @2002
--- NOTE | 2025-06-08 20:27 | PC.NURSE ---
pt back from ct
[2025-06-08] MEDS: PANTOPRAZOLE 40 MG TABLET PO (22:17)
[2025-06-08] MEDS: TIZANIDINE HCL 4 MG TABLET PO (22:17)
[2025-06-09] VITALS (24 sets, daily range): BP systolic 78–123; BP diastolic 38–79; PULSE 60–88; RESP 12–20; TEMP 36.5–36.9; O2SAT 93–100
[2025-06-09] MEDS: SODIUM CHLORIDE 0.9% IV 1,000 ML 125 ML IV CONT
[2025-06-09] MEDS: GABAPENTIN 400 MG CAPSULE 800 MG PO ×4 (00:33→18:01)
[2025-06-09] MEDS: SODIUM CHLORIDE 0.9% IV 500 ML IV CONT (00:33)
[2025-06-09 04:25] LABS: Hematocrit 24.2 % (37.0-47.0); Immature Granulocyte Percent A 0.8 % (0-0.5); Lymphocytes Absolute Auto 0.83 K/mm3 (0.9-3.2); Mean Corpuscular HGB Conc 27.7 g/dl (32-36); Mean Corpuscular Hemoglobin 26.0 pg (26-34); Mean Corpuscular Volume 93.8 fl (80-100); Nucleated Red Blood Cells Absolute Auto 0.150 K/mm3 (0.0-0.012); Nucleated Red Blood Cells Perc 1.7 % (0.0-0.2); Platelet Count Result 276 k/mm3 (150-375); Red Blood Count 2.58 M/mm3 (4.2-5.4); White Blood Count 8.8 K/mm3 (4.5-10.0)
[2025-06-09 04:51] LABS: Alanine Aminotransferase 15 U/L (6-35); Albumin Level 3.1 g/dL (3.5-5.1); Alkaline Phosphatase 82 U/L (38-126); Anion Gap 5 mmol/L (4-12); Aspartate Amino Transferase 36 U/L (14-36); Bilirubin,Total 1.2 mg/dL (0.2-1.3); Blood Urea Nitrogen 37 mg/dL (7-17); Calcium 8.0 mg/dL (8.4-10.2); Carbon Dioxide 23 mmol/L (22-30); Chloride 104 mmol/L (98-107); Estimated CRCL calculation 48 ml/min; Estimated Glomerular Filt Rate 37; Glucose 97 mg/dL (65-110); Potassium 5.0 mmol/L (3.4-5.0); Sodium 132 mmol/L (137-145); Total Protein 5.8 g/dL (6.3-8.2)
[2025-06-09 05:02] LABS: Hemoglobin 6.7 g/dL (12.0-15.0)
[2025-06-09 05:03] LABS: Anisocytosis 1+; Hypochromasia 1+
[2025-06-09 05:04] LABS: Burr Cells 1+; Macrocytosis 1+ (NORMAL); Ovalocytes 2+
[2025-06-09 05:05] LABS: Schistocytes None Seen; Tear Drop Cells 1+
[2025-06-09] MEDS: MULTIVITAMINS THERAPEUTIC TAB (*BKC) 1 TABLET PO (08:51)
[2025-06-09] MEDS: DULoxetine HCL 60 MG CAPSULE.DR 120 MG PO (08:51)
[2025-06-09] MEDS: guaiFENesin 12 HR 600 MG TABCR PO ×2 (08:51→21:32)
[2025-06-09] MEDS: PANTOPRAZOLE SODIUM IV 40 MG VIAL IV PUSH (08:52)
[2025-06-09] MEDS: SODIUM CHLORIDE 0.9% IV 250 ML 30 ML IV CONT (09:03)
[2025-06-09] MEDS: TUBING, BLOOD PLUM PUMP TUBING 1 EACH XX (09:04)
[2025-06-09] MEDS: MIDODRINE HCL 2.5 MG TABLET 5 MG PO ×3 (10:03→18:01)
--- NOTE | 2025-06-09 10:41 | P.CONGI_ITS ---
Assessment and Plan Assessment and plan (1) Cirrhosis: Qualifiers: Ascites presence: with ascites Hepatic cirrhosis type: alcoholic cirrhosis Qualified Code(s): K70.31 - Alcoholic cirrhosis of liver with ascites Code(s): K74.60 - Unspecified cirrhosis of liver Status: Chronic (2) Esophageal varices: Qualifiers: Esophageal varices bleeding: without bleeding Esophageal varices type: secondary Qualified Code(s): I85.10 - Secondary esophageal varices without bleeding Code(s): I85.00 - Esophageal varices without bleeding Status: Acute (3) Alcohol abuse: Code(s): F10.10 - Alcohol abuse, uncomplicated Status: Acute (4) Chronic anemia: Code(s): D64.9 - Anemia, unspecified Status: Acute (5) Hypoxia: Code(s): R09.02 - Hypoxemia Status: Acute (6) Hyponatremia: Code(s): E87.1 - Hypo-osmolality and hyponatremia Status: Acute (7) Hypotension: Qualifiers: Hypotension type: unspecified hypotension type Qualified Code(s): I95.9 - Hypotension, unspecified Code(s): I95.9 - Hypotension, unspecified Status: Acute Plan 1. Cirrhosis-Alcohol related/esophageal varices/ascites/weight loss/chronic anemia: MELD NA 19. Decompensated. Patient states that she was newly diagnosed with cirrhosis while hospitalized in February 2025 at [facility] in [facility] she is from. She states that during that admission she was having black stools and received 5 units of PRBCs. Given her description of symptoms it sounds like she also had hepatic encephalopathy at she had an EGD mid February that she states she had 10-12 varices banded and then had recurrent bleeding and had a never EGD in March which time she had 2-3 more varices banded. This is the patient's 4th admission to [facility] since May 07. During prior hospitalizations she had an EGD performed 05/08/2025 at which time small grade 1 varices (small, barely visible varices) were present in the distal esophagus that were not actively bleeding. Paracentesis 05/07/2025 with 5000 ml removed. Patient is currently receiving Addiction Services at [place]. She states she has a history of abusing methamphetamine, benzo, Adderall, and ?any pills she can get her hands on. Patient she states that she was drinking from the time she woke up till the time she went to bed every day. LFT's have normalized since admission: Total bilirubin 1.2, AST 48-->36, ALT 21-->15, alkaline phosphatase 130-->82. On admission Hgb 9.1 and today 6.7.Patient denies any signs of active GI bleeding to include hematemesis, hematochezia or melena. Patient stated today that she had been seen by a assistant professor of business and oncologist a few years ago for her chronic anemia and was told that she had ?some type of blood cancer? but she was unable to provide any further information. Patient has all the hematology closer to where she lives, patient states that she will contact this provider to obtain additional details regarding her previous diagnosis. * Variceal screening: POSITIVE history of varices. Last EGD 05/08/2025 with very small barely visible varices noted in the distal esophagus and 3 columns that were not actively bleeding. Beta krzysztof: Patient on Coreg 6.25 mg BID, beta-krzysztof on hold due to hypotension * Last paracentesis: 05/07/2025 with 5000 ml removed * Current diuretics: Spironolactone 100 mg daily and Lasix 40 mg daily, diuretics on hold due to hypotension and hyponatremia * Diet: 2 gram sodium diet * History of HE: Prior Hx (from patients description of past symptoms but we do not have a confirmed diagnosis prior to starting her care at [place]) but patient is not on Xifaxan or Lactulose. * HCC screening: Patient will need AFP, LFT's and ultrasound every 6 months for monitoring. Patient to follow up outpatient * Primary care team to continue monitoring H/H and transfuse as needed but do not transfuse if Hgb >7 due to Hx of varices * Monitor urine output * Will continue plan for outpatient colonoscopy once her hypotension medications are more stable * primary care team to consider hematology consult to workup other non GI related causes of chronic anemia 2. Hypotension/hyponatremia/hypoxia: Primary care team managing. Will hold Coreg for now given hypotension. Labs on admission showed sodium at 134 and today 132, this mild hyponatremia is likely secondary to cirrhosis and not related to diuretics. * Will restart diuretics at a lower dose while she is inpatient so we can monitor for any changes and labs or renal function. Start Lasix 20 mg daily and spironolactone 50 mg daily Thank you very much for allowing me to share in the care of this very nice patient. This report may have been done utilizing a voice recognition system. Attempts have been made to correct errors. However, there may be uncorrected grammatical, spelling, and recognition errors present. GI Consult Note Consult date/time: 06/09/25 10:41 Reason for consult: anemia and Hx of varices HPI: Lena High is a 49 year old female with PMSH of Bipolar disorder, neuropathy, multiple addictions, ETOH abuse, depression, anxiety, PTSD, HTN, HLD, , alcoholic cirrhosis with ascites and varices. She presented to the ER with complaints of weakness. She woke up this morning was incredibly weak while trying to get up and go to the bathroom. She is hypoxic and febrile. She is found to be hypotensive by EMS and they are given her IV fluid. GI has been consulted for anemia and Hx of varices. This is the patient's 4th admission since May 07. She was last seen by GI April 22. Patient states that prior to her admission she had fallen in the bathroom and complained of dizziness. GI fernandez the her only complaint is diarrhea stating that she can have anywhere from 1-10 bowel movements a day. She has been experiencing diarrhea few times weekly but has taken no medication for this. She denies abdominal pain, nausea, vomiting, bloating, odynophagia, dysphagia, reflux, regurgitation, early satiety, appetite or weight loss. She admits to abdominal distention secondary to ascites. Denies constipation, hematochezia, or melena. ENDOSCOPY HISTORY: EGD: 05/08/[address] Yuan for anemia and history of varices Findings: Small grade 1 varices (small, barely visible varices) were present in the distal esophagus. The varices were not actively bleeding. The varices had 3 columns The Z-line was located 41 cm from the incisors The stomach at the body, cardia and fundus was examined was normal with no ulcers or masses. No gastritis, no signs of recent bleeding The bulb and portion 2nd duodenum was normal with no ulcers or masses. No AVM or hematin EGD: Per patient she had 2 EGDs 1 in mid February at which time she had 10-12 varices banded and then a repeat EGD in March at which time she had 2-3 varices banded. COLONOSCOPY: No known prior colonoscopy history LABS AND STOOL STUDIES: Labs 06/09/2025: WBC 9, Hgb 7, Hct 24, MCV 94, platelets 276, INR 1.3 Sodium 132, potassium 5.0, BUN 37, creatinine 1.47, GFR 37, calcium 8.0 Total bilirubin 1.2, AST 36, ALT 15, Alkaline Phos 82, albumin 3.1 Ammonia 21, CRP 1.7 IMAGING: RUQ ultrasound 06/09/2025: IMPRESSION: 1. No acute findings. 2. Cirrhosis. CTA abd/pelvis 05/21/2025: IMPRESSION: 1. Cirrhosis with portal hypertension and splenomegaly. 2: Moderate ascites. CT abd/pelvis w/contrast 05/07/2025: IMPRESSION: 1. Micronodular appearance to the surface of the liver suggestive of cirrhosis. No focal liver mass identified. 2. Splenomegaly. 3. Esophageal, gastric and splenic varices. 4. Moderate to large amount of nonspecific ascites and fat stranding scattered throughout the abdomen and pelvis 5. Thickening of the fowler of the small bowel. Differential includes enteritis or a fluid overload state. 6. Moderate nonspecific anasarca 7. There is a 6 mm groundglass nodule in the right lower lobe. A chest CT is recommended. Paracentesis 05/07/2025: 5000 mL was removed PMFSH Past Medical History Medical History Chronic anemia Anemia Hyponatremia Substance abuse Alcohol abuse PTSD (post-traumatic stress disorder) Anxiety disorder Esophageal varices Previously banded Depression Acute hemorrhoid Neuropathy History of cirrhosis of liver History of esophageal varices Surgical History Surgical History H/O section S/P T&A (status post tonsillectomy and adenoidectomy) H/O left knee surgery History of esophagogastroduodenoscopy (EGD) Family History Family History Mother Substance abuse Alcohol abuse Heart disease Myocardial infarction Hypertension Father Cancer of bone Melanoma Alzheimer dementia Other Dementia Social History Social History Social History: She currently resides at [facility]. She is working on her disability. She has 1 son who is 11-year years old and he lives with the patient's brother. 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 She stated that she is trying to quit smoking and is down to vaping and a nicotine patch. Smoking packs per day: 1 Smoking cigarettes per day: 20.0 Years smoked: 35 Smoking pack-years: 35.00 Smoking status: Former smoker Tobacco type: cigarettes Alcohol intake: current Drinks per week: 3 Substance use: former Substance use type: marijuana and amphetamines Last use: 04/16/25 Lack of Transportation: YES Lack of Food: Never True Current Housing: I Do Not Have Housing Concerned About Future Housing: YES Difficulty Paying Gas/Electric Bills: No Difficulty Paying for Meds: YES Currently Unemployed: YES Education: High School Diploma/GED Difficulty w/ Childcare or Family Care: No Spiritual care concerns: No Meds Home Medications and Allergies Home Medications ?Medication ?Instructions ?Recorded ?Confirmed ?Type conj estrogen-medroxyprogesterone 1 tablet PO DAILY 06/08/25 History 0.3 mg-1.5 mg tablet (Prempro) duloxetine 60 mg capsule,delayed 120 mg PO DAILY 05/0706/08/25 History release gabapentin 800 mg tablet 800 mg PO .Q6 NUMBNESS AND P AIN 05/07/25 06/08/25 History hydroxyzine HCl 25 mg tablet 50 mg PO Q4H PRN anxiety 05/07/25 06/08/25 History multivitamin 1 tablet PO DAILY 05/07/25 0 06/08/25 History pantoprazole 40 mg tablet,delayed 40 mg PO BID 5 06/08/25 History release (Protonix) tizanidine 4 mg tablet 4 mg PO Q6H PRN muscle pain 05/07/25 06/08/25 History trazodone 100 mg tablet 100 mg PO HS PRN sleep 05/0706/08/25 History furosemide 40 mg tablet 40 mg PO DAILY #30 tabs 04/1806/08/25 Rx spironolactone 50 mg tablet 100 mg (2 x 50 mg) PO QAM #100 tabs 05/09/25 06/08/25 Rx (Aldactone) carvedilol 6.25 mg tablet (Coreg) 6.25 mg PO Q12HR 30 days #60 tabs 05/23/25 06/08/25 Rx Allergies Allergy/AdvReac Type Severity Reaction Status Date / Time shellfish derived Allergy Severe Hives Verified 06/08/25 10:12 Sulfa (Sulfonamide AdvReac Nausea and Verified 06/08/25 10:12 Antibiotics) Vomiting Vital Signs Vital Signs - 24 hr 06/08/25 13:35 06/08/25 16:00 06/08/25 17:00 Temperature 98.8 F 98.1 F Pulse Rate 104 H 92 83 Respiratory Rate 18 18 Blood Pressure 104/56 L 97/49 L Pulse Oximetry 98 100 Oxygen Delivery Oxygen Flow Rate 06/08/25 17:38 06/08/25 20:00 06/08/25 20:00 Temperature 98.2 F Pulse Rate 76 78 76 Respiratory Rate 16 Blood Pressure 104/56 L Pulse Oximetry 100 Oxygen Delivery Oxygen Flow Rate 06/08/25 22:00 06/08/25 22:16 06/09/25 00:00 Temperature 98.2 F Pulse Rate 80 80 60 Respiratory Rate 18 Blood Pressure 78/48 L Pulse Oximetry 93 Oxygen Delivery Oxygen Flow Rate 06/09/25 00:00 06/09/25 00:00 06/09/25 02:00 Temperature Pulse Rate 60 73 Respiratory Rate Blood Pressure Pulse Oximetry 96 Oxygen Delivery Nasal Cannula Oxygen Flow Rate 2 06/09/25 02:13 06/09/25 04:00 06/09/25 04:00 Temperature 98.2 F Pulse Rate 73 73 Respiratory Rate 14 Blood Pressure 90/48 L 91/56 L Pulse Oximetry 97 97 Oxygen Delivery Nasal Cannula Oxygen Flow Rate 2 06/09/25 04:00 06/09/25 06:00 06/09/25 08:00 Temperature 98.4 F Pulse Rate 70 78 74 Respiratory Rate 12 Blood Pressure 108/55 L Pulse Oximetry 100 Oxygen Delivery Oxygen Flow Rate 06/09/25 08:00 06/09/25 08:17 06/09/25 08:17 Temperature 98.4 F Pulse Rate 74 Respiratory Rate 12 Blood Pressure 108/55 L 105/60 110/79 Pulse Oximetry 100 Oxygen Delivery Oxygen Flow Rate 06/09/25 09:38 06/09/25 10:04 Temperature 97.9 F 98 F Pulse Rate 72 72 Respiratory Rate 20 20 Blood Pressure 109/61 105/72 Pulse Oximetry 99 100 Oxygen Delivery Oxygen Flow Rate Results Labs 06/09/25 03:51 06/09/25 03:51 Labs: Short CBC 06/08/25 06/09/25 Range/Units 10:36 03:51 WBC 9.6 8.8 (4.5-10.0) K/mm3 Hgb 9.1 L 6.7 L* (12.0-15.0) g/dL Hct 31.3 L 24.2 L (37.0-47.0) % Plt Count 384 H 276 (150-375) k/mm3 BMP 06/08/25 06/09/25 10:36 03:51 Sodium 134 L 132 L Potassium 5.0 5.0 Chloride 100 104 Carbon Dioxide 25 23 BUN 33 H 37 H Creatinine 1.47 H 1.47 H Glucose 91 97 Calcium 8.6 8.0 L Liver Function 06/08/25 06/09/25 Range/Units 10:36 03:51 Total Bilirubin 1.1 1.2 (0.2-1.3) mg/dL AST 48 H 36 (14-36) U/L ALT 21 15 (6-35) U/L Alkaline Phosphatase 130 H 82 (38-126) U/L Albumin 3.9 3.1 L (3.5-5.1) g/dL Urine 06/08/25 Range/Units 14:16 Urine Color Dark yellow (Yellow) Urine Appearance Clear (Clear) Urine pH 5.5 (5.0-9.0) Ur Specific [place] 1.016 (1.001-1.035) Urine Protein Negative (Negative) mg/dL Urine Glucose (UA) Negative (Negative) mg/dL
[2025-06-09] MEDS: cefTRIAXone 1 GM in SODIUM CHLORIDE 0.9% IV 50 ML 100 ML IVPB (12:26)
[2025-06-09] MEDS: AZITHROMYCIN IV 500 MG in SODIUM CHLORIDE 0.9% IV 250 ML IVPB (13:01)
[2025-06-09] MEDS: NICOTINE (*PBKC) 14 MG PATCH 1 PATCH TRANSDERM (13:14)
--- NOTE | 2025-06-09 13:59 | P.PNIM_ITS ---
Progress Note: A&P Assessment and Plan (1) Alcohol abuse: Code(s): F10.10 - Alcohol abuse, uncomplicated Status: Acute (2) Substance abuse: Code(s): F19.10 - Other psychoactive substance abuse, uncomplicated Status: Chronic (3) Hypotension: Qualifiers: Hypotension type: unspecified hypotension type Qualified Code(s): I95.9 - Hypotension, unspecified Code(s): I95.9 - Hypotension, unspecified Status: Acute (4) Hyponatremia: Code(s): E87.1 - Hypo-osmolality and hyponatremia Status: Acute (5) Esophageal varices: Qualifiers: Esophageal varices type: secondary Esophageal varices bleeding: without bleeding Qualified Code(s): I85.10 - Secondary esophageal varices without bleeding Code(s): I85.00 - Esophageal varices without bleeding Status: Acute (6) Cirrhosis: Qualifiers: Hepatic cirrhosis type: alcoholic cirrhosis Ascites presence: with ascites Qualified Code(s): K70.31 - Alcoholic cirrhosis of liver with ascites Code(s): K74.60 - Unspecified cirrhosis of liver Status: Chronic (7) Anemia: Qualifiers: Anemia type: iron deficiency Iron deficiency anemia type: other iron deficiency Qualified Code(s): D50.8 - Other iron deficiency anemias Code(s): D64.9 - Anemia, unspecified Status: Chronic Plan 49 y/o F with PMH of methamphetamine use, anemia, hyponatremia, alcohol abuse, PTSD, esophageal varices s/p banding, depression, and cirrhosis presented with with generalized weakness, fall, and hypotension. Per EMS report, initial blood pressure was 80/40. She was given IV fluids EN route to the hospital and repeat blood pressure was 120/80. She arrived 98/55 with an O2 saturation of 82% on room air. Also reporting new chills and fever starting today. Of note, the patient was recently admitted x2 at [place]. First admission from 05/21/25- 05/23/25 for a suspected GI bleed. GI was consulted and recommended an outpatient colonoscopy. Lab work showed iron deficiency anemia, given 500 mg of Venofer and discharged on Firoin. Second admission from 06/05/25-06/06/25 for altered mental status. She had been started on cefoxitin the morning she presented drowsy and oriented to name only. She improved when Suboxone was held and she was discharged with recommendation of an alternate medication or decreased dosing. She is currently clean from methamphetamine for 50+ days. Initial VS at presentation: 101.2? F, HR 109, RR 14, 98/55, and 82% on room air. Now on nasal cannula. ED workup showed: WBC 9.6, hemoglobin 9.1 (7.5 on 06/06), INR 1.3, sodium 134, creatinine 1.47 and GFR 37 (1.03 and GFR 56 on 06/06), CRP 1.7, and viral PCR negative. CXR showed a large left lower lobe pneumonia. 1.Acute respiratory failure+ sepsis: Continue with O2 support Chest x-ray with large left lower lobe pneumonia Follow-up blood cultures Obtain urine strep, Legionella antigen Continue with azithromycin, ceftriaxone Blood pressure more stable Will add midodrine Stop IV fluids 2. History of liver cirrhosis: GI consult Obtain abdomen limited ultrasound to assess ascites Might need paracentesis 3. Acute on chronic anemia: Status post 1 unit of PRBC today GI has been consulted Continue with PPI History of esophageal varices in the past 4. DAVID: Avoid nephrotoxins Recheck BMP in a.m. Holding Lasix and IV fluids Noted mild hyperkalemia, will monitor closely 5. Code status: Full 6. DVT prophylaxis: SCDs 7. Disposition: Pending improvement Time Spent With Patient Time: 38 mins Subjective Date/time seen: 06/09/25 13:59 Interval history: Feeling better Review of Systems Review of Systems: All systems reviewed & are unremarkable except as noted in HPI and below Exam Const: General: comfortable and no acute distress Other: , female, nontoxic appearance HENMT: Face/Nose/Sinus: Normal nares present Mouth: Yes moist mucous membranes Eyes: General: appearance normal, both eyes and all related structures Sclera: sclerae normal Pupils: Equal, round and reactive pupils present EOM: EOMs intact bilaterally Resp: Other: crackles and diminished in the mid and base of the left lung. On nasal cannula Cardio: Rate: regular rate Rhythm: regular rhythm Other: S1-S2 present without murmur, rub, ectopy GI: Other: Abdomen soft, distended, nontender. Fluid wave present, concern for ascites Normoactive bowel sounds in all quadrants. Skin: General skin exam: normal color and no rashes or lesions noted Wounds: no wounds Neuro: Speech: normal speech Motor exam (neuro): 5/5 motor strength present throughout Sensory Exam: normal sensation Other: A&O x4 Extrem: Other: Trace edema to right knee, no decreased range of motion. Psych: Mental Status: mental status grossly normal Affect: normal affect Other: Good insight and judgment, pleasant Objective Data Vital Signs Vital Signs: Vital Signs - 24 hr 06/08/25 16:00 06/08/25 17:00 06/08/25 17:38 Temperature 98.1 F Pulse Rate 92 83 76 Respiratory Rate 18 Blood Pressure 97/49 L Pulse Oximetry 100 Oxygen Delivery Oxygen Flow Rate 06/08/25 20:00 06/08/25 20:00 06/08/25 22:00 Temperature 98.2 F Pulse Rate 78 76 80 Respiratory Rate 16 Blood Pressure 104/56 L Pulse Oximetry 100 Oxygen Delivery Oxygen Flow Rate 06/08/25 22:16 06/09/25 00:00 06/09/25 00:00 Temperature 98.2 F Pulse Rate 80 60 60 Respiratory Rate 18 Blood Pressure 78/48 L Pulse Oximetry 93 Oxygen Delivery Oxygen Flow Rate 06/09/25 00:00 06/09/25 02:00 06/09/25 02:13 Temperature Pulse Rate 73 73 Respiratory Rate Blood Pressure 90/48 L Pulse Oximetry 96 Oxygen Delivery Nasal Cannula Oxygen Flow Rate 2 06/09/25 04:00 06/09/25 04:00 06/09/25 04:00 Temperature 98.2 F Pulse Rate 73 70 Respiratory Rate 14 Blood Pressure 91/56 L Pulse Oximetry 97 97 Oxygen Delivery Nasal Cannula Oxygen Flow Rate 2 06/09/25 06:00 06/09/25 08:00 06/09/25 08:00 Temperature 98.4 F 98.4 F Pulse Rate 78 74 74 Respiratory Rate 12 12 Blood Pressure 108/55 L 108/55 L Pulse Oximetry 100 100 Oxygen Delivery Oxygen Flow Rate 06/09/25 08:17 06/09/25 08:17 06/09/25 09:38 Temperature 97.9 F Pulse Rate 72 Respiratory Rate 20 Blood Pressure 105/60 110/79 109/61 Pulse Oximetry 99 Oxygen Delivery Oxygen Flow Rate 06/09/25 10:04 06/09/25 11:04 06/09/25 12:00 Temperature 98 F 98.1 F 98.3 F Pulse Rate 72 75 72 Respiratory Rate 20 12 12 Blood Pressure 105/72 123/63 116/38 L Pulse Oximetry 100 97 100 Oxygen Delivery Oxygen Flow Rate 06/09/25 12:04 06/09/25 12:38 Temperature 98.3 F 98.1 F Pulse Rate 73 75 Respiratory Rate 12 16 Blood Pressure 116/38 L 117/70 Pulse Oximetry 100 100 Oxygen Delivery Oxygen Flow Rate Intake/Output Intake/Output: Intake & Output 06/06/25 06/07/25 06/08/25 06/09/25 23:59 23:59 23:59 23:59 Intake Total 4770 1770 Balance 4770 1770 Meds/Results Medications: Active Medications Generic Name Dose Route Start Last Admin Trade Name Freq PRN Reason Stop Dose Admin Acetaminophen 650 mg 06/08/25 12:26 06/08/25 22:21 Acetaminophen 325 Mg Tablet PO 650 mg Q4H PRN Administration Mild Pain (1-3) or Fever Albuterol/Ipratropium 3 ml 06/08/25 12:45 Ipratropium 0.5 Mg/Albuterol Sulfate 2.5 Mg Ampul.Neb 3 Ml INHALATION Q6HRT PRN Shortness Of Breath Or Wheezing Carvedilol 6.25 mg 06/08/25 21:00 06/08/25 22:16 Carvedilol 6.25 Mg Tablet PO 6.25 mg On Hold: 06/09/25 00:37 Q12HR FRITZ Administration Duloxetine HCl 120 mg 06/09/25 09:00 06/09/25 08:51 Duloxetine Hcl 60 Mg Capsule.Dr PO 120 mg DAILY FRITZ Administration Gabapentin 800 mg 06/09/25 00:00 06/09/25 12:27 Gabapentin 400 Mg Capsule PO 800 mg Q6HR FRITZ Administration Guaifenesin 600 mg 06/08/25 14:00 06/09/25 08:51 Guaifenesin 12 Hr 600 Mg Tabcr PO 600 mg Q12HR FRITZ Administration Hydroxyzine HCl 50 mg 06/08/25 20:45 Hydroxyzine Hcl 25 Mg Tablet PO Q4H PRN Anxiety Ceftriaxone Sodium 1 gm/ 50 mls @ 100 mls/hr 06/09/25 12:00 06/09/25 13:06 Sodium Chloride IVPB Infused Q24H FRITZ Infusion Azithromycin 500 mg/ Sodium 250 mls @ 250 mls/hr 06/09/25 13:00 06/09/25 13:01 Chloride IVPB 06/12/25 13:59 250 mls/hr Q24H FRITZ Administration Sodium Chloride 1,000 mls @ 125 mls/hr 06/08/25 12:30 06/09/25 08:50 Normal Saline Iv IV CONT Infused On Hold: 06/09/25 09:02 .Q8H FRITZ Infusion Sodium Chloride 250 mls @ 30 mls/hr 06/09/25 06:12 06/09/25 09:03 Normal Saline Iv IV CONT 06/09/25 14:31 30 mls/hr .Q8H20M STA Administration Midodrine 5 mg 06/09/25 09:05 06/09/25 13:02 Midodrine Hcl 2.5 Mg Tablet PO 5 mg TID FRITZ Administration Miscellaneous Information 0 each 06/08/25 00:01 Prempro Nonform Can Pt Bring From Home? XX 07/08/25 00:00 CLARIFY FRITZ Multivitamins Therapeutic 1 tablet 06/09/25 09:00 06/09/25 08:51 Multivitamins Therapeutic Tab (*Bkc) PO 1 tablet DAILY FRITZ Administration Nicotine 1 patch 06/09/25 13:00 06/09/25 13:14 Nicotine (*Pbkc) 14 Mg Patch TRANSDERM 1 patch DAILY FRITZ Administration Non-Formulary Medication 1 tablet 06/09/25 09:00 Conj Estrog-Medroxyprogest Oscar [Prempro] PO 07/09/25 08:59 DAILY FRITZ Pantoprazole Sodium 40 mg 06/08/25 13:55 06/09/25 08:52 Pantoprazole Sodium Iv 40 Mg Vial IV PUSH 40 mg DAILY FRITZ Administration Pantoprazole Sodium 40 mg 06/08/25 21:00 06/09/25 08:53 Pantoprazole 40 Mg Tablet PO Not Given On Hold: 06/09/25 09:00 Q12HR FRITZ Promethazine HCl 12.5 mg 06/08/25 12:26 Promethazine Hcl 25 Mg/Ml Ampul IV PUSH Q6H PRN Nausea Radiology Results: ITS Impressions Chest X-Ray 06/08/25 11:11 IMPRESSION: 1. Large left lower lobe pneumonia. Head CT 06/08/25 20:16 IMPRESSION: 1. No acute intracranial abnormality. Labs Labs: Laboratory Results - last 24 hr 06/08/25 06/08/25 06/09/25 13:20 14:16 03:51 WBC 8.8 RBC 2.58 L Hgb 6.7 L* Hct 24.2 L MCV 93.8 MCH 26.0 MCHC 27.7 L RDW 23.2 H Plt Count 276 MPV 11.9 H Immature Gran % (Auto) 0.8 H Neut % (Auto) 81.2 H Lymph % (Auto) 9.5 L [place] % (Auto) 7.0 Eos % (Auto) 0.7 Baso % (Auto) 0.8 Lymph # (Auto) 0.83 L [place] # (Auto) 0.6 Eos # (Auto) 0.1 Baso # (Auto) 0.1 Abs Immat Gran (auto) 0.07 H Absolute Neuts (auto) 7.1 H Absolute Nucleated RBC 0.150 H Band Neutrophils % Not Reportable Nucleated RBC % 1.7 H Platelet Estimate Adequate Hypochromasia 1+ Anisocytosis 1+ Macrocytosis 1+ Tear Drop Cells 1+ Ovalocytes 2+ Emma Cells 1+ Schistocytes None seen Sodium 132 L Potassium 5.0 Chloride 104 Carbon Dioxide 23 Anion Gap 5 BUN 37 H Creatinine 1.47 H Estim Creat Clear Calc 48 Estimated GFR 37 L Glucose 97 Calcium 8.0 L Total Bilirubin 1.2 AST 36 ALT 15 Alkaline Phosphatase 82 Total Protein 5.8 L Albumin 3.1 L Urine Color Dark yellow Urine Appearance Clear Urine pH 5.5 Ur Specific [place] 1.016 Urine Protein Negative Urine Glucose (UA) Negative Urine Ketones Trace H Ur Blood (Man) Negative Urine Nitrate Negative Urine Bilirubin Negative Urine Urobilinogen 1.0 Add Ur Microanalysis Reviewed Leukocyte Esterase Rfl Trace H Urine RBC 0-2 Urine WBC 0-5 Ur Squamous Epith Cells Occasional Calcium Oxalate Crystal Present Urine Bacteria None seen Urine Casts 6-10 Hyaline Casts Present Nasal MRSA (PCR) Not detected Blood Type Antibody Screen Crossmatch 06/09/25 06:38 WBC RBC Hgb Hct MCV MCH MCHC RDW Plt Count MPV Immature Gran % (Auto) Neut % (Auto) Lymph % (Auto) [place] % (Auto) Eos % (Auto) Baso % (Auto) Lymph # (Auto) [place] # (Auto) Eos # (Auto) Baso # (Auto) Abs Immat Gran (auto) Absolute Neuts (auto) Absolute Nucleated RBC Band Neutrophils % Nucleated RBC % Platelet Estimate Hypochromasia Anisocytosis Macrocytosis Tear Drop Cells Ovalocytes Emma Cells Schistocytes Sodium Potassium Chloride Carbon Dioxide Anion Gap BUN Creatinine Estim Creat Clear Calc Estimated GFR Glucose Calcium Total Bilirubin AST ALT Alkaline Phosphatase Total Protein Albumin Urine Color Urine Appearance Urine pH Ur Specific [place] Urine Protein Urine Glucose (UA) Urine Ketones Ur Blood (Man) Urine Nitrate Urine Bilirubin Urine Urobilinogen Add Ur Microanalysis Leukocyte Esterase Rfl Urine RBC Urine WBC Ur Squamous Epith Cells Calcium Oxalate Crystal Urine Bacteria Urine Casts Hyaline Casts Nasal MRSA (PCR) Blood Type A Positive Antibody Screen Negative Crossmatch See Detail Quality VTE Prophylaxis VTE prophylaxis: mechanical ordered
[2025-06-09] MEDS: ACETAMINOPHEN 325 MG TABLET 650 MG PO (21:31)
[2025-06-10] VITALS (17 sets, daily range): BP systolic 114–135; BP diastolic 62–80; PULSE 71–93; RESP 14–18; TEMP 36.4–37.2; O2SAT 93–100
[2025-06-10] MEDS: GABAPENTIN 400 MG CAPSULE 800 MG PO ×4 (00:48→17:53)
[2025-06-10 05:46] LABS: Hematocrit 29.8 % (37.0-47.0); Hemoglobin 8.5 g/dL (12.0-15.0); Immature Granulocyte Percent A 1.1 % (0-0.5); Lymphocytes Absolute Auto 0.84 K/mm3 (0.9-3.2); Mean Corpuscular HGB Conc 28.5 g/dl (32-36); Mean Corpuscular Hemoglobin 26.0 pg (26-34); Mean Corpuscular Volume 91.1 fl (80-100); Nucleated Red Blood Cells Absolute Auto 0.110 K/mm3 (0.0-0.012); Nucleated Red Blood Cells Perc 2.0 % (0.0-0.2); Platelet Count Result 300 k/mm3 (150-375); Red Blood Count 3.27 M/mm3 (4.2-5.4); White Blood Count 5.5 K/mm3 (4.5-10.0)
[2025-06-10 06:00] LABS: INR 1.2; Prothrombin Time 15.0 Seconds (11.1-14.7)
[2025-06-10 06:01] LABS: Partial Thromboplastin Time 41.8 Seconds (22.3-36.8)
[2025-06-10 06:04] LABS: Alanine Aminotransferase 19 U/L (6-35); Albumin Level 3.8 g/dL (3.5-5.1); Alkaline Phosphatase 102 U/L (38-126); Anion Gap 6 mmol/L (4-12); Aspartate Amino Transferase 38 U/L (14-36); Bilirubin,Total 0.9 mg/dL (0.2-1.3); Blood Urea Nitrogen 31 mg/dL (7-17); Calcium 8.8 mg/dL (8.4-10.2); Carbon Dioxide 24 mmol/L (22-30); Chloride 104 mmol/L (98-107); Estimated CRCL calculation 68 ml/min; Estimated Glomerular Filt Rate 56; Glucose 97 mg/dL (65-110); Potassium 5.0 mmol/L (3.4-5.0); Sodium 134 mmol/L (137-145); Total Protein 6.8 g/dL (6.3-8.2)
[2025-06-10 06:19] LABS: Anisocytosis 1+; Hypochromasia 2+; Schistocytes None Seen; Tear Drop Cells 1+
[2025-06-10] MEDS: NICOTINE (*PBKC) 14 MG PATCH 1 PATCH TRANSDERM (08:28)
[2025-06-10] MEDS: DULoxetine HCL 60 MG CAPSULE.DR 120 MG PO (08:29)
[2025-06-10] MEDS: MULTIVITAMINS THERAPEUTIC TAB (*BKC) 1 TABLET PO (08:29)
[2025-06-10] MEDS: MIDODRINE HCL 2.5 MG TABLET 5 MG PO ×3 (08:29→17:54)
[2025-06-10] MEDS: PANTOPRAZOLE SODIUM IV 40 MG VIAL IV PUSH (08:30)
[2025-06-10] MEDS: guaiFENesin 12 HR 600 MG TABCR PO ×2 (08:30→20:27)
--- NOTE | 2025-06-10 12:36 | PM.IMPN ---
Progress Note: A&P Assessment and Plan (1) Sepsis: Qualifiers: Sepsis type: sepsis due to unspecified organism Sepsis acute organ dysfunction status: with acute organ dysfunction Severe sepsis acute organ dysfunction type: acute respiratory failure Acute respiratory failure type: with hypoxia Severe sepsis shock status: without septic shock Qualified Code(s): A41.9 - Sepsis, unspecified organism; R65.20 - Severe sepsis without septic shock; J96.01 - Acute respiratory failure with hypoxia Code(s): A41.9 - Sepsis, unspecified organism Status: Acute (2) Hypotension: Qualifiers: Hypotension type: unspecified hypotension type Qualified Code(s): I95.9 - Hypotension, unspecified Code(s): I95.9 - Hypotension, unspecified Status: Acute (3) Acute respiratory failure: Code(s): J96.00 - Acute respiratory failure, unspecified whether with hypoxia or hypercapnia Status: Acute (4) Pneumonia: Qualifiers: Pneumonia type: due to unspecified organism Laterality: left Lung location: lower lobe of lung Qualified Code(s): J18.9 - Pneumonia, unspecified organism Code(s): J18.9 - Pneumonia, unspecified organism Status: Acute (5) Cirrhosis: Qualifiers: Ascites presence: with ascites Hepatic cirrhosis type: alcoholic cirrhosis Qualified Code(s): K70.31 - Alcoholic cirrhosis of liver with ascites Code(s): K74.60 - Unspecified cirrhosis of liver Status: Chronic (6) Anemia: Qualifiers: Anemia type: iron deficiency Iron deficiency anemia type: other iron deficiency Qualified Code(s): D50.8 - Other iron deficiency anemias Code(s): D64.9 - Anemia, unspecified Status: Chronic (7) Esophageal varices: Qualifiers: Esophageal varices bleeding: without bleeding Esophageal varices type: secondary Qualified Code(s): I85.10 - Secondary esophageal varices without bleeding Code(s): I85.00 - Esophageal varices without bleeding Status: Acute (8) DAVID (acute kidney injury): Code(s): N17.9 - Acute kidney failure, unspecified Status: Acute (9) Hyponatremia: Code(s): E87.1 - Hypo-osmolality and hyponatremia Status: Acute (10) Alcohol abuse: Code(s): F10.10 - Alcohol abuse, uncomplicated Status: Acute (11) Substance abuse: Code(s): F19.10 - Other psychoactive substance abuse, uncomplicated Status: Chronic Plan 1.Acute respiratory failure + sepsis with HoTN: Chest x-ray with large left lower lobe pneumonia Midodrine added - Blood pressure more stable BCx NGTD Weaned to room air now Off IV fluids now. Urine strep, Legionella antigen pending Continue with azithromycin, ceftriaxone 2. PNA As above. 3. Liver cirrhosis: GI consulted Abdomen ultrasound yesterday showing small ascites. Paracentesis ordered by GI. Coreg on hold 4. Acute on chronic anemia: Hgb dropped to 6.7 status post 1 unit of PRBC yesterday GI has been consulted History of esophageal varices with last EGD 05/08/2025 with very small barely visible varices noted in the distal esophagus and 3 columns that were not actively bleeding. PPI on hold at this time. Hgb better at 8.5. Follow and transfuse to a stable Hgb. 4. DAVID: Avoid nephrotoxins Holding Lasix and IV fluids Noted mild hyperkalemia, will monitor closely Creatinine improved 1.0 today. Follow 5. Hyponatremia Mild hyponatremia with sodium 132-134 range. Related to cirrhosis. Follow 6. Alcohol and substance abuse Patient has been sober for almost 2 months now. She was congratulated on her sobriety. Code status: Full DVT prophylaxis: SCDs Subjective Date/time seen: 06/10/25 12:36 Interval history: 49 y/o F with PMH of methamphetamine use, anemia, hyponatremia, alcohol abuse, PTSD, esophageal varices s/p banding, depression, and cirrhosis presents here with generalized weakness, fall, and hypotension. Assuming care. Chart reviewed. No shortness of breath or chest pain. Slight nonproductive cough. No nausea or vomiting. No symptoms of shaking or withdrawal. She has been ?clean? for the past 50 days. Exam Narrative: AF 97.6 126/70 78 18 98% ra Gen - NARD Chest -left basilar crackles otherwise clear. CV - RRR S1/S2. Telemetry showing no significant dysrhythmias Abd - Soft, nontender. Spleen tip appreciated. Ext - No pedal edema Neuro - Alert and appropriate Psych - Nml mood and affect Skin - Warm and dry Objective Data Vital Signs Vital Signs: Vital Signs - 24 hr 06/09/25 12:38 06/09/25 14:00 06/09/25 16:00 Temperature 98.1 F 98.0 F Pulse Rate 75 85 83 Respiratory Rate 16 20 Blood Pressure 117/70 111/70 Pulse Oximetry 100 98 Oxygen Delivery 06/09/25 16:00 06/09/25 16:00 06/09/25 18:00 Temperature Pulse Rate 83 75 Respiratory Rate Blood Pressure Pulse Oximetry 100 Oxygen Delivery Room Air 06/09/25 19:53 06/09/25 19:56 06/09/25 19:57 Temperature 97.7 F 97.7 F 97.7 F Pulse Rate 81 81 80 Respiratory Rate 18 18 18 Blood Pressure 115/70 115/70 108/65 Pulse Oximetry 98 98 97 Oxygen Delivery 06/09/25 19:59 06/09/25 20:00 06/09/25 20:00 Temperature Pulse Rate 88 84 Respiratory Rate 18 Blood Pressure 113/65 Pulse Oximetry 95 98 Oxygen Delivery Room Air 06/09/25 22:00 06/09/25 23:38 06/10/25 00:00 Temperature 97.8 F Pulse Rate 80 74 Respiratory Rate 16 Blood Pressure 99/62 L Pulse Oximetry 99 99 Oxygen Delivery Room Air 06/10/25 00:00 06/10/25 02:00 06/10/25 03:44 Temperature 98.9 F Pulse Rate 71 81 74 Respiratory Rate 16 Blood Pressure 114/76 Pulse Oximetry 93 Oxygen Delivery 06/10/25 04:00 06/10/25 04:00 06/10/25 06:00 Temperature Pulse Rate 78 74 Respiratory Rate Blood Pressure Pulse Oximetry 93 Oxygen Delivery Room Air 06/10/25 08:00 06/10/25 08:00 06/10/25 08:46 Temperature 98.2 F Pulse Rate 78 72 Respiratory Rate 18 16 Blood Pressure 116/69 114/62 Pulse Oximetry 94 97 Oxygen Delivery Room Air 06/10/25 08:46 06/10/25 09:37 06/10/25 09:37 Temperature Pulse Rate 78 79 83 Respiratory Rate 16 18 Blood Pressure 119/69 126/70 Pulse Oximetry 100 100 Oxygen Delivery 06/10/25 12:00 Temperature 97.6 F Pulse Rate 78 Respiratory Rate 18 Blood Pressure 126/70 Pulse Oximetry 98 Oxygen Delivery Intake/Output Intake/Output: Intake & Output 06/07/25 06/08/25 06/09/25 06/10/25 23:59 23:59 23:59 23:59 Intake Total 4747 2850 1000 Output Total 500 1200 Balance 4770 2350 -200 Meds/Results Medications: Active Medications Generic Name Dose Route Start Last Admin Trade Name Freq PRN Reason Stop Dose Admin Acetaminophen 650 mg 06/08/25 12:26 06/09/25 21:31 Acetaminophen 325 Mg Tablet PO 650 mg Q4H PRN Administration Mild Pain (1-3) or Fever Albuterol/Ipratropium 3 ml 06/08/25 12:45 Ipratropium 0.5 Mg/Albuterol Sulfate 2.5 Mg Ampul.Neb 3 Ml INHALATION Q6HRT PRN Shortness Of Breath Or Wheezing Carvedilol 6.25 mg 06/08/25 21:00 06/08/25 22:16 Carvedilol 6.25 Mg Tablet PO 6.25 mg On Hold: 06/09/25 00:37 Q12HR FRITZ Administration Duloxetine HCl 120 mg 06/09/25 09:00 06/10/25 08:29 Duloxetine Hcl 60 Mg Capsule.Dr PO 120 mg DAILY FRITZ Administration Gabapentin 800 mg 06/09/25 00:00 06/10/25 06:14 Gabapentin 400 Mg Capsule PO 800 mg Q6HR FRITZ Administration Guaifenesin 600 mg 06/08/25 14:00 06/10/25 08:30 Guaifenesin 12 Hr 600 Mg Tabcr PO 600 mg Q12HR FRITZ Administration Hydroxyzine HCl 50 mg 06/08/25 20:45 06/09/25 21:37 Hydroxyzine Hcl 25 Mg Tablet PO 50 mg Q4H PRN Administration Anxiety Ceftriaxone Sodium 1 gm/ 50 mls @ 100 mls/hr 06/09/25 12:00 06/09/25 13:06 Sodium Chloride IVPB Infused Q24H FRITZ Infusion Azithromycin 500 mg/ Sodium 250 mls @ 250 mls/hr 06/09/25 13:00 06/09/25 14:00 Chloride IVPB 06/12/25 13:59 Infused Q24H FRITZ Infusion Sodium Chloride 1,000 mls @ 125 mls/hr 06/08/25 12:30 06/09/25 08:50 Normal Saline Iv IV CONT Infused On Hold: 06/09/25 09:02 .Q8H FRITZ Infusion Midodrine 5 mg 06/09/25 09:05 06/10/25 08:29 Midodrine Hcl 2.5 Mg Tablet PO 5 mg TID FRITZ Administration Miscellaneous Information 0 each 06/08/25 00:01 Prempro Nonformulary. Patient Cannot Bring From Home. Okay To Hold Till Discharge? XX 07/08/25 00:00 CLARIFY FRITZ Multivitamins Therapeutic 1 tablet 06/09/25 09:00 06/10/25 08:29 Multivitamins Therapeutic Tab (*Bkc) PO 1 tablet DAILY FRITZ Administration Nicotine 1 patch 06/09/25 13:00 06/10/25 08:28 Nicotine (*Pbkc) 14 Mg Patch TRANSDERM 1 patch DAILY FRITZ Administration Non-Formulary Medication 1 tablet 06/09/25 09:00 Conj Estrog-Medroxyprogest Oscar [Prempro] PO 07/09/25 08:59 DAILY FRITZ Pantoprazole Sodium 40 mg 06/08/25 13:55 06/10/25 08:30 Pantoprazole Sodium Iv 40 Mg Vial IV PUSH 40 mg DAILY FRITZ Administration Pantoprazole Sodium 40 mg 06/08/25 21:00 06/09/25 08:53 Pantoprazole 40 Mg Tablet PO Not Given On Hold: 06/09/25 09:00 Q12HR FRITZ Promethazine HCl 12.5 mg 06/08/25 12:26 Promethazine Hcl 25 Mg/Ml Ampul IV PUSH Q6H PRN Nausea Trazodone HCl 100 mg 06/09/25 20:28 06/09/25 21:32 Trazodone Hcl 50 Mg Tablet PO 100 mg HS PRN Administration Insomnia Radiology Results: ITS Impressions Chest X-Ray 06/08/25 11:11 IMPRESSION: 1. Large left lower lobe pneumonia. Head CT 06/08/25 20:16 IMPRESSION: 1. No acute intracranial abnormality. Abdomen Ultrasound 06/09/25 14:06 IMPRESSION: 1. No acute findings. 2. Cirrhosis. Labs Labs: Laboratory Results - last 24 hr 06/09/25 06/10/25 06:38 05:37 WBC 5.5 RBC 3.27 L Hgb 8.5 L Hct 29.8 L MCV 91.1 MCH 26.0 MCHC 28.5 L RDW 22.7 H Plt Count 300 MPV 11.5 H Immature Gran % (Auto) 1.1 H Neut % (Auto) 73.9 H Lymph % (Auto) 15.2 L [place] % (Auto) 5.3 Eos % (Auto) 2.5 Baso % (Auto) 2.0 H Lymph # (Auto) 0.84 L [place] # (Auto) 0.3 Eos # (Auto) 0.1 Baso # (Auto) 0.1 Abs Immat Gran (auto) 0.06 H Absolute Neuts (auto) 4.1 Absolute Nucleated RBC 0.110 H Band Neutrophils % Not Reportable Nucleated RBC % 2.0 H Platelet Estimate Adequate Large Platelets Present Hypochromasia 2+ Anisocytosis 1+ Tear Drop Cells 1+ Schistocytes None seen PT 15.0 H INR 1.2 APTT 41.8 H Sodium 134 L Potassium 5.0 Chloride 104 Carbon Dioxide 24 Anion Gap 6 BUN 31 H Creatinine 1.03 H Estim Creat Clear Calc 68 Estimated GFR 56 L Glucose 97 Calcium 8.8 Total Bilirubin 0.9 AST 38 H ALT 19 Alkaline Phosphatase 102 Total Protein 6.8 Albumin 3.8 Crossmatch See Detail
[2025-06-10] MEDS: cefTRIAXone 1 GM in SODIUM CHLORIDE 0.9% IV 50 ML 100 ML IVPB (12:40)
[2025-06-10] MEDS: AZITHROMYCIN IV 500 MG in SODIUM CHLORIDE 0.9% IV 250 ML IVPB (12:46)
--- NOTE | 2025-06-10 14:24 | CY_PTH ---
PATIENT: Lena High LOC: [id number] U#:[id number] AGE/SX: 49/F ROOM: 321 RE06/09/[address]: Kevin Osman MD : [id number] BED: 01 DIS: 06/12/2025 SPEC #: [id number] RECD: 06/11/25 06:49 STATUS: ERIN RELink #: [id number] LELIA: 06/10/25 14:[address]: Shelby Porter DEPT: [facility] Cytology RECD BY: Chula Milan ENTERED: 06/11/25 06:50 SP TYPE: Cytology OTHR DR: MD Mitch Lind MD Nicholas J. Sutton, [employer]IN[employer] Tissues: A - Ascites Fluid Procedures: Hematoxylin and Eosin Stain Cell Block [id number] Calretinin Cytopathology Cytospin
[2025-06-10 15:48] LABS: Appearance Peritoneal Fluid Hazy (Clear); Color Peritoneal Fluid Yellow (Colorless); Nucleated Cells Peritoneal Flu 675 /uL (0-500); Source Peritoneal Fluid Peritoneal Fluid
[2025-06-10 15:49] LABS: Lymphocytes Peritoneal Fluid 23 %; Macrophages Peritoneal Fluid 42 %; Mesothelial Cells Peritoneal Fluid 3 %; Neutrophils Peritoneal Fluid 32 % (0-25)
--- NOTE | 2025-06-10 17:55 | P.PNGI_ITS ---
Progress Note: A&P Assessment and Plan (1) Cirrhosis: Code(s): K74.60 - Unspecified cirrhosis of liver Status: Acute Assessment and Plan: decompensated with previous EV s/p banding and ascites (2) Sepsis: Qualifiers: Sepsis type: sepsis due to unspecified organism Sepsis acute organ dysfunction status: with acute organ dysfunction Severe sepsis acute organ dysfunction type: acute respiratory failure Acute respiratory failure type: with hypoxia Severe sepsis shock status: without septic shock Qualified Code(s): A41.9 - Sepsis, unspecified organism; R65.20 - Severe sepsis without septic shock; J96.01 - Acute respiratory failure with hypoxia Code(s): A41.9 - Sepsis, unspecified organism Status: Acute Assessment and Plan: had pneumonia ascites showed PMN count of 215 but already was on abx for pneumonia- technically above 250 but will consider as possible SBP and will give today IV albumin to prevent renal dysfunction BP is better also holding diuretics for now, creatinine has improved (3) Pneumonia: Qualifiers: Pneumonia type: due to unspecified organism Laterality: left Lung location: lower lobe of lung Qualified Code(s): J18.9 - Pneumonia, unspecified organism Code(s): J18.9 - Pneumonia, unspecified organism Status: Acute Assessment and Plan: on abx (4) SBP (spontaneous bacterial peritonitis): Code(s): K65.2 - Spontaneous bacterial peritonitis Status: Acute Assessment and Plan: possible SBP abx and iv albumin today (5) Hypotension: Qualifiers: Hypotension type: unspecified hypotension type Qualified Code(s): I95.9 - Hypotension, unspecified Code(s): I95.9 - Hypotension, unspecified Status: Acute Assessment and Plan: better on midodrine (6) Substance abuse: Code(s): F19.10 - Other psychoactive substance abuse, uncomplicated Status: Acute (7) Acute renal failure: Qualifiers: Acute renal failure type: unspecified Qualified Code(s): N17.9 - Acute kidney failure, unspecified Code(s): N17.9 - Acute kidney failure, unspecified Status: Acute Assessment and Plan: improved (8) Chronic anemia: Code(s): D64.9 - Anemia, unspecified Status: Acute Assessment and Plan: at some point will need colonoscopy, she told me that is moving out soon to be with her family and ideally would like to have colonoscopy here if possible will reassess Subjective Date/time seen: 06/10/25 17:55 Interval history: less lightheaded, had 700ml ascites removed. Review of Systems Review of Systems: All systems reviewed & are unremarkable except as noted in HPI and below Exam Const: General: comfortable and no acute distress Other: chronically ill appearing HENMT: Face/Nose/Sinus: Normal nares present Eyes: General: appearance normal, both eyes and all related structures Neck: Neck: supple Resp: Auscultation: clear to auscultation bilaterally Cardio: Rate: regular rate Rhythm: regular rhythm GI: Inspection: non-distended GI Palp: Yes Soft to palpation and No T enderness to palpation present (GI) Other: minimal fluid wave Skin: General skin exam: normal color Neuro: Speech: normal speech Motor exam (neuro): 5/5 motor strength present throughout Extrem: General: normal to inspection Psych: Mental Status: mental status grossly normal Objective Data Vital Signs Vital Signs: Vital Signs - 24 hr 06/09/25 18:00 06/09/25 19:53 06/09/25 19:56 Temperature 97.7 F 97.7 F Pulse Rate 75 81 81 Respiratory Rate 18 18 Blood Pressure 115/70 115/70 Pulse Oximetry 98 98 Oxygen Delivery 06/09/25 19:57 06/09/25 19:59 06/09/25 20:00 Temperature 97.7 F Pulse Rate 80 88 Respiratory Rate 18 18 Blood Pressure 108/65 113/65 Pulse Oximetry 97 95 98 Oxygen Delivery Room Air 06/09/25 20:00 06/09/25 22:00 06/09/25 23:38 Temperature 97.8 F Pulse Rate 84 80 74 Respiratory Rate 16 Blood Pressure 99/62 L Pulse Oximetry 99 Oxygen Delivery 06/10/25 00:00 06/10/25 00:00 06/10/25 02:00 Temperature Pulse Rate 71 81 Respiratory Rate Blood Pressure Pulse Oximetry 99 Oxygen Delivery Room Air 06/10/25 03:44 06/10/25 04:00 06/10/25 04:00 Temperature 98.9 F Pulse Rate 74 78 Respiratory Rate 16 Blood Pressure 114/76 Pulse Oximetry 93 93 Oxygen Delivery Room Air 06/10/25 06:00 06/10/25 08:00 06/10/25 08:00 Temperature 98.2 F Pulse Rate 74 78 72 Respiratory Rate 18 16 Blood Pressure 116/69 114/62 Pulse Oximetry 94 97 Oxygen Delivery 06/10/25 08:46 06/10/25 08:46 06/10/25 09:37 Temperature Pulse Rate 78 79 Respiratory Rate 16 Blood Pressure 119/69 Pulse Oximetry 100 Oxygen Delivery Room Air 06/10/25 09:37 06/10/25 10:00 06/10/25 12:00 Temperature 97.6 F Pulse Rate 83 75 78 Respiratory Rate 18 18 Blood Pressure 126/70 126/70 Pulse Oximetry 100 98 Oxygen Delivery 06/10/25 12:00 06/10/25 12:00 06/10/25 15:59 Temperature 97.5 F L Pulse Rate 76 93 Respiratory Rate 18 Blood Pressure 135/80 Pulse Oximetry 98 97 Oxygen Delivery Room Air Intake/Output Intake/Output: Intake & Output 06/07/25 06/08/25 06/09/25 06/10/25 23:59 23:59 23:59 23:59 Intake Total 4770 2910 2200 Output Total 500 1900 Balance 4770 2410 300 Meds/Results Medications: Active Medications Generic Name Dose Route Start Last Admin Trade Name Freq PRN Reason Stop Dose Admin Acetaminophen 650 mg 06/08/25 12:26 06/09/25 21:31 Acetaminophen 325 Mg Tablet PO 650 mg Q4H PRN Administration Mild Pain (1-3) or Fever Albuterol/Ipratropium 3 ml 06/08/25 12:45 Ipratropium 0.5 Mg/Albuterol Sulfate 2.5 Mg Ampul.Neb 3 Ml INHALATION Q6HRT PRN Shortness Of Breath Or Wheezing Carvedilol 6.25 mg 06/08/25 21:00 06/08/25 22:16 Carvedilol 6.25 Mg Tablet PO 6.25 mg On Hold: 06/09/25 00:37 Q12HR FRITZ Administration Duloxetine HCl 120 mg 06/09/25 09:00 06/10/25 08:29 Duloxetine Hcl 60 Mg Capsule.Dr PO 120 mg DAILY FRITZ Administration Gabapentin 800 mg 06/09/25 00:00 06/10/25 17:53 Gabapentin 400 Mg Capsule PO 800 mg Q6HR FRITZ Administration Guaifenesin 600 mg 06/08/25 14:00 06/10/25 08:30 Guaifenesin 12 Hr 600 Mg Tabcr PO 600 mg Q12HR FRITZ Administration Hydroxyzine HCl 50 mg 06/08/25 20:45 06/09/25 21:37 Hydroxyzine Hcl 25 Mg Tablet PO 50 mg Q4H PRN Administration Anxiety Ceftriaxone Sodium 1 gm/ 50 mls @ 100 mls/hr 06/09/25 12:00 06/10/25 13:30 Sodium Chloride IVPB Infused Q24H FRITZ Infusion Azithromycin 500 mg/ Sodium 250 mls @ 250 mls/hr 06/09/25 13:00 06/10/25 14:00 Chloride IVPB 06/12/25 13:59 Infused Q24H FRITZ Infusion Sodium Chloride 1,000 mls @ 125 mls/hr 06/08/25 12:30 06/09/25 08:50 Normal Saline Iv IV CONT Infused On Hold: 06/09/25 09:02 .Q8H FRITZ Infusion Midodrine 5 mg 06/09/25 09:05 06/10/25 17:54 Midodrine Hcl 2.5 Mg Tablet PO 5 mg TID FRITZ Administration Miscellaneous Information 0 each 06/08/25 00:01 Prempro Nonformulary. Patient Cannot Bring From Home. Okay To Hold Till Discharge? XX 07/08/25 00:00 CLARIFY FRITZ Multivitamins Therapeutic 1 tablet 06/09/25 09:00 06/10/25 08:29 Multivitamins Therapeutic Tab (*Bkc) PO 1 tablet DAILY FRITZ Administration Nicotine 1 patch 06/09/25 13:00 06/10/25 08:28 Nicotine (*Pbkc) 14 Mg Patch TRANSDERM 1 patch DAILY FRITZ Administration Non-Formulary Medication 1 tablet 06/09/25 09:00 Conj Estrog-Medroxyprogest Oscar [Prempro] PO 07/09/25 08:59 DAILY FRITZ Pantoprazole Sodium 40 mg 06/08/25 13:55 06/10/25 08:30 Pantoprazole Sodium Iv 40 Mg Vial IV PUSH 40 mg DAILY FRITZ Administration Pantoprazole Sodium 40 mg 06/08/25 21:00 06/09/25 08:53 Pantoprazole 40 Mg Tablet PO Not Given On Hold: 06/09/25 09:00 Q12HR FRITZ Promethazine HCl 12.5 mg 06/08/25 12:26 Promethazine Hcl 25 Mg/Ml Ampul IV PUSH Q6H PRN Nausea Trazodone HCl 100 mg 06/09/25 20:28 06/09/25 21:32 Trazodone Hcl 50 Mg Tablet PO 100 mg HS PRN Administration Insomnia Radiology Results: ITS Impressions Chest X-Ray 06/08/25 11:11 IMPRESSION: 1. Large left lower lobe pneumonia. Head CT 06/08/25 20:16 IMPRESSION: 1. No acute intracranial abnormality. Abdomen Ultrasound 06/09/25 14:06 IMPRESSION: 1. No acute findings. 2. Cirrhosis. Paracentesis Ultrasound 06/10/25 15:12 IMPRESSION: 1. Successful ultrasound-guided paracentesis yielding 700 mL of straw-colored fluid. Labs Labs: Laboratory Results - last 24 hr 06/10/25 06/10/25 05:37 14:24 WBC 5.5 RBC 3.27 L Hgb 8.5 L Hct 29.8 L MCV 91.1 MCH 26.0 MCHC 28.5 L RDW 22.7 H Plt Count 300 MPV 11.5 H Immature Gran % (Auto) 1.1 H Neut % (Auto) 73.9 H Lymph % (Auto) 15.2 L [place] % (Auto) 5.3 Eos % (Auto) 2.5 Baso % (Auto) 2.0 H Lymph # (Auto) 0.84 L [place] # (Auto) 0.3 Eos # (Auto) 0.1 Baso # (Auto) 0.1 Abs Immat Gran (auto) 0.06 H Absolute Neuts (auto) 4.1 Absolute Nucleated RBC 0.110 H Band Neutrophils % Not Reportable Nucleated RBC % 2.0 H Platelet Estimate Adequate Large Platelets Present Hypochromasia 2+ Anisocytosis 1+ Tear Drop Cells 1+ Schistocytes None seen PT 15.0 H INR 1.2 APTT 41.8 H Sodium 134 L Potassium 5.0 Chloride 104 Carbon Dioxide 24 Anion Gap 6 BUN 31 H Creatinine 1.03 H Estim Creat Clear Calc 68 Estimated GFR 56 L Glucose 97 Calcium 8.8 Total Bilirubin 0.9 AST 38 H ALT 19 Alkaline Phosphatase 102 Total Protein 6.8 Albumin 3.8 Peritoneal Source Peritoneal fluid Peritoneal Color Yellow Peritoneal Appearance Hazy A Peritoneal RBC < 2000 Periton Nuc Cells 675 H Periton Neutrophils 32 H Periton Lymphocytes 23 Periton Mesothelial 3 Periton Macrophages 42 Peritoneal Tot Protein Cancelled
[2025-06-10] MEDS: ALBUMIN HUMAN 25% 25 GM/100 ML 100 ML IVPB (18:10)
[2025-06-10] MEDS: ACETAMINOPHEN 325 MG TABLET 650 MG PO (20:27)
[2025-06-11] VITALS (7 sets, daily range): BP systolic 101–153; BP diastolic 51–95; PULSE 77–95; RESP 12–20; TEMP 36.7–37; O2SAT 91–100
[2025-06-11 03:47] LABS: Hematocrit 27.6 % (37.0-47.0); Hemoglobin 7.9 g/dL (12.0-15.0); Immature Granulocyte Percent A 1.5 % (0-0.5); Lymphocytes Absolute Auto 1.01 K/mm3 (0.9-3.2); Mean Corpuscular HGB Conc 28.6 g/dl (32-36); Mean Corpuscular Hemoglobin 26.0 pg (26-34); Mean Corpuscular Volume 90.8 fl (80-100); Nucleated Red Blood Cells Absolute Auto 0.200 K/mm3 (0.0-0.012); Nucleated Red Blood Cells Perc 4.4 % (0.0-0.2); Platelet Count Result 256 k/mm3 (150-375); Red Blood Count 3.04 M/mm3 (4.2-5.4); White Blood Count 4.6 K/mm3 (4.5-10.0)
[2025-06-11 04:00] LABS: Albumin Level 3.5 g/dL (3.5-5.1); Anion Gap 4 mmol/L (4-12); Blood Urea Nitrogen 21 mg/dL (7-17); Calcium 8.9 mg/dL (8.4-10.2); Carbon Dioxide 25 mmol/L (22-30); Chloride 106 mmol/L (98-107); Estimated CRCL calculation 79 ml/min; Estimated Glomerular Filt Rate > 60; Glucose 95 mg/dL (65-110); Magnesium 1.8 mg/dL (1.6-2.3); Potassium 5.1 mmol/L (3.4-5.0); Sodium 135 mmol/L (137-145)
[2025-06-11 04:08] LABS: Hypochromasia 2+; Tear Drop Cells 1+
[2025-06-11 04:09] LABS: Ovalocytes 1+; Schistocytes None Seen
[2025-06-11] MEDS: ALBUMIN HUMAN 25% 25 GM/100 ML 100 ML IVPB ×2 (05:00)
[2025-06-11] MEDS: ACETAMINOPHEN 325 MG TABLET 650 MG PO (05:15)
[2025-06-11] MEDS: GABAPENTIN 400 MG CAPSULE 800 MG PO ×4 (05:15→17:27)
[2025-06-11] MEDS: NICOTINE (*PBKC) 14 MG PATCH 1 PATCH TRANSDERM (09:22)
[2025-06-11] MEDS: MIDODRINE HCL 2.5 MG TABLET 5 MG PO ×3 (09:22→17:27)
[2025-06-11] MEDS: DULoxetine HCL 60 MG CAPSULE.DR 120 MG PO (09:22)
[2025-06-11] MEDS: guaiFENesin 12 HR 600 MG TABCR PO ×2 (09:23→20:38)
[2025-06-11] MEDS: PANTOPRAZOLE SODIUM IV 40 MG VIAL IV PUSH (09:23)
[2025-06-11] MEDS: AZITHROMYCIN 250 MG TABLET PO (09:23)
[2025-06-11] MEDS: MULTIVITAMINS THERAPEUTIC TAB (*BKC) 1 TABLET PO (09:23)
[2025-06-11 10:13] LABS: Thyroid Stimulating Hormone Reflex 1.500 uIU/mL (0.465-4.68)
[2025-06-11] MEDS: cefTRIAXone 1 GM in SODIUM CHLORIDE 0.9% IV 50 ML 100 ML IVPB (12:03)
[2025-06-11 12:19] LABS: Potassium 4.9 mmol/L (3.4-5.0)
--- NOTE | 2025-06-11 16:39 | PM.IMPN ---
Progress Note: A&P Assessment and Plan (1) Sepsis: Qualifiers: Acute respiratory failure type: with hypoxia Sepsis acute organ dysfunction status: with acute organ dysfunction Sepsis type: sepsis due to unspecified organism Severe sepsis acute organ dysfunction type: acute respiratory failure Severe sepsis shock status: without septic shock Qualified Code(s): A41.9 - Sepsis, unspecified organism; R65.20 - Severe sepsis without septic shock; J96.01 - Acute respiratory failure with hypoxia Code(s): A41.9 - Sepsis, unspecified organism Status: Acute (2) Hypotension: Qualifiers: Hypotension type: unspecified hypotension type Qualified Code(s): I95.9 - Hypotension, unspecified Code(s): I95.9 - Hypotension, unspecified Status: Acute (3) Acute respiratory failure: Code(s): J96.00 - Acute respiratory failure, unspecified whether with hypoxia or hypercapnia Status: Acute (4) Pneumonia: Qualifiers: Laterality: left Lung location: lower lobe of lung Pneumonia type: due to unspecified organism Qualified Code(s): J18.9 - Pneumonia, unspecified organism Code(s): J18.9 - Pneumonia, unspecified organism Status: Acute (5) Cirrhosis: Qualifiers: Ascites presence: with ascites Hepatic cirrhosis type: alcoholic cirrhosis Qualified Code(s): K70.31 - Alcoholic cirrhosis of liver with ascites Code(s): K74.60 - Unspecified cirrhosis of liver Status: Chronic (6) Anemia: Qualifiers: Anemia type: iron deficiency Iron deficiency anemia type: other iron deficiency Qualified Code(s): D50.8 - Other iron deficiency anemias Code(s): D64.9 - Anemia, unspecified Status: Chronic (7) Esophageal varices: Qualifiers: Esophageal varices bleeding: without bleeding Esophageal varices type: secondary Qualified Code(s): I85.10 - Secondary esophageal varices without bleeding Code(s): I85.00 - Esophageal varices without bleeding Status: Acute (8) DAVID (acute kidney injury): Code(s): N17.9 - Acute kidney failure, unspecified Status: Acute (9) Hyponatremia: Code(s): E87.1 - Hypo-osmolality and hyponatremia Status: Acute (10) Alcohol abuse: Code(s): F10.10 - Alcohol abuse, uncomplicated Status: Acute (11) Substance abuse: Code(s): F19.10 - Other psychoactive substance abuse, uncomplicated Status: Chronic Plan 1.Acute respiratory failure + sepsis with HoTN: Chest x-ray with large left lower lobe pneumonia Midodrine added - Blood pressure more stable BCx NGTD Weaned to room air. Blood pressure stable now. Off IV fluids now. Urine strep, Legionella antigen pending Continue with abx. Plan to de-escalate today. 2. PNA As above. 3. Liver cirrhosis: GI consulted. Ammonia 21. Abdomen ultrasound 06/09 showing small ascites. Paracentesis 06/10: 700mL straw colored fluid. Studies: hazy, RBC<2K. WBC 675 with 32% neutrophils (216). Peritoneal fluid protein 1.4 Possible SBP. Curently on abx. Cx pending. Coreg on hold. Will resume half dose. Rifaximin added. 4. Acute on chronic anemia: Hgb dropped to 6.7 status post 1 unit of PRBC 06/09 GI has been consulted History of esophageal varices with last EGD 05/08/2025 with very small barely visible varices noted in the distal esophagus and 3 columns that were not actively bleeding. PPI on hold at this time. Hgb better at 8.5 -> 7.9 Follow and transfuse to a stable Hgb. Colonoscopy planned for tomorrow 4. DAVID: Cr 1.47 on admission Lasix held Noted mild hyperkalemia; see below Avoid nephrotoxins Creatinine improved 0.88 today. Follow 5. Hyponatremia Mild hyponatremia with sodium 132-134 range. [place] related to cirrhosis Potassium 5.1. TSH normal but Cortisol low at 1.15 Repeat potassium better. Check cortisol stimulation test Follow 6. Alcohol and substance abuse Patient has been sober for almost 2 months now. She was congratulated on her sobriety. Code status: Full DVT prophylaxis: SCDs Subjective Date/time seen: 06/11/25 16:39 Interval history: 49yo female with hx of methamphetamine use, anemia, hyponatremia, alcohol abuse, PTSD, esophageal varices s/p banding, depression, and cirrhosis presents here with generalized weakness, fall, and hypotension. Patient slept okay. Slight tenderness in the left flank from the paracentesis but otherwise no abdominal pain. No nausea or vomiting. Exam Narrative: AF 98.6 121/68 77 16 97% ra Gen - NARD Chest - few bi-basilar crackles otherwise clear. CV - RRR S1/S2. Telemetry showing no significant dysrhythmias Abd - Soft, nontender. Spleen tip appreciated. left flank paracentesis location clean and dry without erythema or mass. Ext - No pedal edema Neuro - Alert and appropriate Psych - Nml mood and affect Skin - Warm and dry Objective Data Vital Signs Vital Signs: Vital Signs - 24 hr 06/10/25 18:00 06/10/25 20:00 06/10/25 20:33 Temperature 98.3 F Pulse Rate 79 86 Respiratory Rate 14 Blood Pressure 119/71 Pulse Oximetry 95 97 Oxygen Delivery Room Air 06/10/25 21:04 06/10/25 23:57 06/11/25 07:52 Temperature 98.2 F 98.5 F Pulse Rate 85 79 Respiratory Rate 14 12 Blood Pressure 121/64 101/51 L Pulse Oximetry 95 94 91 Oxygen Delivery Room Air 06/11/25 08:00 06/11/25 10:37 06/11/25 10:38 Temperature 98.6 F Pulse Rate 77 Respiratory Rate 16 Blood Pressure 120/70 125/74 121/68 Pulse Oximetry 97 Oxygen Delivery Intake/Output Intake/Output: Intake & Output 06/08/25 06/09/25 06/10/25 06/11/25 23:59 23:59 23:59 23:59 Intake Total 4770 2910 2300 1130 Output Total 500 1900 Balance 4770 2410 400 1130 Meds/Results Medications: Active Medications Generic Name Dose Route Start Last Admin Trade Name Freq PRN Reason Stop Dose Admin Acetaminophen 650 mg 06/08/25 12:26 06/11/25 05:15 Acetaminophen 325 Mg Tablet PO 650 mg Q4H PRN Administration Mild Pain (1-3) or Fever Albuterol/Ipratropium 3 ml 06/08/25 12:45 Ipratropium 0.5 Mg/Albuterol Sulfate 2.5 Mg Ampul.Neb 3 Ml INHALATION Q6HRT PRN Shortness Of Breath Or Wheezing Amoxicillin/Clavulanate Potassium 1 tablet 06/12/25 09:00 Amoxicillin/Clavulanate K 875-125 Mg Tab PO 06/14/25 21:01 Q12HR [facility] Azithromycin 250 mg 06/11/25 09:00 06/11/25 09:23 Azithromycin 250 Mg Tablet PO 06/12/25 09:01 250 mg DAILY FRITZ Administration Carvedilol 6.25 mg 06/08/25 21:00 06/08/25 22:16 Carvedilol 6.25 Mg Tablet PO 6.25 mg On Hold: 06/09/25 00:37 Q12HR FRITZ Administration Duloxetine HCl 120 mg 06/09/25 09:00 06/11/25 09:22 Duloxetine Hcl 60 Mg Capsule.Dr PO 120 mg DAILY FRITZ Administration Gabapentin 800 mg 06/09/25 00:00 06/11/25 12:03 Gabapentin 400 Mg Capsule PO 800 mg Q6HR FRITZ Administration Guaifenesin 600 mg 06/08/25 14:00 06/11/25 09:23 Guaifenesin 12 Hr 600 Mg Tabcr PO 600 mg Q12HR FRITZ Administration Hydroxyzine HCl 50 mg 06/08/25 20:45 06/10/25 20:28 Hydroxyzine Hcl 25 Mg Tablet PO 50 mg Q4H PRN Administration Anxiety Midodrine 5 mg 06/09/25 09:05 06/11/25 12:03 Midodrine Hcl 2.5 Mg Tablet PO 5 mg TID FRITZ Administration Multivitamins Therapeutic 1 tablet 06/09/25 09:00 06/11/25 09:23 Multivitamins Therapeutic Tab (*Bkc) PO 1 tablet DAILY FRITZ Administration Nicotine 1 patch 06/09/25 13:00 06/11/25 09:22 Nicotine (*Pbkc) 14 Mg Patch TRANSDERM 1 patch DAILY FRITZ Administration Pantoprazole Sodium 40 mg 06/08/25 13:55 06/11/25 09:23 Pantoprazole Sodium Iv 40 Mg Vial IV PUSH 40 mg DAILY FRITZ Administration Pantoprazole Sodium 40 mg 06/08/25 21:00 06/09/25 08:53 Pantoprazole 40 Mg Tablet PO Not Given On Hold: 06/09/25 09:00 Q12HR FRITZ Promethazine HCl 12.5 mg 06/08/25 12:26 Promethazine Hcl 25 Mg/Ml Ampul IV PUSH Q6H PRN Nausea Trazodone HCl 100 mg 06/09/25 20:28 06/10/25 20:29 Trazodone Hcl 50 Mg Tablet PO 100 mg HS PRN Administration Insomnia Radiology Results: ITS Impressions Chest X-Ray 06/08/25 11:11 IMPRESSION: 1. Large left lower lobe pneumonia. Head CT 06/08/25 20:16 IMPRESSION: 1. No acute intracranial abnormality. Abdomen Ultrasound 06/09/25 14:06 IMPRESSION: 1. No acute findings. 2. Cirrhosis. Paracentesis Ultrasound 06/10/25 15:12 IMPRESSION: 1. Successful ultrasound-guided paracentesis yielding 700 mL of straw-colored fluid. Labs Labs: Laboratory Results - last 24 hr 06/10/25 06/11/25 06/11/25 14:24 03:23 11:56 WBC 4.6 RBC 3.04 L Hgb 7.9 L Hct 27.6 L MCV 90.8 MCH 26.0 MCHC 28.6 L RDW 22.7 H Plt Count 256 MPV 10.9 H Immature Gran % (Auto) 1.5 H Neut % (Auto) 64.5 Lymph % (Auto) 22.0 [place] % (Auto) 7.4 Eos % (Auto) 2.6 Baso % (Auto) 2.0 H Lymph # (Auto) 1.01 [place] # (Auto) 0.3 Eos # (Auto) 0.1 Baso # (Auto) 0.1 Abs Immat Gran (auto) 0.07 H Absolute Neuts (auto) 3.0 Absolute Nucleated RBC 0.200 H Band Neutrophils % Not Reportable Nucleated RBC % 4.4 H Platelet Estimate Adequate Large Platelets Present Hypochromasia 2+ Tear Drop Cells 1+ Ovalocytes 1+ Schistocytes None seen Sodium 135 L Potassium 5.1 H 4.9 Chloride 106 Carbon Dioxide 25 Anion Gap 4 BUN 21 H D Creatinine 0.88 Estim Creat Clear Calc 79 Estimated GFR > 60 Glucose 95 Calcium 8.9 Phosphorus 3.9 Magnesium 1.8 Albumin 3.5 TSH (Reflex) 1.500 Random Cortisol 1.15 Fluid Total Protein 1.4
--- NOTE | 2025-06-11 17:40 | WPDGIPROGNO ---
Progress Note: A&P Assessment and Plan (1) Cirrhosis: Code(s): K74.60 - Unspecified cirrhosis of liver Status: Acute Assessment and Plan: decompensated with previous EV s/p banding and ascites (2) Sepsis: Qualifiers: Sepsis type: sepsis due to unspecified organism Sepsis acute organ dysfunction status: with acute organ dysfunction Severe sepsis acute organ dysfunction type: acute respiratory failure Acute respiratory failure type: with hypoxia Severe sepsis shock status: without septic shock Qualified Code(s): A41.9 - Sepsis, unspecified organism; R65.20 - Severe sepsis without septic shock; J96.01 - Acute respiratory failure with hypoxia Code(s): A41.9 - Sepsis, unspecified organism Status: Acute Assessment and Plan: had pneumonia ascites showed PMN count of 215 but already was on abx for pneumonia- technically above 250 but wonder if she had also SBP, treated with IV albumin to prevent renal dysfunction BP is better also holding diuretics for now, creatinine has improved (3) Pneumonia: Qualifiers: Pneumonia type: due to unspecified organism Laterality: left Lung location: lower lobe of lung Qualified Code(s): J18.9 - Pneumonia, unspecified organism Code(s): J18.9 - Pneumonia, unspecified organism Status: Acute Assessment and Plan: on abx (4) SBP (spontaneous bacterial peritonitis): Code(s): K65.2 - Spontaneous bacterial peritonitis Status: Acute Assessment and Plan: possible SBP abx, will give more iv albumin tomorrow (5) Hypotension: Qualifiers: Hypotension type: unspecified hypotension type Qualified Code(s): I95.9 - Hypotension, unspecified Code(s): I95.9 - Hypotension, unspecified Status: Acute Assessment and Plan: resolved on midodrine (6) Substance abuse: Code(s): F19.10 - Other psychoactive substance abuse, uncomplicated Status: Acute (7) Acute renal failure: Qualifiers: Acute renal failure type: unspecified Qualified Code(s): N17.9 - Acute kidney failure, unspecified Code(s): N17.9 - Acute kidney failure, unspecified Status: Acute Assessment and Plan: resolved (8) Chronic anemia: Code(s): D64.9 - Anemia, unspecified Status: Acute Assessment and Plan: at some point will need colonoscopy will reassess (9) Liver encephalopathy: Code(s): K76.82 - Hepatic encephalopathy Status: Acute Assessment and Plan: c/o fogginess sometimes will start xifaxn bid Subjective Date/time seen: 06/11/25 17:40 Interval history: overall better, no more lightheadedness she also told me that lately had fogginess and slow mentation sometimes Review of Systems Review of Systems: All systems reviewed & are unremarkable except as noted in HPI and below Exam Const: General: comfortable and no acute distress Other: chronically ill appearing HENMT: Face/Nose/Sinus: Normal nares present Eyes: General: appearance normal, both eyes and all related structures Neck: Neck: supple Resp: Auscultation: clear to auscultation bilaterally Cardio: Rate: regular rate Rhythm: regular rhythm GI: Inspection: non-distended GI Palp: Yes Soft to palpation and No Tenderness to palpation present (GI) Other: minimal fluid wave Skin: General skin exam: normal color Neuro: Speech: normal speech Motor exam (neuro): 5/5 motor strength present throughout Extrem: General: normal to inspection Psych: Mental Status: mental status grossly normal Objective Data Vital Signs Vital Signs: Vital Signs - 24 hr 06/10/25 18:00 06/10/25 20:00 06/10/25 20:33 Temperature 98.3 F Pulse Rate 79 86 Respiratory Rate 14 Blood Pressure 119/71 Pulse Oximetry 95 97 Oxygen Delivery Room Air 06/10/25 21:04 06/10/25 23:57 06/11/25 07:52 Temperature 98.2 F 98.5 F Pulse Rate 85 79 Respiratory Rate 14 12 Blood Pressure 121/64 101/51 L Pulse Oximetry 95 94 91 Oxygen Delivery Room Air 06/11/25 08:00 06/11/25 10:37 06/11/25 10:38 Temperature 98.6 F Pulse Rate 77 Respiratory Rate 16 Blood Pressure 120/70 125/74 121/68 Pulse Oximetry 97 Oxygen Delivery Intake/Output Intake/Output: Intake & Output 06/08/25 06/09/25 06/10/25 06/11/25 23:59 23:59 23:59 23:59 Intake Total 4770 2910 2300 1130 Output Total 500 1900 Balance 4770 2410 400 1130 Meds/Results Medications: Active Medications Generic Name Dose Route Start Last Admin Trade Name Freq PRN Reason Stop Dose Admin Acetaminophen 650 mg 06/08/25 12:26 06/11/25 05:15 Acetaminophen 325 Mg Tablet PO 650 mg Q4H PRN Administration Mild Pain (1-3) or Fever Albuterol/Ipratropium 3 ml 06/08/25 12:45 Ipratropium 0.5 Mg/Albuterol Sulfate 2.5 Mg Ampul.Neb 3 Ml INHALATION Q6HRT PRN Shortness Of Breath Or Wheezing Amoxicillin/Clavulanate Potassium 1 tablet 06/12/25 09:00 Amoxicillin/Clavulanate K 875-125 Mg Tab PO 06/14/25 21:01 Q12HR FRITZ Azithromycin 250 mg 06/11/25 09:00 06/11/25 09:23 Azithromycin 250 Mg Tablet PO 06/12/25 09:01 250 mg DAILY FRITZ Administration Carvedilol 6.25 mg 06/08/25 21:00 06/08/25 22:16 Carvedilol 6.25 Mg Tablet PO 6.25 mg On Hold: 06/09/25 00:37 Q12HR FRITZ Administration Duloxetine HCl 120 mg 06/09/25 09:00 06/11/25 09:22 Duloxetine Hcl 60 Mg Capsule.Dr PO 120 mg DAILY FRITZ Administration Gabapentin 800 mg 06/09/25 00:00 06/11/25 17:27 Gabapentin 400 Mg Capsule PO 800 mg Q6HR FRITZ Administration Guaifenesin 600 mg 06/08/25 14:00 06/11/25 09:23 Guaifenesin 12 Hr 600 Mg Tabcr PO 600 mg Q12HR FRITZ Administration Hydroxyzine HCl 50 mg 06/08/25 20:45 06/10/25 20:28 Hydroxyzine Hcl 25 Mg Tablet PO 50 mg Q4H PRN Administration Anxiety Midodrine 5 mg 06/09/25 09:05 06/11/25 17:27 Midodrine Hcl 2.5 Mg Tablet PO 5 mg TID FRITZ Administration Multivitamins Therapeutic 1 tablet 06/09/25 09:00 06/11/25 09:23 Multivitamins Therapeutic Tab (*Bkc) PO 1 tablet DAILY FRITZ Administration Nicotine 1 patch 06/09/25 13:00 06/11/25 09:22 Nicotine (*Pbkc) 14 Mg Patch TRANSDERM 1 patch DAILY FRITZ Administration Pantoprazole Sodium 40 mg 06/08/25 13:55 06/11/25 09:23 Pantoprazole Sodium Iv 40 Mg Vial IV PUSH 40 mg DAILY FRITZ Administration Pantoprazole Sodium 40 mg 06/08/25 21:00 06/09/25 08:53 Pantoprazole 40 Mg Tablet PO Not Given On Hold: 06/09/25 09:00 Q12HR FRITZ Promethazine HCl 12.5 mg 06/08/25 12:26 Promethazine Hcl 25 Mg/Ml Ampul IV PUSH Q6H PRN Nausea Trazodone HCl 100 mg 06/09/25 20:28 06/10/25 20:29 Trazodone Hcl 50 Mg Tablet PO 100 mg HS PRN Administration Insomnia Radiology Results: ITS Impressions Chest X-Ray 06/08/25 11:11 IMPRESSION: 1. Large left lower lobe pneumonia. Head CT 06/08/25 20:16 IMPRESSION: 1. No acute intracranial abnormality. Abdomen Ultrasound 06/09/25 14:06 IMPRESSION: 1. No acute findings. 2. Cirrhosis. Paracentesis Ultrasound 06/10/25 15:12 IMPRESSION: 1. Successful ultrasound-guided paracentesis yielding 700 mL of straw-colored fluid. Labs Labs: Laboratory Results - last 24 hr 06/10/25 06/11/25 06/11/25 14:24 03:23 11:56 WBC 4.6 RBC 3.04 L Hgb 7.9 L Hct 27.6 L MCV 90.8 MCH 26.0 MCHC 28.6 L RDW 22.7 H Plt Count 256 MPV 10.9 H Immature Gran % (Auto) 1.5 H Neut % (Auto) 64.5 Lymph % (Auto) 22.0 [place] % (Auto) 7.4 Eos % (Auto) 2.6 Baso % (Auto) 2.0 H Lymph # (Auto) 1.01 [place] # (Auto) 0.3 Eos # (Auto) 0.1 Baso # (Auto) 0.1 Abs Immat Gran (auto) 0.07 H Absolute Neuts (auto) 3.0 Absolute Nucleated RBC 0.200 H Band Neutrophils % Not Reportable Nucleated RBC % 4.4 H Platelet Estimate Adequate Large Platelets Present Hypochromasia 2+ Tear Drop Cells 1+ Ovalocytes 1+ Schistocytes None seen Sodium 135 L Potassium 5.1 H 4.9 Chloride 106 Carbon Dioxide 25 Anion Gap 4 BUN 21 H D Creatinine 0.88 Estim Creat Clear Calc 79 Estimated GFR > 60 Glucose 95 Calcium 8.9 Phosphorus 3.9 Magnesium 1.8 Albumin 3.5 TSH (Reflex) 1.500 Random Cortisol 1.15 Fluid Total Protein 1.4
[2025-06-11] MEDS: carvediloL 1.56 MG TABLET PO (20:37)
[2025-06-12] MEDS: GABAPENTIN 400 MG CAPSULE 800 MG PO ×4 (00:02→17:54)
[2025-06-12] MEDS: ACETAMINOPHEN 325 MG TABLET 650 MG PO (03:22)
[2025-06-12] MEDS: COSYNTROPIN 0.25 MG/ML VIAL IV PUSH (08:15)
[2025-06-12 08:28] LABS: Hematocrit 30.6 % (37.0-47.0); Hemoglobin 8.9 g/dL (12.0-15.0); Mean Corpuscular HGB Conc 29.1 g/dl (32-36); Mean Corpuscular Hemoglobin 26.2 pg (26-34); Mean Corpuscular Volume 90.0 fl (80-100); Platelet Count Result 262 k/mm3 (150-375); Red Blood Count 3.40 M/mm3 (4.2-5.4); White Blood Count 4.2 K/mm3 (4.5-10.0)
[2025-06-12 09:00] LABS: Anion Gap 5 mmol/L (4-12); Blood Urea Nitrogen 14 mg/dL (7-17); Calcium 9.1 mg/dL (8.4-10.2); Carbon Dioxide 28 mmol/L (22-30); Chloride 103 mmol/L (98-107); Estimated CRCL calculation 90 ml/min; Estimated Glomerular Filt Rate > 60; Glucose 132 mg/dL (65-110); Potassium 4.8 mmol/L (3.4-5.0); Sodium 136 mmol/L (137-145)
[2025-06-12] MEDS: AZITHROMYCIN 250 MG TABLET PO (09:49)
[2025-06-12 09:50] VITALS: PULSE 95
[2025-06-12] MEDS: carvediloL 1.56 MG TABLET PO (09:50)
[2025-06-12] MEDS: DULoxetine HCL 60 MG CAPSULE.DR 120 MG PO (09:50)
[2025-06-12] MEDS: guaiFENesin 12 HR 600 MG TABCR PO (09:52)
[2025-06-12] MEDS: MULTIVITAMINS THERAPEUTIC TAB (*BKC) 1 TABLET PO (09:53)
[2025-06-12] MEDS: NICOTINE (*PBKC) 14 MG PATCH 1 PATCH TRANSDERM (09:53)
[2025-06-12] MEDS: MIDODRINE HCL 2.5 MG TABLET PO ×2 (09:53→13:36)
[2025-06-12] MEDS: PANTOPRAZOLE 40 MG TABLET PO (10:00)
[2025-06-12 10:35] LABS: Cortisol 60 Minute 15.90 ug/dL
--- NOTE | 2025-06-12 14:03 | P.DS_ITS ---
DS: Admitting Diagnosis Discharge Date 06/12/25 Admitting Diagnosis Weakness DS: Discharge Diagnosis Discharge Diagnosis (1) Sepsis: Qualifiers: Acute respiratory failure type: with hypoxia Sepsis acute organ dysfunction status: with acute organ dysfunction Sepsis type: sepsis due to unspecified organism Severe sepsis acute organ dysfunction type: acute respiratory failure Severe sepsis shock status: without septic shock Qualified Code(s): A41.9 - Sepsis, unspecified organism; R65.20 - Severe sepsis without septic shock; J96.01 - Acute respiratory failure with hypoxia Code(s): A41.9 - Sepsis, unspecified organism Status: Acute (2) Hypotension: Qualifiers: Hypotension type: unspecified hypotension type Qualified Code(s): I95.9 - Hypotension, unspecified Code(s): I95.9 - Hypotension, unspecified Status: Acute (3) Acute respiratory failure: Code(s): J96.00 - Acute respiratory failure, unspecified whether with hypoxia or hypercapnia Status: Acute (4) Pneumonia: Qualifiers: Laterality: left Lung location: lower lobe of lung Pneumonia type: due to unspecified organism Qualified Code(s): J18.9 - Pneumonia, unspecified organism Code(s): J18.9 - Pneumonia, unspecified organism Status: Acute (5) Cirrhosis: Qualifiers: Ascites presence: with ascites Hepatic cirrhosis type: alcoholic cirrhosis Qualified Code(s): K70.31 - Alcoholic cirrhosis of liver with ascites Code(s): K74.60 - Unspecified cirrhosis of liver Status: Chronic (6) Anemia: Qualifiers: Anemia type: iron deficiency Iron deficiency anemia type: other iron deficiency Qualified Code(s): D50.8 - Other iron deficiency anemias Code(s): D64.9 - Anemia, unspecified Status: Chronic (7) Esophageal varices: Qualifiers: Esophageal varices bleeding: without bleeding Esophageal varices type: secondary Qualified Code(s): I85.10 - Secondary esophageal varices without bleeding Code(s): I85.00 - Esophageal varices without bleeding Status: Acute (8) DAVID (acute kidney injury): Code(s): N17.9 - Acute kidney failure, unspecified Status: Acute (9) Hyponatremia: Code(s): E87.1 - Hypo-osmolality and hyponatremia Status: Acute (10) Alcohol abuse: Code(s): F10.10 - Alcohol abuse, uncomplicated Status: Acute (11) Substance abuse: Code(s): F19.10 - Other psychoactive substance abuse, uncomplicated Status: Chronic DS: Summary Hospital Course Reason for hospitalization: 49yo female with hx of methamphetamine use, anemia, hyponatremia, alcohol abuse, PTSD, esophageal varices s/p banding, depression, and cirrhosis presents here with generalized weakness, fall, and hypotension. Please see H&P for details. Hospital Course: Following issues were addressed during her hospital course: 1.Acute respiratory failure + sepsis with HoTN: Her chest x-ray with large left lower lobe pneumonia. IV fluids given. Midodrine added - Blood pressure became more stable. BCx NGTD. She was started on Rocephin and Azithromycin. WBC remained normal. She was weaned to room air. IV fluids stopped. Blood pressure remained stable and able to wean midodrine. Urine strep, Legionella antigen p ending. Antibiotic de-escalated. 2. PNA: As above. 3. Liver cirrhosis: Patient with known cirrhosis. GI consulted. Ammonia 21. Abdomen ultrasound 06/09 showing small ascites. Paracentesis 06/10 with removal of 700mL straw colored fluid. Ascitic fluid studies: hazy, RBC<2K. WBC 675 with 32% neutrophils (216). Peritoneal fluid protein 1.4. She had been on antibiotics prior to the paracentesis. Possible SBP. Discussed with GI who recommended continue oral antibiotics to complete 10 day course. Coreg was held but able to added back. Rifaximin added. 4. Possible SBP: as above. 5. Acute on chronic anemia:Hgb dropped to 6.7 during her hospital course status post 1 unit of PRBC 06/09. She has a hx of esophageal varices with last EGD 05/08/2025 with very small barely visible varices noted in the distal esophagus and 3 columns that were not actively bleeding. Hgb better mostly in the 8 range. Colonoscopy was considered but canceled due to possible SBP. Plan for colonoscopy as outpatient. Patient made aware. 6. DAVID: Patient has ADVID with Cr 1.47 on admission. [place] related to sepsis and HoTN. Lasix held. Noted mild hyperkalemia; see below. Creatinine improved 0.88. 7. Hyponatremia: Mild hyponatremia with sodium 132-134 range. [place] related to cirrhosis. Potassium 5.1. TSH normal but Cortisol low at 1.15. Repeat cortisol was 3.4 with Cosyntropin stimulation showing cortisol climbed to 16 which is indeterminate for adrenal insufficiency. Low cortisol probably related to low CBG. Repeat potassium better. 8. Alcohol and substance abuse: Patient has been sober for almost 2 months now. She was congratulated on her sobriety. Patient overall did well. She was able be discharged home on 06/12/2025. Discharge instructions including discharge medications were discussed in detail. Side effect of medications were discussed. All questions were answered. Status at Discharge Cognitive/behavioral status at discharge: stable Time Spent with Patient Time attestation: Total time spent providing and/or coordinating discharge services: 36 minutes Time spent: Greater than 30 minutes Exam Narrative: AF 98.6 121/68 77 16 97% ra Gen - NARD Chest - CTA bilaterally CV - RRR S1/S2 Abd - Soft, nontender. Spleen tip appreciated. Ext - No pedal edema Neuro - Alert and appropriate Psych - Nml mood and affect Skin - Warm and dry DS: Data Data Completed and Pending Pending studies at discharge: Pending at discharge 06/09/25 16:54 Cytology [PTH] Routine Labs on day of discharge: Labs from last 24 hours 06/12/25 06/12/25 06/12/25 09:37 08:52 08:14 WBC 4.2 L RBC 3.40 L Hgb 8.9 L Hct 30.6 L MCV 90.0 MCH 26.2 MCHC 29.1 L RDW 22.3 H Plt Count 262 MPV 11.4 H Sodium 136 L Potassium 4.8 Chloride 103 Carbon Dioxide 28 Anion Gap 5 BUN 14 D Creatinine 0.76 Estim Creat Clear Calc 90 Estimated GFR > 60 Glucose 132 H Calcium 9.1 Cortisol Baseline 3.36 Cortisol Resp 30 Min 11.80 Cortisol Resp 60 Min 15.90 Fluid Total Protein 06/10/25 14:24 WBC RBC Hgb Hct MCV MCH MCHC RDW Plt Count MPV Sodium Potassium Chloride Carbon Dioxide Anion Gap BUN Creatinine Estim Creat Clear Calc Estimated GFR Glucose Calcium Cortisol Baseline Cortisol Resp 30 Min Cortisol Resp 60 Min Fluid Total Protein 1.4 Preliminary micro results at discharge 06/08/25 10:35 Blood Culture - Preliminary Blood 06/08/25 10:38 Blood Culture - Preliminary Blood Discharge Plan Discharge Attending physician on discharge: Sarath Osman Consulting providers: Mitch Pelayo Discharging Clinician: Sarath Osman Anticipated Discharge Date/Time: 06/12/25 14:07 Patient Disposition: Home Activity: as tolerated Diet: heart healthy Discharge Instructions: Low potassium, heart healthy diet Check blood pressure 1 to 2 times a day. Record and bring into your doctor for review. Call your doctor if your blood pressure is less than 90/45. Please complete your antibiotic course even if you are starting to feel well. Take precautions to avoid falls. Rise slowly from a lying or sitting position. Pause before standing or walking. Contact your doctor or call 911 and come to the Emergency Room if you have lightheadedness with standing or other worrisome symptoms. Avoid NSAIDs (ibuprofen, naproxen, Aleve). Tylenol is safe to take. Follow-up with your primary care provider in 1-2 weeks. Please call for appointment. Follow-up with GI for your colonoscopy. Please call for an appointment. Thank you for using [facility] for your health care needs. Patient Instructions: Antibiotic Form Patient Language: German Stand Alone Forms: General Discharge Information Follow-up/Referrals: Mitch Pelayo MD [Physician, Gastroenterology] - Call for Appointment Monty,Junito Mas APRN [Primary Care Provider, Unknown] - Call for Appointment Discharge Medications: New Xifaxan 550 mg Tablet 550 mg PO Q12HR Qty: 60 0RF amoxicillin-pot clavulanate 875-125 mg tablet 1 tablet PO Q12H Qty: 11 0RF Continued gabapentin 800 mg tablet 800 mg PO .Q6 Patient Comments: 4 times a day duloxetine 60 mg capsule,delayed release(DR/EC) 120 mg PO DAILY Prempro 0.3-1.5 mg tablet 1 tablet PO DAILY hydroxyzine HCl 25 mg tablet 50 mg PO Q4H PRN (Reason: anxiety) multivitamin Tablet 1 tablet PO DAILY pantoprazole [Protonix] 40 mg tablet,delayed release (DR/EC) 40 mg PO BID trazodone 100 mg tablet 100 mg PO HS PRN (Reason: sleep) tizanidine 4 mg tablet 4 mg PO Q6H PRN (Reason: muscle pain) Rx Instructions: do not exceed 3 doses per 24 hrs Changed carvedilol [Coreg] 6.25 mg Tablet 3.25 mg PO Q12HR 30 Days Qty: 60 1RF Held furosemide 40 mg Tablet 40 mg PO DAILY Qty: 30 0RF Hold Instructions: Resume when okay with your doctor spironolactone [Aldactone] 50 mg Tablet 100 mg PO QAM Qty: 100 0RF Hold Instructions: HOLD - Resume when okay with your doctor Date of admission: 06/09/25 09:58 Primary Care Provider: Monty,Junito Mas Admitting Provider: Sarah Mckeon Attending physician on admission: Sarah Mckeon Condition: Stable Hospitalist MIPS Heart Failure (Exclusion) Patient has history of Heart Transplant or Left Ventricular Assistive Device?: No IF YES, STOP HERE Heart Failure (Qualifier) Patient has current or prior documentation of LVEF less than or equal to 40%, or mod/servere depressed LVSF?: No IF NO, STOP HERE
[2025-06-12 14:30] VITALS: BP 113/69; PULSE 78; RESP 18; TEMP 36.3; O2SAT 95
[2025-06-12 14:32] VITALS: BP 121/85
[2025-06-12 14:34] VITALS: BP 125/70
--- NOTE | 2025-06-12 16:23 | WPDGIPROGNO ---
Progress Note: A&P Assessment and Plan (1) Cirrhosis: Code(s): K74.60 - Unspecified cirrhosis of liver Status: Acute Assessment and Plan: decompensated with previous EV s/p banding and ascites (2) Sepsis: Qualifiers: Sepsis type: sepsis due to unspecified organism Sepsis acute organ dysfunction status: with acute organ dysfunction Severe sepsis acute organ dysfunction type: acute respiratory failure Acute respiratory failure type: with hypoxia Severe sepsis shock status: without septic shock Qualified Code(s): A41.9 - Sepsis, unspecified organism; R65.20 - Severe sepsis without septic shock; J96.01 - Acute respiratory failure with hypoxia Code(s): A41.9 - Sepsis, unspecified organism Status: Acute Assessment and Plan: resolved- treated for pneumonia ascites showed PMN count of 215 but she was already on abx for pneumonia when she had paracentesis- technically is not SBP but she received antibiotic with albumin renal function is normal now (3) Pneumonia: Qualifiers: Pneumonia type: due to unspecified organism Laterality: left Lung location: lower lobe of lung Qualified Code(s): J18.9 - Pneumonia, unspecified organism Code(s): J18.9 - Pneumonia, unspecified organism Status: Acute Assessment and Plan: on abx (4) SBP (spontaneous bacterial peritonitis): Code(s): K65.2 - Spontaneous bacterial peritonitis Status: Acute Assessment and Plan: possible SBP s/p abx and albumin (5) Hypotension: Qualifiers: Hypotension type: unspecified hypotension type Qualified Code(s): I95.9 - Hypotension, unspecified Code(s): I95.9 - Hypotension, unspecified Status: Acute Assessment and Plan: resolved normal BP now (6) Substance abuse: Code(s): F19.10 - Other psychoactive substance abuse, uncomplicated Status: Acute (7) Acute renal failure: Qualifiers: Acute renal failure type: unspecified Qualified Code(s): N17.9 - Acute kidney failure, unspecified Code(s): N17.9 - Acute kidney failure, unspecified Status: Acute Assessment and Plan: resolved (8) Chronic anemia: Code(s): D64.9 - Anemia, unspecified Status: Acute Assessment and Plan: at some point will need colonoscopy, will set up as outpatient will reassess (9) Liver encephalopathy: Code(s): K76.82 - Hepatic encephalopathy Status: Acute Assessment and Plan: c/o fogginess sometimes will start xifaxan bid Subjective Date/time seen: 06/12/25 16:23 Interval history: doing much better, good appetite, BP normal she is feeling like going home Review of Systems Review of Systems: All systems reviewed & are unremarkable except as noted in HPI and below Exam Const: General: comfortable and no acute distress Other: chronically ill appearing HENMT: Face/Nose/Sinus: Normal nares present Eyes: General: appearance normal, both eyes and all related structures Neck: Neck: supple Resp: Auscultation: clear to auscultation bilaterally Cardio: Rate: regular rate Rhythm: regular rhythm GI: Inspection: non-distended GI Palp: Yes Soft to palpation and No Tenderness to palpation present (GI) Other: minimal fluid wave Skin: General skin exam: normal color Neuro: Speech: normal speech Motor exam (neuro): 5/5 motor strength present throughout Extrem: General: normal to inspection Psych: Mental Status: mental status grossly normal Objective Data Vital Signs Vital Signs: Vital Signs - 24 hr 06/11/25 20:00 06/11/25 20:37 06/11/25 20:38 Temperature 98.1 F Pulse Rate 91 95 Respiratory Rate 20 Blood Pressure 153/95 H Pulse Oximetry 100 Oxygen Delivery Room Air 06/11/25 21:51 06/12/25 09:50 06/12/25 14:30 Temperature 97.3 F L Pulse Rate 95 78 Respiratory Rate 18 Blood Pressure 113/69 Pulse Oximetry 98 95 Oxygen Delivery Room Air 06/12/25 14:30 06/12/25 14:32 06/12/25 14:34 Temperature Pulse Rate Respiratory Rate Blood Pressure 113/69 121/85 125/70 Pulse Oximetry Oxygen Delivery Intake/Output Intake/Output: Intake & Output 06/09/25 06/10/25 06/11/25 06/12/25 23:59 23:59 23:59 23:59 Intake Total 2910 2300 1850 830 Output Total 500 1900 450 Balance 2410 400 1400 830 Meds/Results Medications: Active Medications Generic Name Dose Route Start Last Admin Trade Name Freq PRN Reason Stop Dose Admin Acetaminophen 650 mg 06/08/25 12:26 06/12/25 03:22 Acetaminophen 325 Mg Tablet PO 650 mg Q4H PRN Administration Mild Pain (1-3) or Fever Albuterol/Ipratropium 3 ml 06/08/25 12:45 Ipratropium 0.5 Mg/Albuterol Sulfate 2.5 Mg Ampul.Neb 3 Ml INHALATION Q6HRT PRN Shortness Of Breath Or Wheezing Amoxicillin/Clavulanate Potassium 1 tablet 06/12/25 09:00 06/12/25 09:49 Amoxicillin/Clavulanate K 875-125 Mg Tab PO 06/14/25 21:01 1 tablet Q12HR FRITZ Administration Carvedilol 1.56 mg 06/11/25 21:00 06/12/25 09:50 Carvedilol 1.56 Mg Tablet PO 1.56 mg Q12HR FRITZ Administration Duloxetine HCl 120 mg 06/09/25 09:00 06/12/25 09:50 Duloxetine Hcl 60 Mg Capsule.Dr PO 120 mg DAILY FRITZ Administration Gabapentin 800 mg 06/09/25 00:00 06/12/25 13:37 Gabapentin 400 Mg Capsule PO 800 mg Q6HR FRITZ Administration Guaifenesin 600 mg 06/08/25 14:00 06/12/25 09:52 Guaifenesin 12 Hr 600 Mg Tabcr PO 600 mg Q12HR FRITZ Administration Hydroxyzine HCl 50 mg 06/08/25 20:45 06/10/25 20:28 Hydroxyzine Hcl 25 Mg Tablet PO 50 mg Q4H PRN Administration Anxiety Multivitamins Therapeutic 1 tablet 06/09/25 09:00 06/12/25 09:53 Multivitamins Therapeutic Tab (*Bkc) PO 1 tablet DAILY FRITZ Administration Nicotine 1 patch 06/09/25 13:00 06/12/25 09:53 Nicotine (*Pbkc) 14 Mg Patch TRANSDERM 1 patch DAILY FRITZ Administration Pantoprazole Sodium 40 mg 06/08/25 21:00 06/12/25 10:00 Pantoprazole 40 Mg Tablet PO 40 mg Q12HR FRITZ Administration Promethazine HCl 12.5 mg 06/08/25 12:26 Promethazine Hcl 25 Mg/Ml Ampul IV PUSH Q6H PRN Nausea Rifaximin 550 mg 06/11/25 21:00 06/12/25 09:50 Rifaximin 550 Mg Tablet PO 550 mg Q12HR FRITZ Administration Trazodone HCl 100 mg 06/09/25 20:28 06/11/25 21:33 Trazodone Hcl 50 Mg Tablet PO 100 mg HS PRN Administration Insomnia Radiology Results: ITS Impressions Chest X-Ray 06/08/25 11:11 IMPRESSION: 1. Large left lower lobe pneumonia. Head CT 06/08/25 20:16 IMPRESSION: 1. No acute intracranial abnormality. Abdomen Ultrasound 06/09/25 14:06 IMPRESSION: 1. No acute findings. 2. Cirrhosis. Paracentesis Ultrasound 06/10/25 15:12 IMPRESSION: 1. Successful ultrasound-guided paracentesis yielding 700 mL of straw-colored fluid. Labs Labs: Laboratory Results - last 24 hr 06/12/25 06/12/25 06/12/25 08:14 08:52 09:37 WBC 4.2 L RBC 3.40 L Hgb 8.9 L Hct 30.6 L MCV 90.0 MCH 26.2 MCHC 29.1 L RDW 22.3 H Plt Count 262 MPV 11.4 H Sodium 136 L Potassium 4.8 Chloride 103 Carbon Dioxide 28 Anion Gap 5 BUN 14 D Creatinine 0.76 Estim Creat Clear Calc 90 Estimated GFR > 60 Glucose 132 H Calcium 9.1 Cortisol Baseline 3.36 Cortisol Resp 30 Min 11.80 Cortisol Resp 60 Min 15.90
--- NOTE | 2025-06-16 09:30 | PC.NURSE ---
Urine legionella Ag is negative. Dr. Osman is aware.
--- NOTE | 2025-06-17 08:01 | PC.NURSE ---
Anaerobic and Aerobic show no growth. Dr. Jacqui rodriguez.
--- NOTE | 2025-06-19 07:31 | PC.NURSE ---
Blood cx are negative. Dr. Jacqui rodriguez.
== END 2025-06-12 08:03 | disposition home or self-care (01) | DRG 720 ==
LOC: ANHED 11:04 → ANHIMU 13:03 → ANH3MEDSUR 06-12 14:07 → ANHIMU 06-16 14:11
PROVIDERS: Internal Medicine; Nurse Practitioner Family; Student in an Organized Health Care Education/Training Program; Admitting Provider Internal Medicine; Emergency Provider Emergency Medicine; PCP Nurse Practitioner; Visit Provider Internal Medicine
DX: A41.9 Sepsis, unspecified organism (principal); J96.01 Acute respiratory failure with hypoxia; J18.9 Pneumonia, unspecified organism; R65.20 Severe sepsis without septic shock; N17.9 Acute kidney failure, unspecified; K70.31 Alcoholic cirrhosis of liver with ascites; I85.10 Secondary esophageal varices without bleeding; I95.9 Hypotension, unspecified; E87.1 Hypo-osmolality and hyponatremia; D50.9 Iron deficiency anemia, unspecified; G62.9 Polyneuropathy, unspecified; R29.6 Repeated falls; F32.A Depression, unspecified; F41.9 Anxiety disorder, unspecified; F10.10 Alcohol abuse, uncomplicated; F43.10 Post-traumatic stress disorder, unspecified; F19.10 Other psychoactive substance abuse, uncomplicated; F17.290 Nicotine dependence, other tobacco product, uncomplicated; Z20.822 Contact with and (suspected) exposure to COVID-19; K76.82 Hepatic encephalopathy
CPT/HCPCS: 36415; 36430; 36600; 49083; 70450; 71046; 76705; 80048; 80053; 80069; 81001; 82140; 82375; 82533; 82805; 83050; 83605; 83735; 84132; 84157; 84443; 85018; 85025; 85027; 85610; 85730; 86140; 86850; 86900; 86901; 86923; 87040; 87070; 87075; 87449; 87637; 87641; 87899; 88108; 88305; 88342; 89051; 93005; 96361; 96365; 96375; 99285; A9270; G0378; G0379; J0456; J0696; J0834; J2470; J7030; J7040; J7050; P9016; P9047